=== PATIENT | female | born 1955 | race Caucasian/White ===

== ENCOUNTER 2019-11-04 13:10 | Emergency (ER) | payer MEDICAID, SELFPAY ==
[2019-11-04 14:45] VITALS: BP 198/91; PULSE 77; RESP 18; TEMP 36.6; O2SAT 92; BMI 49.1
--- NOTE | 2019-11-04 14:55 | XR_ITS ---
WS: [id number] XR chest 1V portable [id number] REASON FOR EXAM: cp FINDINGS: Comparisons were made to September 22, 2016. One view of the chest shows cardiomegaly larger than previous exam. Fullness in the right hilum is seen but this is unchanged since 2017. The lung guillen are well aerated. No pneumonia, pleural effusion, pulmonary edema, are pneumothorax. No evidence of rib fractures or osseous abnormalities. The hilum and apices show no gross deformity. XR/XR chest 1V portable [id number] IMPRESSION: Cardiomegaly
--- NOTE | 2019-11-04 14:56 | ECG_ITS ---
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 Measurements Intervals [place] Rate: 75 P: 47 MA: 194 QRS: 15 QRSD: 89 T: 62 QT: 392 QTc: 438 Interpretive Statements SINUS RHYTHM NONSPECIFIC T-WAVE ABNORMALITY Compared to ECG 08/06/2018 09:28:22 T-wave abnormality now present Electronically Signed On 11-05-2019 13:44:04 CDT by Laurel Bunch M.D. [id number]
[2019-11-04 16:24] LABS: Basophils % 0.3 %; Eosinophils # 0.1 10^3/uL (0.0-0.8); Eosinophils % 0.8 %; Hematocrit 37.4 % (37.0-47.0); Hemoglobin 11.3 g/dL (11.5-15.3); Lymphocytes # 2.5 10^3/uL (0.8-4.8); Mean Corpuscular HGB Conc 30.2 g/dL (30.0-36.0); Mean Corpuscular Hemoglobin 26.1 pg (28.0-34.0); Mean Corpuscular Volume 86.4 fL (81-99); Mean Platelet Volume 9.4 fL (7.4-10.4); Monocytes # 0.7 10^3/uL (0.2-0.9); Monocytes % 5.3 %; Neutrophils # 9.2 10^3/uL (1.8-7.7); Neutrophils % 73.4 %; Nucleated Red Blood Cells % 0 %; Platelet Count 358 10^3/cmm (130-400); Red Blood Count 4.33 10^6/uL (4.1-5.3); Red Cell Distribution Width 17.2 % (12.1-15.1); White Blood Count 12.5 10^3/uL (4.0-10.0)
--- NOTE | 2019-11-04 16:24 | CTR_ITS ---
PROCEDURE INFORMATION: Exam: CT Angiography Chest With Contrast Exam date and time: 11/04/2019 4:58 PM Age: 64 years old Clinical indication: Shortness of breath and other: Fluid retention; Patient HX: Scanned twice due to bad iv; Additional info: SOB TECHNIQUE: Imaging protocol: Computed tomographic angiography of the chest with intravenous contrast. 3D rendering: MIP and/or 3D reconstructed images were created by the technologist. Radiation optimization: All CT scans at this facility use at least one of these dose optimization techniques: automated exposure control; mA and/or kV adjustment per patient size (includes targeted exams where dose is matched to clinical indication); or iterative reconstruction. Contrast material: VISI 320; Contrast volume: 95 ml; Contrast route: INTRAVENOUS (IV); COMPARISON: No relevant prior studies available. RADIATION DOSE METRICS: Total DLP (mGy-cm): 1270.77 FINDINGS: Pulmonary arteries: There is no pulmonary embolus. Aorta: Unremarkable. No aortic aneurysm. No aortic dissection. Thyroid: the thyroid gland is enlarged and heterogeneous but no discrete nodule is identified. 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 The enlarged left thyroid lobe is displacing the trachea to the right. Lungs: There are calcified granulomas in the lungs. There is mild ground-glass opacity in the lungs compatible with mild pneumonitis or atelectasis. There is no dense lobar consolidation. Pleural space: Unremarkable. No pneumothorax. No pleural effusion. Heart: The heart is enlarged. Mediastinal space: There is mild narrowing of the lumen of the trachea. Lymph nodes: Unremarkable. No enlarged lymph nodes. Bones/joints: There are moderate degenerative changes in the spine. Soft tissues: Unremarkable. CT/CT angio chest PE protcl [id number] IMPRESSION: 1. Enlarged heterogeneous thyroid gland without a discrete nodule. The thyroid gland is resulting in mass effect on the trachea. 2. There is no pulmonary embolus. 3. There is minimal ground-glass opacity in the lungs compatible with mild pneumonitis or atelectasis. No lobar consolidation. Radiation Dose CTDIVOL = (mGy): DLP = 1270.77 (mGy-cm)
--- NOTE | 2019-11-04 16:31 | W.ED.GENADLT ---
HPI - General Adult General: Chief complaint: General Medical Stated complaint: sent by doctor Time Seen by Provider: 11/04/19 16:19 Source: patient Mode of arrival: EMS Limitations: no limitations History of Present Illness: HPI narrative: 64-year-old female who states she has had increasing exertional dyspnea over the last 1 to 2 weeks. Patient states she also had weight gain as well and feels like she is overloaded with fluid. She has no history of congestive heart failure or COPD. She denies any chest pain or fevers. She has had a very mild cough. Onset (ago): week(s) Associated symptoms: Reports dyspnea; Deny chest pain, headache(s), nausea, rash or vomiting Review of Systems Const: Denies: fever(s), chills, body aches or change in appetite Eyes: Denies: blurry vision or eye discomfort ENMT: Denies: throat pain or dental pain Card: Denies: chest pain Resp: Reports: dyspnea GI: Denies: abdominal pain, nausea, vomiting or diarrhea : Denies: dysuria Musc: Denies: neck pain or back pain Skin/Breast: Denies: rash Neuro: Denies: headache(s) Psych: Denies: depression Matteo/Lymph: Denies: easy bruising All/Imm: Denies: urticaria PFSH ED PFSH: Social History Smoking and tobacco status: current every day smoker Physical Exam Const: COMMON NORMALS: no acute distress, patient oriented x3 and healthy appearing HENMT: COMMON NORMALS: normocephalic and atraumatic HEAD & SCALP: normocephalic and atraumatic Eye: COMMON NORMALS: Equal, round and reactive pupils present and EOMs intact bilaterally PUPIL: Yes Equal, round and reactive pupils present Neck/C-Spine: COMMON NORMALS: full ROM and supple Chest: COMMONS NORMALS: normal inspection of the chest and normal palpation of entire chest wall Resp: COMMON NORMALS: normal respiratory effort, No retractions, No use of accessory muscles and clear to auscultation bilaterally AUSCULTATION: clear to auscultation bilaterally Cardio: COMMON NORMALS: regular rate, regular rhythm and No murmurs present (Cardio) RATE: regular rate RHYTHM: regular rhythm GI: COMMON NORMALS: Normal to inspection, nondistended, normoactive bowel sounds present, Soft to palpation, non-tender and no masses PALPATION: Yes Soft to palpation Extremity: COMMON NORMALS: normal to inspection and full ROM GENERAL: Yes edema Neuro: COMMON NORMALS: patient oriented x3, moves all extremities and no focal motor deficits Psych: COMMON NORMALS: mental status grossly normal, Normal thought process present and cooperative THOUGHT PROCESS: Normal thought process present Skin: COMMON NORMALS: no rashes or lesions noted and no wounds GENERAL SKIN EXAM: no rashes or lesions noted Course Vital Signs: Vital signs: Vital Signs Temperature 97.9 F 11/04/19 14:45 Pulse Rate 80 11/04/19 18:51 Respiratory Rate 14 11/04/19 18:51 Blood Pressure 183/64 11/04/19 18:51 Pulse Oximetry 92 11/04/19 18:51 MDM - General Adult MDM Narrative: Medical decision making narrative: Bridget presents here with shortness of breath that is been going on for weeks. Patient has mild CHF and given IV Lasix here and will start Lasix well. CT did show an enlarged thyroid. She has no signs of tracheal obstruction here and has had no desaturation here or difficulty breathing. I spoke to her PCP Dr. Cantu and will start her on Lasix and she is to follow-up with him in 2 to 4 days and return to ER if worsening. She understands and agrees to this plan. Lab Data: Labs: Lab Results 11/04/19 11/04/19 11/04/19 Range/Units 16:18 16:18 16:18 WBC 12.5 H (4.0-10.0) 10^3/ uL RBC 4.33 (4.1-5.3) 10^6/u L Hgb 11.3 L (11.5-15.3) g/dL Hct 37.4 (37.0-47.0) % MCV 86.4 (81-99) fL MCH 26.1 L (28.0-34.0) pg MCHC 30.2 (30.0-36.0) g/dL RDW 17.2 H (12.1-15.1) % Plt Count 358 (130-400) 10^3/c mm MPV 9.4 (7.4-10.4) fL Neut % (Auto) 73.4 % Lymph % (Auto) 20.0 % [place] % (Auto) 5.3 % Eos % (Auto) 0.8 % Baso % (Auto) 0.3 % Neut # (Auto) 9.2 H (1.8-7.7) 10^3/u L Lymph # (Auto) 2.5 (0.8-4.8) 10^3/u L [place] # (Auto) 0.7 (0.2-0.9) 10^3/u L Eos # (Auto) 0.1 (0.0-0.8) 10^3/u L Baso # (Auto) 0.0 (0.0-0.1) 10^3/u L Nucleated RBC % (a uto) 0 % Nucleated RBCs # 0.0 /100WBC PT 12.40 (10.5-13.3) SECO NDS INR 0.90 (0.8-1.2) Sodium 143 (136-145) mmol/L Potassium 3.4 L (3.5-5.1) mmol/L Chloride 101 (98-107) mmol/L Carbon Dioxide 31 H (22-29) mmol/L Anion Gap 14.4 (5-19) BUN 24 H (8-23) mg/dL Creatinine 1.2 H (0.5-0.9) mg/dL GFR Calculation 45.2 L (90-130) mL/min Glucose 110 (65-115) mg/dL Calculated Osmolal ity 293 (285-295) mOsm/k g Calcium 9.4 (8.5-10.5) mg/dL Total Bilirubin 0.2 (0.15-1.2) mg/dL AST 12 (0-32) U/L ALT 13 (0-33) U/L Alkaline Phosphata se 130 H (35-105) IU/L Troponin T Baselin e (0-10) ng/L Troponin T 120 Min [place] (0-10) ng/L NT-Pro-B Natriuret Pep 338 H (0-125) pg/mL Total Protein 7.3 (6.6-8.7) g/dL Albumin 3.6 (3.5-5.2) g/dL Globulin 3.7 (1.3-4.6) g/dL TSH (0.27-4.20) uIU/ mL 06/16/20 06/16/20 06/16/20 Range/Units 16:18 16:18 18:20 WBC (4.0-10.0) 10^3/ uL RBC (4.1-5.3) 10^6/u L Hgb (11.5-15.3) g/dL Hct (37.0-47.0) % MCV (81-99) fL MCH (28.0-34.0) pg MCHC (30.0-36.0) g/dL RDW (12.1-15.1) % Plt Count (130-400) 10^3/c mm MPV (7.4-10.4) fL Neut % (Auto) % Lymph % (Auto) % [place] % (Auto) % Eos % (Auto) % Baso % (Auto) % Neut # (Auto) (1.8-7.7) 10^3/u L Lymph # (Auto) (0.8-4.8) 10^3/u L [place] # (Auto) (0.2-0.9) 10^3/u L Eos # (Auto) (0.0-0.8) 10^3/u L Baso # (Auto) (0.0-0.1) 10^3/u L Nucleated RBC % (a uto) % Nucleated RBCs # /100WBC PT (10.5-13.3) SECO NDS INR (0.8-1.2) Sodium (136-145) mmol/L Potassium (3.5-5.1) mmol/L Chloride (98-107) mmol/L Carbon Dioxide (22-29) mmol/L Anion Gap (5-19) BUN (8-23) mg/dL Creatinine (0.5-0.9) mg/dL GFR Calculation (90-130) mL/min Glucose (65-115) mg/dL Calculated Osmolal ity (285-295) mOsm/k g Calcium (8.5-10.5) mg/dL Total Bilirubin (0.15-1.2) mg/dL AST (0-32) U/L ALT (0-33) U/L Alkaline Phosphata se (35-105) IU/L Troponin T Baselin e 16 H (0-10) ng/L Troponin T 120 Min [place] 16.56 H (0-10) ng/L NT-Pro-B Natriuret Pep (0-125) pg/mL Total Protein (6.6-8.7) g/dL Albumin (3.5-5.2) g/dL Globulin (1.3-4.6) g/dL TSH 2.27 (0.27-4.20) uIU/ mL Imaging Data^: CXR: Radiologist's impression: [address] [address] XRay Report Signed Patient: Bridget Faye Unit #: [id number] : 1955 Age/Sex: 64 / F ADM Date: 11/04/19 Loc: ER Room/Bed: Attending Dr: Ordering Provider/Ordering MD: Jamey Tony MD Date of Service: 11/04/19 Procedure(s): XR chest 1V portable [id number] Accession Number(s): [id number] Report Number: [id number] WS: [id number] XR chest 1V portable [id number] REASON FOR EXAM: cp FINDINGS: Comparisons were made to September 22, 2016. One view of the chest shows cardiomegaly larger than previous exam. Fullness in the right hilum is seen but this is unchanged since 2017. The lung guillen are well aerated. No pneumonia, pleural effusion, pulmonary edema, are pneumothorax. No evidence of rib fractures or osseous abnormalities. The hilum and apices show no gross deformity. XR/XR chest 1V portable [id number] IMPRESSION: Cardiomegaly EKG Data^: EKG 1: Attestation: I personally reviewed and interpreted this EKG as follows: EKG interpretation date: 11/04/19 EKG interpretation time: 14:53 Interpretation: nsr hr [address] or t wave abnormalities qrs 89 qtc 420 Computer generated interpretation: Chest X-Ray 11/04/19 14:55 IMPRESSION: Cardiomegaly Chest CTA 11/04/19 16:24 IMPRESSION: 1. Enlarged heterogeneous thyroid gland without a discrete nodule. The thyroid gland is resulting in mass effect on the trachea. 2. There is no pulmonary embolus. 3. There is minimal ground-glass opacity in the lungs compatible with mild pneumonitis or atelectasis. No lobar consolidation. Radiation Dose CTDIVOL = (mGy): DLP = 1270.77 (mGy-cm) EKG 2: Attestation: I personally reviewed and interpreted this EKG as follows: EKG interpretation date: 11/04/19 EKG interpretation time: 17:00 Interpretation: This rhythm heart rate [address] or T wave abnormalities QRS 91 QTC 400 Computer generated interpretation: Chest X-Ray 11/04/19 14:55 IMPRESSION: Cardiomegaly Chest CTA 11/04/19 16:24 IMPRESSION: 1. Enlarged heterogeneous thyroid gland without a discrete nodule. The thyroid gland is resulting in mass effect on the trachea. 2. There is no pulmonary embolus. 3. There is minimal ground-glass opacity in the lungs compatible with mild pneumonitis or atelectasis. No lobar consolidation. Radiation Dose CTDIVOL = (mGy): DLP = 1270.77 (mGy-cm) Discharge Plan Discharge Patient Disposition: Home, Self-Care Clinical Impression: Acute dyspnea, Enlarged thyroid Condition: Stable Prescriptions: New Lasix 40 mg tablet 40 mg PO DAILY Qty: 30 RF: 0 No Action losartan 50 mg Tablet 50 mg PO DAILY RF: 0 atorvastatin 40 mg Tablet 40 mg PO DAILY RF: 0 metformin 500 mg Tablet 500 mg PO BID RF: 0 trazodone 50 mg Tablet 50 mg PO BEDTIME RF: 0 aspirin 325 mg Tablet 325 mg PO DAILY RF: 0 sertraline 100 mg Tablet 100 mg PO DAILY RF: 0 hydrochlorothiazide 25 mg Tablet 25 mg PO DAILY RF: 0 Abilify 2 mg Tablet 2 mg PO DAILY RF: 0 Discharge Orders: Discharge Order (Routine); Ordered 11/04/19 Ordered By: Jamey Tony Referrals: Jhony Cantu MD [Primary Care Provider] - 1-3 days Discharge Diet: Advance as tolerated Discharge Activity: Resume usual activity Patient Instructions: Dyspnea (ED) Coding Level of Care Code ED Automated Logistics Specialist for Chg Fwd Exam Comprehensive
[2019-11-04 16:42] LABS: Troponin(5th) Baseline 16 ng/L (0-10)
[2019-11-04 16:49] LABS: Alanine Aminotransferase 13 U/L (0-33); Albumin Level 3.6 g/dL (3.5-5.2); Alkaline Phosphatase 130 IU/L (35-105); Anion Gap 14.4 (5-19); Aspartate Amino Transferase 12 U/L (0-32); Blood Urea Nitrogen 24 mg/dL (8-23); Calcium 9.4 mg/dL (8.5-10.5); Carbon Dioxide 31 mmol/L (22-29); Chloride 101 mmol/L (98-107); Globulin 3.7 g/dL (1.3-4.6); Glomerular Filtration Rate 45.2 mL/min (90-130); Glucose 110 mg/dL (65-115); NT Pro B Type Natriuretic Pept 338 pg/mL (0-125); Osmolality Calculated 293 mOsm/kg (285-295); Potassium 3.4 mmol/L (3.5-5.1); Sodium 143 mmol/L (136-145); Total Bilirubin 0.2 mg/dL (0.15-1.2); Total Protein 7.3 g/dL (6.6-8.7)
--- NOTE | 2019-11-04 16:56 | ECG_ITS ---
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 Measurements Intervals [place] Rate: 75 P: 65 AL: 195 QRS: 25 QRSD: 91 T: 63 QT: 372 QTc: 415 Interpretive Statements SINUS RHYTHM NONSPECIFIC T-WAVE ABNORMALITY Compared to ECG 11/04/2019 14:53:34 No significant changes Electronically Signed On 11-05-2019 14:15:03 CDT by Laurel Bunch M.D. [id number]
[2019-11-04] MEDS: iodixanol 320 mg/mL 100mL Btl IV (17:26)
[2019-11-04] MEDS: hyDRALAzine 20 mg/mL INJ 1 mL 10 MG IVP (17:46)
[2019-11-04] MEDS: FUROsemide 10 mg/mL SDV 10mL 60 MG IVP (17:47)
[2019-11-04 17:58] VITALS: BP 169/65; PULSE 73; RESP 20; O2SAT 92
--- NOTE | 2019-11-04 18:02 | USCV_ITS ---
NOTE: Report was unsigned for reason: Order was edited. Original Signature date and time was: 11/06/19 @ 805 Bridget Faye Age: 64 Gender: F : 1955 Exam Date: 11/04/2019 18:48 Ordering Phys: Jamey Tony MD Technologist: Kvng David Exam Location: [facility] [place] Indication: BILAT EDEMA Aortic Velocity @ SMA (cm/s) FINDINGS Normal 2-D Doppler and augmentation and compressibility throughout the lower extremity venous structures. Additional imaging through the proximal calf veins also reveals no thrombus. Limited evaluation of the greater saphenous vein is patent with no thrombus.. CONCLUSIONS No evidence of DVT in the above-mentioned identifiable veins. Dr Arlene James MD [facility] Edited by: CV Hoop Expander (Electronically Signed) Final Date: 06 November 2019 08:05 Amended: 07 November 2019 07:34 C MTDD
[2019-11-04 18:26] LABS: Thyroid Stimulating Hormone 2.27 uIU/mL (0.27-4.20)
[2019-11-04 18:51] VITALS: BP 183/64; PULSE 80; RESP 14; O2SAT 92
[2019-11-04 18:57] LABS: Troponin 5 2HR 16.56 ng/L (0-10); Troponin 5 2HR Delta 0.56 ABS# (0-10)
== END 2019-11-04 19:08 | disposition home or self-care (01) ==
PROVIDERS: Emergency Provider Emergency Medicine; PCP Family Medicine
DX: R06.00 Dyspnea, unspecified (principal); E04.9 Nontoxic goiter, unspecified; Z79.82 Long term (current) use of aspirin; F17.210 Nicotine dependence, cigarettes, uncomplicated
CPT/HCPCS: 12345; 36415; 71045; 71275; 80053; 83880; 84443; 84484; 85025; 85610; 93005; 93970; 96374; 96375; 99282; 99284; J0360; J1940; Q9967

== ENCOUNTER 2019-11-12 15:29 | Outpatient (CLI) | payer MEDICAID, SELFPAY ==
--- NOTE | 2019-11-12 15:54 | USCV_ITS ---
Bridget Faye Age: 64 Gender: F : 1955 Exam Date: 11/12/2019 16:05 Ordering Phys: Jhony Cantu MD Technologist: Sena Gutiérrez [place] [facility] [place] Indication: AORTIC INSUFFICIENCY BP: / HR: 76 Rhythm: Sinus Technical Quality: mildly TDS due to body habitus MEASUREMENTS (Male / Female) Normal Values 2D ECHO LV Diastolic Diameter PLAX 3.5 cm 4.2 - 5.9 / 3.9 - 5.3 cm LV Systolic Diameter PLAX 1.9 cm IVS Diastolic Thickness 2.0 cm 0.6 - 1.0 / 0.6 - 0.9 cm IVS Systolic Thickness 2.4 cm LVPW Diastolic Thickness 1.3 cm 0.6 - 1.0 / 0.6 - 0.9 cm LVPW Systolic Thickness 1.8 cm LV Ejection Fraction 2D Teich 77.6 % LV Ejection Fraction MOD 2C 81.0 % LV Ejection Fraction 2C AL 83.6 % LA Diameter 4.3 cm LA Width 3.2 cm LA Height 5.1 cm RA Width 2.4 cm RA Height 4.7 cm M-MODE LV Diastolic Diameter MM 4.9 cm 4.2 - 5.9 / 3.9 - 5.3 cm LV Systolic Diameter MM 3.2 cm LV Ejection Fraction MM Teich 64.0 % IVS Diastolic Thickness MM 1.1 cm 0.6 - 1.0 / 0.6 - 0.9 cm IVS Systolic Thickness MM 1.2 cm LVPW Diastolic Thickness MM 1.5 cm 0.6 - 1.0 / 0.6 - 0.9 cm LVPW Systolic Thickness MM 1.9 cm Aortic Annulus Diameter 3.0 cm LA Ao Ratio MM 1.4 MV E Point Septal Separation 0.8 cm DOPPLER AV Peak Velocity 289.0 cm/s LVOT Peak Velocity 151.0 cm/s MV Peak Velocity 154.0 cm/s MV Area PHT 1.9 cm squared Mitral E to A Ratio 0.4 MV E' Velocity 4.0 cm/s Mitral E to MV E' Ratio 16.2 Mitral E to LV E' Lateral Ratio 15.0 Mitral E to LV E' Septal Ratio 17.5 TR Peak Velocity 171.0 cm/s TR Peak Gradient 11.7 mmHg Right Atrial Pressure 3.0 mmHg Pulmonary Artery Systolic Pressu 14.7 mmHg PV Peak Velocity 153.0 cm/s RV Acceleration Time 0.1 s FINDINGS Left Ventricle Normal left ventricular cavity size. Normal left ventricular systolic function. No regional wall motion abnormalities. Left ventricular ejection fraction is estimated at 60 %. Grade I/IV diastolic dysfunction (abnormal relaxation filling pattern), normal to mildly elevated filling pressures. Right Ventricle The right ventricle is normal in size and function. Right Atrium The right atrium is normal in size. Left Atrium Moderately increased left atrial size. Mitral Valve Structurally normal mitral valve without significant stenosis or prolapse. Moderate mitral annular calcification. There is no mitral regurgitation. Aortic Valve Severe aortic valve calcification. Moderate aortic valve stenosis, mean gradient 17.6 mmHg, mild aortic valve regurgitation. . Tricuspid Valve Structurally normal tricuspid valve without significant stenosis or regurgitation. Pulmonary artery systolic pressure is normal. Pulmonic Valve Structurally normal pulmonic valve without significant stenosis. There is no pulmonic regurgitation. Pericardium Normal pericardium without effusion. Aorta Normal ascending aorta dimension. CONCLUSIONS 1-Normal left ventricular cavity size. Normal left ventricular systolic function. No regional wall motion abnormalities. Left ventricular ejection fraction is estimated at 60 %. Grade I/IV diastolic dysfunction (abnormal relaxation filling pattern), normal to mildly elevated filling pressures. 2-Severe aortic valve calcification. Moderate aortic valve stenosis, mean gradient 17.6 mmHg, mild aortic valve regurgitation. . 3-Moderately increased left atrial size. 4-Structurally normal mitral valve without significant stenosis or prolapse. Moderate mitral annular calcification. There is no mitral regurgitation. 5-There is no pericardial effusion. 6-Right atrial pressure is around 5 mm of mercury. 7-When compared to the prior echocardiogram dated 09/24/2015 there appeared to be worsening of aortic stenosis to mild stenosis while there appeared to be mild to moderate aortic valve regurgitation now. Tomer Fagan MD (Electronically Signed) Final Date: 12 November 2019 17:52 S
== END 2019-11-12 15:30 | disposition home or self-care (01) ==
LOC: RAD 15:29
PROVIDERS: PCP Family Medicine; Visit Provider Family Medicine
DX: I35.1 Nonrheumatic aortic (valve) insufficiency (principal)
CPT/HCPCS: 93306

== ENCOUNTER → 2020-01-28 13:54 | Outpatient (BNVA) | payer MEDICAID, SELFPAY | PROVIDERS: Family Provider Family Medicine; PCP Family Medicine; Visit Provider Internal Medicine Cardiovascular Disease | DX: I10 Essential (primary) hypertension (principal); R06.00 Dyspnea, unspecified; I35.0 Nonrheumatic aortic (valve) stenosis | CPT/HCPCS: 80053; 83735; 83880 ==

== ENCOUNTER 2020-03-24 07:25 | Outpatient (CLI) | payer MEDICAID, SELFPAY ==
--- NOTE | 2020-03-24 07:44 | ECG_ITS ---
[facility] Test Date: 2020-03-24 Pat Name: Bridget Faye Department: Room: Gender: Female Intermission Coordinator: Estefani Bustamante : 1955 Requested By: Laurel Bunch Order Number: [id number] Phong MD: Laurel Bunch M.D. Interpretive Statements NAME OF STUDY: LEXISCAN SESTAMIBI STRESS TEST INDICATION: Chest pain, exertional dyspnea PROCEDURE: At the baseline, the blood pressure was 138/79 mmHg with a heart rate of 72 bpm. The electrocardiogram showed normal sinus rhythm, normal axis. Poor anterior R wave progression. Poor baseline artifact. The Lexiscan was infused over a period of 20 seconds. A total of 0.4 milligrams of Lexiscan was infused. The stress phase was continued for a total of 5 minutes. Heart rate at the end of the stress phase was 76 bpm with a blood pressure 147/75 mmHg. The EKG at the peak infusion revealed sinus rhythm with no significant ST-T wave changes. The study was terminated due to protocol completion. Sestamibi was injected 20 seconds after the Lexiscan infusion. Blood pressure at the end of the recovery phase was 153/76 mmHg with a heart rate of 77 beats per minute. CONCLUSION: 1. No significant EKG changes with the LexiScan infusion. 2. No LexiScan induced chest pain or cardiac arrhythmia. 3. Normal blood pressure and heart rate response. 4. Sestamibi/sestamibi perfusion scan pending; see separate report. Electronically Signed On 03-25-2020 13:44:12 TINNER HELPER by Laurel Bunch M.D. [id number]
--- NOTE | 2020-03-24 07:44 | NMCV_ITS ---
NM umesh perf SPECT r/s* [id number] Bridget Faye Age: 64 Gender: F : 1955 Exam Date: 03/24/2020 08:22 Ordering Phys: Laurel Bunch MD ([email or web address]) Technologist: ABDON Temple Exam Location: [facility] Indications: CHEST PAIN, SOB STRESS TEST [facility] IMAGE PROTOCOL Rest/Stress 1 Lexiscan Day Radiopharmaceutical Dose (mCi) Administration Site Administered by Rest: Tc-99m 10.9 IV ABDON Jeronimo Sestamibi Stress:Tc-99m 33.0 IV ABDON Temple Sestamiveronique Rest: 24-Mar-2020 60 Discovery 630 Stress: 24-Mar-2020 30 Discovery 630 0.4mg Lexiscan. Images obtained in supine and prone position. SPECT RESULTS Technical Quality: Good Raw Data Analysis: Breast attenuation Image Corrections: No attenuation or motion correction applied Summed Stress Score: 0 Summed Rest Score: 1 Summed Difference Score: 0 PERFUSION FINDINGS SPECT images demonstrate homogeneous tracer distribution throughout the myocardium. FUNCTIONAL RESULTS (calculated via Gated SPECT) Stress Image LV EF (%): 69 Stress EDV (mL):116 TID: 0.95 Stress ESV (mL):36 FUNCTIONAL FINDINGS: The left ventricle is normal in size. Transient Ischemia Dilatation of 0.95. There is normal left ventricular systolic function. The left ventricular ejection fraction is normal with a value of 69%. There is normal left ventricular wall thickening. Normal end-diastolic and end-systolic volumes. IMPRESSIONS 1. Myocardial perfusion imaging is normal. 2. Overall left ventricular systolic function is normal without regional wall motion abnormalities. 3. The left ventricular ejection fraction is normal with a value of 69%. 4. Scan indicates low risk for cardiac events. Laurel Bunch MD (Electronically Signed) Final Date: 25 March 2020 17:41 S
[2020-03-24 07:45] VITALS: BMI 47.2
[2020-03-24 09:15] VITALS: BP 155/78; PULSE 80
[2020-03-24] MEDS: regadenoson 0.4 Mg/5 ml Syringe IVP (09:15)
== END 2020-03-24 07:26 | disposition home or self-care (01) ==
LOC: CDL 07:27
PROVIDERS: PCP Family Medicine; Visit Provider Internal Medicine Cardiovascular Disease
DX: R07.9 Chest pain, unspecified (principal); R06.00 Dyspnea, unspecified
CPT/HCPCS: 78452; 93017; A9500; J2785

== ENCOUNTER 2020-06-22 14:43 | Inpatient (IN) | payer MEDICAID, SELFPAY ==
[2020-06-22] VITALS (26 sets, daily range): BP systolic 126–204; BP diastolic 73–102; PULSE 74–100; RESP 18–39; TEMP 36.3–37; O2SAT 90–98; BMI 46.8
--- NOTE | 2020-06-22 14:57 | XR_ITS ---
WS: [id number] PORTABLE CHEST HISTORY: dyspnea/cough COMPARISON: 11/04/2019 Slight increase in pulmonary vasculature. Linear area of atelectasis posterior to the LEFT heart. No pleural effusion or pneumothorax. Cardiac size: Moderately enlarged cardiac silhouette. Mediastinum/Aorta: Normal mediastinum. No osseous abnormality seen. XR/XR chest 1V portable [id number] IMPRESSION: Moderate cardiomegaly with mild venous congestion.
--- NOTE | 2020-06-22 14:58 | W.ED.SOB ---
HPI - SOB/Dyspnea General: Chief Complaint: Shortness of Breath/Dyspnea Stated Complaint: RESP DISTRESS Time Seen by Provider: 06/22/20 14:56 History of Present Illness: HPI Narrative: 64-year-old female sent to the emergency room for a primary care doctor doctor's office. She has a known history of aortic stenosis being monitored by Dr. Cantu. 6 months ago she had moderate stenosis. She has a history of severe obesity diabetes mellitus hypertension she presented to the office today with sats room air in the 60s that improved to the 90s with 2 L by nasal cannula. She had increased swelling and increased orthopnea over the last 2 to 3 days.. Some mild chest discomfort she is extremely hypertensive as well. She not having any chest pain at this time. When she arrived here she been given 40 Lasix and was on BiPAP. When we took EMS BiPAP off replace it with our she was able to answer questions and provide a good history. MD elicited complaint: shortness of breath and cough Pertinent past history: congestive heart failure and other (Aortic stenosis) Onset (ago): day(s) Context: other (History of aortic stenosis) Timing: constant Severity: moderate Exacerbating factors: lying flat, exertion and coughing Relieving factors: oxygen, rest, upright position and other (BiPAP) Known history of: congestive heart failure Associated symptoms: Reports cough, nausea and orthopnea; Deny abdominal pain, chest congestion, chest pain, diaphoresis, dizziness, extremity pain, fever(s), hemoptysis, lightheadedness, myalgias, palpitations, paresthesias, polydipsia, polyuria, rash, sense of impending doom, syncope or vomiting Treatment prior to arrival: oxygen, nitroglycerin and other (BiPAP) Review of Systems Const: Denies: fever(s) or diaphoresis Eyes: Denies: change in vision or blurry vision ENMT: Denies: throat pain, oral sores, dental pain, nasal discharge or nasal congestion Card: Reports: orthopnea; Denies: chest pain, palpitations, lightheadedness or syncope Resp: Denies: hemoptysis or chest congestion GI: Reports: nausea; Denies: abdominal pain or vomiting : Denies: flank pain, dysuria, urinary frequency, urinary urgency, urinary incontinence or hematuria Musc: Denies: extremity pain Skin/Breast: Denies: rash, pruritus or erythema Neuro: Denies: dizziness Psych: Denies: anxiety, depression, loss of interest, visual hallucinations, auditory hallucinations, suicidal ideation or homicidal ideation Endo: Denies: polyuria or polydipsia Matteo/Lymph: Denies: easy bruising, easy bleeding, petechiae, enlarged lymph nodes or tender lymph nodes [facility] ED PFSH: Medical History (Updated 06/22/20 @ 18:06 by Duc Jacobs MD) Aortic regurgitation Aortic stenosis Aortic stenosis Chronic kidney disease, stage 3 Diabetes Diabetes mellitus type 2 in obese Hyperlipidemia Hypertension Morbid obesity with BMI of 45.0-49.9, adult Obesity Tobacco abuse Surgical History (Updated 06/22/20 @ 17:44 by Duc Jacobs MD) H/O arthroscopic knee surgery H/O tubal ligation Family History Other Diabetes Hypertension Stroke Social History Smoking and tobacco status: current every day smoker Alcohol intake: current Alcohol intake frequency: other Physical Exam Const: COMMON NORMALS: no acute distress GENERAL APPEARANCE: cooperative and comfortable ORIENTATION/CONSCIOUSNESS: Yes awake, Yes oriented to person, Yes oriented to place and Yes oriented to time HENMT: COMMON NORMALS: normocephalic, atraumatic and hearing grossly normal bilaterally HEAD & SCALP: normocephalic and atraumatic Neck/C-Spine: COMMON NORMALS: no JVD Lymph: LYMPHATIC: no lymphadenopathy noted and no lymphedema noted Resp: EFFORT & INSPECTION: Yes tachypneic AUSCULTATION: crackles and diminished lung sounds Cardio: COMMON NORMALS: no JVD, regular rate and regular rhythm RATE: regular rate RHYTHM: regular rhythm HEART SOUNDS: Murmur heart sound present systolic Location: right sternal border Radiation: to the neck Intensity: II/ GI: COMMON NORMALS: Soft to palpation and No hepatosplenomegaly present AUSCULTATION: Yes normoactive bowel sounds PALPATION: Yes Soft to palpation, No Tenderness to palpation present (GI), No Guarding due to palpation present (GI) and Yes No hepatosplenomegaly present Extremity: GENERAL: Yes edema (Bilateral lower extremities) Neuro: SENSORIUM/ORIENTATION: Yes oriented to person, Yes oriented to place and Yes oriented to time Skin: COMMON NORMALS: no rashes or lesions noted GENERAL SKIN EXAM: no rashes or lesions noted Course Vital Signs: Vital signs: Vital Signs Temperature 98.7 F 06/24/20 04:00 Pulse Rate 75 06/24/20 05:45 Respiratory Rate 22 H 06/24/20 04:00 Blood Pressure 155/71 06/24/20 04:00 Pulse Oximetry 92 06/24/20 04:00 MDM - SOB/Dyspnea MDM Narrative: Medical decision making narrative: Improved with improved blood pressure control and some diuresis. She'll need to be admitted reevaluate her cardiac function and valve. Adjustment for blood pressure medications. Discussed with hospitalist orders written Lab Data: Labs: Lab Results 06/22/20 06/22/20 06/22/20 Range/Units 15:05 15:10 15:10 WBC 12.8 H (4.0-10.0) 10^3/ uL RBC 4.48 (4.1-5.3) 10^6/u L Hgb 10.9 L (11.5-15.3) g/dL Hct 38.5 (37.0-47.0) % MCV 85.9 (81-99) fL MCH 24.3 L (28.0-34.0) pg MCHC 28.3 L (30.0-36.0) g/dL RDW 19.5 H (12.1-15.1) % Plt Count 373 (130-400) 10^3/c mm MPV 9.7 (7.4-10.4) fL Neut % (Auto) 79.2 % Lymph % (Auto) 14.8 % Turner % (Auto) 4.7 % Eos % (Auto) 0.7 % Baso % (Auto) 0.3 % Neut # (Auto) 10.14 H (1.8-7.7) 10^3/u L Lymph # (Auto) 1.9 (0.8-4.8) 10^3/u L Turner # (Auto) 0.6 (0.2-0.9) 10^3/u L Eos # (Auto) 0.1 (0.0-0.8) 10^3/u L Baso # (Auto) 0.0 (0.0-0.1) 10^3/u L Nucleated RBC % (a uto) 0 % Nucleated RBCs # 0.0 /100WBC Specimen Type Arterial Sample Site Radial, left ABG pH 7.33 L (7.35-7.45) ABG pCO2 53.0 H (35-45) mmHg ABG pO2 65.5 L (80.0-100.0) mmH g ABG HCO3 27.6 H (22-26) mmol/L ABG O2 Saturation 93.6 ABG Base Excess 0.9 (-2.0-2.0) mmol/ L Rm Test Pos A-a O2 Gradient 5.5 (5-10) mmHg Hematocrit 34.7 L (37-47) % Hgb O2 Saturation 87.9 L (95-100) % Carboxyhemoglobin 5.2 (0.4-20.1) %THgb Methemoglobin 0.9 (0.4-1.5) % Total Hemoglobin 11.3 L (12-16) g/dL Sodium 142.0 139 (131-143) mmol/L Potassium 4.1 4.4 (3.5-5.0) mmol/L Glucose 181.0 H 165 H (70-115) mg/dL Ionized Calcium 1.2 (1.1-1.4) mmol/L O2 Delivery Device Bipap FiO2 24.0 % Commercial Insurance Underwriter ID Ed Chloride 103 (98-107) mmol/L Carbon Dioxide 28 (22-29) mmol/L Anion Gap 12.4 (5-19) BUN 28 H (8-23) mg/dL Creatinine 1.4 H (0.5-0.9) mg/dL GFR Calculation 37.9 L (90-130) mL/min Calculated Osmolal ity 297 H (285-295) mOsm/k g Calcium 9.1 (8.5-10.5) mg/dL Magnesium 1.9 (1.7-2.3) mg/dL Total Bilirubin 0.2 (0.15-1.2) mg/dL AST 12 (0-32) U/L ALT 16 (0-33) U/L Alkaline Phosphata se 162 H (35-105) IU/L Creatine Kinase 54 (26-192) U/L NT-Pro-B Natriuret Pep 529 H (0-125) pg/mL Total Protein 8.0 (6.6-8.7) g/dL Albumin 3.5 (3.5-5.2) g/dL Globulin 4.5 (1.3-4.6) g/dL Urine Color (Yellow) Urine Appearance (CLEAR) Urine pH (5-7) Ur Specific Gravit y (1.005-1.030) Urine Protein (Negative) Urine Glucose (UA) (Normal) Urine Ketones (Negative) Urine Blood (Negative) Urine Nitrate (Negative) Urine Bilirubin (Negative) Urine Urobilinogen (Negative) mg/dL Ur Leukocyte Princess ase (Negative) 06/22/20 Range/Units 15:10 WBC (4.0-10.0) 10^3/ uL RBC (4.1-5.3) 10^6/u L Hgb (11.5-15.3) g/dL Hct (37.0-47.0) % MCV (81-99) fL MCH (28.0-34.0) pg MCHC (30.0-36.0) g/dL RDW (12.1-15.1) % Plt Count (130-400) 10^3/c mm MPV (7.4-10.4) fL Neut % (Auto) % Lymph % (Auto) % Turner % (Auto) % Eos % (Auto) % Baso % (Auto) % Neut # (Auto) (1.8-7.7) 10^3/u L Lymph # (Auto) (0.8-4.8) 10^3/u L Turner # (Auto) (0.2-0.9) 10^3/u L Eos # (Auto) (0.0-0.8) 10^3/u L Baso # (Auto) (0.0-0.1) 10^3/u L Nucleated RBC % (a uto) % Nucleated RBCs # /100WBC Specimen Type Sample Site ABG pH (7.35-7.45) ABG pCO2 (35-45) mmHg ABG pO2 (80.0-100.0) mmH g ABG HCO3 (22-26) mmol/L ABG O2 Saturation ABG Base Excess (-2.0-2.0) mmol/ L Rm Test A-a O2 Gradient (5-10) mmHg Hematocrit (37-47) % Hgb O2 Saturation (95-100) % Carboxyhemoglobin (0.4-20.1) %THgb Methemoglobin (0.4-1.5) % Total Hemoglobin (12-16) g/dL Sodium (131-143) mmol/L Potassium (3.5-5.0) mmol/L Glucose (70-115) mg/dL Ionized Calcium (1.1-1.4) mmol/L O2 Delivery Device FiO2 % Commercial Insurance Underwriter ID Chloride (98-107) mmol/L Carbon Dioxide (22-29) mmol/L Anion Gap (5-19) BUN (8-23) mg/dL Creatinine (0.5-0.9) mg/dL GFR Calculation (90-130) mL/min Calculated Osmolal ity (285-295) mOsm/k g Calcium (8.5-10.5) mg/dL Magnesium (1.7-2.3) mg/dL Total Bilirubin (0.15-1.2) mg/dL AST (0-32) U/L ALT (0-33) U/L Alkaline Phosphata se (35-105) IU/L Creatine Kinase (26-192) U/L NT-Pro-B Natriuret Pep (0-125) pg/mL Total Protein (6.6-8.7) g/dL Albumin (3.5-5.2) g/dL Globulin (1.3-4.6) g/dL Urine Color Yellow (Yellow) Urine Appearance Clear (CLEAR) Urine pH 5 (5-7) Ur Specific Gravit y 1.010 (1.005-1.030) Urine Protein Neg (Negative) Urine Glucose (UA) Norm (Normal) Urine Ketones Negative (Negative) Urine Blood Neg (Negative) Urine Nitrate Negative (Negative) Urine Bilirubin Neg (Negative) Urine Urobilinogen Norm (Negative) mg/dL Ur Leukocyte Princess ase Negative (Negative) Discharge Plan Discharge Patient Disposition: Admitted As Inpatient Admit Provider: Duc Jacobs Clinical Impression: Congestive heart failure, Aortic stenosis, Diabetes, Obesity Condition: Stable Coding Level of Care Code ED Outcome Analyst for Chg Fwd Exam Comprehensive
[2020-06-22 15:15] LABS: ABG PH Result 7.33 (7.35-7.45); Arterial Blood Gas Hematocrit 34.7 % (37-47); Base Excess ABG 0.9 mmol/L (-2.0-2.0); Blood Gas Allen Test Pos; Blood Gas Sample Type Arterial; Carboxyhemoglobin 5.2 %THgb (0.4-20.1); HCO3 ABG 27.6 mmol/L (22-26); HGB O2 Sat 87.9 % (95-100); Ionized Calcium Level - ABG 1.2 mmol/L (1.1-1.4); Methemoglobin 0.9 % (0.4-1.5); Oxygen Saturation ABG 93.6; PO2 ABG 65.5 mmHg (80.0-100.0); Potassium Level - ABG 4.1 mmol/L (3.5-5.0); Total Hemoglobin 11.3 g/dL (12-16)
[2020-06-22 15:16] LABS: Alveolar-Arterial Oxygen Gradi 5.5 mmHg (5-10); Blood Gas Operator Identificat ED; Blood Gas Sample Site Radial, left; Oxygen Device BIPAP
[2020-06-22 15:31] LABS: Add Urine Microscopic? NO
[2020-06-22 15:33] LABS: Basophils % 0.3 %; Eosinophils # 0.1 10^3/uL (0.0-0.8); Eosinophils % 0.7 %; Hematocrit 38.5 % (37.0-47.0); Hemoglobin 10.9 g/dL (11.5-15.3); Lymphocytes # 1.9 10^3/uL (0.8-4.8); Lymphocytes % 14.8 %; Mean Corpuscular HGB Conc 28.3 g/dL (30.0-36.0); Mean Corpuscular Hemoglobin 24.3 pg (28.0-34.0); Mean Corpuscular Volume 85.9 fL (81-99); Mean Platelet Volume 9.7 fL (7.4-10.4); Monocytes # 0.6 10^3/uL (0.2-0.9); Monocytes % 4.7 %; Neutrophils # 10.14 10^3/uL (1.8-7.7); Neutrophils % 79.2 %; Nucleated Red Blood Cells % 0 %; Platelet Count 373 10^3/cmm (130-400); Red Blood Count 4.48 10^6/uL (4.1-5.3); Red Cell Distribution Width 19.5 % (12.1-15.1); White Blood Count 12.8 10^3/uL (4.0-10.0)
[2020-06-22] MEDS: hyDRALAzine 20 mg/mL INJ 1 mL 10 MG IVP (15:40)
[2020-06-22 15:43] LABS: Bilirubin Urine Neg (Negative); Blood Urine Neg (Negative); Glucose Urine UA Norm (Normal); Ketones Urine Negative (Negative); Leukocyte Esterase Urine Negative (Negative); Nitrate Urine Negative (Negative); Protein Urine Neg (Negative); Urine Appearance Clear (CLEAR); Urine Color Yellow (Yellow); Urobilinogen Urine Norm (Negative); pH Urine 5 (5-7)
[2020-06-22] MEDS: nitroglycerin drip 50 MG/250 ML PREMIX IV (15:44)
--- NOTE | 2020-06-22 15:45 | PC.NURSE ---
NITRO PASTE REMOVED AT THIS TIME
[2020-06-22 16:04] LABS: Alanine Aminotransferase 16 U/L (0-33); Albumin Level 3.5 g/dL (3.5-5.2); Alkaline Phosphatase 162 IU/L (35-105); Anion Gap 12.4 (5-19); Aspartate Amino Transferase 12 U/L (0-32); Blood Urea Nitrogen 28 mg/dL (8-23); Calcium 9.1 mg/dL (8.5-10.5); Carbon Dioxide 28 mmol/L (22-29); Chloride 103 mmol/L (98-107); Creatine Phosphokinase 54 U/L (26-192); Globulin 4.5 g/dL (1.3-4.6); Glomerular Filtration Rate 37.9 mL/min (90-130); Glucose 165 mg/dL (65-115); Magnesium 1.9 mg/dL (1.7-2.3); NT Pro B Type Natriuretic Pept 529 pg/mL (0-125); Osmolality Calculated 297 mOsm/kg (285-295); Potassium 4.4 mmol/L (3.5-5.1); Sodium 139 mmol/L (136-145); Total Bilirubin 0.2 mg/dL (0.15-1.2)
[2020-06-22] MEDS: LORazepam 2 mg/mL INJ 1 mL 1 MG IVP (16:11)
--- NOTE | 2020-06-22 17:27 | P.HP_ITS ---
Providers/Chief Complaint Primary Care Provider: Jhony Cantu MD Chief Complaint: RESP DISTRESS History of Present Illness Bridget Faye is a 64 year old female presents to emerge department with 2 weeks of gradually worsening shortness of breath. Patient reports orthopnea, paroxysmal nocturnal dyspnea and lower extremity swelling. She reports dry cough. She denies chest pain or abdominal pain. Her past medical history significant for aortic valve stenosis, specifics unknown. Patient reports that she had echocardiogram performed by Dr. Bunch and currently being just monitored. She denies any previous history of cardiac intervention. She is diabetic for approximately 10 years, [id number]. She continues to smoke. She was diagnosed with obstructive sleep apnea but cannot tolerate CPAP. In emergency department patient was noted to be in acute CHF and COPD exacerbation. Her blood pressure was significantly elevated and she was started on nitroglycerin drip and given hydralazine with improvement. During my evaluation she is lethargic but able to answer questions and follow commands appropriately. She is morbidly obese on BiPAP. She was hypoxic on presentation. Patient was supposed to take Lasix twice daily but admits at least twice a week skipping it whenever she does not want to urinate often. Patient reports that she lately has been drinking more fluids because of thirst. Reports that her bl ood sugar at home has not been significantly elevated. Review of Systems Const: Denies: fever(s) or chills Eyes: Denies: change in vision ENMT: Denies: throat pain or change in hearing Card: Reports: edema; Denies: chest pain or lightheadedness Resp: Reports: dyspnea; Denies: productive cough GI: Reports: constipation; Denies: abdominal pain, nausea, vomiting, dysphagia, diarrhea, hematochezia or melena : Denies: difficulty voiding Musc: Denies: joint pain or joint swelling Skin/Breast: Denies: rash or erythema Neuro: Denies: headache(s) or weakness in extremities Psych: Denies: depression or suicidal ideation Endo: Denies: excessive sweating Matteo/Lymph: Denies: easy bleeding or tender lymph nodes All/Imm: Denies: throat swelling Medications/Allergies Home Medications Medication Instructions Recorded Confirmed Last Taken Type aripiprazole [Abilify] 2 mg PO DAILY@0900 11/04/19 06/22/20 06/21/20 History aspirin 325 mg PO DAILY@0900 11/04/19 06/22/20 11/03/19 History atorvastatin 40 mg PO DAILY@0900 11/04/19 06/22/20 06/21/20 History losartan 50 mg PO DAILY@0911/04/19 06/22/20 06/21/20 History metformin 500 mg PO BID@0900,2100 11/04/19 06/22/20 06/21/20 History sertraline 100 mg PO DAILY@0911/04/19 06/22/20 06/21/20 History isosorbide mononitrate 30 mg 30 mg PO DAILY@0900 12/24/19 06/22/20 06/21/20 History tablet,extended release 24 hr furosemide [Lasix] 40 mg PO DAILY@89906/22/20 06/22/20 06/21/20 History Allergies Allergy/AdvReac Type Severity Reaction Status Date / Time Penicillins Allergy ALGY-Hives Verified 01/28/20 13:12 PFSH Acute PFSH: Medical History (Updated 06/22/20 @ 18:06 by Duc Jacobs MD) Aortic regurgitation Aortic stenosis Aortic stenosis Chronic kidney disease, stage 3 Diabetes Diabetes mellitus type 2 in obese Hyperlipidemia Hypertension Morbid obesity with BMI of 45.0-49.9, adult Obesity Tobacco abuse Surgical History (Updated 06/22/20 @ 17:44 by Duc Jacobs MD) H/O arthroscopic knee surgery H/O tubal ligation Family History Other Diabetes Hypertension Stroke Social History Smoking and tobacco status: current every day smoker Alcohol intake: current Alcohol intake frequency: other Vitals/I&O/Wt Last Vital Signs Temp 97.4 F L 06/22/20 14:45 Pulse 83 06/22/20 17:08 Resp 34 H 06/22/20 16:25 BP 192/86 06/22/20 16:25 Pulse Ox 96 06/22/20 17:08 06/22/20 06/22/20 06/22/20 06:59 14:59 22:59 Intake Total 2.930 / 2.930 Balance 2.930 / 2.930 Weight last 48 hrs Weight 112.491 kg Physical Exam Const: COMMON NORMALS: patient oriented x3 GENERAL APPEARANCE: cooperative ORIENTATION/CONSCIOUSNESS: Yes lethargic OTHER: Appears in slight distress. She obviously walks barefooted as her feet are soiled HENMT: COMMON NORMALS: normocephalic and atraumatic HEAD & SCALP: normocephalic and atraumatic Eye: COMMON NORMALS: EOMs intact bilaterally, conjunctivae normal and no scleral icterus CONJUNCTIVA: Yes conjunctivae normal Neck/C-Spine: COMMON NORMALS: no lymphadenopathy and no meningeal signs Lymph: LYMPHATIC: no lymphadenopathy noted Chest: COMMONS NORMALS: normal palpation of entire chest wall Resp: OTHER: On BiPAP. Significant decreased air movement with very minimal expiratory wheezing mostly upper guillen. Cardio: COMMON NORMALS: regular rate, regular rhythm and No murmurs present (Cardio) RATE: regular rate RHYTHM: regular rhythm OTHER: 2+ lower extremity edema GI: COMMON NORMALS: Soft to palpation and non-tender PALPATION: Yes Soft to palpation RECTAL EXAM: deferred : COMMON NORMALS: Yes no CVA tenderness BLADDER/KIDNEY EXAM: Yes no CVA tenderness Back/Pelvis: COMMON NORMALS: no CVA tenderness and thoracic and lumbar spine normal to inspection Extremity: COMMON NORMALS: normal to inspection and capillary refill normal Neuro: COMMON NORMALS: patient oriented x3 and no focal motor deficits MENINGEAL SIGNS: Yes no meningeal signs Psych: COMMON NORMALS: mental status grossly normal, Normal thought process present and cooperative THOUGHT PROCESS: Normal thought process present Skin: COMMON NORMALS: no rashes or lesions noted GENERAL SKIN EXAM: no rashes or lesions noted Urinary Catheter Management^: Ramirez: Cath Placed During This Visit: yes Urinary Catheter Date of Insertion: 06/22/20 Urinary Catheter Time of Insertion: 15:23 Data : 06/22/20 15:10 06/22/20 15:10 A&P Assessment and plan (1) Acute diastolic CHF (congestive heart failure): Status: Acute (2) COPD with acute exacerbation: Status: Acute (3) Obstructive sleep apnea: Status: Acute (4) Aortic stenosis: Status: Acute (5) Hypertension: Status: Acute Qualifiers: Hypertension type: essential hypertension Qualified Code(s): I10 - Essential (primary) hypertension (6) Tobacco abuse: Status: Acute (7) Morbid obesity with BMI of 45.0-49.9, adult: Status: Acute (8) Diabetes mellitus type 2 in obese: Status: Acute (9) Hyperlipidemia: Status: Acute Qualifiers: Hyperlipidemia type: mixed hyperlipidemia Qualified Code(s): E78.2 - Mixed hyperlipidemia (10) Chronic kidney disease, stage 3: Status: Acute (11) Acute respiratory failure with hypoxia and hypercapnia: Status: Acute Additional A&P Information PLAN: Admit to CSU and continue BiPAP. Continue with aggressive diuresis, bronchodilators, steroids and ceftriaxone for pneumonia prevention. Discussed regarding importance of fluid restriction and medical compliance. Discussed briefly regarding importance of smoking cessation and will discuss again when patient feels better. Will repeat echocardiogram for evaluation and check troponin. Restart home blood pressure medications and gradually wean off drips. Lovenox for DVT prophylaxis and Protonix for GI protection. Attestations Medical Necessity Statement*: Patient with acute CHF exacerbation and COPD that the patient requires close inpatient monitoring and treatment. I expect patient will require more than 2 midnights. Time Spent in Patient Care: Greater than 35 minutes Coding Level of Care Code Acute Ice Cream Machine Operator for Kristina Fwd Diagnoses Acute diastolic CHF (congestive heart failure) I50.31 COPD with acute exacerbation J44.1 Obstructive sleep apnea G47.33 Aortic stenosis I35.0 Hypertension I10 Hypertension type: essential hypertension Tobacco abuse Z72.0 Morbid obesity with BMI of 45.0-49.9, adult E66.01; Z68.42 Diabetes mellitus type 2 in obese E11.69; E66.9 Hyperlipidemia E78.2 Hyperlipidemia type: mixed hyperlipidemia Chronic kidney disease, stage 3 N18.30 Acute respiratory failure with hypoxia and hypercapnia J96.01; J96.02
--- NOTE | 2020-06-22 21:03 | ECG_ITS ---
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 Measurements Intervals [place] Rate: 85 P: 46 TN: 176 QRS: 18 QRSD: 79 T: 43 QT: 391 QTc: 467 Interpretive Statements SINUS RHYTHM Compared to ECG 11/04/2019 17:00:37 T-wave abnormality no longer present Electronically Signed On 06-23-2020 20:16:10 AMPOULE FILLER by Arlene James M.D. [id number]
[2020-06-22 21:42] LABS: Glucose Point of Care 151 mg/dL (70-110)
[2020-06-22 21:47] LABS: Troponin(5th) Baseline 19 ng/L (0-10)
[2020-06-22] MEDS: potassium chloride ER 20 mEq Tablet PO (21:54)
[2020-06-22] MEDS: FUROsemide 10 mg/mL SDV 4mL 40 MG IVP (21:54)
[2020-06-22] MEDS: enoxaparin 40 mg/0.4 mL Syringe SUBCUT (21:59)
[2020-06-22] MEDS: cefTRIAXone 1,000 MG in sodium chloride 0.9% (plus) 50 ML 100 MG IV (22:01)
[2020-06-22] MEDS: ipratropium-albuterol 3 mL Neb INHALATION (22:29)
[2020-06-22 23:16] LABS: Troponin 5 2HR 15.92 ng/L (0-10)
[2020-06-22 23:32] LABS: Troponin 5 2HR Delta -3.08 ABS# (0-10)
[2020-06-23] VITALS (78 sets, daily range): BP systolic 81–178; BP diastolic 52–90; PULSE 68–88; RESP 16–40; TEMP 36.6–36.9; O2SAT 84–99
--- NOTE | 2020-06-23 00:04 | ECG_ITS ---
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 Measurements Intervals [place] Rate: 72 P: 34 CT: 187 QRS: 9 QRSD: 91 T: 48 QT: 428 QTc: 471 Interpretive Statements SINUS RHYTHM WITH OCCASIONAL VENTRICULAR PREMATURE COMPLEXES WARNING: DATA QUALITY MAY AFFECT INTERPRETATION Compared to ECG 06/22/2020 22:55:36 Ventricular premature complex(es) now present Electronically Signed On 06-23-2020 20:16:45 DIAMOND WHEEL MOLDER by Arlene James M.D. [id number]
[2020-06-23 03:07] LABS: Basophils % 0.2 %; Hematocrit 38.9 % (37.0-47.0); Hemoglobin 11.1 g/dL (11.5-15.3); Lymphocytes # 0.8 10^3/uL (0.8-4.8); Mean Corpuscular HGB Conc 28.5 g/dL (30.0-36.0); Mean Corpuscular Hemoglobin 24.4 pg (28.0-34.0); Mean Corpuscular Volume 85.5 fL (81-99); Mean Platelet Volume 10.3 fL (7.4-10.4); Monocytes # 0.1 10^3/uL (0.2-0.9); Monocytes % 0.7 %; Neutrophils # 15.68 10^3/uL (1.8-7.7); Neutrophils % 93.7 %; Nucleated Red Blood Cells % 0 %; Platelet Count 356 10^3/cmm (130-400); Red Blood Count 4.55 10^6/uL (4.1-5.3); Red Cell Distribution Width 19.8 % (12.1-15.1); White Blood Count 16.7 10^3/uL (4.0-10.0)
[2020-06-23 03:49] LABS: Alanine Aminotransferase 15 U/L (0-33); Albumin Level 3.3 g/dL (3.5-5.2); Alkaline Phosphatase 135 IU/L (35-105); Aspartate Amino Transferase 15 U/L (0-32); Blood Urea Nitrogen 33 mg/dL (8-23); Calcium 9.1 mg/dL (8.5-10.5); Carbon Dioxide 27 mmol/L (22-29); Chloride 101 mmol/L (98-107); Globulin 4.7 g/dL (1.3-4.6); Glomerular Filtration Rate 37.9 mL/min (90-130); Glucose 227 mg/dL (65-115); Osmolality Calculated 300 mOsm/kg (285-295); Sodium 138 mmol/L (136-145); Total Bilirubin 0.2 mg/dL (0.15-1.2)
[2020-06-23 04:35] LABS: ABG PCO2 50.7 mmHg (35-45); ABG PH Result 7.34 (7.35-7.45); Alveolar-Arterial Oxygen Gradi 19.3 mmHg (5-10); Arterial Blood Gas Hematocrit 35.6 % (37-47); Base Excess ABG 0.6 mmol/L (-2.0-2.0); Blood Gas Sample Site Brachial, right; Blood Gas Sample Type Arterial; Carboxyhemoglobin 1.7 %THgb (0.4-20.1); HCO3 ABG 27.1 mmol/L (22-26); HGB O2 Sat 92.7 % (95-100); Ionized Calcium Level - ABG 1.2 mmol/L (1.1-1.4); Oxygen Device BIPAP; Oxygen Saturation ABG 95.3; PO2 ABG 76.4 mmHg (80.0-100.0); Potassium Level - ABG 4.7 mmol/L (3.5-5.0); Total Hemoglobin 11.6 g/dL (12-16)
[2020-06-23 04:39] LABS: Estmated Average Glucose 177; Hemoglobin A1C 7.8 % (4.0-6.0)
[2020-06-23 05:35] LABS: Troponin 5 6HR 17.27 ng/L (0-10)
[2020-06-23 05:53] LABS: Troponin 5 6HR Delta -1.73 ng/L (0-12)
--- NOTE | 2020-06-23 06:00 | USCV_ITS ---
Bridget Faye Age: 64 Gender: F : 1955 Exam Date: 06/23/2020 06:14 Ordering Phys: Duc Jcaobs MD Technologist: Analia Fisher Exam Location: [facility] Indication: HEART FAILURE, AORTIC STENOSIS BP: 132 / 75 HR: 79 Rhythm: Sinus Technical Quality: Adequate MEASUREMENTS (Male / Female) Normal Values 2D ECHO LV Diastolic Diameter PLAX 3.8 cm 4.2 - 5.9 / 3.9 - 5.3 cm LV Systolic Diameter PLAX 2.6 cm IVS Diastolic Thickness 2.2 cm 0.6 - 1.0 / 0.6 - 0.9 cm IVS Systolic Thickness 2.8 cm LVPW Diastolic Thickness 2.0 cm 0.6 - 1.0 / 0.6 - 0.9 cm LVPW Systolic Thickness 2.3 cm LVOT Diameter 2.1 cm LV Ejection Fraction 2D Teich 55.0 % LV Ejection Fraction MOD 2C 52.3 % LV Ejection Fraction 2C AL 51.5 % LA Diameter 3.3 cm LA Width 4.7 cm LA Height 5.4 cm RA Width 3.3 cm RA Height 4.8 cm Aorta at Sinotubular Diameter 2.6 cm M-MODE LV Diastolic Diameter MM 4.9 cm 4.2 - 5.9 / 3.9 - 5.3 cm LV Systolic Diameter MM 2.7 cm LV Ejection Fraction MM Teich 77.2 % IVS Diastolic Thickness MM 1.7 cm 0.6 - 1.0 / 0.6 - 0.9 cm IVS Systolic Thickness MM 1.9 cm LVPW Diastolic Thickness MM 1.9 cm 0.6 - 1.0 / 0.6 - 0.9 cm LVPW Systolic Thickness MM 1.5 cm Aortic Annulus Diameter 2.6 cm LA Ao Ratio MM 1.4 MV E Point Septal Separation 0.3 cm DOPPLER AV Peak Velocity 430.7 cm/s LVOT Peak Velocity 150.0 cm/s AV Area Cont Eq vti 1.4 cm squared AV Area Cont Eq pk 1.2 cm squared MV Area PHT 5.0 cm squared Mitral E to A Ratio 0.4 MV E' Velocity 32.0 cm/s Mitral E to MV E' Ratio 4.3 Mitral E to LV E' Lateral Ratio 4.9 Mitral E to LV E' Septal Ratio 3.9 TR Peak Velocity 332.0 cm/s TR Peak Gradient 44.1 mmHg TV Peak E Velocity 130.0 cm/s Right Atrial Pressure 3.0 mmHg Pulmonary Artery Systolic Pressu 47.1 mmHg PV Peak Velocity 106.0 cm/s RV Acceleration Time 0.1 s RV Ejection Time 0.3 s RV AcT/ET 0.3 FINDINGS Left Ventricle Normal left ventricular cavity size. Increased left ventricular wall thickness. Normal left ventricular systolic function. Left ventricular ejection fraction is estimated at 65 %. Grade I diastolic dysfunction (abnormal relaxation filling pattern), normal to mildly elevated filling pressures. Right Ventricle Normal right ventricular size and systolic function. Right ventricular systolic pressure 47.1 mmHg. Right Atrium Probably normal right atrial size. Left Atrium Moderately increased left atrial size. Mitral Valve Moderate mitral annular calcification. No mitral valve stenosis. Trace mitral valve regurgitation. Aortic Valve Aortic valve not well visualized. Thickened and calcified aortic valve. Possibly moderate aortic valve stenosis, peak velocity 49 mmHg, mean gradient 25 mmHg, DEYANIRA 1.3 cm squared. Mild aortic valve regurgitation. Tricuspid Valve Tricuspid valve not well visualized. Pulmonic Valve Pulmonic valve not well visualized. Pericardium No pericardial effusion. Aorta Normal-sized aortic root. CONCLUSIONS 1. This is a technically very difficult study. 2. Normal left ventricular cavity size. Increased left ventricular wall thickness. Normal left ventricular systolic function. Left ventricular ejection fraction is estimated at 65 %. Grade I diastolic dysfunction (abnormal relaxation filling pattern), normal to mildly elevated filling pressures. 3. Possibly moderate aortic valve stenosis, peak velocity 49 mmHg, mean gradient 25 mmHg, DEYANIRA 1.3 cm squared. Mild aortic valve regurgitation. 4. Pulmonary artery pressure estimated at 47 mmHg. 5. When compared to previous echocardiogram dated 11/12/2019, there may not have been any significant change. Laurel Bunch MD (Electronically Signed) Final Date: 23 June 2020 18:44 S
[2020-06-23] MEDS: ipratropium-albuterol 3 mL Neb INHALATION ×4 (07:37→21:30)
[2020-06-23 07:47] LABS: Glucose Point of Care 268 mg/dL (70-110)
[2020-06-23] MEDS: sertraline 100 mg Tablet PO (08:49)
[2020-06-23] MEDS: atorvastatin 40 mg Tablet PO (08:49)
[2020-06-23] MEDS: aspirin 81 mg EC Tablet PO (08:49)
[2020-06-23] MEDS: pantoprazole DR 40 mg Tablet PO (08:49)
[2020-06-23] MEDS: losartan 50 mg Tablet PO (08:49)
[2020-06-23] MEDS: isosorbide mononitrate ER 30 mg Tablet PO (08:49)
[2020-06-23] MEDS: potassium chloride ER 20 mEq Tablet PO (08:50)
[2020-06-23] MEDS: FUROsemide 10 mg/mL SDV 4mL 40 MG IVP ×2 (08:51→21:01)
--- NOTE | 2020-06-23 09:05 | PC.NURSE ---
spoke with dr vargas with concerns of patient being on bi pap and not eating and needing 10 units instructions to give half dose needed 5 units given
--- NOTE | 2020-06-23 09:10 | PC.CHAP ---
Pastoral Care Encounter/Spiritual Assessment Type of Contact [] Declined beam dyer operator visit [] Patient/Family/Request visit [] Outpatient visit [] Follow-up visit [] Physician referral [] Code/Alert [x] Routine visit [] Staff referral [] Actively dying [] Patient sleeping [] Family support [] [] Out of room [] Palliative care [] [x] Receiving care in room [] Pre-surgical visit [] Trauma [] Long length of stay [] ICU visit [] Other: Relational/Emotional Strength [] Patient feels connected with others/family/visitors/staff [] Distress [] Loneliness/isolation [] Abandonment Spirituality of Patient [] Person of Becki [] Attends Faith of their Becki [] Believes in Prayer [] Reads Bible or Episcopalian materials [] There are Spiritual issues to be addressed Hospice Coordinator Interventions [x] Prayer [] Active listening [] Non-anxious presence [] Spiritual/emotional support [] Crisis/trauma care [] Spiritual counseling [] Bereavement support [] Provided bereavement packet [] Provided Bible/devotional materials [] Provided toy/stuffed animal, coloring book to patient or family member [] Provided Communion [] Anointing/[place] [] Salvation [x] Completed spiritual assessment [] Other: Impact on Illness or Injury [] Angry [] Fearful [] Anxious [] Often cries [] Exhaustion [] Unable to work [] Unable to attend baptist [] Unable to walk/stand [] Unable to read [] Unable to drive [] Unable to eat/drink [] Unable to sleep [] Unable to be with family [] Patient intubated [] Other: Summary Time spent with patient
[2020-06-23] MEDS: ARIPiprazole 2 mg Tablet PO (10:11)
[2020-06-23 11:27] LABS: Glucose Point of Care 391 mg/dL (70-110)
--- NOTE | 2020-06-23 12:59 | P.PN_ITS ---
Subjective Subjective: Interval history: Patient was using BiPAP most of the night. This morning it was switched to nasal cannula and patient was able to eat her breakfast. Patient reports that she is feeling much better and less short of breath although she does appear still somewhat dyspneic. She denies chest pain or abdominal pain. She had good urinary output. Her WBC increased and this appears to be related to steroids. Vitals/I&O/Wt Last Vital Signs Temp 98.3 F 06/23/20 04:00 Pulse 80 06/23/20 12:02 Resp 27 H 06/23/20 12:02 BP 140/67 06/23/20 09:30 Pulse Ox 92 06/23/20 12:02 06/22/20 06/23/20 06/23/20 22:59 06:59 14:59 Intake Total 1093.630 / 1093.630 151.375 / 1245.005 Output Total 1600 / 1600 1300 / 2900 Balance -506.370 / -506.370 -1148.625 / -1654.995 Weight last 48 hrs Weight 112.491 kg Physical Exam Narrative: EXAM NARRATIVE: Exam showed much improved air movement compared to yesterday. She has very minimal bibasilar Rales. Lower extremity swelling improved and she has trace to 1+. Abdomen is soft and nontender. Urinary Catheter Management^: Ramirez: Cath Placed During This Visit: yes Reason for Continuing Indwelling Catheter: Accurate Measurement of Urinary Output in Critically Ill Patients Urinary Catheter Date of Insertion: 06/22/20 Urinary Catheter Time of Insertion: 15:23 Data : 06/23/20 02:45 06/23/20 02:45 A&P Assessment and plan (1) Acute diastolic CHF (congestive heart failure): Status: Acute (2) COPD with acute exacerbation: Status: Acute (3) Obstructive sleep apnea: Status: Acute (4) Aortic stenosis: Status: Acute (5) Hypertension: Status: Acute Qualifiers: Hypertension type: essential hypertension Qualified Code(s): I10 - Essential (primary) hypertension (6) Tobacco abuse: Status: Acute (7) Morbid obesity with BMI of 45.0-49.9, adult: Status: Acute (8) Diabetes mellitus type 2 in obese: Status: Acute (9) Hyperlipidemia: Status: Acute Qualifiers: Hyperlipidemia type: mixed hyperlipidemia Qualified Code(s): E78.2 - Mixed hyperlipidemia (10) Chronic kidney disease, stage 3: Status: Acute (11) Acute respiratory failure with hypoxia and hypercapnia: Status: Acute Additional A&P Information PLAN: Continue BiPAP as needed. Continue with current monitoring and treatment. Decrease potassium to daily and change steroid to prednisone. Continue ceftriax one and monitor. Discussed regarding importance of smoking cessation. Patient voiced understanding and agreed to try nicotine patch Attestations Medical Necessity Statement*: Patient with acute CHF and COPD exacerbation requires close inpatient monitoring and treatment. Time Spent in Patient Care: 16 - 35 minutes Coding Level of Care Code Acute Photography Spotter for [facility] Fwd Diagnoses Acute diastolic CHF (congestive heart failure) I50.31 COPD with acute exacerbation J44.1 Obstructive sleep apnea G47.33 Aortic stenosis I35.0 Hypertension I10 Hypertension type: essential hypertension Tobacco abuse Z72.0 Morbid obesity with BMI of 45.0-49.9, adult E66.01; Z68.42 Diabetes mellitus type 2 in obese E11.69; E66.9 Hyperlipidemia E78.2 Hyperlipidemia type: mixed hyperlipidemia Chronic kidney disease, stage 3 N18.30 Acute respiratory failure with hypoxia and hypercapnia J96.01; J96.02
--- NOTE | 2020-06-23 13:30 | PC.NURSE ---
RN at bedside performing bed bath
--- NOTE | 2020-06-23 16:39 | PC.RESP ---
Smoking Cessation and Pulmonary Rehab information sent to patient.
[2020-06-23 16:48] LABS: Glucose Point of Care 183 mg/dL (70-110)
[2020-06-23 19:55] LABS: Glucose Point of Care 195 mg/dL (70-110)
[2020-06-23] MEDS: enoxaparin 40 mg/0.4 mL Syringe SUBCUT (21:01)
[2020-06-24] VITALS (21 sets, daily range): BP systolic 109–169; BP diastolic 38–81; PULSE 70–88; RESP 18–30; TEMP 36.6–37.1; O2SAT 82–97
[2020-06-24 06:50] LABS: Glucose Point of Care 144 mg/dL (70-110)
[2020-06-24] MEDS: ipratropium-albuterol 3 mL Neb INHALATION ×4 (07:50→20:55)
[2020-06-24 08:37] LABS: Basophils % 0.2 %; Eosinophils % 0.2 %; Hematocrit 36.9 % (37.0-47.0); Hemoglobin 10.4 g/dL (11.5-15.3); Lymphocytes # 1.8 10^3/uL (0.8-4.8); Lymphocytes % 11.2 %; Mean Corpuscular HGB Conc 28.2 g/dL (30.0-36.0); Mean Corpuscular Volume 85.2 fL (81-99); Mean Platelet Volume 9.9 fL (7.4-10.4); Monocytes # 0.9 10^3/uL (0.2-0.9); Monocytes % 5.3 %; Neutrophils # 13.52 10^3/uL (1.8-7.7); Neutrophils % 82.6 %; Nucleated Red Blood Cells % 0 %; Platelet Count 356 10^3/cmm (130-400); Red Blood Count 4.33 10^6/uL (4.1-5.3); Red Cell Distribution Width 19.4 % (12.1-15.1); White Blood Count 16.4 10^3/uL (4.0-10.0)
[2020-06-24 08:57] LABS: Alanine Aminotransferase 12 U/L (0-33); Albumin Level 3.5 g/dL (3.5-5.2); Alkaline Phosphatase 123 IU/L (35-105); Anion Gap 15.2 (5-19); Aspartate Amino Transferase 10 U/L (0-32); Blood Urea Nitrogen 54 mg/dL (8-23); Calcium 8.7 mg/dL (8.5-10.5); Carbon Dioxide 26 mmol/L (22-29); Chloride 98 mmol/L (98-107); Globulin 4.3 g/dL (1.3-4.6); Glomerular Filtration Rate 26.6 mL/min (90-130); Glucose 176 mg/dL (65-115); Osmolality Calculated 299 mOsm/kg (285-295); Potassium 4.2 mmol/L (3.5-5.1); Sodium 135 mmol/L (136-145); Total Bilirubin 0.2 mg/dL (0.15-1.2); Total Protein 7.8 g/dL (6.6-8.7)
[2020-06-24] MEDS: losartan 50 mg Tablet PO (09:46)
[2020-06-24] MEDS: pantoprazole DR 40 mg Tablet PO (09:46)
[2020-06-24] MEDS: predniSONE 20 mg Tablet PO (09:46)
[2020-06-24] MEDS: sertraline 100 mg Tablet PO (09:46)
[2020-06-24] MEDS: isosorbide mononitrate ER 30 mg Tablet PO (09:46)
[2020-06-24] MEDS: atorvastatin 40 mg Tablet PO (09:46)
[2020-06-24] MEDS: aspirin 81 mg EC Tablet PO (09:46)
[2020-06-24] MEDS: potassium chloride ER 20 mEq Tablet PO (09:46)
[2020-06-24] MEDS: FUROsemide 10 mg/mL SDV 4mL 40 MG IVP (09:47)
[2020-06-24] MEDS: ARIPiprazole 2 mg Tablet PO (09:47)
[2020-06-24 11:50] LABS: Glucose Point of Care 176 mg/dL (70-110)
--- NOTE | 2020-06-24 14:48 | PM.PN ---
Subjective Subjective: Interval history: Patient required BiPAP support throughout the night this morning she is doing much better. Reports that her breathing is easier and she is coughing less. She denies chest pain or abdominal pain. She diuresed well and her lungs are clear today with no evidence of lower extremity edema. Her creatinine now increased to 1.9. I just noticed that ceftriaxone for some reason was given as 1 dose and it is now does not appear in her medications. Vitals/I&O/Wt Last Vital Signs Temp 98.7 F 06/24/20 04:00 Pulse 76 06/24/20 12:59 Resp 22 H 06/24/20 12:47 BP 169/75 06/24/20 09:46 Pulse Ox 92 06/24/20 12:59 06/23/20 06/24/20 06/24/20 22:59 06:59 14:59 Intake Total 880 / 1488.467 377 / 1865.467 360 / 360 Output Total 775 / 775 850 / 1625 Balance 105 / 713.467 -473 / 240.467 360 / 360 Physical Exam Narrative: EXAM NARRATIVE: Lungs are clear. Heart is regular. Lower extremities show no edema. Abdomen is soft and nontender. Urinary Catheter Management^: Ramirez: Cath Placed During This Visit: yes Reason for Continuing Indwelling Catheter: Accurate Measurement of Urinary Output in Critically Ill Patients Urinary Catheter Date of Insertion: 06/22/20 Urinary Catheter Time of Insertion: 15:23 Data : 06/24/20 08:08 06/24/20 08:08 A&P Assessment and plan (1) Acute diastolic CHF (congestive heart failure): With possible moderate aortic valve stenosis Status: Acute (2) COPD with acute exacerbation: Status: Acute (3) Obstructive sleep apnea: Status: Acute (4) Aortic stenosis: Status: Acute (5) Hypertension: Status: Acute Qualifiers: Hypertension type: essential hypertension Qualified Code(s): I10 - Essential (primary) hypertension (6) Tobacco abuse: Status: Acute (7) Morbid obesity with BMI of 45.0-49.9, adult: Status: Acute (8) Diabetes mellitus type 2 in obese: Status: Acute (9) Hyperlipidemia: Status: Acute Qualifiers: Hyperlipidemia type: mixed hyperlipidemia Qualified Code(s): E78.2 - Mixed hyperlipidemia (10) Chronic kidney disease, stage 3: Status: Acute (11) Acute respiratory failure with hypoxia and hypercapnia: Status: Acute Additional A&P Information PLAN: Continue BiPAP as needed. Hold Lasix for now. Restart ceftriaxone and continue daily for pneumonia prevention. Continue rest of the medications. Physical therapy. Monitor labs daily Attestations Medical Necessity Statement*: Patient with respiratory failure requires close inpatient monitoring and treatment until deemed safe for discharge Time Spent in Patient Care: 16 - 35 minutes Coding Level of Care Code Acute Under Seal Operator for Kristina Fwalea Diagnoses Acute diastolic CHF (congestive heart failure) I50.31 COPD with acute exacerbation J44.1 Obstructive sleep apnea G47.33 Aortic stenosis I35.0 Hypertension I10 Hypertension type: essential hypertension Tobacco abuse Z72.0 Morbid obesity with BMI of 45.0-49.9, adult E66.01; Z68.42 Diabetes mellitus type 2 in obese E11.69; E66.9 Hyperlipidemia E78.2 Hyperlipidemia type: mixed hyperlipidemia Chronic kidney disease, stage 3 N18.30 Acute respiratory failure with hypoxia and hypercapnia J96.01; J96.02
[2020-06-24] MEDS: cefTRIAXone 1,000 MG in sodium chloride 0.9% (plus) 50 ML 100 MG IV (16:07)
[2020-06-24 17:24] LABS: Glucose Point of Care 204 mg/dL (70-110)
[2020-06-24] MEDS: nystatin powder 15 gm Btl 1 APPLIC TOPICAL (18:28)
[2020-06-24 20:12] LABS: Glucose Point of Care 195 mg/dL (70-110)
[2020-06-24] MEDS: enoxaparin 40 mg/0.4 mL Syringe SUBCUT (20:46)
[2020-06-25] VITALS (18 sets, daily range): BP systolic 106–147; BP diastolic 39–79; PULSE 65–78; RESP 16–28; TEMP 36.3–36.4; O2SAT 92–97
[2020-06-25 04:00] LABS: Basophils % 0.3 %; Eosinophils % 0.1 %; Hematocrit 34.7 % (37.0-47.0); Hemoglobin 9.8 g/dL (11.5-15.3); Lymphocytes # 1.9 10^3/uL (0.8-4.8); Lymphocytes % 12.1 %; Mean Corpuscular HGB Conc 28.2 g/dL (30.0-36.0); Mean Corpuscular Hemoglobin 23.6 pg (28.0-34.0); Mean Corpuscular Volume 83.6 fL (81-99); Mean Platelet Volume 10.5 fL (7.4-10.4); Monocytes # 0.9 10^3/uL (0.2-0.9); Monocytes % 5.6 %; Neutrophils # 12.86 10^3/uL (1.8-7.7); Neutrophils % 81.5 %; Nucleated Red Blood Cells % 0 %; Platelet Count 341 10^3/cmm (130-400); Red Blood Count 4.15 10^6/uL (4.1-5.3); White Blood Count 15.8 10^3/uL (4.0-10.0)
[2020-06-25 04:22] LABS: Alanine Aminotransferase 13 U/L (0-33); Albumin Level 3.1 g/dL (3.5-5.2); Alkaline Phosphatase 106 IU/L (35-105); Anion Gap 14.2 (5-19); Aspartate Amino Transferase 9 U/L (0-32); Blood Urea Nitrogen 61 mg/dL (8-23); Calcium 8.7 mg/dL (8.5-10.5); Carbon Dioxide 27 mmol/L (22-29); Chloride 102 mmol/L (98-107); Glomerular Filtration Rate 30.3 mL/min (90-130); Glucose 127 mg/dL (65-115); Magnesium 2.3 mg/dL (1.7-2.3); Osmolality Calculated 307 mOsm/kg (285-295); Potassium 4.2 mmol/L (3.5-5.1); Sodium 139 mmol/L (136-145); Total Bilirubin 0.2 mg/dL (0.15-1.2); Total Protein 7.1 g/dL (6.6-8.7)
[2020-06-25 07:09] LABS: Glucose Point of Care 233 mg/dL (70-110)
[2020-06-25] MEDS: ipratropium-albuterol 3 mL Neb INHALATION ×3 (07:40→19:47)
[2020-06-25] MEDS: isosorbide mononitrate ER 30 mg Tablet PO (08:00)
[2020-06-25] MEDS: sertraline 100 mg Tablet PO (08:00)
[2020-06-25] MEDS: atorvastatin 40 mg Tablet PO (08:00)
[2020-06-25] MEDS: aspirin 81 mg EC Tablet PO (08:00)
[2020-06-25] MEDS: predniSONE 20 mg Tablet PO (08:01)
[2020-06-25] MEDS: potassium chloride ER 20 mEq Tablet PO (08:01)
[2020-06-25] MEDS: losartan 50 mg Tablet PO (08:01)
[2020-06-25] MEDS: nystatin powder 15 gm Btl 1 APPLIC TOPICAL ×2 (08:05→17:22)
[2020-06-25] MEDS: pantoprazole DR 40 mg Tablet PO (08:05)
[2020-06-25] MEDS: ARIPiprazole 2 mg Tablet PO (08:09)
[2020-06-25 11:05] LABS: Glucose Point of Care 127 mg/dL (70-110)
--- NOTE | 2020-06-25 11:43 | PM.PN ---
Subjective Subjective: Interval history: Patient reports feeling much better this morning. Reports being at baseline and wants to go home. She has her apartment cleaned from bedbugs today. She denies shortness of breath or chest pain while using oxygen. Vitals/I&O/Wt Last Vital Signs Temp 97.6 F 06/25/20 10:46 Pulse 74 06/25/20 10:46 Resp 20 H 06/25/20 10:46 BP 106/66 06/25/20 10:46 Pulse Ox 92 06/25/20 10:46 06/24/20 06/25/20 06/25/20 22:59 06:59 14:59 Intake Total 410 / 1170 120 / 120 Output Total 400 / 2100 550 / 2650 Balance 10 / -930 -550 / -1480 120 / 120 Physical Exam Narrative: EXAM NARRATIVE: Lungs are clear with overall decreased air movement. She appears somewhat dyspneic this morning. Heart is regular. Lower extremities show no edema. Abdomen is soft and nontender. Urinary Catheter Management^: Ramirez: Cath Placed During This Visit: yes Reason for Continuing Indwelling Catheter: Accurate Measurement of Urinary Output in Critically Ill Patients Urinary Catheter Date of Insertion: 06/22/20 Urinary Catheter Time of Insertion: 15:23 Data : 06/25/20 03:09 06/25/20 03:09 A&P Assessment and plan (1) Acute diastolic CHF (congestive heart failure): With possible moderate aortic valve stenosis Status: Acute (2) COPD with acute exacerbation: Status: Acute (3) Obstructive sleep apnea: Status: Acute (4) Aortic stenosis: Status: Acute (5) Hypertension: Status: Acute Qualifiers: Hypertension type: essential hypertension Qualified Code(s): I10 - Essential (primary) hypertension (6) Tobacco abuse: Status: Acute (7) Morbid obesity with BMI of 45.0-49.9, adult: Status: Acute (8) Diabetes mellitus type 2 in obese: Status: Acute (9) Hyperlipidemia: Status: Acute Qualifiers: Hyperlipidemia type: mixed hyperlipidemia Qualified Code(s): E78.2 - Mixed hyperlipidemia (10) Chronic kidney disease, stage 3: Status: Acute (11) Acute respiratory failure with hypoxia and hypercapnia: Status: Acute Additional A&P Information PLAN: Continue current monitoring and treatment and if further improving we will likely be able to dismiss patient home tomorrow. She will require physical therapy. Attestations Medical Necessity Statement*: Patient with respiratory failure requires close inpatient monitoring and treatment until deemed safe for discharge. Coding Level of Care Code Acute Stone Processing Machine Operator for Kristina Blake Diagnoses Acute diastolic CHF (congestive heart failure) I50.31 COPD with acute exacerbation J44.1 Obstructive sleep apnea G47.33 Aortic stenosis I35.0 Hypertension I10 Hypertension type: essential hypertension Tobacco abuse Z72.0 Morbid obesity with BMI of 45.0-49.9, adult E66.01; Z68.42 Diabetes mellitus type 2 in obese E11.69; E66.9 Hyperlipidemia E78.2 Hyperlipidemia type: mixed hyperlipidemia Chronic kidney disease, stage 3 N18.30 Acute respiratory failure with hypoxia and hypercapnia J96.01; J96.02
[2020-06-25] MEDS: cefTRIAXone 1,000 MG in sodium chloride 0.9% (plus) 50 ML 100 MG IV (15:40)
[2020-06-25 16:01] LABS: Glucose Point of Care 225 mg/dL (70-110)
--- NOTE | 2020-06-25 19:26 | PC.NURSE ---
chantel norwood'd at 1300 as ordered.has voided twice since removed...100 cc and 300 cc on bsc
[2020-06-25] MEDS: enoxaparin 40 mg/0.4 mL Syringe SUBCUT (20:09)
--- NOTE | 2020-06-25 20:12 | PC.NURSE ---
PT IS RESTING IN BED. PT DENIES PAIN AT THIS TIME. WILL CONTINUE TO MONITOR.
[2020-06-25 20:23] LABS: Glucose Point of Care 89 mg/dL (70-110)
[2020-06-26] VITALS (10 sets, daily range): BP systolic 127–147; BP diastolic 49–61; PULSE 63–72; RESP 18–24; TEMP 35.8–36.8; O2SAT 86–96
--- NOTE | 2020-06-26 04:44 | PC.NURSE ---
PT IS RESTING IN BED. PT DENIES PAIN. WILL CONTINUE TO MONITOR.
[2020-06-26 04:50] LABS: Basophils % 0.3 %; Eosinophils # 0.1 10^3/uL (0.0-0.8); Eosinophils % 0.6 %; Hematocrit 36.1 % (37.0-47.0); Hemoglobin 10.1 g/dL (11.5-15.3); Lymphocytes # 1.8 10^3/uL (0.8-4.8); Lymphocytes % 13.2 %; Mean Corpuscular Hemoglobin 23.6 pg (28.0-34.0); Mean Corpuscular Volume 84.3 fL (81-99); Mean Platelet Volume 10.6 fL (7.4-10.4); Monocytes # 0.9 10^3/uL (0.2-0.9); Monocytes % 6.7 %; Neutrophils # 10.53 10^3/uL (1.8-7.7); Neutrophils % 78.9 %; Nucleated Red Blood Cells % 0 %; Platelet Count 324 10^3/cmm (130-400); Red Blood Count 4.28 10^6/uL (4.1-5.3); Red Cell Distribution Width 19.2 % (12.1-15.1); White Blood Count 13.3 10^3/uL (4.0-10.0)
[2020-06-26 05:11] LABS: Alanine Aminotransferase 12 U/L (0-33); Albumin Level 3.3 g/dL (3.5-5.2); Alkaline Phosphatase 118 IU/L (35-105); Anion Gap 14.1 (5-19); Aspartate Amino Transferase 11 U/L (0-32); Blood Urea Nitrogen 53 mg/dL (8-23); Calcium 8.6 mg/dL (8.5-10.5); Carbon Dioxide 28 mmol/L (22-29); Chloride 103 mmol/L (98-107); Globulin 4.2 g/dL (1.3-4.6); Glomerular Filtration Rate 41.2 mL/min (90-130); Glucose 116 mg/dL (65-115); Magnesium 2.4 mg/dL (1.7-2.3); Osmolality Calculated 307 mOsm/kg (285-295); Potassium 4.1 mmol/L (3.5-5.1); Sodium 141 mmol/L (136-145); Total Bilirubin 0.2 mg/dL (0.15-1.2); Total Protein 7.5 g/dL (6.6-8.7)
[2020-06-26 06:40] LABS: Glucose Point of Care 124 mg/dL (70-110)
[2020-06-26] MEDS: ipratropium-albuterol 3 mL Neb INHALATION ×2 (07:32→11:47)
[2020-06-26] MEDS: nicotine 21 mg Patch 1 PATCH TRANSDERMA (08:54)
[2020-06-26] MEDS: nystatin powder 15 gm Btl 1 APPLIC TOPICAL (08:54)
[2020-06-26] MEDS: atorvastatin 40 mg Tablet PO (08:55)
[2020-06-26] MEDS: pantoprazole DR 40 mg Tablet PO (08:55)
[2020-06-26] MEDS: predniSONE 20 mg Tablet PO (08:55)
[2020-06-26] MEDS: sertraline 100 mg Tablet PO (08:55)
[2020-06-26] MEDS: ARIPiprazole 2 mg Tablet PO (08:55)
[2020-06-26] MEDS: potassium chloride ER 20 mEq Tablet PO (08:55)
[2020-06-26] MEDS: aspirin 81 mg EC Tablet PO (08:55)
[2020-06-26] MEDS: losartan 50 mg Tablet PO (08:55)
[2020-06-26] MEDS: isosorbide mononitrate ER 30 mg Tablet PO (08:55)
--- NOTE | 2020-06-26 10:02 | PM.DCS ---
Discharge Providers Date of Admission: 06/22/20 16:44 Date of Discharge: June 26, 2020 Attending Provider at Admission: Duc Jacobs MD Attending Provider at Discharge: Duc Jacobs MD Primary Care Provider: Jhony Cantu MD Diagnoses at Discharge Discharge Diagnosis (1) Acute diastolic CHF (congestive heart failure): Status: Acute (2) COPD with acute exacerbation: Status: Acute (3) Obstructive sleep apnea: Status: Acute (4) Aortic stenosis: Status: Acute (5) Hypertension: Status: Acute Qualifiers: Hypertension type: essential hypertension Qualified Code(s): I10 - Essential (primary) hypertension (6) Tobacco abuse: Status: Acute (7) Morbid obesity with BMI of 45.0-49.9, adult: Status: Acute (8) Diabetes mellitus type 2 in obese: Status: Acute (9) Hyperlipidemia: Status: Acute Qualifiers: Hyperlipidemia type: mixed hyperlipidemia Qualified Code(s): E78.2 - Mixed hyperlipidemia (10) Chronic kidney disease, stage 3: Status: Acute (11) Acute respiratory failure with hypoxia and hypercapnia: Status: Acute (12) Candidal intertrigo: Status: Acute Permanent problem details: Present on admission. Reason for Visit Reason for Visit: RESP DISTRESS Hospital Course Hospital Course Patient with multiple comorbidities presented with acute hypoxic and hypercapnic respiratory failure secondary to acute COPD exacerbation and acute CHF exacerbation. Patient was treated accordingly with bronchodilators and diuretics as well as steroids and antibiotics and gradually improved. She required short BiPAP support. Patient unfortunately bears diagnosis of obstructive sleep apnea but cannot tolerate mask at home. She gradually improved and this morning reports feeling much better and wants to go home. She qualified for oxygen which will be prescribed. I will continue antibiotics for 5 more days and will request outpatient follow-up with cardiology and pulmonary service. This morning patient denies shortness of breath or chest pain. Denies any cough. We had extensive discussion regarding importance of smoking cessation. Patient voiced understanding and agreed to try nicotine patch. Patient's kidney function also improved. Physical therapy recommends home health for further therapy and this will be requested. Physical Exam Narrative: EXAM NARRATIVE: Patient's air movement much improved and overall has decreased air movement secondary to body habitus. Lower extremities show no edema and heart is regular. Urinary Catheter Management^: Ramirez: Cath Placed During This Visit: yes Reason for Continuing Indwelling Catheter: Accurate Measurement of Urinary Output in Critically Ill Patients Urinary Catheter Date of Insertion: 06/22/20 Urinary Catheter Time of Insertion: 15:23 Discharge Data Data Completed and Pending: Completed Studies During Hospitalization Category Date Time Status XR chest 1V emmanuel ble [id number] Stat Exams 06/22/20 14:57 Completed CV echo complete* [id number] Routine Ultrasound 06/23/20 06:00 Completed Pending at discharge Category Date Time Status Complete Blood Co unt w/Auto AM LABS Lab 06/27/20 04:00 Ordered Comprehensive Met abolic Panel AM LA BS Lab 06/27/20 04:00 Ordered Magnesium AM LABS Lab 06/27/20 04:00 Ordered Labs from last 24 hours 06/26/20 06/26/20 06/26/20 06:30 03:51 03:51 WBC 13.3 H RBC 4.28 Hgb 10.1 L Hct 36.1 L MCV 84.3 MCH 23.6 L MCHC 28.0 L RDW 19.2 H Plt Count 324 MPV 10.6 H Neut % (Auto) 78.9 Lymph % (Auto) 13.2 Payne % (Auto) 6.7 Eos % (Auto) 0.6 Baso % (Auto) 0.3 Neut # (Auto) 10.53 H Lymph # (Auto) 1.8 Payne # (Auto) 0.9 Eos # (Auto) 0.1 Baso # (Auto) 0.0 Nucleated RBC % (a uto) 0 Nucleated RBCs # 0.0 Sodium 141 Potassium 4.1 Chloride 103 Carbon Dioxide 28 Anion Gap 14.1 BUN 53 H Creatinine 1.3 H GFR Calculation 41.2 L Glucose 116 H POC Glucose 124 H Calculated Osmolal ity 307 H Calcium 8.6 Magnesium 2.4 H Total Bilirubin 0.2 AST 11 ALT 12 Alkaline Phosphata se 118 H Total Protein 7.5 Albumin 3.3 L Globulin 4.2 06/25/20 06/25/20 06/25/20 20:12 15:55 10:48 WBC RBC Hgb Hct MCV MCH MCHC RDW Plt Count MPV Neut % (Auto) Lymph % (Auto) Payne % (Auto) Eos % (Auto) Baso % (Auto) Neut # (Auto) Lymph # (Auto) Payne # (Auto) Eos # (Auto) Baso # (Auto) Nucleated RBC % (a uto) Nucleated RBCs # Sodium Potassium Chloride Carbon Dioxide Anion Gap BUN Creatinine GFR Calculation Glucose POC Glucose 89 225 H 127 H Calculated Osmolal ity Calcium Magnesium Total Bilirubin AST ALT Alkaline Phosphata se Total Protein Albumin Globulin Vitals: Last Vital Signs Temp 96.6 F L 06/26/20 07:26 Pulse 70 06/26/20 07:38 Resp 18 06/26/20 07:32 BP 146/61 06/26/20 08:55 Pulse Ox 90 06/26/20 09:25 Discharge Plan Discharge Patient Disposition: Home Health Service Condition: Stable Prescriptions: New ipratropium-albuterol 0.5 mg-3 mg(2.5 mg base)/3 mL Solution For Nebulization 3 ml inhalation QID.RESPIRATORY Qty: 60 RF: 0 pantoprazole 40 mg Tablet,Delayed Release (Dr/Ec) 40 mg PO DAILY Qty: 30 RF: 0 aspirin 81 mg Tablet,Delayed Release (Dr/Ec) 81 mg PO DAILY Qty: 30 RF: 0 prednisone 20 mg Tablet 20 mg PO DAILY Qty: 2 RF: 0 nystatin [Nystop] 100,000 unit/gram Powder 1 applic topical BID Qty: 1 RF: 0 cefdinir 300 mg capsule 300 mg PO BID 5 Days Qty: 10 RF: 0 nicotine 21 mg/24 hr Patch 24 Hour 1 patch transdermal DAILY Qty: 14 RF: 0 Continued isosorbide mononitrate 30 mg tablet extended release 24 hr 30 mg PO DAILY@0900 RF: 0 Lasix 40 mg tablet 40 mg PO DAILY@0900 RF: 0 losartan 50 mg Tablet 50 mg PO DAILY@0900 RF: 0 atorvastatin 40 mg Tablet 40 mg PO DAILY@0900 RF: 0 metformin 500 mg Tablet 500 mg PO BID@0900,2100 RF: 0 sertraline 100 mg Tablet 100 mg PO DAILY@0900 RF: 0 aripiprazole [Abilify] 2 mg Tablet 2 mg PO DAILY@0900 RF: 0 Discontinued aspirin 325 mg Tablet 325 mg PO DAILY@0900 RF: 0 Discharge Orders: Discharge Order (Routine); Ordered 06/26/20 Ordered By: Duc Jacobs Other Ambulatory Orders: DME: Oxygen (Order) Location: None Selected Ordered By: Duc Jacobs Referrals: Jett Grace MD [Physician] - 1 week ([facility] will contact you to schedule an follow-up appointment with Dr. Grace in 1 week. If you haven't heard from them by Sunday afternoon. Please call ) Jhony Cantu MD [Primary Care Provider] - 4-7 days Laurel Bunch MD [Physician] - 2 weeks ([facility] will contact you to schedule on follow-up appointment with Dr. Bunch in weeks. If you haven't heard from them by Sunday afternoon. Please call ) Discharge Diet: Usual diet Discharge Activity: Increase activity as tolerated Activity Restrictions/Additional Instructions: Please call your doctor or present to emergency department if your condition worsens or you develop diarrhea, lightheadedness, fatigue or see blood in your stool or black stool. Please discuss with your doctor to have refill of nicotine patch if you require more which needs to be done at the lower dose. Please do not smoke while using nicotine patch as we have discussed. Discharge Attestations Time Spent in Discharge Care*: greater than 30 min Time Spent in Smoking Cessation: 3 to 10 minutes Quality Metrics Clinical Quality Measures During this hospital stay, did patient experience: None Coding Level of Care Code Acute Basketball Assembler for Kristina Fwd Diagnoses Acute diastolic CHF (congestive heart failure) I50.31 COPD with acute exacerbation J44.1 Obstructive sleep apnea G47.33 Aortic stenosis I35.0 Hypertension I10 Hypertension type: essential hypertension Tobacco abuse Z72.0 Morbid obesity with BMI of 45.0-49.9, adult E66.01; Z68.42 Diabetes mellitus type 2 in obese E11.69; E66.9 Hyperlipidemia E78.2 Hyperlipidemia type: mixed hyperlipidemia Chronic kidney disease, stage 3 N18.30 Acute respiratory failure with hypoxia and hypercapnia J96.01; J96.02 Candidal intertrigo B37.2
[2020-06-26 11:20] LABS: Glucose Point of Care 160 mg/dL (70-110)
== END 2020-06-26 13:38 | disposition home health service (06) | DRG 291 ==
LOC: ER 17:34 → CSU 20:14
PROVIDERS: Internal Medicine; Admitting Provider Internal Medicine; Emergency Provider Family Medicine; PCP Family Medicine; Visit Provider Internal Medicine
DX: I13.0 Hypertensive heart and chronic kidney disease with heart failure and stage 1 through stage 4 chronic kidney disease, or unspecified chronic kidney disease (principal); J96.22 Acute and chronic respiratory failure with hypercapnia; I50.31 Acute diastolic (congestive) heart failure; J96.21 Acute and chronic respiratory failure with hypoxia; J44.1 Chronic obstructive pulmonary disease with (acute) exacerbation; Z68.42 Body mass index [BMI] 45.0-49.9, adult; G47.33 Obstructive sleep apnea (adult) (pediatric); N18.30 Chronic kidney disease, stage 3 unspecified; E78.2 Mixed hyperlipidemia; I35.0 Nonrheumatic aortic (valve) stenosis; E11.22 Type 2 diabetes mellitus with diabetic chronic kidney disease; E66.01 Morbid (severe) obesity due to excess calories; L30.4 Erythema intertrigo; Z79.84 Long term (current) use of oral hypoglycemic drugs; Z79.82 Long term (current) use of aspirin; F17.210 Nicotine dependence, cigarettes, uncomplicated
CPT/HCPCS: 12345; 36415; 36416; 36600; 51702; 71045; 80051; 80053; 81003; 82330; 82550; 82805; 82962; 83036; 83605; 83735; 83880; 84484; 85025; 93005; 93306; 94640; 94660; 96372; 97110; 97116; 97161; 97530; 99283; J0360; J0696; J1650; J1815; J1940; J2060; J2920; J3490; J7512

== ENCOUNTER → 2020-07-12 15:23 | Outpatient (BNVA) | payer MEDICAID, SELFPAY | PROVIDERS: PCP Family Medicine; Visit Provider Internal Medicine Cardiovascular Disease | DX: R06.00 Dyspnea, unspecified (principal); I10 Essential (primary) hypertension; I50.9 Heart failure, unspecified; I35.0 Nonrheumatic aortic (valve) stenosis; I35.1 Nonrheumatic aortic (valve) insufficiency; E11.9 Type 2 diabetes mellitus without complications; E78.2 Mixed hyperlipidemia | CPT/HCPCS: 80048; 83735; 83880 ==

== ENCOUNTER 2020-07-16 11:22 | Inpatient (IN) | payer MEDICAID, SELFPAY ==
[2020-07-16] VITALS (17 sets, daily range): BP systolic 117–220; BP diastolic 51–107; PULSE 73–90; RESP 17–33; TEMP 36.2–37.2; O2SAT 92–98; BMI 49.9
--- NOTE | 2020-07-16 11:31 | ECG_ITS ---
[facility] Test Date: 2020-07-16 Pat Name: Bridget Faye Department: Room: Gender: Female Abattoir Manager: : 1955 Requested By: Teresa Coats I Order Number: [id number] Phong MD: Laurel Bunch M.D. Measurements Intervals [place] Rate: 87 P: 51 [place]: 180 QRS: 9 QRSD: 90 T: 64 QT: 383 QTc: 462 Interpretive Statements SINUS RHYTHM POSSIBLE LEFT ATRIAL ENLARGEMENT [-0.1mV P WAVE IN V1/V2] Compared to ECG 06/23/2020 01:06:45 Ventricular premature complex(es) no longer present Electronically Signed On 07-17-2020 11:08:15 CLIENT SERVICES ASSOCIATE by Laurel Bunch M.D. [id number]
--- NOTE | 2020-07-16 11:31 | XR_ITS ---
WS: [id number] Exam: XR chest 1V portable [id number] Date/Time of Exam: 07/16/2020 11:31 AM Reason For Exam: SOB Comparison 06/22/2020. The lungs are fully expanded. Mild plaque atelectasis in the lower lung zones. Cardiomediastinal stru ctures are unremarkable for technique. No pleural effusions. Rightward tracheal deviation. This appar ently represents the patient's known goiter. The osseous thorax is intact. XR/XR chest 1V portable [id number] IMPRESSION: 1. Bibasal plaque atelectasis. No acute cardiopulmonary finding. 2. Rightward tracheal deviation apparently secondary to the patient's known goi ter.
--- NOTE | 2020-07-16 11:37 | W.ED.SOB ---
HPI - SOB/Dyspnea General: Chief Complaint: Shortness of Breath/Dyspnea Stated Complaint: edema/sob Time Seen by Provider: 07/16/20 11:22 Source: patient and EMS Mode of arrival: EMS Limitations: no limitations History of Present Illness: HPI Narrative: The patient is a 64-year-old female with a history of diastolic heart failure. She was discharged from this facility about 3 weeks ago for an acute exacerbation of congestive heart failure and was seen by a ocean biologist 4 days ago. The patient states that she has been having increasing leg swelling or shortness of breath for the last week. She admits to orthopnea. Because her symptoms were worsening she called for an ambulance. She wears 2 L of oxygen at home. When the ambulance got there her oxygen saturations were around 90% and she had significant crackles on examination. She was given 80 mg of IV Lasix in the ambulance and was started on a CPAP. MD elicited complaint: shortness of breath and cough Pertinent past history: COPD and congestive heart failure Onset (ago): week(s) (1) Timing: constant and progressively worsening Exacerbating factors: lying flat Relieving factors: nothing Known history of: COPD and congestive heart failure Associated symptoms: Deny abdominal pain, fever(s), nausea, palpitations, polydipsia, polyuria or vomiting Review of Systems General: Reports: 10 or more systems reviewed and unremarkable except in HPI and below Const: Denies: fever(s), chills or body aches Eyes: Denies: change in vision or blurry vision ENMT: Denies: throat pain, enlarged tonsils, odynophagia, hoarseness, mouth pain or swelling of lips/tongue Card: Reports: edema, swelling of feet/ankles and dyspnea on exertion; Denies: palpitations or irregular heart rhythm Resp: Reports: dyspnea; Denies: productive cough or non-productive cough GI: Denies: abdominal pain, nausea or vomiting : Denies: flank pain, difficulty voiding, dysuria, urinary frequency, urinary urgency or urinary hesitancy Musc: Denies: neck pain, back pain or extremity swelling Skin/Breast: Denies: rash, pruritus or erythema Neuro: Denies: headache(s), numbness in extremities or weakness in extremities Endo: Denies: polyuria, polydipsia or tired all the time [facility] ED PFSH: Medical History Aortic regurgitation Aortic stenosis Aortic stenosis Chronic kidney disease, stage 3 Diabetes Diabetes mellitus type 2 in obese Hyperlipidemia Hypertension Morbid obesity with BMI of 45.0-49.9, adult Obesity Tobacco abuse Surgical History H/O arthroscopic knee surgery H/O tubal ligation Family History Other Diabetes Hypertension Stroke Social History Smoking and tobacco status: current every day smoker cigarettes Packs smoked per day: 1 Alcohol intake: never Substance/Drug Use: never Physical Exam Const: COMMON NORMALS: no acute distress, average body habitus, patient oriented x3, no limitations, healthy appearing, alert and well nourished HENMT: COMMON NORMALS: normocephalic, atraumatic and moist oral mucous membranes HEAD & SCALP: normocephalic and atraumatic Neck/C-Spine: COMMON NORMALS: no meningeal signs and no JVD Resp: COMMON NORMALS: normal respiratory effort, No retractions, No use of accessory muscles and percussion normal AUSCULTATION: rales and diminished lung sounds PERCUSSION: percussion normal Cardio: COMMON NORMALS: no JVD, regular rate, regular rhythm, S1 normal heart sound present, S2 normal heart sound present, No gallops present (Cardio), No clicks present (Cardio), No murmurs present (Cardio), No rub (Cardio) and Peripheral pulses 2+ throughout RATE: regular rate RHYTHM: regular rhythm HEART SOUNDS: S1 normal heart sound present and S2 normal heart sound present PERIPHERAL PULSES: Peripheral pulses 2+ throughout GI: COMMON NORMALS: Normal to inspection, nondistended, normoactive bowel sounds present, Soft to palpation, non-tender, No hepatosplenomegaly present, no masses and no bruits PALPATION: Yes Soft to palpation and Yes No hepatosplenomegaly present Extremity: COMMON NORMALS: normal to inspection, full ROM, capillary refill normal and no calf tenderness GENERAL: Yes edema Neuro: COMMON NORMALS: patient oriented x3 SENSORIUM/ORIENTATION: Yes alert MENINGEAL SIGNS: Yes no meningeal signs Course Consultations: Consultation #1: Discussed the patient with Dr. Hicks, hospitalist and she kindly accepted patient to her service. Time: 15:10 Vital Signs: Vital signs: Vital Signs Temperature 98.1 F 07/16/20 19:05 Pulse Rate 81 07/16/20 23:56 Respiratory Rate 19 H 07/16/20 20:13 Blood Pressure 117/57 07/16/20 23:56 Pulse Oximetry 94 07/16/20 23:56 MDM - SOB/Dyspnea MDM Narrative: Medical decision making narrative: 64-year-old female patient who presents to the emergency department with shortness of breath. She was hypoxic and required noninvasive ventilation with using the BiPAP. She has been complaining of increasing leg swelling and orthopnea and shortness of breath and she is being managed as a case of acute exacerbation of diastolic heart failure. She is admitted to the cardiac stepdown unit for further evaluation and management Medical Records: Attestation: I reviewed the patient's medical records. Lab Data: Attestation: I reviewed the patient's lab results. Labs: Lab Results 07/16/20 07/16/20 07/16/20 Range/Units 11:31 11:35 11:35 WBC 11.8 H (4.0-10.0) 10^3/ uL RBC 4.69 (4.1-5.3) 10^6/u L Hgb 11.2 L (11.5-15.3) g/dL Hct 39.3 (37.0-47.0) % MCV 83.8 (81-99) fL MCH 23.9 L (28.0-34.0) pg MCHC 28.5 L (30.0-36.0) g/dL RDW 18.8 H (12.1-15.1) % Plt Count 364 (130-400) 10^3/c mm MPV 10.0 (7.4-10.4) fL Neut % (Auto) 78.9 % Lymph % (Auto) 15.5 % Park % (Auto) 4.3 % Eos % (Auto) 0.6 % Baso % (Auto) 0.4 % Neut # (Auto) 9.31 H (1.8-7.7) 10^3/u L Lymph # (Auto) 1.8 (0.8-4.8) 10^3/u L Park # (Auto) 0.5 (0.2-0.9) 10^3/u L Eos # (Auto) 0.1 (0.0-0.8) 10^3/u L Baso # (Auto) 0.1 (0.0-0.1) 10^3/u L Nucleated RBC % (a uto) 0 % Nucleated RBCs # 0.0 /100WBC PT 13.50 (12.1-14.9) SECO NDS INR 1.00 (0.8-1.2) D-Dimer (0-0.59) ug/mIFE U Specimen Type Arterial Sample Site Radial, right ABG pH 7.38 (7.35-7.45) ABG pCO2 55.0 H (35-45) mmHg ABG pO2 72.2 L (80.0-100.0) mmH g ABG HCO3 32.3 H (22-26) mmol/L ABG Base Excess 5.8 H (-2.0-2.0) mmol/ L Rm Test Pos Hematocrit 35.1 L (37-47) % O2 Delivery Device Nc O2 Liters/Min 6.0 % FiO2 44.0 % Business Analyst Sales Operations ID Ed Sodium (136-145) mmol/L Potassium (3.5-5.1) mmol/L Chloride (98-107) mmol/L Carbon Dioxide (22-29) mmol/L Anion Gap (5-19) BUN (8-23) mg/dL Creatinine (0.5-0.9) mg/dL GFR Calculation (90-130) mL/min Glucose (65-115) mg/dL Calculated Osmolal ity (285-295) mOsm/k g Calcium (8.5-10.5) mg/dL Total Bilirubin (0.15-1.2) mg/dL AST (0-32) U/L ALT (0-33) U/L Alkaline Phosphata se (35-105) IU/L Troponin T Baselin e (0-10) ng/L Troponin T 120 Min [place] (0-10) ng/L Delta Troponin T (0-10) ABS# NT-Pro-B Natriuret Pep (0-125) pg/mL Total Protein (6.6-8.7) g/dL Albumin (3.5-5.2) g/dL Globulin (1.3-4.6) g/dL Urine Color (Yellow) Urine Appearance (CLEAR) Urine pH (5-7) Ur Specific Gravit y (1.005-1.030) Urine Protein (Negative) Urine Glucose (UA) (Normal) Urine Ketones (Negative) Urine Blood (Negative) Urine Nitrate (Negative) Urine Bilirubin (Negative) Urine Urobilinogen (Negative) mg/dL Ur Leukocyte Princess ase (Negative) 07/16/20 07/16/20 07/16/20 Range/Units 11:35 11:35 11:35 WBC (4.0-10.0) 10^3/ uL RBC (4.1-5.3) 10^6/u L Hgb (11.5-15.3) g/dL Hct (37.0-47.0) % MCV (81-99) fL MCH (28.0-34.0) pg MCHC (30.0-36.0) g/dL RDW (12.1-15.1) % Plt Count (130-400) 10^3/c mm MPV (7.4-10.4) fL Neut % (Auto) % Lymph % (Auto) % Park % (Auto) % Eos % (Auto) % Baso % (Auto) % Neut # (Auto) (1.8-7.7) 10^3/u L Lymph # (Auto) (0.8-4.8) 10^3/u L Park # (Auto) (0.2-0.9) 10^3/u L Eos # (Auto) (0.0-0.8) 10^3/u L Baso # (Auto) (0.0-0.1) 10^3/u L Nucleated RBC % (a uto) % Nucleated RBCs # /100WBC PT (12.1-14.9) SECO NDS INR (0.8-1.2) D-Dimer 0.38 (0-0.59) ug/mIFE U Specimen Type Sample Site ABG pH (7.35-7.45) ABG pCO2 (35-45) mmHg ABG pO2 (80.0-100.0) mmH g ABG HCO3 (22-26) mmol/L ABG Base Excess (-2.0-2.0) mmol/ L Rm Test Hematocrit (37-47) % O2 Delivery Device O2 Liters/Min % FiO2 % Business Analyst Sales Operations ID Sodium 139 (136-145) mmol/L Potassium 3.8 (3.5-5.1) mmol/L Chloride 97 L (98-107) mmol/L Carbon Dioxide 33 H (22-29) mmol/L Anion Gap 12.8 (5-19) BUN 27 H (8-23) mg/dL Creatinine 1.6 H (0.5-0.9) mg/dL GFR Calculation 32.5 L (90-130) mL/min Glucose 197 H (65-115) mg/dL Calculated Osmolal ity 299 H (285-295) mOsm/k g Calcium 8.8 (8.5-10.5) mg/dL Total Bilirubin 0.2 (0.15-1.2) mg/dL AST 10 (0-32) U/L ALT 11 (0-33) U/L Alkaline Phosphata se 133 H (35-105) IU/L Troponin T Baselin e 21 H (0-10) ng/L Troponin T 120 Min [place] (0-10) ng/L Delta Troponin T (0-10) ABS# NT-Pro-B Natriuret Pep 275 H (0-125) pg/mL Total Protein 7.1 (6.6-8.7) g/dL Albumin 3.5 (3.5-5.2) g/dL Globulin 3.6 (1.3-4.6) g/dL Urine Color (Yellow) Urine Appearance (CLEAR) Urine pH (5-7) Ur Specific Gravit y (1.005-1.030) Urine Protein (Negative) Urine Glucose (UA) (Normal) Urine Ketones (Negative) Urine Blood (Negative) Urine Nitrate (Negative) Urine Bilirubin (Negative) Urine Urobilinogen (Negative) mg/dL Ur Leukocyte Princess ase (Negative) 07/16/20 07/16/20 Range/Units 11:45 14:21 WBC (4.0-10.0) 10^3/ uL RBC (4.1-5.3) 10^6/u L Hgb (11.5-15.3) g/dL Hct (37.0-47.0) % MCV (81-99) fL MCH (28.0-34.0) pg MCHC (30.0-36.0) g/dL RDW (12.1-15.1) % Plt Count (130-400) 10^3/c mm MPV (7.4-10.4) fL Neut % (Auto) % Lymph % (Auto) % Park % (Auto) % Eos % (Auto) % Baso % (Auto) % Neut # (Auto) (1.8-7.7) 10^3/u L Lymph # (Auto) (0.8-4.8) 10^3/u L Park # (Auto) (0.2-0.9) 10^3/u L Eos # (Auto) (0.0-0.8) 10^3/u L Baso # (Auto) (0.0-0.1) 10^3/u L Nucleated RBC % (a uto) % Nucleated RBCs # /100WBC PT (12.1-14.9) SECO NDS INR (0.8-1.2) D-Dimer (0-0.59) ug/mIFE U Specimen Type Sample Site ABG pH (7.35-7.45) ABG pCO2 (35-45) mmHg ABG pO2 (80.0-100.0) mmH g ABG HCO3 (22-26) mmol/L ABG Base Excess (-2.0-2.0) mmol/ L Rm Test Hematocrit (37-47) % O2 Delivery Device O2 Liters/Min % FiO2 % Business Analyst Sales Operations ID Sodium (136-145) mmol/L Potassium (3.5-5.1) mmol/L Chloride (98-107) mmol/L Carbon Dioxide (22-29) mmol/L Anion Gap (5-19) BUN (8-23) mg/dL Creatinine (0.5-0.9) mg/dL GFR Calculation (90-130) mL/min Glucose (65-115) mg/dL Calculated Osmolal ity (285-295) mOsm/k g Calcium (8.5-10.5) mg/dL Total Bilirubin (0.15-1.2) mg/dL AST (0-32) U/L ALT (0-33) U/L Alkaline Phosphata se (35-105) IU/L Troponin T Baselin e (0-10) ng/L Troponin T 120 Min [place] 19.09 H (0-10) ng/L Delta Troponin T -1.91 L (0-10) ABS# NT-Pro-B Natriuret Pep (0-125) pg/mL Total Protein (6.6-8.7) g/dL Albumin (3.5-5.2) g/dL Globulin (1.3-4.6) g/dL Urine Color Straw (Yellow) Urine Appearance Clear (CLEAR) Urine pH 5 (5-7) Ur Specific Gravit y 1.010 (1.005-1.030) Urine Protein Neg (Negative) Urine Glucose (UA) Norm (Normal) Urine Ketones Negative (Negative) Urine Blood Neg (Negative) Urine Nitrate Negative (Negative) Urine Bilirubin Neg (Negative) Urine Urobilinogen Norm (Negative) mg/dL Ur Leukocyte Princess ase Negative (Negative) Imaging Data^: CXR: Attestation: I personally reviewed and interpreted this imaging study as follows: Radiologist's impression: [address] [address] XRay Report Signed Patient: Bridget Faye #: [id number] : 6Acct#:[id number] Age/Sex: 64 / FADM Date: 07/16/20 Loc: [facility]/Bed: Attending Dr: Ordering Provider/Ordering MD: Teresa Coats MD, [facility] [place] Date of Service: 07/16/20 Procedure(s): XR chest 1V portable [id number] Accession Number(s): [id number] Report Number: [id number] WS: [id number] Exam: XR chest 1V portable [id number] Date/Time of Exam: 07/16/2020 11:31 AM Reason For Exam: SOB Comparison 06/22/2020. The lungs are fully expanded. Mild plaque atelectasis in the lower lung zones. Cardiomediastinal structures are unremarkable for technique. No pleural effusions. Rightward tracheal deviation. This apparently represents the patient's known goiter. The osseous thorax is intact. XR/XR chest 1V portable [id number] IMPRESSION: 1. Bibasal plaque atelectasis. No acute cardiopulmonary finding. 2. Rightward tracheal deviation apparently secondary to the patient's known goiter. Dictated By:Jacob Hollins DO Signed By:Felipe House Date/Time:07/16/20 1209 DD/ 1206 EKG Data^: EKG 1: Attestation: I personally reviewed and interpreted this EKG as follows: EKG Interpretation Date: 07/16/20 EKG interpretation time: 11:30 Prior EKG tracings: available for review Interpretation: Sinus rhythm. Heart rate [address] changes. No significant change EKG 2: Attestation: I personally reviewed and interpreted this EKG as follows: EKG Interpretation Date: 07/16/20 EKG interpretation time: 14:01 Prior EKG tracings: available for review Interpretation: Sinus rhythm HR 73 BPM Normal axis No ST changes Critical Care Time Critical Care Time: Critical Care Time: Yes Total Critical Care Time: 60 Attestation: This case had a high probability of a clinically significant, sudden, or life threatening deterioration of this patient's condition which required my full and direct attention, intervention and personal management. Discharge Plan Discharge Patient Disposition: Admitted As Inpatient Admit Provider: Shalonda Hicks Clinical Impression: Morbid obesity with BMI of 45.0-49.9, adult Acute and chronic respiratory failure Qualifiers: Respiratory failure complication: hypercapnia Qualified Code(s): J96.22 - Acute and chronic respiratory failure with hypercapnia Congestive heart failure Qualifiers: Heart failure type: unspecified Heart failure chronicity: unspecified Qualified Code(s): I50.9 - Heart failure, unspecified COPD (chronic obstructive pulmonary disease) Qualifiers: COPD type: unspecified COPD Qualified Code(s): J44.9 - Chronic obstructive pulmonary disease, unspecified Condition: Stable Discharge Diet: Diabetic and Low Salt Coding Level of Care Code ED Risk Lead for Chg Fwd Exam Detailed
[2020-07-16 11:41] LABS: ABG PH Result 7.38 (7.35-7.45); Arterial Blood Gas Hematocrit 35.1 % (37-47); Base Excess ABG 5.8 mmol/L (-2.0-2.0); Blood Gas Allen Test Pos; Blood Gas Sample Type Arterial; HCO3 ABG 32.3 mmol/L (22-26); PO2 ABG 72.2 mmHg (80.0-100.0)
[2020-07-16 11:42] LABS: Blood Gas Operator Identificat ED; Blood Gas Sample Site Radial, right; Oxygen Device NC
[2020-07-16 11:47] LABS: Basophils # 0.1 10^3/uL (0.0-0.1); Basophils % 0.4 %; Eosinophils # 0.1 10^3/uL (0.0-0.8); Eosinophils % 0.6 %; Hematocrit 39.3 % (37.0-47.0); Hemoglobin 11.2 g/dL (11.5-15.3); Lymphocytes # 1.8 10^3/uL (0.8-4.8); Lymphocytes % 15.5 %; Mean Corpuscular HGB Conc 28.5 g/dL (30.0-36.0); Mean Corpuscular Hemoglobin 23.9 pg (28.0-34.0); Mean Corpuscular Volume 83.8 fL (81-99); Monocytes # 0.5 10^3/uL (0.2-0.9); Monocytes % 4.3 %; Neutrophils # 9.31 10^3/uL (1.8-7.7); Neutrophils % 78.9 %; Nucleated Red Blood Cells % 0 %; Platelet Count 364 10^3/cmm (130-400); Red Blood Count 4.69 10^6/uL (4.1-5.3); Red Cell Distribution Width 18.8 % (12.1-15.1); White Blood Count 11.8 10^3/uL (4.0-10.0)
[2020-07-16 12:05] LABS: Troponin(5th) Baseline 21 ng/L (0-10)
[2020-07-16 12:20] LABS: Alanine Aminotransferase 11 U/L (0-33); Albumin Level 3.5 g/dL (3.5-5.2); Alkaline Phosphatase 133 IU/L (35-105); Anion Gap 12.8 (5-19); Aspartate Amino Transferase 10 U/L (0-32); Blood Urea Nitrogen 27 mg/dL (8-23); Calcium 8.8 mg/dL (8.5-10.5); Carbon Dioxide 33 mmol/L (22-29); Chloride 97 mmol/L (98-107); Globulin 3.6 g/dL (1.3-4.6); Glomerular Filtration Rate 32.5 mL/min (90-130); Glucose 197 mg/dL (65-115); NT Pro B Type Natriuretic Pept 275 pg/mL (0-125); Osmolality Calculated 299 mOsm/kg (285-295); Potassium 3.8 mmol/L (3.5-5.1); Sodium 139 mmol/L (136-145); Total Bilirubin 0.2 mg/dL (0.15-1.2); Total Protein 7.1 g/dL (6.6-8.7)
[2020-07-16] MEDS: labetalol 5 mg/mL SDV 20mL 10 MG IVP (12:26)
--- NOTE | 2020-07-16 12:33 | PC.NURSE ---
bp before ivp labetelol manual 130/70, reported to provider ordered to hold medication. medication held.
--- NOTE | 2020-07-16 12:51 | PC.PHAR ---
PT STATES SHE TAKES CARE OF HER OWN MEDICATIONS-PT STATES SHE IS STILL TAKING ABILIFY [facility] STATES THEY HAVENT FILLED SINCE 03/27/2020 30D/S-PT STATES SHE IS STILL TAKING LIPITOR [facility] LAST FILLED 05/24/20 30D/S-PT STATES SHE ONLY USES HER IPRATROPIUM-ALBUTEROL BID IT WAS WRITTEN QID-PT STATES SHE TAKES [place] BID [facility] LAST FILLED ON 05/18/2020 30D/S-PT STATES SHE IS STILL TAKING SERTRALINE 100MG SUNDRA LAST FILLED ON 03/27/2020 30D/S
--- NOTE | 2020-07-16 13:24 | PC.NURSE ---
spoke to family member arias, daughter, gave update on patient.
--- NOTE | 2020-07-16 13:31 | ECG_ITS ---
[facility] Test Date: 2020-07-16 Pat Name: Bridget Faye Department: Room: Gender: Female Agronomy Instructor: : 1955 Requested By: Teresa Coats I Order Number: [id number] Phong MD: Laurel Bunch M.D. Measurements Intervals [place] Rate: 73 P: 4 OR: 198 QRS: 16 QRSD: 85 T: 70 QT: 411 QTc: 454 Interpretive Statements SINUS RHYTHM Compared to ECG 06/23/2020 01:06:45 Ventricular premature complex(es) no longer present Electronically Signed On 07-17-2020 11:30:27 PROFESSOR OF COUNSELING by Laurel Bunch M.D. [email or web address]
[2020-07-16 14:51] LABS: Troponin 5 2HR 19.09 ng/L (0-10)
[2020-07-16 14:55] LABS: Troponin 5 2HR Delta -1.91 ABS# (0-10)
[2020-07-16 15:25] LABS: Add Urine Microscopic? NO
[2020-07-16 15:35] LABS: Bilirubin Urine Neg (Negative); Blood Urine Neg (Negative); Glucose Urine UA Norm (Normal); Ketones Urine Negative (Negative); Leukocyte Esterase Urine Negative (Negative); Nitrate Urine Negative (Negative); Protein Urine Neg (Negative); Urine Appearance Clear (CLEAR); Urine Color Straw (Yellow); Urobilinogen Urine Norm (Negative); pH Urine 5 (5-7)
[2020-07-16 15:36] LABS: D Dimer 0.38 ug/mIFEU (0-0.59)
[2020-07-16 15:53] LABS: SARS Covid-2 Antigen Negative (Negative)
--- NOTE | 2020-07-16 17:31 | ECG_ITS ---
[facility] Test Date: 2020-07-16 Pat Name: Bridget Faye Department: Room: 103 Gender: Female Outcome Analyst: : 1955 Requested By: Teresa Coats I Order Number: [id number] Phong MD: Laurel Bunch M.D. Measurements Intervals [place] Rate: 78 P: 64 RI: 164 QRS: 6 QRSD: 99 T: 41 QT: 405 QTc: 462 Interpretive Statements SINUS RHYTHM WITH OCCASIONAL VENTRICULAR PREMATURE COMPLEXES Compared to ECG 07/16/2020 14:01:32 Ventricular premature complex(es) now present Electronically Signed On 07-17-2020 11:24:30 SLUDGE FILTRATION OPERATOR by Laurel Bunch M.D. [id number]
--- NOTE | 2020-07-16 17:34 | P.HP_ITS ---
Providers/Chief Complaint Admitting Physician: Shalonda Hicks MD Primary Care Provider: Jhony Cantu MD Chief Complaint: PULMONARY EDEMA/ SOB History of Present Illness Bridget Faye is a 64 year old female past medical history significant for aortic valve stenosis, presented with acute hypoxic and hypercapnic respiratory failure on a recent admission 06/22-06/26 atient was treated accordingly with bronchodilators and diuretics as well as steroids and antibiotics and gradually improved. She required short BiPAP support. Patient unfortunately bears diagnosis of obstructive sleep apnea but cannot tolerate mask at home. She qualified for 2lpm oxygen. Discharged with lasix 40mg po qd, increased to 40 BID on 07/12, returned with worsening shortnes of breath today. When the ambul ance got there her oxygen saturations were around 90% and she had significant crackles on examination. She was given 80 mg of IV Lasix in the ambulance and was started on a Bipap which she is currently tolerating well. Outpatient was scheduled for stress test but has not had one yet. Review of Systems General: Reports: 10 or more systems reviewed and unremarkable except in HPI and below Const: Denies: fever(s), chills or body aches Eyes: Denies: change in vision, blurry vision or photophobia ENMT: Reports: hoarseness; Denies: throat pain, enlarged tonsils, odynophagia or nasal congestion Card: Denies: chest pain, palpitations, irregular heart rhythm, edema, swelling of feet/ankles, lightheadedness, pre-syncope, dyspnea on exertion or orthopnea Resp: Denies: dyspnea, productive cough, non-productive cough, wheezing, stridor, pain on inspiration, change in phlegm color, hemoptysis or chest congestion GI: Denies: abdominal pain, nausea, vomiting, hematemesis, coffee ground emesis, dysphagia, heartburn, diarrhea, constipation, GI cramping, change in stool character, hematochezia or melena : Denies: flank pain, difficulty voiding, dysuria, urinary frequency, urinary urgency, urinary hesitancy or hematuria Musc: Denies: neck pain, back pain, extremity pain, joint swelling, joint warmth or deformity Neuro: Denies: headache(s), numbness in extremities, weakness in extremities, sensory changes, difficulty walking, frequent falls, dizziness, vertigo, behavioral changes, Slurred speech present or seizure-like activity Psych: Denies: anxiety, depression, suicidal ideation or homicidal ideation Endo: Denies: polyuria, polydipsia, tired all the time, cold intolerance or hot flashes Matteo/Lymph: Denies: easy bruising or easy bleeding Medications/Allergies Home Medications Medication Instructions Recorded Confirmed Last Taken Type aripiprazole [Abilify] 2 mg PO DAILY@11/04/19 07/16/20 06/21/20 History atorvastatin 40 mg PO BEDTIME 11/04/19 07/16/20 06/21/20 History losartan 50 mg PO BID 11/04/19 07/16/20 06/21/20 History metformin 500 mg PO BID 11/04/19 07/16/20 06/21/20 History sertraline 100 mg PO DAILY@11/04/19 07/16/20 06/21/20 History isosorbide mononitrate 30 mg 30 mg PO DAILY@12/24/19 07/16/20 06/21/20 History tablet,extended release 24 hr nicotine 1 patch TRANSDERMAL DAILY #14 ea 06/26/20 07/16/20 Unknown Rx nystatin [Nystop] 1 applic TOPICAL BID #1 pkg 06/26/20 07/16/20 Unknown Rx aspirin 81 mg PO DAILY@07/16/20 07/16/20 Unknown History furosemide [Lasix] 40 mg PO BID@,07/16/20 07/16/20 Unknown History ipratropium-albuterol 3 ml INHALATION QID 07/16/20 07/16/20 Unknown History pantoprazole 40 mg PO DAILY@07/16/20 07/16/20 Unknown History potassium chloride 20 meq PO DAILY@07/16/20 07/16/20 Unknown History spironolactone 25 mg PO BID 07/16/20 07/16/20 Unknown History tiotropium-olodaterol [Stiolto 2 puff INHALATION DAILY 07/16/20 07/16/20 Unknown History Respimat] trazodone 50 mg PO BEDTIME 07/16/20 07/16/20 Unknown History umeclidinium-vilanterol [Anoro 1 inh INHALATION DAILY 07/16/20 07/16/20 Unknown History Ellipta] Allergies Allergy/AdvReac Type Severity Reaction Status Date / Time Penicillins Allergy CHRIS-Messi Verified 07/16/20 12:51 PFSH Acute PFSH: Medical History Aortic regurgitation Aortic stenosis Aortic stenosis Chronic kidney disease, stage 3 Diabetes Diabetes mellitus type 2 in obese Hyperlipidemia Hypertension Morbid obesity with BMI of 45.0-49.9, adult Obesity Tobacco abuse Surgical History H/O arthroscopic knee surgery H/O tubal ligation Family History Other Diabetes Hypertension Stroke Social History Smoking and tobacco status: current every day smoker cigarettes Packs smoked per day: 1 Alcohol intake: never Substance/Drug Use: never Vitals/I&O/Wt Last Vital Signs Temp 97.8 F 07/16/20 17:02 Pulse 75 07/16/20 17:02 Resp 25 H 07/16/20 17:02 BP 132/68 07/16/20 17:02 Pulse Ox 94 07/16/20 17:02 07/16/20 07/16/20 07/16/20 06:59 14:59 22:59 Output Total 1600 / 1600 Balance -1600 / -1600 Weight last 48 hrs Weight 123.831 kg Physical Exam Narrative: EXAM NARRATIVE: General: No acute distress, AO x3 HEENT: PERRLA, pupils bilaterally equal and reactive, pallors not present Chest: Normal vesicular breath sounds, crackles+ , equal good air entry bilaterally CVS: S1-S2 regular, no murmurs, no tachycardia, no gallops, no rubs Abdomen: Soft, nontender, no organomegaly, bowel sounds present Neuro: No focal deficits, no facial deformity, AO x3, power 5/5 in all limbs Extremities: 2+ pitting edema Urinary Catheter Management^: Ramirez: Cath Placed During This Visit: yes Urinary Catheter Date of Insertion: 07/16/20 Urinary Catheter Time of Insertion: 15:21 Data : 07/16/20 11:35 07/16/20 11:35 Attestation for Other Data: I personally reviewed and interpreted the following: Other data: TTE (11/12/2019) Normal LV size and function. LVEF=60%. Moderate (MG-18 mm Hg) and mild AI. 06/23/20 ECHO CONCLUSIONS 1. This is a technically very difficult study. 2. Normal left ventricular cavity size. Increased left ventricular wall thickness. Normal left ventricular systolic function. Left ventricular ejection fraction is estimated at 65 %. Grade I diastolic dysfunction (abnormal relaxation filling pattern), normal to mildly elevated filling pressures. 3. Possibly moderate aortic valve stenosis, peak velocity 49 mmHg, mean gradient 25 mmHg, DEYANIRA 1.3 cm squared. Mild aortic valve regurgitation. 4. Pulmonary artery pressure estimated at 47 mmHg. 5. When compared to previous echocardiogram dated 11/12/2019, there may not have been any significant change. 03/24/20 LEXISCAN IMPRESSIONS 1. Myocardial perfusion imaging is normal. 2. Overall left ventricular systolic function is normal without regional wall motion abnormalities. 3. The left ventricular ejection fraction is normal with a value of 69%. 4. Scan indicates low risk for cardiac events. CONCLUSION: 1. No significant EKG changes with the LexiScan infusion. 2. No LexiScan induced chest pain or cardiac arrhythmia. 3. Normal blood pressure and heart rate response. 4. Sestamibi/sestamibi perfusion scan pending; see separate report. 07/16/20 11:31 ABG pH 7.38 ABG pCO2 55.0 H ABG pO2 72.2 L ABG HCO3 32.3 H ABG Base Excess 5.8 H A&P Assessment and plan (1) COPD (chronic obstructive pulmonary disease): Status: Acute Qualifiers: COPD type: unspecified COPD Qualified Code(s): J44.9 - Chronic obstructive pulmonary disease, unspecified (2) Chronic kidney disease, stage 3: Status: Acute Qualifiers: Chronic kidney disease stage 3 subtype: unspecified whether 3a or 3b Qualified Code(s): N18.30 - Chronic kidney disease, stage 3 unspecified (3) Obstructive sleep apnea: Status: Acute (4) Congestive heart failure: Status: Acute Qualifiers: Heart failure type: unspecified Heart failure chronicity: chronic Qualified Code(s): I50.9 - Heart failure, unspecified Additional A&P Information Admit to CSU and continue BiPAP. Continue with aggressive diuresis, bronchodilators, steroids Restart home blood pressure medications Lovenox for DVT prophylaxis and Protonix for GI protection. D dimer negative, Rapid covid negative Attestations Medical Necessity Statement*: Patient with acute CHF exacerbation and COPD that the patient requires close inpatient monitoring and treatment. I expect patient will require more than 2 midnights. Coding Level of Care Code Acute Bmet for [facility] Fwd Diagnoses COPD (chronic obstructive pulmonary disease) J44.9 COPD type: unspecified COPD Chronic kidney disease, stage 3 N18.30 Chronic kidney disease stage 3 subtype: unspecified whether 3a or 3b Obstructive sleep apnea G47.33 Congestive heart failure I50.9 Heart failure type: unspecified Heart failure chronicity: chronic
[2020-07-16 18:05] LABS: Troponin 5 6HR 21.98 ng/L (0-10); Troponin 5 6HR Delta 0.98 ng/L (0-12)
[2020-07-16 18:09] LABS: Glucose Point of Care 127 mg/dL (70-110)
[2020-07-16] MEDS: spironolactone 25 mg Tablet PO (18:25)
[2020-07-16] MEDS: enoxaparin 40 mg/0.4 mL Syringe SUBCUT (18:25)
--- NOTE | 2020-07-16 19:15 | PC.NURSE ---
received into room 103 from er at 1700.report received.sr on monitor.on bipap 30% fio2.tolerating well.denies pain at present.oriented to room environment.instructed to notify staff for any sob,cp,or for any concerns at all.pt verb understanding of instructions
--- NOTE | 2020-07-16 19:29 | PC.NURSE ---
Patient has no complaints at this time. She states that she does not have any shortness of breath or pain. Patient lifted up in bed with 2 assist. VSS. Will monitor. Patient has been educated senior online marketing manager light use and not to get up without assistance and verbalized understanding. Call light is within reach
[2020-07-16] MEDS: ipratropium-albuterol 3 mL Neb INHALATION (20:03)
[2020-07-16] MEDS: budesonide 0.5 mg/2 mL Neb INHALATION (20:04)
[2020-07-16 20:36] LABS: Glucose Point of Care 200 mg/dL (70-110)
[2020-07-16] MEDS: trazodone 50 mg Tablet PO (20:43)
[2020-07-16] MEDS: atorvastatin 40 mg Tablet PO (20:43)
--- NOTE | 2020-07-16 21:52 | PC.NURSE ---
Patient states that she would like a bed bath, but not right now. She states she would like one in the morning. Dr. Russell notified of patient asking for something for anxiety. Melissa ordered.
[2020-07-17] VITALS (17 sets, daily range): BP systolic 94–138; BP diastolic 54–76; PULSE 70–89; RESP 16–24; TEMP 36.7–36.8; O2SAT 91–97
--- NOTE | 2020-07-17 02:38 | PC.NURSE ---
Patient's oxygen saturation drops intermittently while sleeping into 60s and 70s. Patient quickly comes back up to 90s when awoken. Patient was repositioned in bed and Bipap is on. RT notified.
[2020-07-17] MEDS: ipratropium-albuterol 3 mL Neb INHALATION ×4 (03:19→20:15)
[2020-07-17] MEDS: FUROsemide 10 mg/mL SDV 10mL 60 MG IVP ×2 (04:52→17:20)
[2020-07-17 06:39] LABS: Glucose Point of Care 184 mg/dL (70-110)
[2020-07-17 07:17] LABS: Alanine Aminotransferase 10 U/L (0-33); Alkaline Phosphatase 143 IU/L (35-105); Anion Gap 14.5 (5-19); Aspartate Amino Transferase 9 U/L (0-32); Blood Urea Nitrogen 29 mg/dL (8-23); Calcium 8.9 mg/dL (8.5-10.5); Carbon Dioxide 33 mmol/L (22-29); Chloride 98 mmol/L (98-107); Globulin 4.2 g/dL (1.3-4.6); Glomerular Filtration Rate 30.3 mL/min (90-130); Glucose 154 mg/dL (65-115); Magnesium 1.8 mg/dL (1.7-2.3); Osmolality Calculated 303 mOsm/kg (285-295); Potassium 3.5 mmol/L (3.5-5.1); Sodium 142 mmol/L (136-145); Total Bilirubin 0.3 mg/dL (0.15-1.2); Total Protein 7.2 g/dL (6.6-8.7)
[2020-07-17 07:40] LABS: Basophils % 0.3 %; Eosinophils # 0.1 10^3/uL (0.0-0.8); Eosinophils % 0.7 %; Hematocrit 35.5 % (37.0-47.0); Hemoglobin 10.1 g/dL (11.5-15.3); Lymphocytes # 1.7 10^3/uL (0.8-4.8); Lymphocytes % 16.5 %; Mean Corpuscular HGB Conc 28.5 g/dL (30.0-36.0); Mean Corpuscular Hemoglobin 23.8 pg (28.0-34.0); Mean Corpuscular Volume 83.7 fL (81-99); Mean Platelet Volume 10.7 fL (7.4-10.4); Monocytes # 0.5 10^3/uL (0.2-0.9); Neutrophils # 7.91 10^3/uL (1.8-7.7); Neutrophils % 77.2 %; Nucleated Red Blood Cells % 0 %; Platelet Count 338 10^3/cmm (130-400); Red Blood Count 4.24 10^6/uL (4.1-5.3); White Blood Count 10.2 10^3/uL (4.0-10.0)
[2020-07-17] MEDS: spironolactone 25 mg Tablet PO ×2 (09:07→17:22)
[2020-07-17] MEDS: nicotine 21 mg Patch 1 PATCH TRANSDERMA (09:08)
[2020-07-17] MEDS: isosorbide mononitrate ER 30 mg Tablet PO (09:08)
[2020-07-17] MEDS: aspirin 81 mg EC Tablet PO (09:08)
[2020-07-17] MEDS: sertraline 100 mg Tablet PO (09:08)
[2020-07-17] MEDS: ARIPiprazole 2 mg Tablet PO (09:08)
[2020-07-17] MEDS: pantoprazole DR 40 mg Tablet PO (09:08)
[2020-07-17] MEDS: budesonide 0.5 mg/2 mL Neb INHALATION ×2 (09:14→20:15)
[2020-07-17 11:02] LABS: Glucose Point of Care 210 mg/dL (70-110)
[2020-07-17 16:48] LABS: Glucose Point of Care 168 mg/dL (70-110)
--- NOTE | 2020-07-17 17:00 | PM.PN ---
Subjective Subjective: Interval history: Afebrile, hemodynamically stable, currently on nasal cannula at 5 L/min, saturation 92%. Creatinine stable at 1.7. Urine output 2.3 L. Medications: Reviewed: Yes Vitals/I&O/Wt Last Vital Signs Temp 98.0 F 07/17/20 15:08 Pulse 79 07/17/20 15:08 Resp 23 H 07/17/20 15:08 BP 133/55 07/17/20 15:08 Pulse Ox 92 07/17/20 15:08 07/17/20 07/17/20 07/17/20 06:59 14:59 22:59 Intake Total 300 / 660 240 / 240 Output Total 550 / 2550 1400 / 1400 Balance -250 / -1890 -1160 / -1160 Weight last 48 hrs Weight 123.649 kg Weight 123.831 kg Physical Exam Narrative: EXAM NARRATIVE: General: No acute distress, AO x3 HEENT: PERRLA, pupils bilaterally equal and reactive, pallors not present Chest: Normal vesicular breath sounds, crackles+ , equal good air entry bilaterally CVS: S1-S2 regular, no murmurs, no tachycardia, no gallops, no rubs Abdomen: Soft, nontender, no organomegaly, bowel sounds present Neuro: No focal deficits, no facial deformity, AO x3, power 5/5 in all limbs Extremities: 2+ pitting edema Urinary Catheter Management^: Ramirez: Cath Placed During This Visit: yes Reason for Continuing Indwelling Catheter: Accurate Measurement of Urinary Output in Critically Ill Patients Urinary Catheter Date of Insertion: 07/16/20 Urinary Catheter Time of Insertion: 15:21 Data : 07/17/20 04:19 07/17/20 04:19 A&P Assessment and plan (1) COPD (chronic obstructive pulmonary disease): Status: Acute Qualifiers: COPD type: unspecified COPD Qualified Code(s): J44.9 - Chronic obstructive pulmonary disease, unspecified (2) Chronic kidney disease, stage 3: Status: Acute Qualifiers: Chronic kidney disease stage 3 subtype: unspecified whether 3a or 3b Qualified Code(s): N18.30 - Chronic kidney disease, stage 3 unspecified (3) Obstructive sleep apnea: Status: Acute (4) Congestive heart failure: Status: Acute Qualifiers: Heart failure chronicity: unspecified Heart failure type: unspecified Qualified Code(s): I50.9 - Heart failure, unspecified Additional A&P Information Currently appears to be improving, changed over to nasal cannula at 5 L/min. Off BiPAP Continue with aggressive diuresis, bronchodilators Restart home blood pressure medications except losartan, blood pressure is currently controlled Lovenox for DVT prophylaxis and Protonix for GI protection. D dimer negative, Rapid covid negative Net -2.3 L since yesterday, still with significant edema, will need further IV diuresis Attestations Medical Necessity Statement*: Ongoing need for IV diuresis at this present time. 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
[2020-07-17] MEDS: enoxaparin 40 mg/0.4 mL Syringe SUBCUT (17:22)
--- NOTE | 2020-07-17 19:16 | PC.NURSE ---
This nurse agrees with Lavon Mcleod charting and medication administration
[2020-07-17] MEDS: trazodone 50 mg Tablet PO (20:10)
[2020-07-17] MEDS: atorvastatin 40 mg Tablet PO (20:10)
[2020-07-17 20:38] LABS: Glucose Point of Care 213 mg/dL (70-110)
[2020-07-18] VITALS (17 sets, daily range): BP systolic 119–143; BP diastolic 46–74; PULSE 71–81; RESP 14–24; TEMP 36.7–36.8; O2SAT 90–97
[2020-07-18] MEDS: ipratropium-albuterol 3 mL Neb INHALATION ×4 (03:02→20:19)
[2020-07-18 04:57] LABS: Basophils % 0.3 %; Eosinophils # 0.1 10^3/uL (0.0-0.8); Eosinophils % 0.8 %; Hematocrit 34.7 % (37.0-47.0); Hemoglobin 9.7 g/dL (11.5-15.3); Lymphocytes # 1.5 10^3/uL (0.8-4.8); Lymphocytes % 15.1 %; Mean Corpuscular Volume 82.4 fL (81-99); Mean Platelet Volume 10.3 fL (7.4-10.4); Monocytes # 0.6 10^3/uL (0.2-0.9); Monocytes % 5.8 %; Neutrophils # 7.82 10^3/uL (1.8-7.7); Neutrophils % 77.7 %; Nucleated Red Blood Cells % 0 %; Platelet Count 345 10^3/cmm (130-400); Red Blood Count 4.21 10^6/uL (4.1-5.3); Red Cell Distribution Width 18.5 % (12.1-15.1); White Blood Count 10.1 10^3/uL (4.0-10.0)
[2020-07-18 05:27] LABS: Alanine Aminotransferase 9 U/L (0-33); Albumin Level 2.9 g/dL (3.5-5.2); Alkaline Phosphatase 129 IU/L (35-105); Anion Gap 14.3 (5-19); Aspartate Amino Transferase 8 U/L (0-32); Blood Urea Nitrogen 28 mg/dL (8-23); Calcium 8.4 mg/dL (8.5-10.5); Carbon Dioxide 35 mmol/L (22-29); Chloride 92 mmol/L (98-107); Glucose 146 mg/dL (65-115); Magnesium 1.8 mg/dL (1.7-2.3); Osmolality Calculated 294 mOsm/kg (285-295); Potassium 3.3 mmol/L (3.5-5.1); Sodium 138 mmol/L (136-145); Total Bilirubin 0.2 mg/dL (0.15-1.2); Total Protein 6.9 g/dL (6.6-8.7)
[2020-07-18] MEDS: FUROsemide 10 mg/mL SDV 10mL 60 MG IVP (06:09)
[2020-07-18 06:41] LABS: Glucose Point of Care 165 mg/dL (70-110)
[2020-07-18] MEDS: spironolactone 25 mg Tablet PO ×2 (08:10→17:27)
[2020-07-18] MEDS: isosorbide mononitrate ER 30 mg Tablet PO (08:10)
[2020-07-18] MEDS: aspirin 81 mg EC Tablet PO (08:10)
[2020-07-18] MEDS: pantoprazole DR 40 mg Tablet PO (08:10)
[2020-07-18] MEDS: sertraline 100 mg Tablet PO (08:10)
[2020-07-18] MEDS: nicotine 21 mg Patch 1 PATCH TRANSDERMA (08:11)
[2020-07-18] MEDS: budesonide 0.5 mg/2 mL Neb INHALATION ×2 (08:53→20:19)
[2020-07-18] MEDS: ARIPiprazole 2 mg Tablet PO (09:24)
[2020-07-18 11:27] LABS: Glucose Point of Care 215 mg/dL (70-110)
--- NOTE | 2020-07-18 14:41 | PC.NURSE ---
Pt has been resting in bed for most of the day, except for meals. Pt has no complaints at this time. Will continue to monitor.
[2020-07-18 16:41] LABS: Glucose Point of Care 164 mg/dL (70-110)
--- NOTE | 2020-07-18 16:50 | P.PN_ITS ---
Subjective Subjective: Interval history: No new complaints today, urine output 1.9 L, has not needed BiPAP in over 24 hours, lower extremity edema significantly improving, creatinine is stable at 1.5. Hypokalemia mild 3.3, repleted with p.o. potassium. Patient currently not motivated to attempt to stand, maximum activity she has displayed he is sitting at side of the bed. Medications: Reviewed: Yes Vitals/I&O/Wt Last Vital Signs Temp 98.1 F 07/18/20 14:54 Pulse 80 07/18/20 14:54 Resp 14 07/18/20 14:54 BP 119/46 07/18/20 14:54 Pulse Ox 96 07/18/20 14:54 07/18/20 07/18/20 07/18/20 06:59 14:59 22:59 Intake Total 240 / 1040 580 / 580 Output Total 900 / 3850 1000 / 1000 Balance -660 / -2810 -420 / -420 Weight last 48 hrs Weight 111.3 kg Weight 123.649 kg Physical Exam Narrative: EXAM NARRATIVE: General: No acute distress, AO x3 HEENT: PERRLA, pupils bilaterally equal and reactive, pallors not present Chest: Normal vesicular breath sounds, crackles+ , equal good air entry bilaterally CVS: S1-S2 regular, no murmurs, no tachycardia, no gallops, no rubs Abdomen: Soft, nontender, no organomegaly, bowel sounds present Neuro: No focal deficits, no facial deformity, AO x3, power 5/5 in all limbs, however refuses to get out of bed to walk. Extremities: 2+ pitting edema Urinary Catheter Management^: Ramirez: Cath Placed During This Visit: yes Reason for Continuing Indwelling Catheter: Accurate Measurement of Urinary Output in Critically Ill Patients Urinary Catheter Date of Insertion: 07/16/20 Urinary Catheter Time of Insertion: 15:21 Data : 07/18/20 03:37 07/18/20 03:37 A&P Assessment and plan (1) COPD (chronic obstructive pulmonary disease): Not currently exacerbated,, continue DuoNeb inhalation Oxygen requirement stable at 5 L/min. Status: Acute Qualifiers: COPD type: unspecified COPD Qualified Code(s): J44.9 - Chronic obstructive pulmonary disease, unspecified (2) Chronic kidney disease, stage 3: Creatinine currently stable at 1.5 Status: Acute Qualifiers: Chronic kidney disease stage 3 subtype: unspecified whether 3a or 3b Qualified Code(s): N18.30 - Chronic kidney disease, stage 3 unspecified (3) Obstructive sleep apnea: Encourage compliance with CPAP at home Status: Acute (4) Congestive heart failure: Currently on 60 mg IV every 12 of Lasix, transition to p.o. Lasix 100 mg p.o. twice daily and monitor for response. If continues to diurese well with oral regimen, may be able to return home in the next 24 to 48 hours. Status: Acute Qualifiers: Heart failure chronicity: acute on chronic Heart failure type: diastolic Qualified Code(s): I50.33 - Acute on chronic diastolic (congestive) heart failure Additional A&P Information Continue with aggressive diuresis, bronchodilators Lovenox for DVT prophylaxis and Protonix for GI protection. D dimer negative, Rapid covid negative Attestations Medical Necessity Statement*: Patient has improving lower extremity edema, improving CHF and respiratory status overall, transition to oral Lasix and monitor for response, likely discharge in the upcoming 24 to 48 hours if continues to diurese well. Coding Level of Care Code Acute Central Office Mechanic for [facility] Diagnoses COPD (chronic obstructive pulmonary disease) J44.9 COPD type: unspecified COPD Chronic kidney disease, stage 3 N18.30 Chronic kidney disease stage 3 subtype: unspecified whether 3a or 3b Obstructive sleep apnea G47.33 Congestive heart failure I50.33 Heart failure chronicity: acute on chronic Heart failure type: diastolic
[2020-07-18] MEDS: potassium chloride ER 20 mEq Tablet 40 MEQ PO (17:27)
[2020-07-18] MEDS: enoxaparin 40 mg/0.4 mL Syringe SUBCUT (17:27)
[2020-07-18] MEDS: nystatin powder 15 gm Btl 1 APPLIC TOPICAL (18:04)
--- NOTE | 2020-07-18 18:10 | PC.NURSE ---
Cleaned and applied nystatin under pts breasts. Pt is resting in bed with no complaints. Will continue to monitor.
--- NOTE | 2020-07-18 18:59 | PC.NURSE ---
This RN agrees with all documentation and medication administration performed by Lavon ARGUETA
[2020-07-18 20:49] LABS: Glucose Point of Care 216 mg/dL (70-110)
[2020-07-18] MEDS: atorvastatin 40 mg Tablet PO (21:44)
[2020-07-18] MEDS: trazodone 50 mg Tablet PO (21:44)
[2020-07-19] VITALS (187 sets, daily range): BP systolic 119–222; BP diastolic 40–107; PULSE 0–95; RESP 14–36; TEMP 36.8–36.9; O2SAT 64–99
[2020-07-19] MEDS: ipratropium-albuterol 3 mL Neb INHALATION ×4 (03:45→20:21)
[2020-07-19 05:39] LABS: Basophils % 0.3 %; Eosinophils # 0.1 10^3/uL (0.0-0.8); Eosinophils % 1.1 %; Hematocrit 35.4 % (37.0-47.0); Hemoglobin 10.1 g/dL (11.5-15.3); Lymphocytes # 1.8 10^3/uL (0.8-4.8); Mean Corpuscular HGB Conc 28.5 g/dL (30.0-36.0); Mean Corpuscular Hemoglobin 23.3 pg (28.0-34.0); Mean Corpuscular Volume 81.6 fL (81-99); Mean Platelet Volume 10.3 fL (7.4-10.4); Monocytes # 0.6 10^3/uL (0.2-0.9); Monocytes % 6.2 %; Neutrophils # 7.26 10^3/uL (1.8-7.7); Neutrophils % 74.1 %; Nucleated Red Blood Cells % 0 %; Platelet Count 362 10^3/cmm (130-400); Red Blood Count 4.34 10^6/uL (4.1-5.3); Red Cell Distribution Width 18.5 % (12.1-15.1); White Blood Count 9.8 10^3/uL (4.0-10.0)
[2020-07-19 06:01] LABS: Alanine Aminotransferase 9 U/L (0-33); Albumin Level 3.1 g/dL (3.5-5.2); Alkaline Phosphatase 118 IU/L (35-105); Anion Gap 13.8 (5-19); Aspartate Amino Transferase 9 U/L (0-32); Blood Urea Nitrogen 34 mg/dL (8-23); Calcium 8.8 mg/dL (8.5-10.5); Carbon Dioxide 35 mmol/L (22-29); Chloride 94 mmol/L (98-107); Globulin 4.2 g/dL (1.3-4.6); Glomerular Filtration Rate 32.5 mL/min (90-130); Glucose 133 mg/dL (65-115); Magnesium 2.1 mg/dL (1.7-2.3); Osmolality Calculated 298 mOsm/kg (285-295); Potassium 3.8 mmol/L (3.5-5.1); Sodium 139 mmol/L (136-145); Total Bilirubin 0.2 mg/dL (0.15-1.2); Total Protein 7.3 g/dL (6.6-8.7)
[2020-07-19] MEDS: FUROsemide 40 mg Tablet 100 MG PO ×2 (07:54→16:22)
[2020-07-19 08:00] LABS: Glucose Point of Care 183 mg/dL (70-110)
[2020-07-19] MEDS: sertraline 100 mg Tablet PO (08:02)
[2020-07-19] MEDS: pantoprazole DR 40 mg Tablet PO (08:02)
[2020-07-19] MEDS: ARIPiprazole 2 mg Tablet PO (08:02)
[2020-07-19] MEDS: spironolactone 25 mg Tablet PO ×2 (08:02→17:41)
[2020-07-19] MEDS: isosorbide mononitrate ER 30 mg Tablet PO (08:02)
[2020-07-19] MEDS: nicotine 21 mg Patch 1 PATCH TRANSDERMA (08:02)
[2020-07-19] MEDS: aspirin 81 mg EC Tablet PO (08:03)
[2020-07-19] MEDS: budesonide 0.5 mg/2 mL Neb INHALATION ×2 (08:15→20:21)
[2020-07-19 10:58] LABS: Glucose Point of Care 348 mg/dL (70-110)
--- NOTE | 2020-07-19 13:02 | P.PN_ITS ---
Subjective Subjective: Interval history: Patient was seen and examined this morning. She tells that her shortness of breath has improved, she is denying any PND, orthopnea, chest pain. She was on 5 Ls oxygen through nasal cannula this morning, and at home she uses 2Ls oxygen. We have brought down the oxygen to 2 Ls. The plan is to continue to monitor oxygen sats. Her blood pressure was also uncontrolled this morning. Medications: Reviewed: Yes Vitals/I&O/Wt Last Vital Signs Temp 98.5 F 07/19/20 11:38 Pulse 73 07/19/20 11:35 Resp 22 H 07/19/20 11:35 BP 154/75 07/19/20 11:35 Pulse Ox 64 L 07/19/20 11:25 07/18/20 07/19/20 07/19/20 22:59 06:59 14:59 Intake Total 550 / 1130 480 / 1610 614 / 614 Output Total 1000 / 2000 2550 / 4550 825 / 825 Balance -450 / -870 -2070 / -2940 -211 / -211 Weight last 48 hrs Weight 111.3 kg Physical Exam Urinary Catheter Management^: Ramirez: Cath Placed During This Visit: yes Reason for Continuing Indwelling Catheter: Accurate Measurement of Urinary Output in Critically Ill Patients Urinary Catheter Date of Insertion: 07/16/20 Urinary Catheter Time of Insertion: 15:21 Data : 07/19/20 03:58 07/19/20 03:58 A&P Assessment and plan (1) Uncontrolled hypertension: We will give her hydralazine 50 p.o. x1 dose We will restart her home losartan 100 mg p.o. daily. Status: Acute (2) Congestive heart failure: Was on 60 mg IV every 12 of Lasix, transition to p.o. Lasix 100 mg p.o. twice daily. Status: Acute Qualifiers: Heart failure chronicity: acute on chronic Heart failure type: diastolic Qualified Code(s): I50.33 - Acute on chronic diastolic (congestive) heart failure (3) COPD (chronic obstructive pulmonary disease): Not currently exacerbated,, continue DuoNeb inhalation Oxygen requirement stable at 2 L/min. Status: Acute Qualifiers: COPD type: unspecified COPD Qualified Code(s): J44.9 - Chronic obstructive pulmonary disease, unspecified (4) Chronic kidney disease, stage 3: Creatinine currently stable at 1.5 Status: Acute Qualifiers: Chronic kidney disease stage 3 subtype: unspecified whether 3a or 3b Qualified Code(s): N18.30 - Chronic kidney disease, stage 3 unspecified (5) Obstructive sleep apnea: Encourage compliance with CPAP at home Status: Acute (6) Diabetes: Low-dose sliding scale insulin Monitor fingerstick glucose. Status: Acute (7) Aortic stenosis: Status: Acute Qualifiers: Cardiac valve disease etiology: nonrheumatic Qualified Code(s): I35.0 - Nonrheumatic aortic (valve) stenosis (8) Tobacco abuse: Status: Acute Additional A&P Information CODE STATUS: Full code Lovenox for DVT prophylaxis GI protection.Protonix D dimer negative Rapid covid negative Disposition: Home in a.m. Attestations Medical Necessity Statement*: Patient needs to be in hospital for management of decompensated heart failure, uncontrolled hypertension. And further medical optimization. 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
[2020-07-19] MEDS: hyDRALAzine 50 mg Tablet PO (16:22)
[2020-07-19] MEDS: nystatin powder 15 gm Btl 1 APPLIC TOPICAL ×2 (16:23→17:45)
[2020-07-19 16:40] LABS: Glucose Point of Care 154 mg/dL (70-110)
[2020-07-19] MEDS: enoxaparin 40 mg/0.4 mL Syringe SUBCUT (17:42)
--- NOTE | 2020-07-19 20:20 | PC.NURSE ---
IV started on right hand Pt iv came out. Started #22. attempted x2. tolerated well. aseptic technique.
[2020-07-19 20:50] LABS: Glucose Point of Care 200 mg/dL (70-110)
[2020-07-19] MEDS: atorvastatin 40 mg Tablet PO (20:58)
[2020-07-19] MEDS: trazodone 50 mg Tablet PO (20:58)
[2020-07-20] VITALS (8 sets, daily range): BP systolic 119–158; BP diastolic 48–88; PULSE 62–85; RESP 12–20; TEMP 36.6–36.9; O2SAT 90–94; BMI 44.9
[2020-07-20] MEDS: ipratropium-albuterol 3 mL Neb INHALATION (03:18)
[2020-07-20 07:21] LABS: Glucose Point of Care 198 mg/dL (70-110)
[2020-07-20] MEDS: budesonide 0.5 mg/2 mL Neb INHALATION (07:32)
[2020-07-20] MEDS: sertraline 100 mg Tablet PO (08:46)
[2020-07-20] MEDS: isosorbide mononitrate ER 30 mg Tablet PO (08:47)
[2020-07-20] MEDS: aspirin 81 mg EC Tablet PO (08:47)
[2020-07-20] MEDS: pantoprazole DR 40 mg Tablet PO (08:47)
[2020-07-20] MEDS: nystatin powder 15 gm Btl 1 APPLIC TOPICAL (08:51)
[2020-07-20] MEDS: FUROsemide 40 mg Tablet 100 MG PO (08:51)
[2020-07-20] MEDS: nicotine 21 mg Patch 1 PATCH TRANSDERMA (08:51)
[2020-07-20] MEDS: spironolactone 25 mg Tablet PO (08:52)
[2020-07-20] MEDS: ARIPiprazole 2 mg Tablet PO (09:11)
[2020-07-20 09:13] LABS: Basophils % 0.3 %; Eosinophils # 0.1 10^3/uL (0.0-0.8); Eosinophils % 0.7 %; Hematocrit 39.3 % (37.0-47.0); Hemoglobin 11.5 g/dL (11.5-15.3); Lymphocytes # 1.6 10^3/uL (0.8-4.8); Lymphocytes % 14.4 %; Mean Corpuscular HGB Conc 29.3 g/dL (30.0-36.0); Mean Corpuscular Hemoglobin 23.8 pg (28.0-34.0); Mean Corpuscular Volume 81.4 fL (81-99); Mean Platelet Volume 9.7 fL (7.4-10.4); Monocytes # 0.4 10^3/uL (0.2-0.9); Neutrophils # 8.71 10^3/uL (1.8-7.7); Neutrophils % 80.2 %; Nucleated Red Blood Cells % 0 %; Platelet Count 399 10^3/cmm (130-400); Red Blood Count 4.83 10^6/uL (4.1-5.3); Red Cell Distribution Width 18.6 % (12.1-15.1); White Blood Count 10.9 10^3/uL (4.0-10.0)
[2020-07-20 09:33] LABS: Alanine Aminotransferase 11 U/L (0-33); Albumin Level 3.6 g/dL (3.5-5.2); Alkaline Phosphatase 131 IU/L (35-105); Anion Gap 18.3 (5-19); Aspartate Amino Transferase 13 U/L (0-32); Blood Urea Nitrogen 34 mg/dL (8-23); Calcium 9.4 mg/dL (8.5-10.5); Carbon Dioxide 33 mmol/L (22-29); Chloride 87 mmol/L (98-107); Globulin 4.7 g/dL (1.3-4.6); Glomerular Filtration Rate 30.3 mL/min (90-130); Glucose 318 mg/dL (65-115); Osmolality Calculated 298 mOsm/kg (285-295); Potassium 4.3 mmol/L (3.5-5.1); Sodium 134 mmol/L (136-145); Total Bilirubin 0.3 mg/dL (0.15-1.2); Total Protein 8.3 g/dL (6.6-8.7)
--- NOTE | 2020-07-20 09:39 | P.DS_ITS ---
Discharge Providers Date of Admission: 07/16/20 15:18 Date of Discharge: July 20, 2020 Attending Provider at Admission: Shalonda Hicks MD Attending Provider at Discharge: Yousif Maguire MD Primary Care Provider: Jhony Cantu MD Diagnoses at Discharge Discharge Diagnosis (1) Congestive heart failure: Status: Resolved Qualifiers: Heart failure chronicity: acute on chronic Heart failure type: diastolic Qualified Code(s): I50.33 - Acute on chronic diastolic (congestive) heart failure (2) COPD (chronic obstructive pulmonary disease): Status: Chronic Qualifiers: COPD type: unspecified COPD Qualified Code(s): J44.9 - Chronic obstructive pulmonary disease, unspecified (3) Chronic kidney disease, stage 3: Status: Chronic Qualifiers: Chronic kidney disease stage 3 subtype: unspecified whether 3a or 3b Qualified Code(s): N18.30 - Chronic kidney disease, stage 3 unspecified (4) Obstructive sleep apnea: Status: Chronic (5) Diabetes: Status: Chronic (6) Aortic stenosis: Status: Chronic Qualifiers: Cardiac valve disease etiology: nonrheumatic Qualified Code(s): I35.0 - Nonrheumatic aortic (valve) stenosis (7) Tobacco abuse: Status: Chronic Reason for Visit Reason for Visit: PULMONARY EDEMA/ SOB Hospital Course Hospital Course 64 year old female past medical history significant for aortic valve stenosis, COPD on 2 ls home oxygen, HFpEF,CRISTOBAL, was admitted with c/o worsening shortnes of breath today. When the ambulance got there her oxygen saturations were around 90% and she had significant crackles on examination.She was given 80 mg of IV Lasix in the ambulance and was started on a Bipap.She was admitted for the management of acute hypoxic and hypercapnic respiratory failure 2/2 HFpEF exacerbation as well as COPD.During the hospital stay, she was continued on aggressive IV diuresis, she was kept on IV Lasix 100 MG every 12 hours with good urine output, and was later switched to Lasix 100 mg oral twice daily, on discharge started on 40 mg po q12 h lasix.Her Shortness of breath had resolved at the time of discharge as well as her B/L L/E swelling had significantly improved, she had trace bilateral lower extremity edema on discharge. For her COPD she was continued on dual NEBS.At the time of discharge she was at her baseline home oxygen requirement (2ls ). For her h/o CRISTOBAL she will continue to use CPAP at home. She responded well to the above medical management and was discharged in stable condition.She will continue to follow her warranty manager as outpatient. Physical Exam Narrative: EXAM NARRATIVE: General: No acute distress, AO x3 HEENT: PERRLA, pupils bilaterally equal and reactive, pallors not present Chest: Normal vesicular breath sounds, equal good air entry bilaterally CVS: S1-S2 regular, no murmurs, no tachycardia, no gallops, no rubs Abdomen: Soft, nontender, no organomegaly, bowel sounds present Neuro: No focal deficits, no facial deformity, AO x3, power 5/5 in all limbs, however refuses to get out of bed to walk. Extremities:Trace B/L L/E PITTING edema Urinary Catheter Management^: Ramirez: Cath Placed During This Visit: yes Reason for Continuing Indwelling Catheter: Other Urinary Catheter Date of Insertion: 07/16/20 Urinary Catheter Time of Insertion: 15:21 Discharge Data Data Completed and Pending: Completed Studies During Hospitalization Category Date Time Status XR chest 1V emmanuel ble [id number] Stat Exams 07/16/20 11:31 Completed Labs from last 24 hours 07/20/20 07/20/20 07/20/20 09:00 09:00 07:15 WBC 10.9 H RBC 4.83 Hgb 11.5 Hct 39.3 MCV 81.4 MCH 23.8 L MCHC 29.3 L RDW 18.6 H Plt Count 399 MPV 9.7 Neut % (Auto) 80.2 Lymph % (Auto) 14.4 [place] % (Auto) 4.0 Eos % (Auto) 0.7 Baso % (Auto) 0.3 Neut # (Auto) 8.71 H Lymph # (Auto) 1.6 [place] # (Auto) 0.4 Eos # (Auto) 0.1 Baso # (Auto) 0.0 Nucleated RBC % (a uto) 0 Nucleated RBCs # 0.0 Sodium 134 L Potassium 4.3 Chloride 87 L Carbon Dioxide 33 H Anion Gap 18.3 BUN 34 H Creatinine 1.7 H GFR Calculation 30.3 L Glucose 318 H POC Glucose 198 H Calculated Osmolal ity 298 H Calcium 9.4 Total Bilirubin 0.3 AST 13 ALT 11 Alkaline Phosphata se 131 H Total Protein 8.3 Albumin 3.6 Globulin 4.7 H 07/19/20 07/19/20 07/19/20 20:47 16:34 10:31 WBC RBC Hgb Hct MCV MCH MCHC RDW Plt Count MPV Neut % (Auto) Lymph % (Auto) [place] % (Auto) Eos % (Auto) Baso % (Auto) Neut # (Auto) Lymph # (Auto) [place] # (Auto) Eos # (Auto) Baso # (Auto) Nucleated RBC % (a uto) Nucleated RBCs # Sodium Potassium Chloride Carbon Dioxide Anion Gap BUN Creatinine GFR Calculation Glucose POC Glucose 200 H 154 H 348 H Calculated Osmolal ity Calcium Total Bilirubin AST ALT Alkaline Phosphata se Total Protein Albumin Globulin Vitals: Last Vital Signs Temp 97.9 F 07/20/20 07:07 Pulse 70 07/20/20 07:41 Resp 20 H 07/20/20 07:41 BP 158/88 07/20/20 07:07 Pulse Ox 90 07/20/20 07:41 Discharge Plan Discharge Patient Disposition: Home Condition: Stable Prescriptions: Continued isosorbide mononitrate 30 mg tablet extended release 24 hr 30 mg PO DAILY@ RF: 0 nicotine 21 mg/24 hr Patch 24 Hour 1 patch transdermal DAILY Qty: 14 RF: 0 nystatin [Nystop] 100,000 unit/gram Powder 1 applic topical BID Qty: 1 RF: 0 atorvastatin 40 mg Tablet 40 mg PO BEDTIME RF: 0 metformin 500 mg Tablet 500 mg PO BID RF: 0 sertraline 100 mg Tablet 100 mg PO DAILY@ RF: 0 aripiprazole [Abilify] 2 mg Tablet 2 mg PO DAILY@ RF: 0 trazodone 50 mg Tablet 50 mg PO BEDTIME RF: 0 spironolactone 25 mg Tablet 25 mg PO BID RF: 0 Anoro Ellipta 62.5-25 mcg/actuation Blister With Device 1 inh INHALATION DAILY RF: 0 Stiolto Respimat 2.5-2.5 mcg/actuation Mist 2 puff INHALATION DAILY RF: 0 Lasix 40 mg tablet 40 mg PO BID@,13 RF: 0 ipratropium-albuterol 0.5 mg-3 mg(2.5 mg base)/3 mL solution for nebulization 3 ml inhalation QID RF: 0 aspirin 81 mg tablet,delayed release (DR/EC) 81 mg PO DAILY@09 RF: 0 pantoprazole 40 mg tablet,delayed release (DR/EC) 40 mg PO DAILY@09 RF: 0 potassium chloride 20 mEq tablet extended release 20 meq PO DAILY@09 RF: 0 Held losartan 50 mg Tablet 50 mg PO BID RF: 0 Hold Instructions: Resume on 07/27/20. Discharge Orders: Discharge Order (Routine); Ordered 07/20/20 Ordered By: Yousif Maguire Referrals: State in-home services set-up [Other] (Pt informed to call number given to have Medicaid In-home services set up after discharge.) Laurel Bunch MD [Physician] - 1 week (Please keep your appointment with Dr. Bunch on July 26 at 3:00P.M. If you have any questions or need to reschedule. Please call ) Discharge Diet: Diabetic and Low Salt Patient Instructions: Hypertension (DC), COPD Stoplight Discharge Attestations Time Spent in Discharge Care*: less than 30 min Specific Discharge Activities: educating patient, educating and/or supporting family/caregiver, discussing with case monitor/social workers/dc planners, documenting/other paperwork and evaluating patient/reviewing data Status at Discharge: Cognitive status at discharge: cognitively intact , Behavioral status at discharge: cooperative , Functional status at discharge: independent ambulation Overall status at discharge: patient is back to baseline Quality Metrics Clinical Quality Measures During this hospital stay, did patient experience: None Coding Level of Care Code Acute Real Estate Services Coordinator for Kristina Fwd Diagnoses Congestive heart failure I50.33 Heart failure chronicity: acute on chronic Heart failure type: diastolic COPD (chronic obstructive pulmonary disease) J44.9 COPD type: unspecified COPD Chronic kidney disease, stage 3 N18.30 Chronic kidney disease stage 3 subtype: unspecified whether 3a or 3b Obstructive sleep apnea G47.33 Diabetes E11.9 Aortic stenosis I35.0 Cardiac valve disease etiology: nonrheumatic Tobacco abuse Z72.0
[2020-07-20 11:59] LABS: Glucose Point of Care 184 mg/dL (70-110)
--- NOTE | 2020-07-20 13:21 | PC.NURSE ---
patient discharged home self care patient provided with discharge instructions and follow up appointments patient verbalized understanding of all instructions patient assisted to wheel chair with all belongings in hand patient accompanied by staff to private vehicle by staff patient alert oriented and in stable condition upon departure Home o2 in place
== END 2020-07-20 12:20 | disposition home or self-care (01) | DRG 291 ==
LOC: ER 11:43 → CSU 15:44
PROVIDERS: Admitting Provider Student in an Organized Health Care Education/Training Program; Emergency Provider Family Medicine; PCP Family Medicine; Visit Provider Internal Medicine
DX: I13.0 Hypertensive heart and chronic kidney disease with heart failure and stage 1 through stage 4 chronic kidney disease, or unspecified chronic kidney disease (principal); I50.33 Acute on chronic diastolic (congestive) heart failure; J96.02 Acute respiratory failure with hypercapnia; J96.01 Acute respiratory failure with hypoxia; Z68.41 Body mass index [BMI] 40.0-44.9, adult; N18.30 Chronic kidney disease, stage 3 unspecified; E11.22 Type 2 diabetes mellitus with diabetic chronic kidney disease; I35.0 Nonrheumatic aortic (valve) stenosis; G47.33 Obstructive sleep apnea (adult) (pediatric); Z99.81 Dependence on supplemental oxygen; E66.01 Morbid (severe) obesity due to excess calories; F17.210 Nicotine dependence, cigarettes, uncomplicated; J44.9 Chronic obstructive pulmonary disease, unspecified; E87.6 Hypokalemia; Z79.84 Long term (current) use of oral hypoglycemic drugs; Z79.82 Long term (current) use of aspirin
CPT/HCPCS: 36415; 36416; 36600; 51702; 71045; 80053; 81003; 82803; 82962; 83735; 83880; 84484; 85025; 85378; 85610; 87426; 93005; 94640; 94660; 94664; 96372; 99291; J1650; J1815; J1940; J3490; J7626

== ENCOUNTER → 2020-07-26 15:50 | Outpatient (BNVA) | payer MEDICAID, SELFPAY | PROVIDERS: PCP Family Medicine; Visit Provider Internal Medicine Cardiovascular Disease | DX: R06.00 Dyspnea, unspecified (principal); I50.9 Heart failure, unspecified; I50.33 Acute on chronic diastolic (congestive) heart failure; I35.0 Nonrheumatic aortic (valve) stenosis; I10 Essential (primary) hypertension; E11.9 Type 2 diabetes mellitus without complications; E78.2 Mixed hyperlipidemia; F17.200 Nicotine dependence, unspecified, uncomplicated | CPT/HCPCS: 80048; 83735; 83880 ==

== ENCOUNTER → 2020-09-09 15:30 | Outpatient (BNVA) | payer MEDICAID, SELFPAY | PROVIDERS: PCP Family Medicine; Visit Provider Internal Medicine Cardiovascular Disease | DX: R06.00 Dyspnea, unspecified (principal); I50.9 Heart failure, unspecified | CPT/HCPCS: 80048; 83735; 83880 ==

== ENCOUNTER 2020-10-20 11:05 | Outpatient (CLI) | payer MEDICARE, MEDICAID, SELFPAY ==
--- NOTE | 2020-10-20 11:25 | PFTS_ITS ---
Date of Study:10/20/20 Date of Dictation: MECHANICS: Forced vital capacity (FVC) is reduced. Forced expiratory volume in one second (FEV1) is reduced. FEV1/FVC is normal. FLOW VOLUME LOOP: Narrow. LUNG VOLUMES: Total lung capacity (TLC) is increased. Residual volume (RV) is increased. DIFFUSING CAPACITY FOR CARBON MONOXIDE: Normal. INTERPRETATION: The pulmonary function test is consistent with nonspecific ventilatory limitations. The postbronchodilator spirometry is consistent with moderately severe restriction. Lung volumes however are not consistent with restrictive lung disease. This is likely secondary to both obstructive and restrictive ventilatory defects. There is a significant postbronchodilator response. Lung volumes are consistent with hyperinflation and air trapping. Gas exchange (DLCO) is normal. MTDD
--- NOTE | 2020-10-20 11:25 | CT_ITS ---
WS: [id number] LDCT LUNG CANCER SCREENING TECHNIQUE: Noncontrast CT of the chest with coronal and sagittal reformatted images. CLINICAL INFORMATION: NICOTINE DEPENDENCE,CIGARETTES COMPARISON: None. DLP: 50.23 mGy.cm DIvol: 1.[address] scans at [facility] use at least one of these dose optimization techniques: automat ed exposure control; mA and/or kV adjustment per patient size (includes targeted exams where dose is matched to clinical indication); or iterative reconstruction. FINDINGS: Mild chronic emphysematous changes. No acute pulmonary infiltrates. No focal pneumonia or pleural flu id. A few calcified granulomas. Subsegmental atelectasis in the lingula and both lung bases. Noncalci fied 3.6 mm nodule in the right lower lobe medially. Stable left thyroid nodule measuring 3.4 x 3.2 C M. This appears unchanged since November 04, [address]/CT lung screening [id number] IMPRESSION: LUNG-RADS: 2-Benign Appearance or Behavior FOLLOW UP: 12 Month: Continue annual screening with LDCT
--- NOTE | 2020-10-20 13:10 | PFTS_ITS ---
Date of Study:10/20/20 Date of Dictation: MECHANICS: Forced vital capacity (FVC) is . Forced expiratory volume in one second (FEV1) is . FEV1/FVC is . FLOW VOLUME LOOP: . LUNG VOLUMES: Total lung capacity (TLC) is . Residual volume (RV) is . DIFFUSING CAPACITY FOR CARBON MONOXIDE: . INTERPRETATION: The pulmonary function tests are . mechanics and lung volumes. Gas exchange (DLCO) is . MTDD
== END 2020-10-20 11:06 | disposition home or self-care (01) ==
LOC: RT 11:07
PROVIDERS: PCP Family Medicine; Visit Provider Internal Medicine Pulmonary Disease
DX: R06.02 Shortness of breath (principal); F17.210 Nicotine dependence, cigarettes, uncomplicated; Z12.2 Encounter for screening for malignant neoplasm of respiratory organs
CPT/HCPCS: 71271; 94060; 94618; 94726; 94729; J7611

== ENCOUNTER 2021-03-25 14:49 | Outpatient (CLI) | payer MEDICARE, MEDICAID, SELFPAY ==
--- NOTE | 2021-03-25 14:54 | US_ITS ---
WS: [id number] RENAL ULTRASOUND HISTORY: STAGE 3B CHRONIC KIDNEY DZ COMPARISON: 11/20/2011 TECHNIQUE: 2-D and color Doppler imaging of the kidney submitted. Suboptimal examination due to body habitus. Right kidney: 9.2 cm x 5.7 cm x 6.0 cm. Kidney is low normal size. Low-attenuation mass in mid kidney measures 1.9 x 2.0 x 1.7 cm. This is pr obably a cyst. Left kidney: 10.2 cm x 4.9 cm x 5.8 cm. Normal echogenicity with no hydronephrosis or mass. Aorta: Normal. Urinary Bladder: Normal distention. US/US renal BI* [id number] IMPRESSION: 1. Technically very difficult evaluation of the kidneys due to body habitus. N o hydronephrosis. 2. RIGHT renal cyst suspected.
== END 2021-03-25 14:50 | disposition home or self-care (01) ==
LOC: RAD 14:51
PROVIDERS: PCP Family Medicine; Visit Provider Internal Medicine Nephrology
DX: N18.32 Chronic kidney disease, stage 3b (principal)
CPT/HCPCS: 76770

== ENCOUNTER → 2021-08-22 09:09 | Day surgery (SDC) | payer MEDICARE, MEDICAID, SELFPAY ==
[2021-08-22] MEDS: ferric carboxy (IVPB) 750 MG in sodium chloride 0.9% (100 ml) 100 ML 345 MG IV (09:31)
[2021-08-22 09:35] VITALS: BP 130/62; PULSE 83; RESP 18; TEMP 36.1; O2SAT 92
== END ==
PROVIDERS: PCP Family Medicine; Visit Provider Physician Assistant
DX: D50.9 Iron deficiency anemia, unspecified (principal)
CPT/HCPCS: 96365; J1439

== ENCOUNTER → 2021-08-29 09:08 | Day surgery (SDC) | payer MEDICARE, MEDICAID, SELFPAY ==
[2021-08-29 09:24] VITALS: BP 119/74; PULSE 82; RESP 18; TEMP 36; O2SAT 92
[2021-08-29] MEDS: ferric carboxy (IVPB) 750 MG in sodium chloride 0.9% (100 ml) 100 ML 345 MG IV (09:26)
== END ==
PROVIDERS: PCP Family Medicine; Visit Provider Physician Assistant
DX: D50.9 Iron deficiency anemia, unspecified (principal)
CPT/HCPCS: 96365; J1439

== ENCOUNTER → 2022-03-08 12:21 | Day surgery (SDC) | payer MEDICARE, MEDICAID, SELFPAY ==
[2022-03-08 12:49] VITALS: BP 141/55; PULSE 77; RESP 18; TEMP 36.6; O2SAT 92
[2022-03-08] MEDS: ferric carboxy (IVPB) 750 MG in sodium chloride 0.9% (100 ml) 100 ML 345 MG IV (13:02)
== END ==
PROVIDERS: PCP Family Medicine; Visit Provider Family Medicine
DX: D50.9 Iron deficiency anemia, unspecified (principal)
CPT/HCPCS: 96365; J1439

== ENCOUNTER → 2022-03-15 12:11 | Day surgery (SDC) | payer MEDICARE, MEDICAID, SELFPAY ==
[2022-03-15] MEDS: ferric carboxy (IVPB) 750 MG in sodium chloride 0.9% (100 ml) 100 ML 345 MG IV (12:26)
[2022-03-15 12:31] VITALS: BP 140/60; PULSE 85; RESP 18; TEMP 36.3; O2SAT 92
== END ==
PROVIDERS: PCP Family Medicine; Visit Provider Family Medicine
DX: D50.9 Iron deficiency anemia, unspecified (principal)
CPT/HCPCS: 96365; J1439

== ENCOUNTER 2022-12-10 03:41 | Emergency (ER) | payer MEDICARE, MEDICAID, SELFPAY ==
[2022-12-10] VITALS (7 sets, daily range): BP systolic 135–175; BP diastolic 52–118; PULSE 73–85; RESP 16–30; TEMP 36.4; O2SAT 88–92; BMI 51.2
--- NOTE | 2022-12-10 03:45 | XRR_ITS ---
PROCEDURE INFORMATION: Exam: XR Chest Exam date and time: 12/10/2022 4:00 AM Age: 67 years old Clinical indication: Shortness of breath; Patient HX: C/O SOB. History of copd and chf. TECHNIQUE: Imaging protocol: Radiologic exam of the chest. Views: 1 view. COMPARISON: CT lung screening [id number] 10/20/2020 11:45 AM FINDINGS: Lungs: Lungs are clear. Pleural spaces: Unremarkable. No pleural effusion. No pneumothorax. Heart/Mediastinum: Dilated central pulmonary arteries. Cardiomegaly. Bones/joints: Unremarkable. XR/XR chest 1V portable [id number] IMPRESSION: Negative for focal acute pulmonary disease.
--- NOTE | 2022-12-10 03:48 | W.ED.SOB ---
HPI - SOB/Dyspnea General: Chief Complaint: Shortness of Breath/Dyspnea Stated Complaint: SOB Time Seen by Provider: 12/10/22 03:43 Source: patient Mode of arrival: ambulatory Limitations: no limitations History of Present Illness: HPI Narrative: 67-year-old female history of CHF along with COPD states that tonight she been having shortness of breath. She is on 2 L of oxygen at baseline she is 93% here on her 2 L she did receive albuterol and dexamethasone in route states she is feeling improved. She denies any chest pain denies any fever states she has had some increase swelling. Associated symptoms: Deny abdominal pain, chest pain, fever(s), nausea or vomiting Review of Systems Const: Denies: fever(s), chills, body aches or change in appetite ENMT: Denies: throat pain or dental pain Card: Denies: chest pain Resp: Reports: dyspnea and wheezing GI: Denies: abdominal pain, nausea, vomiting or diarrhea Musc: Denies: neck pain or back pain Skin/Breast: Denies: rash Neuro: Denies: headache(s) PFSH ED PFSH: Medical History Acute and chronic respiratory failure Aortic regurgitation Aortic stenosis Aortic stenosis CHF (congestive heart failure), NYHA class III Chronic kidney disease, stage 3 Congestive heart failure COPD (chronic obstructive pulmonary disease) Diabetes Diabetes mellitus type 2 in obese Hyperlipidemia Hypertension Morbid obesity with BMI of 45.0-49.9, adult Obesity Obstructive sleep apnea Tobacco abuse Uncontrolled hypertension Surgical History H/O arthroscopic knee surgery H/O tubal ligation Family History Other Diabetes Hypertension Stroke Social History Smoking and tobacco status: current every day smoker cigarettes Packs smoked per day: 0.5 Years cigarettes smoked: 47 [ Other cigarette details: occasionally 1 ppd ] Quit status (tobacco): considering quitting Second hand smoke exposure: No Smoking risk assessment/counseling performed?: Yes Alcohol intake: never Substance/Drug Use: never Lives independently: Yes Household members: none Housing: Apartment Marital status: service: No Current occupational status: disabled Pets and animals: No Do you think of yourself as: Straight/Heterosexual Current gender identity: Female Physical Exam Const: COMMON NORMALS: no acute distress, patient oriented x3 and healthy appearing HENMT: COMMON NORMALS: normocephalic and atraumatic HEAD & SCALP: normocephalic and atraumatic Neck/C-Spine: COMMON NORMALS: full ROM and supple Chest: COMMONS NORMALS: normal inspection of the chest and normal palpation of entire chest wall Resp: COMMON NORMALS: normal respiratory effort, No retractions and No use of accessory muscles AUSCULTATION: wheezes Cardio: COMMON NORMALS: regular rate, regular rhythm and No murmurs present (Cardio) RATE: regular rate RHYTHM: regular rhythm GI: COMMON NORMALS: Normal to inspection, nondistended, normoactive bowel sounds present, Soft to palpation, non-tender and no masses PALPATION: Yes Soft to palpation Extremity: COMMON NORMALS: normal to inspection and full ROM Neuro: COMMON NORMALS: patient oriented x3, moves all extremities and no focal motor deficits Psych: COMMON NORMALS: mental status grossly normal, Normal thought process present and cooperative THOUGHT PROCESS: Normal thought process present Skin: COMMON NORMALS: no rashes or lesions noted and no wounds GENERAL SKIN EXAM: no rashes or lesions noted Course Vital Signs: Vital signs: Vital Signs Temperature 97.5 F L 12/10/22 03:42 Pulse Rate 73 12/10/22 05:45 Respiratory Rate 20 H 12/10/22 09:20 Blood Pressure 157/81 12/10/22 04:47 Pulse Oximetry 92 12/10/22 09:20 Oxygen Delivery Me thod Nasal Cannula 12/10/22 04:20 Oxygen Flow Rate 4 12/10/22 04:20 MDM - SOB/Dyspnea Medical Decision Making Patient presents with dyspnea likely COPD CHF exacerbation she been doing well here she has been in no distress x-ray blood works normal mild elevated proBNP did give her IV Lasix here patient was given steroids she is stable for discharge she did receive Decadron by EMS she is to follow-up with her PCP and return if worsening she understands agrees to plan. Medical Records I reviewed the patient's medical records. Lab Data I reviewed the patient's lab results. 12/10/22 04:00 12/10/22 04:00 Labs/Radiology: Radiology Impressions Chest X-Ray 12/10/22 03:45 IMPRESSION: Negative for focal acute pulmonary disease. Laboratory Results WBC 11.4 10^3/uL (4.0-10.0) H 12/10/22 04:00 RBC 4.62 10^6/uL (4.1-5.3) 12/10/22 04:00 Hgb 12.7 g/dL (11.5-15.3) 12/10/22 04:00 Hct 44.0 % (37.0-47.0) 12/10/22 04:00 MCV 95.2 fl (81-99) 12/10/22 04:00 MCH 27.5 pg (28.0-34.0) L 12/10/22 04:00 MCHC 28.9 g/dL (30.0-36.0) L 12/10/22 04:00 RDW 18.8 % (12.1-15.1) H 12/10/22 04:00 Plt Count 278 10^3/cmm (130-400) 12/10/22 04:00 MPV 11.4 fL (7.4-10.4) H 12/10/22 04:00 Neut % (Auto) 77.9 % 12/10/22 04:00 Lymph % (Auto) 16.5 % 12/10/22 04:00 [place] % (Auto) 4.3 % 12/10/22 04:00 Eos % (Auto) 0.7 % 12/10/22 04:00 Baso % (Auto) 0.2 % 12/10/22 04:00 Neut # (Auto) 8.88 10^3/uL (1.8-7.7) H 12/10/22 04:00 Lymph # (Auto) 1.9 10^3/uL (0.8-4.8) 12/10/22 04:00 [place] # (Auto) 0.5 10^3/uL (0.2-0.9) 12/10/22 04:00 Eos # (Auto) 0.1 10^3/uL (0.0-0.8) 12/10/22 04:00 Baso # (Auto) 0.0 10^3/uL (0.0-0.1) 12/10/22 04:00 Nucleated RBC % (auto) 0 % 07/23/23 04:00 Nucleated RBCs # 0.0 /100WBC 12/10/22 04:00 PT 13.40 SECONDS (12.1-14.9) 12/10/22 04:00 INR 0.99 (0.8-1.2) 12/10/22 04:00 Sodium 135 mmol/L (136-145) L 12/10/22 04:00 Potassium 4.4 mmol/L (3.5-5.1) 12/10/22 04:00 Chloride 98 mmol/L (98-107) 12/10/22 04:00 Carbon Dioxide 26 mmol/L (22-29) 12/10/22 04:00 Anion Gap 15.4 (5-19) 12/10/22 04:00 BUN 27 mg/dL (8-23) H 12/10/22 04:00 Creatinine 1.3 mg/dL (0.5-0.9) H 12/10/22 04:00 GFR Calculation 40.9 mL/min (90-130) L 12/10/22 04:00 Glucose 447 mg/dL (65-115) H 12/10/22 04:00 Calculated Osmolality 304 mOsm/kg (285-295) H 12/10/22 04:00 Calcium 8.5 mg/dL (8.5-10.5) 12/10/22 04:00 Total Bilirubin 0.2 mg/dL (0.15-1.2) 12/10/22 04:00 AST 21 U/L (0-32) 12/10/22 04:00 ALT 21 U/L (0-33) 12/10/22 04:00 Alkaline Phosphatase 165 U/L (35-105) H 12/10/22 04:00 NT-Pro-B Natriuret Pep 1683 pg/mL (0-125) H 12/10/22 04:00 Total Protein 7.3 g/dL (6.6-8.7) 12/10/22 04:00 Albumin 3.3 g/dL (3.5-5.2) L 12/10/22 04:00 Globulin 4.0 g/dL (1.3-4.6) 12/10/22 04:00 Discharge Plan Discharge Patient Disposition: Home Clinical Impression: CHF (congestive heart failure), NYHA class III, Acute exacerbation of chronic obstructive airways disease Condition: Stable Prescriptions: No Action isosorbide mononitrate 30 mg tablet extended release 24 hr 30 mg PO DAILY@09 nystatin [Nystop] 100,000 unit/gram Powder 1 applic topical BID Qty: 1 0RF atorvastatin 40 mg Tablet 40 mg PO BEDTIME sertraline 100 mg Tablet 100 mg PO DAILY@09 aripiprazole [Abilify] 2 mg Tablet 2 mg PO DAILY@09 Rx Instructions: SEE PHARMACY COMMENTS Stiolto Respimat 2.5-2.5 mcg/actuation Mist 2 puff INHALATION DAILY furosemide [Lasix] 40 mg tablet 80 mg PO BID@, Rx Instructions: Take at 8 am and 2 pm ipratropium-albuterol 0.5 mg-3 mg(2.5 mg base)/3 mL solution for nebulization 3 ml inhalation QID Rx Instructions: SEE PHARMACY COMMENTS allopurinol 300 mg tablet 300 mg PO DAILY insulin lispro [Humalog KwikPen Insulin] 100 unit/mL insulin pen 1 unit SUBCUT TID Rx Instructions: 100 unit/mL aggressive sliding scale Levemir FlexTouch U-100 Insuln 100 unit/mL (3 mL) insulin pen 25 unit SUBCUT .QHS Farxiga 10 mg tablet 10 mg PO DAILY Ozempic 0.25 mg or 0.5 mg(2 mg/1.5 mL) pen injector 1 mg SUBCUT .WEEKLY loperamide [Imodium A-D] 2 mg Capsule 2 mg PO PRN PRN (Reason: Diarrhea) aspirin 81 mg Capsule 81 mg PO DAILY losartan 50 mg tablet 50 mg PO BID pantoprazole 40 mg tablet,delayed release (DR/EC) 40 mg PO DAILY Discharge Orders: Discharge ED (Routine); Ordered 12/10/22 Ordered By: Jamey Tony Referrals: Jhony Cantu MD [Primary Care Provider] - 1-3 days Discharge Diet: Advance as tolerated Discharge Activity: Resume usual activity Patient Instructions: Heart Failure (ED), COPD (Chronic Obstructive Pulmonary Disease) (ED) Coding Level of Care Code ED Accounting Bookkeeper for Kristina Blake
[2022-12-10] MEDS: FUROsemide 10 mg/mL SDV 10mL 60 MG IVP (03:52)
--- NOTE | 2022-12-10 03:59 | ECG_ITS ---
[facility] Test Date: 2022-12-10 Pat Name: Bridget Faye Department: Room: Gender: Female Heat Reader: : 1955 Requested By: Jamey Tony Order Number: [id number] Reading MD: Laurel Bunch M.D. Measurements Intervals [place] Rate: 78 P: 55 RI: 202 QRS: 42 QRSD: 89 T: 46 QT: 397 QTc: 453 Interpretive Statements SINUS RHYTHM WITH OCCASIONAL VENTRICULAR PREMATURE COMPLEXES Compared to ECG 07/16/2020 18:13:14 No significant changes Electronically Signed On 12-10-2022 11:22:37 CDT by Laurel Bunch M.D. [id number]
[2022-12-10 04:13] LABS: Basophils % 0.2 %; Eosinophils # 0.1 10^3/uL (0.0-0.8); Eosinophils % 0.7 %; Hemoglobin 12.7 g/dL (11.5-15.3); Lymphocytes # 1.9 10^3/uL (0.8-4.8); Lymphocytes % 16.5 %; Mean Corpuscular HGB Conc 28.9 g/dL (30.0-36.0); Mean Corpuscular Hemoglobin 27.5 pg (28.0-34.0); Mean Corpuscular Volume 95.2 fl (81-99); Mean Platelet Volume 11.4 fL (7.4-10.4); Monocytes # 0.5 10^3/uL (0.2-0.9); Monocytes % 4.3 %; Neutrophils # 8.88 10^3/uL (1.8-7.7); Neutrophils % 77.9 %; Nucleated Red Blood Cells % 0 %; Platelet Count 278 10^3/cmm (130-400); Red Blood Count 4.62 10^6/uL (4.1-5.3); Red Cell Distribution Width 18.8 % (12.1-15.1); White Blood Count 11.4 10^3/uL (4.0-10.0)
[2022-12-10] MEDS: albuterol 2.5 mg/3 mL Neb INHALATION (04:19)
[2022-12-10 04:21] LABS: INR 0.99 (0.8-1.2)
[2022-12-10 04:37] LABS: Alanine Aminotransferase 21 U/L (0-33); Albumin Level 3.3 g/dL (3.5-5.2); Alkaline Phosphatase 165 U/L (35-105); Anion Gap 15.4 (5-19); Aspartate Amino Transferase 21 U/L (0-32); Blood Urea Nitrogen 27 mg/dL (8-23); Calcium 8.5 mg/dL (8.5-10.5); Carbon Dioxide 26 mmol/L (22-29); Chloride 98 mmol/L (98-107); Glomerular Filtration Rate 40.9 mL/min (90-130); Glucose 447 mg/dL (65-115); NT Pro B Type Natriuretic Pept 1683 pg/mL (0-125); Osmolality Calculated 304 mOsm/kg (285-295); Potassium 4.4 mmol/L (3.5-5.1); Sodium 135 mmol/L (136-145); Total Bilirubin 0.2 mg/dL (0.15-1.2); Total Protein 7.3 g/dL (6.6-8.7)
[2022-12-10 04:38] LABS: Creatinine Clr Calc Pharmacy 53.6059
== END 2022-12-10 09:21 | disposition home or self-care (01) ==
PROVIDERS: Emergency Provider Emergency Medicine; PCP Family Medicine
DX: I13.0 Hypertensive heart and chronic kidney disease with heart failure and stage 1 through stage 4 chronic kidney disease, or unspecified chronic kidney disease (principal); N18.9 Chronic kidney disease, unspecified; E11.22 Type 2 diabetes mellitus with diabetic chronic kidney disease; I50.9 Heart failure, unspecified; J44.1 Chronic obstructive pulmonary disease with (acute) exacerbation; E66.01 Morbid (severe) obesity due to excess calories; Z68.43 Body mass index [BMI] 50.0-59.9, adult; F17.210 Nicotine dependence, cigarettes, uncomplicated; Z79.4 Long term (current) use of insulin; Z79.85 Long-term (current) use of injectable non-insulin antidiabetic drugs; Z79.82 Long term (current) use of aspirin; Z79.899 Other long term (current) drug therapy; Z99.81 Dependence on supplemental oxygen
CPT/HCPCS: 71045; 80053; 83880; 85025; 85610; 93005; 94640; 96374; 99284; J1940; J7613

== ENCOUNTER 2023-04-07 08:45 | Emergency (ER) | payer MEDICARE, BC, MEDICAID, SELFPAY ==
[2023-04-07 08:46] VITALS: BMI 36.6
[2023-04-07 08:49] VITALS: BP 202/73; PULSE 77; RESP 17; TEMP 37.1; O2SAT 91
--- NOTE | 2023-04-07 09:22 | PC.PHAR ---
pt states she takes care of her own medications-pt states she no longer uses any kinds of insulins pt states she doesnt give herself any kind of injectable medications-pt states she was in a care home and got a build up on her medications ext med history shows meds last filled 12/12/22 90d/s-pt states she doesnt take farxiga 10mg medication was on previously entered med list-pt states she only has an albuterol inhaler a previously entered med list had stiolto respimat pt states she doesnt have stiolto-ext shows ozempic filled 12/12/22 28d/s pt states not using-
--- NOTE | 2023-04-07 11:35 | W.ED.FEMALGU ---
HPI - Female Genitourinary General: Chief complaint: Urogenital-Female Stated complaint: YEAST INFECTION Time Seen by Provider: 04/07/23 08:55 Source: patient Mode of arrival: ambulatory History of Present Illness: 67-year-old female comes in complaining of vaginal itching and rectal discomfort. She has had this for last couple weeks she is tried [id number] medications for yeast infection she was concerned she had a yeast infection she has not seen anyone or had any testing done. She denies dysuria urgency or frequency. MD elicited complaint: genital itching Onset (ago): week(s) (3) Location of symptoms: external genitalia and other (Rectum) Vaginal discharge: none Vaginal bleeding: none Exacerbating factors: none Relieving factors: none Associated symptoms: Deny abdominal pain, short of breath, fevers/chills, headache(s), rash, seizures, vaginal bleeding, vaginal discharge or weakness Review of Systems Const: Denies: fever(s), chills, fatigue or malaise Card: Denies: chest pain Resp: Denies: dyspnea GI: Denies: abdominal pain : Reports: genital pruritis; Denies: vaginal discharge Musc: Denies: neck pain or back pain Skin/Breast: Denies: rash Neuro: Denies: headache(s) PFSH ED PFSH: Medical History Acute and chronic respiratory failure Aortic regurgitation Aortic stenosis Aortic stenosis CHF (congestive heart failure), NYHA class III Chronic kidney disease, stage 3 Congestive heart failure COPD (chronic obstructive pulmonary disease) Diabetes Diabetes mellitus type 2 in obese Hyperlipidemia Hypertension Morbid obesity with BMI of 45.0-49.9, adult Obesity Obstructive sleep apnea Tobacco abuse Uncontrolled hypertension Surgical History H/O arthroscopic knee surgery H/O tubal ligation Family History Other Diabetes Hypertension Stroke Social History Smoking and tobacco/nicotine status: current every day tobacco/nicotine user cigarettes Packs smoked per day: 0.5 Years cigarettes smoked: 47 [ Other cigarette details: occasionally 1 ppd ] Quit status (tobacco/nicotine): considering quitting Second hand smoke exposure: No Alcohol intake: never Substance/Drug Use: never Lives independently: Yes Household members: none Housing: Apartment Marital status: service: No Current occupational status: disabled Pets and animals: No Do you think of yourself as: Straight/Heterosexual Current gender identity: Female Physical Exam Narrative: EXAM NARRATIVE: Genital and rectal exam done with female air technician present Const: GENERAL APPEARANCE: cooperative and comfortable ORIENTATION/CONSCIOUSNESS: Yes awake, Yes oriented to person, Yes oriented to place and Yes oriented to time HENMT: COMMON NORMALS: normocephalic, atraumatic and hearing grossly normal bilaterally HEAD & SCALP: normocephalic and atraumatic Resp: COMMON NORMALS: normal respiratory effort, No retractions, No use of accessory muscles and clear to auscultation bilaterally AUSCULTATION: clear to auscultation bilaterally Cardio: COMMON NORMALS: regular rate, regular rhythm and No murmurs present (Cardio) RATE: regular rate RHYTHM: regular rhythm GI: COMMON NORMALS: Soft to palpation and No hepatosplenomegaly present AUSCULTATION: Yes normoactive bowel sounds PALPATION: Yes Soft to palpation, No Tenderness to palpation present (GI), No Guarding due to palpation present (GI) and Yes No hepatosplenomegaly present OTHER: Examination of her perineal area there is mild inflammation from excoriation no sign of any vaginal discharge or bleeding. Mildly inflamed rectal hemorrhoids no active bleeding. : SPECULUM EXAM - VAGINA: No vaginal bleeding OB/EXTERNAL & SPECULUM: No vaginal bleeding Extremity: COMMON NORMALS: normal to inspection, capillary refill normal, no clubbing, cyanosis or edema, no calf tenderness and no pedal edema Neuro: SENSORIUM/ORIENTATION: Yes oriented to person, Yes oriented to place and Yes oriented to time Skin: COMMON NORMALS: no rashes or lesions noted GENERAL SKIN EXAM: no rashes or lesions noted Course Vital Signs: Vital signs: Vital Signs Temperature 98.7 F 04/07/23 12:25 Pulse Rate 77 04/07/23 12:25 Respiratory Rate 17 04/07/23 12:25 Blood Pressure 202/73 04/07/23 12:25 Pulse Oximetry 91 04/07/23 12:25 Oxygen Delivery Me thod Room Air, Nasal C annula 04/07/23 08:49 Oxygen Flow Rate 2 04/07/23 08:49 MDM - Female Medical Decision Making Wet prep negative for clue cells. She did have some mildly inflamed hemorrhoids on exam of the perineum. No active bleeding no thrombosis use Anusol HC cream follow-up with primary care Medical Records I reviewed the patient's medical records. Lab Data I reviewed the patient's lab results. All radiology interpretation(s) finalized by discharge Discharge Plan Discharge Patient Disposition: Home Clinical Impression: Hemorrhoids Condition: Stable Prescriptions: New Proctosol HC 2.5 % cream with perineal applicator 1 applic FL QID 21 Days Qty: 30 0RF No Action isosorbide mononitrate 30 mg tablet extended release 24 hr 30 mg PO QAM atorvastatin 40 mg Tablet 40 mg PO QAM sertraline 100 mg Tablet 100 mg PO QAM aripiprazole [Abilify] 2 mg Tablet 2 mg PO QAM ipratropium-albuterol 0.5 mg-3 mg(2.5 mg base)/3 mL solution for nebulization 3 ml inhalation QID PRN (Reason: Shortness Of Breath Or Wheezing) allopurinol 300 mg tablet 300 mg PO QAM losartan 50 mg tablet 50 mg PO QAM pantoprazole 40 mg tablet,delayed release (DR/EC) 40 mg PO QAM Aspir-81 81 mg Tablet,Delayed Release (Dr/Ec) 81 mg PO QAM albuterol sulfate 90 mcg/actuation HFA aerosol inhaler 2 puff INHALATION Q4H PRN (Reason: Shortness Of Breath) potassium chloride 20 mEq tablet extended release 20 meq PO QAM furosemide 80 mg tablet 80 mg PO BID Discharge Orders: Discharge ED (Routine); Ordered 04/07/23 Ordered By: Bharat Franklin Referrals: Jhony Cantu MD [Primary Care Provider] - Patient Instructions: Hemorrhoids (ED), Opioid Safety, Pain Management Activity Restrictions/Additional Instructions: Thank you for choosing [facility] for your healthcare needs today. Please realize this is an emergency room and that we are providing you with a medical screening exam and this may not be complete and all inclusive of all the testing and or work up that you may need to determine your ailment or severity of your illness. It is very important that you follow up as instructed or that you return to the Emergency Department should you have concerns or if your condition changes or worsens in any way. You are seen today for complaints of vaginal itching and perineal inflammation. On exam no significant finding other than mildly inflamed hemorrhoids. The test for yeast and bacterial vaginosis was negative. Use Anusol HC prescription on the hemorrhoids if symptoms not improve follow-up with primary care doctor Coding Level of Care Code ED African History Professor for Kristina Blake
[2023-04-07 12:25] VITALS: BP 202/73; PULSE 77; RESP 17; TEMP 37.1; O2SAT 91
== END 2023-04-07 12:27 | disposition home or self-care (01) ==
PROVIDERS: Emergency Provider Family Medicine; PCP Family Medicine
DX: K64.9 Unspecified hemorrhoids (principal); Z79.82 Long term (current) use of aspirin; E11.22 Type 2 diabetes mellitus with diabetic chronic kidney disease; I13.0 Hypertensive heart and chronic kidney disease with heart failure and stage 1 through stage 4 chronic kidney disease, or unspecified chronic kidney disease; N18.30 Chronic kidney disease, stage 3 unspecified; I50.9 Heart failure, unspecified; J44.9 Chronic obstructive pulmonary disease, unspecified; E78.5 Hyperlipidemia, unspecified; F17.210 Nicotine dependence, cigarettes, uncomplicated
CPT/HCPCS: 87210; 99283

== ENCOUNTER 2023-10-12 03:03 | Observation (INO) | payer MEDICARE, MEDICAID, SELFPAY ==
[2023-10-12] VITALS (40 sets, daily range): BP systolic 119–187; BP diastolic 55–83; PULSE 72–91; RESP 16–44; TEMP 36.6–36.8; O2SAT 78–94; BMI 37.8; BMI 47.0
--- NOTE | 2023-10-12 03:11 | ECG_ITS ---
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 Measurements Intervals [place] Rate: 80 P: 47 RI: 217 QRS: 8 QRSD: 114 T: 36 QT: 411 QTc: 477 Interpretive Statements SINUS RHYTHM WITH FIRST DEGREE AV BLOCK POSSIBLE LEFT ATRIAL ENLARGEMENT [-0.1mV P-WAVE IN V1/V2] MODERATE INTRAVENTRICULAR CONDUCTION DELAY [110+ ms QRS DURATION] Compared to ECG 12/10/2022 03:59:10 First degree AV block now present Intraventricular conduction delay now present Ventricular premature complex(es) no longer present Electronically Signed On 10-12-2023 13:08:00 CDT by Warner Eugene M.D. [email or web address] [facility].[employer]/store/Ov/[id number]
--- NOTE | 2023-10-12 03:11 | XRR_ITS ---
PROCEDURE INFORMATION: Exam: XR Chest Exam date and time: 10/12/2023 3:17 AM Age: 68 years old Clinical indication: Dyspnea TECHNIQUE: Imaging protocol: Radiologic exam of the chest. Views: 1 view. COMPARISON: CR XR chest 1V portable [id number] 12/10/2022 4:00 AM FINDINGS: Lungs: Minimal linear atelectasis at the left lung base. Pleural spaces: Unremarkable. No pleural effusion. No pneumothorax. Heart/Mediastinum: See Vasculature finding. Vasculature: Mild cardiomegaly and uncoiling of the thoracic aorta. Bones/joints: Unremarkable. XR/XR chest 1V portable [id number] IMPRESSION: No acute cardiopulmonary disease.
--- NOTE | 2023-10-12 03:14 | ED_ITS ---
HPI - SOB/Dyspnea 2 General: Chief Complaint: Shortness of Breath/Dyspnea Stated Complaint: SOB Time Seen by Provider: 10/12/23 03:05 History of Present Illness: HPI Narrative: Patient presents to the ER with complaints of shortness of breath over the last 2 weeks. She says just been getting worse. Does have a history of COPD and CHF, denies any fevers chills nausea vomiting. Patient is on diuretic and claims to be taking it. Upon arrival patient's O2 sat was about 80% patient was placed on 4 L of oxygen per nasal cannula and her O2 sat went up to about 88% rather quickly. Patient says she does not have oxygen at home however she has had oxygen at home at 1 time and she decided to give it back to them and not use it. Per chart review patient has seen pulmonology but has not seen him since 2020. Review of Systems 2 General: Reports: 10 or more systems reviewed and unremarkable except in HPI and below PFSH ED 2 PFSH: Medical History CHF (congestive heart failure), NYHA class III Uncontrolled hypertension Acute and chronic respiratory failure COPD (chronic obstructive pulmonary disease) Chronic kidney disease, stage 3 Tobacco abuse Diabetes mellitus type 2 in obese Morbid obesity with BMI of 45.0-49.9, adult Obstructive sleep apnea Congestive heart failure Aortic stenosis Aortic stenosis Obesity Aortic regurgitation Hypertension Diabetes Hyperlipidemia Surgical History H/O tubal ligation H/O arthroscopic knee surgery Family History Other Diabetes Hypertension Stroke Social History Smoking and tobacco/nicotine status: current every day tobacco/nicotine user cigarettes Packs smoked per day: 0.5 Years cigarettes smoked: 47 [ Other cigarette details: occasionally 1 ppd ] Quit status (tobacco/nicotine): considering quitting Second hand smoke exposure: No Alcohol intake: never Substance/Drug Use: never Lives independently: Yes Household members: none Housing: Apartment Marital status: service: No Current occupational status: disabled Pets and animals: No Do you think of yourself as: Straight/Heterosexual Current gender identity: Female Physical Exam 2 Const: COMMON NORMALS: no acute distress, average body habitus, patient oriented x3, no limitations, healthy appearing, alert and well nourished HENMT: COMMON NORMALS: normocephalic, atraumatic, hearing grossly normal bilaterally, external ears normal, Normal external nose present, moist oral mucous membranes and oropharynx normal HEAD & SCALP: normocephalic and atraumatic NOSE: Normal external nose present EXTERNAL EAR: Yes external ears normal Neck/C-Spine: COMMON NORMALS: full ROM, no lymphadenopathy, supple, no meningeal signs, no JVD and Thyroid normal THYROID: Thyroid normal Chest: COMMONS NORMALS: normal inspection of the chest and normal palpation of entire chest wall Resp: COMMON NORMALS: normal respiratory effort, No retractions and No use of accessory muscles; negative for clear to auscultation bilaterally (Decreased breath sounds bilaterally) AUSCULTATION: not clear to auscultation bilaterally (Decreased breath sounds bilaterally) Cardio: COMMON NORMALS: no JVD, regular rate, regular rhythm, S1 normal heart sound present, S2 normal heart sound present, No gallops present (Cardio), No clicks present (Cardio) and No rub (Cardio); negative for No murmurs present (Cardio) (2/6 systolic ejection murmur) RATE: regular rate RHYTHM: regular rhythm HEART SOUNDS: S1 normal heart sound present and S2 normal heart sound present GI: COMMON NORMALS: Normal to inspection, nondistended, normoactive bowel sounds present, Soft to palpation, non-tender, No hepatosplenomegaly present and no masses PALPATION: Yes Soft to palpation and Yes No hepatosplenomegaly present Extremity: NARRATIVE EXTREMITY EXAM: 1+ pitting edema bilateral lower extremi ties Neuro: COMMON NORMALS: patient oriented x3 SENSORIUM/ORIENTATION: Yes alert MENINGEAL SIGNS: Yes no meningeal signs Course 2 Vital Signs: Vital signs: Vital Signs Temperature 98.2 F 10/12/23 03:04 Pulse Rate 81 10/12/23 04:05 Respiratory Rate 27 H 10/12/23 04:05 Blood Pressure 185/78 10/12/23 03:04 Pulse Oximetry 85 L 10/12/23 04:05 Oxygen Delivery Me thod Nasal Cannula 10/12/23 03:26 Oxygen Flow Rate 4 10/12/23 03:26 MDM - SOB/Dyspnea Medical Decision Making ABG obtained shows patient's pCO2 was elevated to 63 pO2 of 51 with an O2 sat of 88.5% on 4 L. Lab work was obtained which revealed a white count of 11.9 elevated BUN and creatinine of 18 and 1.4, troponin baseline of 25, BNP of 3300, chest x-ray preliminary review did not show any significant amount of pulmonary edema or infiltrate. Patient was given 1 DuoNeb treatment 125 mg of Solu-Medrol and 40 mg Lasix. Patient does appear to be resting better. Dr. Snow was consulted who agreed to place patient inpatient for further evaluation and treatment. Differential Diagnosis Likely acute exacerbation of chronic obstructive airways disease and congestive heart failure; Unlikely community acquired pneumonia, asthma with exacerbation or pulmonary embolism Medical Records I reviewed the patient's medical records. Lab Data I reviewed the patient's lab results. 10/12/23 03:16 10/12/23 03:16 Labs/Radiology: Laboratory Results WBC 11.95 10^3/uL (3.29-11.43) H 10/12/23 03:16 RBC 5.22 10^6/uL (3.85-5.65) 10/12/23 03:16 Hgb 14.40 g/dL (11.27-16.99) 10/12/23 03:16 Hct 49.0 % (36-47) H 10/12/23 03:16 MCV 93.9 fl (85-98) 10/12/23 03:16 MCH 27.6 pg (27-33) 10/12/23 03:16 MCHC 29.4 g/dL (30-55) L 10/12/23 03:16 RDW 16.2 % (12.1-15.1) H 10/12/23 03:16 Plt Count 312 10^3/cmm (157-399) 10/12/23 03:16 MPV 10.9 fL (7.4-10.4) H 10/12/23 03:16 Neut % (Auto) 74.2 % 10/12/23 03:16 Lymph % (Auto) 20.8 % 10/12/23 03:16 [place] % (Auto) 3.8 % 10/12/23 03:16 Eos % (Auto) 0.6 % 10/12/23 03:16 Baso % (Auto) 0.3 % 10/12/23 03:16 Neut # (Auto) 8.88 10^3/uL (1.8-7.7) H 10/12/23 03:16 Lymph # (Auto) 2.5 10^3/uL (0.8-4.8) 10/12/23 03:16 [place] # (Auto) 0.5 10^3/uL (0.2-0.9) 10/12/23 03:16 Eos # (Auto) 0.1 10^3/uL (0.0-0.8) 10/12/23 03:16 Baso # (Auto) 0.0 10^3/uL (0.0-0.1) 10/12/23 03:16 Nucleated RBC % (auto) 0 % 10/12/23 03:16 Nucleated RBCs # 0.0 /100WBC 10/12/23 03:16 Specimen Type Arterial 10/12/23 03:25 Sample Site Brachial, right 10/12/23 03:25 ABG pH 7.37 (7.35-7.45) 10/12/23 03:25 ABG pCO2 63.6 mmHg (35-45) H* 10/12/23 03:25 ABG pO2 51.9 mmHg (80.0-100.0) L 10/12/23 03:25 ABG HCO3 36.9 mmol/L (22-26) H 10/12/23 03:25 ABG O2 Saturation 88.5 10/12/23 03:25 ABG Base Excess 9.0 mmol/L (-2.0-2.0) H 10/12/23 03:25 Rm Test Pos 10/12/23 03:25 A-a O2 Gradient 2.6 mmHg (5-10) L 10/12/23 03:25 Hematocrit 43.4 % (37-47) 10/12/23 03:25 Hgb O2 Saturation 78.8 % (95-100) L 10/12/23 03:25 Carboxyhemoglobin 10.6 %THgb (0.4-20.1) 10/12/23 03:25 Methemoglobin 0.3 % (0.4-1.5) L 10/12/23 03:25 Total Hemoglobin 14.2 g/dL (12-16) 10/12/23 03:25 Sodium 138.0 mmol/L (131-143) 10/12/23 03:25 Potassium 3.0 mmol/L (3.5-5.0) L 10/12/23 03:25 Glucose 285.0 mg/dL (70-115) H 10/12/23 03:25 Ionized Calcium 1.2 mmol/L (1.1-1.4) 10/12/23 03:25 O2 Delivery Device Nc 10/12/23 03:25 O2 Liters/Min 4.0 % 10/12/23 03:25 Photographic Process Attendant ID [email or web address] 10/12/23 03:25 Sodium 135 mmol/L (136-145) L 10/12/23 03:16 Potassium 3.8 mmol/L (3.5-5.1) 10/12/23 03:16 Chloride 94 mmol/L (98-107) L 10/12/23 03:16 Carbon Dioxide 32 mmol/L (22-29) H 10/12/23 03:16 Anion Gap 12.8 (5-19) 10/12/23 03:16 BUN 18 mg/dL (8-23) 10/12/23 03:16 Creatinine 1.4 mg/dL (0.5-0.9) H 10/12/23 03:16 GFR Calculation 37.4 mL/min (90-130) L 10/12/23 03:16 Glucose 286 mg/dL (65-115) H 10/12/23 03:16 Calculated Osmolality 292 mOsm/kg (285-295) 10/12/23 03:16 Calcium 8.5 mg/dL (8.5-10.5) 10/12/23 03:16 Magnesium 2.0 mg/dL (1.7-2.3) 10/12/23 03:16 Total Bilirubin 0.3 mg/dL (0.15-1.2) 10/12/23 03:16 AST 15 U/L (0-32) 10/12/23 03:16 ALT 14 U/L (0-33) 10/12/23 03:16 Alkaline Phosphatase 164 U/L (35-105) H 10/12/23 03:16 Troponin T Baseline 25 ng/L (0-10) H 10/12/23 03:16 NT-Pro-B Natriuret Pep 3365 pg/mL (0-125) H 10/12/23 03:16 Total Protein 6.8 g/dL (6.6-8.7) 10/12/23 03:16 Albumin 3.0 g/dL (3.5-5.2) L 10/12/23 03:16 Globulin 3.8 g/dL (1.3-4.6) 10/12/23 03:16 Influenza Type A Ag negative (Negative) 10/12/23 03:20 Influenza Type B Ag negative (Negative) 10/12/23 03:20 SARS-CoV-2 Ag (Rapid) negative (Negative) 10/12/23 03:20 All radiology interpretation(s) finalized by discharge Discharge Plan Discharge Patient Disposition: Admitted As Inpatient Admit Provider: Angle Snow Clinical Impression: Acute exacerbation of chronic obstructive airways disease, Congestive heart failure Condition: Stable Coding Level of Care Code ED Commercial Intelligence Manager for Kristina Blake
[2023-10-12] MEDS: ipratropium-albuterol 3 mL Neb INHALATION ×4 (03:18→15:23)
[2023-10-12 03:22] LABS: Basophils % 0.3 %; Eosinophils # 0.1 10^3/uL (0.0-0.8); Eosinophils % 0.6 %; Lymphocytes # 2.5 10^3/uL (0.8-4.8); Lymphocytes % 20.8 %; Mean Corpuscular HGB Conc 29.4 g/dL (30-55); Mean Corpuscular Hemoglobin 27.6 pg (27-33); Mean Corpuscular Volume 93.9 fl (85-98); Mean Platelet Volume 10.9 fL (7.4-10.4); Monocytes # 0.5 10^3/uL (0.2-0.9); Monocytes % 3.8 %; Neutrophils # 8.88 10^3/uL (1.8-7.7); Neutrophils % 74.2 %; Nucleated Red Blood Cells % 0 %; Platelet Count 312 10^3/cmm (157-399); Red Blood Count 5.22 10^6/uL (3.85-5.65); Red Cell Distribution Width 16.2 % (12.1-15.1); White Blood Count 11.95 10^3/uL (3.29-11.43)
[2023-10-12 03:32] LABS: ABG PH Result 7.37 (7.35-7.45); Alveolar-Arterial Oxygen Gradi 2.6 mmHg (5-10); Arterial Blood Gas Hematocrit 43.4 % (37-47); Blood Gas Allen Test Pos; Blood Gas Sample Site Brachial, right; Blood Gas Sample Type Arterial; Carboxyhemoglobin 10.6 %THgb (0.4-20.1); HCO3 ABG 36.9 mmol/L (22-26); HGB O2 Sat 78.8 % (95-100); Ionized Calcium Level - ABG 1.2 mmol/L (1.1-1.4); Methemoglobin 0.3 % (0.4-1.5); Oxygen Device NC; Oxygen Saturation ABG 88.5; PO2 ABG 51.9 mmHg (80.0-100.0); Total Hemoglobin 14.2 g/dL (12-16)
[2023-10-12 03:33] LABS: ABG PCO2 63.6 mmHg (35-45)
[2023-10-12 03:43] LABS: Troponin(5th) Baseline 25 ng/L (0-10)
[2023-10-12 03:50] LABS: Influenza A by IFA negative (Negative); Influenza B by IFA negative (Negative); SARS Covid-2 Antigen negative (Negative)
[2023-10-12 03:53] LABS: Alanine Aminotransferase 14 U/L (0-33); Alkaline Phosphatase 164 U/L (35-105); Aspartate Amino Transferase 15 U/L (0-32); Blood Urea Nitrogen 18 mg/dL (8-23); Calcium 8.5 mg/dL (8.5-10.5); Carbon Dioxide 32 mmol/L (22-29); Chloride 94 mmol/L (98-107); Globulin 3.8 g/dL (1.3-4.6); Glomerular Filtration Rate 37.4 mL/min (90-130); Glucose 286 mg/dL (65-115); NT Pro B Type Natriuretic Pept 3365 pg/mL (0-125); Osmolality Calculated 292 mOsm/kg (285-295); Sodium 135 mmol/L (136-145); Total Bilirubin 0.3 mg/dL (0.15-1.2); Total Protein 6.8 g/dL (6.6-8.7)
[2023-10-12 03:54] LABS: Anion Gap 12.8 (5-19); Creatinine Clr Calc Pharmacy 39.4444; Potassium 3.8 mmol/L (3.5-5.1)
[2023-10-12] MEDS: methylPREDNISolone sod succ 125 mg/2 mL INJ IVP (03:56)
--- NOTE | 2023-10-12 05:08 | ECG_ITS ---
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 Measurements Intervals [place] Rate: 86 P: 48 ME: 216 QRS: 33 QRSD: 100 T: 38 QT: 414 QTc: 495 Interpretive Statements SINUS RHYTHM WITH FIRST DEGREE AV BLOCK POSSIBLE LEFT ATRIAL ENLARGEMENT [-0.1mV P-WAVE IN V1/V2] INDETERMINATE AXIS Compared to ECG 12/10/2022 03:59:10 First degree AV block now present Indeterminate axis now present Ventricular premature complex(es) no longer present Electronically Signed On 10-12-2023 13:10:51 CDT by Warner Eugene M.D. [email or web address] Networkgeorgetown behavioral hospital.[employer]/store/OM/[id number]
[2023-10-12 05:36] LABS: Troponin 5 2HR 23.13 ng/L (0-10)
[2023-10-12 05:40] LABS: Troponin 5 2HR Delta -1.87 ABS# (0-10)
[2023-10-12] MEDS: FUROsemide 10 mg/mL SDV 4mL 40 MG IVP (05:58)
[2023-10-12 06:29] LABS: Glucose Point of Care 373 mg/dL (70-110)
--- NOTE | 2023-10-12 06:37 | USCV_ITS ---
Bridget Faye Age: 68 Gender: F : 1955 Exam Date: 10/12/2023 09:58 Ordering Phys: Angle Snow MD Technologist: Tc Mcfarlane Exam Location: [facility] [place] Indication: chf BP: 157 / 73 HR: 72 Rhythm: Sinus Technical Quality: Adequate MEASUREMENTS (Male / Female) Normal Values 2D ECHO LV Diastolic Diameter PLAX 4.4 cm 4.2 - 5.9 / 3.9 - 5.3 cm IVS Diastolic Thickness 1.1 cm 0.6 - 1.0 / 0.6 - 0.9 cm IVS Systolic Thickness 1.7 cm LVPW Diastolic Thickness 1.8 cm 0.6 - 1.0 / 0.6 - 0.9 cm LVPW Systolic Thickness 2.3 cm LVOT Diameter 2.0 cm LV Ejection Fraction 2D Teich 71.3 % LV Ejection Fraction MOD 2C 64.9 % LV Ejection Fraction 2C AL 66.5 % LA Diameter 4.5 cm RA Systolic Volume 4C AL 59.3 ml RA Systolic Volume 4C MOD 58.9 ml LA Sys Volume AL 79.3 cm cubed LA Sys Volume Index AL 34.9 cm cubed/m squared Aorta at Sinotubular Diameter 1.9 cm IVC Diameter 2.2 cm M-MODE LA Ao Ratio MM 1.9 AV Cusp Separation MM 1.3 cm DOPPLER AV Peak Velocity 158.0 cm/s MV Peak Velocity 131.0 cm/s MV Area PHT 3.7 cm squared Mitral E to A Ratio 0.7 TR Peak Velocity 247.0 cm/s TR Peak Gradient 24.4 mmHg TR Mean Velocity 226.0 cm/s TR Mean Gradient 20.5 mmHg TR Velocity Time Integral 59.2 cm PV Peak Velocity 146.0 cm/s RV Ejection Time 0.3 s FINDINGS Left Ventricle Normal left ventricular size and systolic function, EF 66%.mild left ventricular hypertrophy. No regional wall motion abnormalities. Grade I/IV diastolic dysfunction (abnormal relaxation filling pattern), normal to mildly elevated filling pressures. Right Ventricle Normal right ventricular size and systolic function. Right Atrium The right atrium is normal in size. Left Atrium The left atrium is normal in size. Mitral Valve Thickened mitral valve. Moderate mitral annular calcification. Aortic Valve Thickened aortic valve. Tricuspid Valve Mild tricuspid valve regurgitation. Pulmonic Valve Pulmonic valve not well visualized. Pericardium Normal pericardium without effusion. Aorta Normal ascending aorta dimension. IVC Dilated IVC with decreased respiratory variation. CONCLUSIONS Normal left ventricular size and systolic function, EF 66%.mild left ventricular hypertrophy. No regional wall motion abnormalities. Grade I/IV diastolic dysfunction (abnormal relaxation filling pattern), normal to mildly elevated filling pressures. Thickened mitral valve. Moderate mitral annular calcification. Thickened aortic valve. Mild tricuspid valve regurgitation. There is no pericardial effusion. There are no intracardiac masses. Compared to the study from 06/23/2020, the aortic valve velocity has significantly decreased? Bioprosthetic valve Dr Arlene James MD FAC (Electronically Signed) Final Date: 12 Oct 2023 20:34 S
[2023-10-12] MEDS: azithromycin 500 MG in sodium chloride 0.9% 250 ML 250 MG IV (06:46)
[2023-10-12] MEDS: isosorbide mononitrate ER 30 mg Tablet PO (06:47)
[2023-10-12] MEDS: losartan 50 mg Tablet PO (06:47)
[2023-10-12] MEDS: heparin 5,000 unit/mL INJ 1 mL 5000 UNIT SUBCUT (06:47)
[2023-10-12 06:55] LABS: Procalcitonin 0.12 ng/mL (0-0.5)
--- NOTE | 2023-10-12 07:10 | P.HP_ITS ---
Providers/Chief Complaint 2 Admitting Physician: Angle Snow MD Primary Care Provider: Jhony Cantu MD Chief Complaint: SOB History of Present Illness Bridget Faye is a 68 year old female who presented to hospital with shortness of breath. Patient is stating that she has not noticed any fever but her shortness of breath has been getting worse for last 2 weeks, she has not noticed any fever, chest pain, nausea, vomiting or diarrhea. She is stating that she is still smoking, she is not endorsing use of oxygen at home. In the ER she was requiring oxygen up to 2 to 3 L, ABG showed persistent hypercapnia with compensated pH patient was anxious appearing, she does have chronic kidney disease, hemoglobin A1c is around 12, she is hyperglycemic and gap is normal, troponin trending down, BNP is 3000, chest x-ray unremarkable She is endorsing a dry hacking cough for last 2 weeks which gets worse mostly in the evening. Review of Systems 2 Const: Reports: chills; Denies: fever(s) Eyes: Denies: change in vision ENMT: Denies: throat pain Card: Denies: palpitations Resp: Reports: dyspnea GI: Denies: abdominal pain : Denies: flank pain Medications/Allergies Home Medications Medication Instructions Recorded Confirmed Last Taken Type aripiprazole 2 mg tablet (Abilify) 2 mg PO QAM 11/04/19 04/07/23 04/07/23 History atorvastatin 40 mg tablet 40 mg PO QAM 11/04/19 04/07/23 04/07/23 History sertraline 100 mg tablet 100 mg PO QAM 11/04/19 04/07/23 04/07/23 History isosorbide mononitrate 30 mg 30 mg PO QAM 12/24/19 04/07/23 04/07/23 History tablet,extended release 24 hr ipratropium 0.5 mg-albuterol 3 mg 3 ml inhalation QID PRN Shortness 07/16/20 04/07/23 08/28/21 History (2.5 mg base)/3 mL nebulization Of Breath Or Wheezing soln allopurinol 300 mg tablet 300 mg PO QAM 08/22/21 04/07/23 04/07/23 History losartan 50 mg tablet 50 mg PO QAM 08/22/21 04/07/23 04/07/23 History pantoprazole 40 mg tablet,delayed 40 mg PO QAM 08/22/21 04/07/23 04/07/23 History release albuterol sulfate 90 mcg/actuation 2 puff inhalation Q4H PRN 04/07/23 04/07/23 Unknown History aerosol inhaler Shortness Of Breath aspirin 81 mg tablet,delayed 81 mg PO QAM 04/07/23 04/07/23 04/07/23 History release furosemide 80 mg tablet 80 mg PO BID 04/07/23 04/07/23 04/07/23 History potassium chloride 20 mEq 20 meq PO QAM 04/07/23 04/07/23 04/07/23 History tablet,extended release Allergies Allergy/AdvReac Type Severity Reaction Status Date / Time lisinopril Allergy ALGY-Rash Verified 10/12/23 03:14 Penicillins Allergy ALGY-Hives Verified 10/12/23 03:14 PFSH Acute 2 PFSH: Medical History CHF (congestive heart failure), NYHA class III Uncontrolled hypertension Acute and chronic respiratory failure COPD (chronic obstructive pulmonary disease) Chronic kidney disease, stage 3 Tobacco abuse Diabetes mellitus type 2 in obese Morbid obesity with BMI of 45.0-49.9, adult Obstructive sleep apnea Congestive heart failure Aortic stenosis Aortic stenosis Obesity Aortic regurgitation Hypertension Diabetes Hyperlipidemia Surgical History H/O tubal ligation H/O arthroscopic knee surgery Family History Other Diabetes Hypertension Stroke Social History Smoking and tobacco/nicotine status: current every day tobacco/nicotine user cigarettes Packs smoked per day: 0.5 Years cigarettes smoked: 47 [ Other cigarette details: occasionally 1 ppd ] Quit status (tobacco/nicotine): considering quitting Second hand smoke exposure: No Alcohol intake: never Substance/Drug Use: never Lives independently: Yes Household members: none Housing: Apartment Marital status: service: No Current occupational status: disabled Pets and animals: No Do you think of yourself as: Straight/Heterosexual Current gender identity: Female Vitals/I&O/Wt Last Vital Signs Temp 98.2 F 10/12/23 03:04 Pulse 91 10/12/23 06:22 Resp 39 H 10/12/23 05:10 BP 171/71 10/12/23 06:47 Pulse Ox 87 L 10/12/23 05:15 O2 Del Method Oxymask 10/12/23 05:54 O2 Flow Rate 4 10/12/23 03:26 Weight last 48 hrs Weight 112.548 kg Weight 112.808 kg Weight 112.548 kg Weight 90.718 kg Physical Exam 2 Narrative: Pleasant cooperative No active wheezing Currently on 2 L Awake Anxious Euvolemic Abdomen distended nontender Pleasant cooperative Getting breathing treatment Nonfocal neuroexam Data 10/12/23 03:16 10/12/23 03:16 A&P Assessment and plan (1) Hypertension: Qualifiers: Hypertension type: essential hypertension Qualified Code(s): I10 - Essential (primary) hypertension (2) CHF (congestive heart failure), NYHA class III: (3) Aortic regurgitation: Qualifiers: Cardiac valve disease etiology: etiology unspecified Qualified Code(s): I35.1 - Nonrheumatic aortic (valve) insufficiency (4) Aortic stenosis: Qualifiers: Cardiac valve disease etiology: nonrheumatic Qualified Code(s): I35.0 - Nonrheumatic aortic (valve) stenosis (5) Diabetes mellitus type 2 in obese: (6) Acute exacerbation of chronic obstructive airways disease: (7) Smoker: (8) Acute respiratory failure with hypoxia: Plan Acute hypoxia related to COPD exacerbation Likely cause as active smoking Patient counseled on smoking cessation Will add p.o. azithromycin Continue steroids and DuoNeb treatment Patient is not endorsing use of oxygen at home will request home oxygen evaluation before discharge by tomorrow No need of BiPAP today pH is compensated Diastolic CHF: BNP 3000, patient clinically does not look hypervolemic, skin wrinkling is evident I will start p.o. Lasix from tomorrow she has received IV Lasix 40 mg today Poorly controlled diabetes hemoglobin A1c above 10 Patient may need insulin with sliding scale at time of discharge Continue sliding scale and add Lantus 20 units at nighttime Disposition: Likely home by tomorrow Full code Cardiac diet Consistent carb diet Attestations 2 Medical Necessity Statement*: Likely discharge within 48 hours Diagnoses Essential hypertension I10 Hypertension type: essential hypertension CHF (congestive heart failure), NYHA class III I50.9 Aortic valve insufficiency, etiology of cardiac valve disease unspecified I35.1 Cardiac valve disease etiology: etiology unspecified Nonrheumatic aortic valve stenosis I35.0 Cardiac valve disease etiology: nonrheumatic Diabetes mellitus type 2 in obese E11.69; E66.9 Acute exacerbation of chronic obstructive airways disease J44.1 Smoker F17.200 Acute respiratory failure with hypoxia J96.01
[2023-10-12 07:33] LABS: Thyroid Stimulating Hormone 2.56 uIU/mL (0.27-4.20)
[2023-10-12 07:42] LABS: Estmated Average Glucose 303; Hemoglobin A1C 12.2 % (4.0-6.0)
[2023-10-12] MEDS: pantoprazole DR 40 mg Tablet PO (08:30)
[2023-10-12] MEDS: insulin lispro 100 unit/1 mL SUBCUT ×2 (08:30→12:51)
[2023-10-12 09:11] LABS: D Dimer 0.53 ug/mLFEU (0-0.59)
[2023-10-12 09:12] LABS: Troponin 5 6HR 21.18 ng/L (0-10)
[2023-10-12 09:13] LABS: Lactic Sepsis W/Reflex 1.3 mmol/L (0.5-2.2)
[2023-10-12 09:15] LABS: Troponin 5 6HR Delta -3.82 ng/L (0-12)
--- NOTE | 2023-10-12 10:47 | ECG_ITS ---
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 Measurements Intervals Bennett Rate: 69 P: 75 SD: 205 QRS: 107 QRSD: 101 T: 66 QT: 451 QTc: 484 Interpretive Statements SINUS RHYTHM POSSIBLE LEFT ATRIAL ENLARGEMENT [-0.1mV P-WAVE IN V1/V2] PATTERN CONSISTENT WITH PULMONARY DISEASE POSSIBLE RIGHT VENTRICULAR HYPERTROPHY [SOME/ALL OF: PROMINENT R IN V1, LATE TRANSITION, RAD, SANDRA, SSS] Compared to ECG 10/12/2023 05:08:39 First degree AV block no longer present Indeterminate axis no longer present Electronically Signed On 10-12-2023 13:10:30 CDT by Warner Eugene M.D. [id number]
[2023-10-12] MEDS: methylPREDNISolone sod succ 40 mg/mL INJ IVP (16:32)
--- NOTE | 2023-10-12 16:56 | PM.DCS ---
Discharge Providers Date of Admission: 10/12/23 04:11 Date of Discharge: October 12, 2023 Attending Provider at Admission: Angle Snow MD Attending Provider at Discharge: Tomer Russell MD Primary Care Provider: Jhony Cantu MD Diagnoses at Discharge Discharge Diagnosis (1) Hypertension: Status: Acute Qualifiers: Hypertension type: essential hypertension Qualified Code(s): I10 - Essential (primary) hypertension (2) CHF (congestive heart failure), NYHA class III: Status: Acute (3) Aortic regurgitation: Status: Acute Qualifiers: Cardiac valve disease etiology: etiology unspecified Qualified Code(s): I35.1 - Nonrheumatic aortic (valve) insufficiency (4) Aortic stenosis: Status: Acute Qualifiers: Cardiac valve disease etiology: nonrheumatic Qualified Code(s): I35.0 - Nonrheumatic aortic (valve) stenosis (5) Diabetes mellitus type 2 in obese: Status: Acute (6) Acute exacerbation of chronic obstructive airways disease: Status: Acute (7) Smoker: Status: Acute (8) Acute respiratory failure with hypoxia: Status: Acute Reason for Visit Reason for Visit: SOB Hospital Course Hospital Course 68 female present to the hospital with chief complaint of shortnessWith history of COPD, does not use oxygen on daily basis, active smoker, breath, pH was compensated, patient did not require BiPAP, will give her steroids however there was no significant wheezing she was put on DuoNeb treatment, she was requiring 3 to 4 L of oxygen at rest, patient was struggling to leave AMA it was at best interest of the patient to get home oxygen evaluation so I could give her appropriate inhalers and arrange oxygen for her. I will also give her azithromycin for anti-inflammatory effect. Her hemoglobin A1c is also above 10 she will need insulin Physical Exam Narrative: Awake and alert GCS 15 Currently no active wheezing Hemodynamically stable Nonfocal neuroexam S1, S2 Discharge Data Studies Completed and Pending Completed Studies During Hospitalization Category Date Time Status XR chest 1V portable [id number] Stat Exams 10/12/23 03:11 Completed Pending at discharge Category Date Time Status Basic Metabolic Panel AM LABS Lab 10/13/23 04:00 Ordered Complete Blood Count w/Auto AM LABS Lab 10/13/23 04:00 Ordered Comprehensive Metabolic Panel AM LABS Lab 10/13/23 04:00 Ordered Magnesium AM LABS Lab 10/13/23 04:00 Ordered Sputum Culture and Gram Stain Stat Lab 10/12/23 06:23 Uncollected CV. echo complete* [id number] Routine Ultrasound 10/12/23 06:37 Taken Radiology Impressions Chest X-Ray 10/12/23 03:11 IMPRESSION: No acute cardiopulmonary disease. Laboratory Results WBC 11.95 10^3/uL (3.29-11.43) H 10/12/23 03:16 RBC 5.22 10^6/uL (3.85-5.65) 10/12/23 03:16 Hgb 14.40 g/dL (11.27-16.99) 10/12/23 03:16 Hct 49.0 % (36-47) H 10/12/23 03:16 MCV 93.9 fl (85-98) 10/12/23 03:16 MCH 27.6 pg (27-33) 10/12/23 03:16 MCHC 29.4 g/dL (30-55) L 10/12/23 03:16 RDW 16.2 % (12.1-15.1) H 10/12/23 03:16 Plt Count 312 10^3/cmm (157-399) 10/12/23 03:16 MPV 10.9 fL (7.4-10.4) H 10/12/23 03:16 Neut % (Auto) 74.2 % 10/12/23 03:16 Lymph % (Auto) 20.8 % 10/12/23 03:16 [place] % (Auto) 3.8 % 10/12/23 03:16 Eos % (Auto) 0.6 % 10/12/23 03:16 Baso % (Auto) 0.3 % 10/12/23 03:16 Neut # (Auto) 8.88 10^3/uL (1.8-7.7) H 10/12/23 03:16 Lymph # (Auto) 2.5 10^3/uL (0.8-4.8) 10/12/23 03:16 [place] # (Auto) 0.5 10^3/uL (0.2-0.9) 10/12/23 03:16 Eos # (Auto) 0.1 10^3/uL (0.0-0.8) 10/12/23 03:16 Baso # (Auto) 0.0 10^3/uL (0.0-0.1) 10/12/23 03:16 Nucleated RBC % (auto) 0 % 10/12/23 03:16 Nucleated RBCs # 0.0 /100WBC 10/12/23 03:16 D-Dimer 0.53 ug/mLFEU (0-0.59) 10/12/23 08:18 Specimen Type Arterial 10/12/23 03:25 Sample Site Brachial, right 10/12/23 03:25 ABG pH 7.37 (7.35-7.45) 10/12/23 03:25 ABG pCO2 63.6 mmHg (35-45) H* 10/12/23 03:25 ABG pO2 51.9 mmHg (80.0-100.0) L 10/12/23 03:25 ABG HCO3 36.9 mmol/L (22-26) H 10/12/23 03:25 ABG O2 Saturation 88.5 10/12/23 03:25 ABG Base Excess 9.0 mmol/L (-2.0-2.0) H 10/12/23 03:25 Rm Test Pos 10/12/23 03:25 A-a O2 Gradient 2.6 mmHg (5-10) L 10/12/23 03:25 Hematocrit 43.4 % (37-47) 10/12/23 03:25 Hgb O2 Saturation 78.8 % (95-100) L 10/12/23 03:25 Carboxyhemoglobin 10.6 %THgb (0.4-20.1) 10/12/23 03:25 Methemoglobin 0.3 % (0.4-1.5) L 10/12/23 03:25 Total Hemoglobin 14.2 g/dL (12-16) 10/12/23 03:25 Sodium 138.0 mmol/L (131-143) 10/12/23 03:25 Potassium 3.0 mmol/L (3.5-5.0) L 10/12/23 03:25 Glucose 285.0 mg/dL (70-115) H 10/12/23 03:25 Ionized Calcium 1.2 mmol/L (1.1-1.4) 10/12/23 03:25 O2 Delivery Device Nc 10/12/23 03:25 O2 Liters/Min 4.0 % 05/24/24 03:25 Display Carver ID [email or web address] 10/12/23 03:25 Sodium 135 mmol/L (136-145) L 10/12/23 03:16 Potassium 3.8 mmol/L (3.5-5.1) 10/12/23 03:16 Chloride 94 mmol/L (98-107) L 10/12/23 03:16 Carbon Dioxide 32 mmol/L (22-29) H 10/12/23 03:16 Anion Gap 12.8 (5-19) 10/12/23 03:16 BUN 18 mg/dL (8-23) 10/12/23 03:16 Creatinine 1.4 mg/dL (0.5-0.9) H 10/12/23 03:16 GFR Calculation 37.4 mL/min (90-130) L 10/12/23 03:16 Glucose 286 mg/dL (65-115) H 10/12/23 03:16 POC Glucose 373 mg/dL (70-110) H 10/12/23 06:26 Estimat Average Glucose 303 10/12/23 03:16 Hemoglobin A1c 12.2 % (4.0-6.0) H 10/12/23 03:16 Calculated Osmolality 292 mOsm/kg (285-295) 10/12/23 03:16 Lactic Acid 1.3 mmol/L (0.5-2.2) 10/12/23 08:18 Calcium 8.5 mg/dL (8.5-10.5) 10/12/23 03:16 Magnesium 2.0 mg/dL (1.7-2.3) 10/12/23 03:16 Total Bilirubin 0.3 mg/dL (0.15-1.2) 10/12/23 03:16 AST 15 U/L (0-32) 10/12/23 03:16 ALT 14 U/L (0-33) 10/12/23 03:16 Alkaline Phosphatase 164 U/L (35-105) H 10/12/23 03:16 Troponin T Baseline 25 ng/L (0-10) H 10/12/23 03:16 Troponin T 120 Minute 23.13 ng/L (0-10) H 10/12/23 05:15 Delta Troponin T -1.87 ABS# (0-10) L 10/12/23 05:15 Troponin T Hi Sens 6Hr 21.18 ng/L (0-10) H 10/12/23 08:32 Troponin T Hi Sens 6Hr Delta -3.82 ng/L (0-12) L 10/12/23 08:32 NT-Pro-B Natriuret Pep 3365 pg/mL (0-125) H 10/12/23 03:16 Total Protein 6.8 g/dL (6.6-8.7) 10/12/23 03:16 Albumin 3.0 g/dL (3.5-5.2) L 10/12/23 03:16 Globulin 3.8 g/dL (1.3-4.6) 10/12/23 03:16 Procalcitonin 0.12 ng/mL (0-0.5) 10/12/23 03:16 TSH 2.56 uIU/mL (0.27-4.20) 10/12/23 03:16 Influenza Type A Ag negative (Negative) 10/12/23 03:20 Influenza Type B Ag negative (Negative) 10/12/23 03:20 SARS-CoV-2 Ag (Rapid) negative (Negative) 10/12/23 03:20 Vitals Last Vital Signs Temp 98.0 F 10/12/23 15:34 Pulse 72 10/12/23 15:34 Resp 18 10/12/23 15:34 BP 119/55 10/12/23 15:34 Pulse Ox 78 L 10/12/23 16:51 O2 Del Method Nasal Cannula 10/12/23 15:34 O2 Flow Rate 5 10/12/23 16:51 FiO2 40 10/12/23 08:58 Discharge Plan Discharge Patient Disposition: Home Condition: Stable Prescriptions: New (DME) blood-glucose meter [Accu-Chek Guide Glucose Meter] Misc See Rx Instructions .Route Qty: 1 0RF Rx Instructions: As directed (DME) lancets [Accu-Chek Fastclix Lancet Drum] Misc See Rx Instructions .Route Qty: 200 2RF Rx Instructions: As directed (DME) Accu-Chek Quita Plus test strp Strip See Rx Instructions .Route Qty: 100 2RF Rx Instructions: As directed azithromycin 500 mg tablet 500 mg PO DAILY 3 Days Qty: 3 0RF Januvia 25 mg tablet 25 mg PO DAILY Qty: 30 4RF fluticasone propion-salmeterol [Advair HFA] 45-21 mcg/actuation HFA aerosol inhaler 2 inh inhalation BID Qty: 12 3RF insulin glargine [Lantus Solostar U-100 Insulin] 100 unit/mL (3 mL) insulin pen 15 unit SUBCUT QPM Qty: 15 4RF tiotropium bromide [Spiriva with HandiHaler] 18 mcg capsule, w/inhalation device 1 cap inhalation DAILY Qty: 90 4RF Rx Instructions: puncture 1 cap using device; one dose = 2 inhalations Continued isosorbide mononitrate 30 mg tablet extended release 24 hr 30 mg PO QAM atorvastatin 40 mg Tablet 40 mg PO QAM sertraline 100 mg Tablet 100 mg PO QAM aripiprazole [Abilify] 2 mg Tablet 2 mg PO QAM allopurinol 300 mg tablet 300 mg PO QAM losartan 50 mg tablet 50 mg PO QAM pantoprazole 40 mg tablet,delayed release (DR/EC) 40 mg PO QAM Aspir-81 81 mg Tablet,Delayed Release (Dr/Ec) 81 mg PO QAM albuterol sulfate 90 mcg/actuation HFA aerosol inhaler 2 puff INHALATION Q4H PRN (Reason: Shortness Of Breath) potassium chloride 20 mEq tablet extended release 20 meq PO QAM ipratropium-albuterol 0.5 mg-3 mg(2.5 mg base)/3 mL solution for nebulization 3 ml inhalation QID PRN (Reason: Shortness Of Breath Or Wheezing) Qty: 180 6RF Changed furosemide 80 mg tablet 80 mg PO DAILY Qty: 30 0RF Discharge Orders: Discharge Order (Routine); Ordered 10/12/23 Ordered By: Tomer Russell Other Ambulatory Orders: DME: Oxygen (Order) Location: None Selected Ordered By: Tomer Russell Referrals: Jhony Cantu MD [Primary Care Provider] - Patient Instructions: Opioid Safety Discharge Attestations Time Spent in Discharge Care*: greater than 30 min Status at Discharge: Cognitive status at discharge: cognitively intact, Behavioral status at discharge: cooperative, Quality Metrics Clinical Quality Measures [ No reported AMI, CVA or VTE this stay] Coding Level of Care Code Acute Code for Chg Fwd Diagnoses Essential hypertension I10 Hypertension type: essential hypertension CHF (congestive heart failure), NYHA class III I50.9 Aortic valve insufficiency, etiology of cardiac valve disease unspecified I35.1 Cardiac valve disease etiology: etiology unspecified Nonrheumatic aortic valve stenosis I35.0 Cardiac valve disease etiology: nonrheumatic Diabetes mellitus type 2 in obese E11.69; E66.9 Acute exacerbation of chronic obstructive airways disease J44.1 Smoker F17.200 Acute respiratory failure with hypoxia J96.01
== END 2023-10-12 18:30 | disposition home or self-care (01) ==
LOC: ER 04:11 → MEDSURG 05:15
PROVIDERS: Admitting Provider Internal Medicine; Emergency Provider Emergency Medicine; PCP Family Medicine; Visit Provider Internal Medicine
DX: J44.1 Chronic obstructive pulmonary disease with (acute) exacerbation (principal); E11.22 Type 2 diabetes mellitus with diabetic chronic kidney disease; I13.0 Hypertensive heart and chronic kidney disease with heart failure and stage 1 through stage 4 chronic kidney disease, or unspecified chronic kidney disease; I50.30 Unspecified diastolic (congestive) heart failure; N18.30 Chronic kidney disease, stage 3 unspecified; I35.1 Nonrheumatic aortic (valve) insufficiency; I35.0 Nonrheumatic aortic (valve) stenosis; E11.69 Type 2 diabetes mellitus with other specified complication; E66.9 Obesity, unspecified; F17.210 Nicotine dependence, cigarettes, uncomplicated; J96.01 Acute respiratory failure with hypoxia; Z79.82 Long term (current) use of aspirin; E66.01 Morbid (severe) obesity due to excess calories; Z68.42 Body mass index [BMI] 45.0-49.9, adult; G47.33 Obstructive sleep apnea (adult) (pediatric); E78.5 Hyperlipidemia, unspecified
CPT/HCPCS: 36415; 36416; 36600; 71045; 80051; 80053; 82330; 82805; 82962; 83036; 83605; 83735; 83880; 84145; 84443; 84484; 85025; 85378; 87426; 87804; 93005; 93306; 94640; 94660; 94760; 96365; 96372; 96375; 96376; 99285; G0378; J0456; J1644; J1815; J1940; J2919; J7050

== ENCOUNTER 2023-10-20 03:40 | Inpatient (IN) | payer MEDICARE, MEDICAID, SELFPAY ==
[2023-10-20] VITALS (36 sets, daily range): BP systolic 122–178; BP diastolic 50–103; PULSE 33–84; RESP 12–42; TEMP 36.8; O2SAT 83–100; BMI 48.7; BMI 69.2
--- NOTE | 2023-10-20 03:52 | XRR_ITS ---
PROCEDURE INFORMATION: Exam: XR Chest Exam date and time: 10/20/2023 3:54 AM Age: 68 years old Clinical indication: Shortness of breath; Patient HX: C/O SOB. History of chf and copd. TECHNIQUE: Imaging protocol: Radiologic exam of the chest. Views: 1 view. COMPARISON: CR (CHEST, ) 10/12/2023 3:17 AM FINDINGS: Lungs: Suggestion of left retrocardiac and right middle lobe linear/granular infiltrates. Diffuse coarsening of the visualized lung space. Mild increase in central lung markings. Pleural spaces: Unremarkable. No pleural effusion. No pneumothorax. Heart/Mediastinum: Stable cardiomegaly. Bones/joints: Degenerative change. XR/XR chest 1V portable [id number] IMPRESSION: Cardiomegaly with findings that can be seen in pulmonary edema. Superimposed infection cannot be ruled out.
--- NOTE | 2023-10-20 03:53 | ED_ITS ---
HPI - SOB/Dyspnea 2 General: Chief Complaint: Shortness of Breath/Dyspnea Stated Complaint: SOB Time Seen by Provider: 10/20/23 03:49 History of Present Illness: HPI Narrative: 68-year-old female presents with shortne ss of breath. Patient reports that this has been going on for couple weeks. That she came in tonight because she just cannot take it anymore patient has a history of COPD. She received DuoNeb, albuterol and a dexamethasone and route by EMS. She is normally on 2 L nasal cannula oxygen. Associated symptoms: Deny chest pain, fever(s) or palpitations Review of Systems 2 Const: Denies: fever(s) or chills Card: Denies: chest pain or palpitations Resp: Reports: dyspnea PFSH ED 2 PFSH: Medical History CHF (congestive heart failure), NYHA class III Uncontrolled hypertension Acute and chronic respiratory failure COPD (chronic obstructive pulmonary disease) Chronic kidney disease, stage 3 Tobacco abuse Diabetes mellitus type 2 in obese Morbid obesity with BMI of 45.0-49.9, adult Obstructive sleep apnea Congestive heart failure Aortic stenosis Aortic stenosis Obesity Aortic regurgitation Hypertension Diabetes Hyperlipidemia Surgical History H/O tubal ligation H/O arthroscopic knee surgery Family History Other Diabetes Hypertension Stroke Social History Smoking and tobacco/nicotine status: current every day tobacco/nicotine user cigarettes Packs smoked per day: 0.5 Years cigarettes smoked: 47 [ Other cigarette details: occasionally 1 ppd ] Quit status (tobacco/nicotine): considering quitting Second hand smoke exposure: No Alcohol intake: never Substance/Drug Use: never Lives independently: Yes Household members: none Housing: Apartment Marital status: service: No Current occupational status: disabled Pets and animals: No Do you think of yourself as: Straight/Heterosexual Current gender identity: Female Physical Exam 2 Const: COMMON NORMALS: patient oriented x3 NUTRITIONAL APPEARANCE: obese Resp: EFFORT & INSPECTION: No able to speak in complete sentences and Yes labored AUSCULTATION: diminished lung sounds Cardio: COMMON NORMALS: regular rate and regular rhythm RATE: regular rate RHYTHM: regular rhythm GI: COMMON NORMALS: Soft to palpation PALPATION: Yes Soft to palpation and No Tenderness to palpation present (GI) Neuro: COMMON NORMALS: patient oriented x3 and no focal motor deficits Psych: COMMON NORMALS: mental status grossly normal and cooperative Course 2 Vital Signs: Vital signs: Vital Signs Temperature 98.2 F 10/20/23 03:41 Pulse Rate 69 10/20/23 04:40 Respiratory Rate 24 H 10/20/23 04:40 Blood Pressure 131/51 10/20/23 04:40 Pulse Oximetry 91 10/20/23 04:40 Oxygen Delivery Me thod Nasal Cannula 10/20/23 03:41 Oxygen Flow Rate 2 10/20/23 03:41 Fraction of Inspir ed Oxygen 45 10/20/23 04:10 MDM - SOB/Dyspnea Medical Decision Making Patient diagnoses were reviewed and interpreted by me. She does have a significant increase in her proBNP. Patient was initially placed on 6 L but continues to struggle. Patient ABG was obtained that showed that she was hypercapnic and hypoxic. We did then place her on BiPAP in which she had significant improvement. Patient oxygenation improved and she started resting comfortably. Patient's checks x-ray was ordered reviewed and shows some increased perihilar fullness. Patient was transferred to the floor and admitted prior to official read. Discussed with Dr. Alaniz who accepted patient for admission. Lab Data 10/20/23 03:50 10/20/23 04:15 Labs/Radiology: Laboratory Results WBC 11.03 10^3/uL (3.29-11.43) 10/20/23 03:50 RBC 5.06 10^6/uL (3.85-5.65) 10/20/23 03:50 Hgb 13.90 g/dL (11.27-16.99) 10/20/23 03:50 Hct 48.7 % (36-47) H 10/20/23 03:50 MCV 96.2 fl (85-98) 10/20/23 03:50 MCH 27.5 pg (27-33) 10/20/23 03:50 MCHC 28.5 g/dL (30-55) L 10/20/23 03:50 RDW 16.4 % (12.1-15.1) H 10/20/23 03:50 Plt Count 240 10^3/cmm (157-399) 10/20/23 03:50 MPV 10.3 fL (7.4-10.4) 10/20/23 03:50 Neut % (Auto) 78.5 % 10/20/23 03:50 Lymph % (Auto) 15.5 % 10/20/23 03:50 [place] % (Auto) 4.6 % 10/20/23 03:50 Eos % (Auto) 0.6 % 10/20/23 03:50 Baso % (Auto) 0.4 % 10/20/23 03:50 Neut # (Auto) 8.66 10^3/uL (1.8-7.7) H 10/20/23 03:50 Lymph # (Auto) 1.7 10^3/uL (0.8-4.8) 10/20/23 03:50 [place] # (Auto) 0.5 10^3/uL (0.2-0.9) 10/20/23 03:50 Eos # (Auto) 0.1 10^3/uL (0.0-0.8) 10/20/23 03:50 Baso # (Auto) 0.0 10^3/uL (0.0-0.1) 10/20/23 03:50 Nucleated RBC % (auto) 0 % 10/20/23 03:50 Nucleated RBCs # 0.0 /100WBC 10/20/23 03:50 Specimen Type Arterial 10/20/23 03:59 Sample Site Radial, right 10/20/23 03:59 ABG pH 7.31 (7.35-7.45) L 10/20/23 03:59 ABG pCO2 66.4 mmHg (35-45) H* 10/20/23 03:59 ABG pO2 46.0 mmHg (80.0-100.0) L 10/20/23 03:59 ABG HCO3 33.7 mmol/L (22-26) H 10/20/23 03:59 ABG Base Excess 5.3 mmol/L (-2.0-2.0) H 10/20/23 03:59 Rm Test Pos 10/20/23 03:59 Hematocrit 41.8 % (37-47) 10/20/23 03:59 O2 Delivery Device Nc 10/20/23 03:59 O2 Liters/Min 6.0 % 10/20/23 03:59 Cashier Office ID [email or web address] 10/20/23 03:59 Sodium 141 mmol/L (136-145) 10/20/23 04:15 Potassium 4.0 mmol/L (3.5-5.1) 10/20/23 04:15 Chloride 103 mmol/L (98-107) 10/20/23 04:15 Carbon Dioxide 32 mmol/L (22-29) H 10/20/23 04:15 Anion Gap 10.0 (5-19) 10/20/23 04:15 BUN 24 mg/dL (8-23) H 10/20/23 04:15 Creatinine 1.2 mg/dL (0.5-0.9) H 10/20/23 04:15 GFR Calculation 44.7 mL/min (90-130) L 10/20/23 04:15 Glucose 274 mg/dL (65-115) H 10/20/23 04:15 Calculated Osmolality 306 mOsm/kg (285-295) H 10/20/23 04:15 Calcium 8.4 mg/dL (8.5-10.5) L 10/20/23 04:15 NT-Pro-B Natriuret Pep 5052 pg/mL (0-125) H 10/20/23 04:15 XR interpretation done by ED provider, pending radiology final review EKG Data EKG 1: I personally reviewed and interpreted this EKG as follows: EKG Interpretation Date: 10/20/23 EKG interpretation time: 03:58 Interpretation: Sinus rhythm, ventricular rate 82, MS 201, no acute ST changes or elevation noted. Discharge Plan Discharge Patient Disposition: Admitted As Inpatient Clinical Impression: Acute exacerbation of chronic obstructive airways disease, Acute on chronic respiratory failure with hypoxia and hypercapnia Condition: Stable Coding Level of Care Code ED Sales Promotion Coordinator for Kristina Blake
[2023-10-20 03:56] LABS: Basophils % 0.4 %; Eosinophils # 0.1 10^3/uL (0.0-0.8); Eosinophils % 0.6 %; Hematocrit 48.7 % (36-47); Lymphocytes # 1.7 10^3/uL (0.8-4.8); Lymphocytes % 15.5 %; Mean Corpuscular HGB Conc 28.5 g/dL (30-55); Mean Corpuscular Hemoglobin 27.5 pg (27-33); Mean Corpuscular Volume 96.2 fl (85-98); Mean Platelet Volume 10.3 fL (7.4-10.4); Monocytes # 0.5 10^3/uL (0.2-0.9); Monocytes % 4.6 %; Neutrophils # 8.66 10^3/uL (1.8-7.7); Neutrophils % 78.5 %; Nucleated Red Blood Cells % 0 %; Platelet Count 240 10^3/cmm (157-399); Red Blood Count 5.06 10^6/uL (3.85-5.65); Red Cell Distribution Width 16.4 % (12.1-15.1); White Blood Count 11.03 10^3/uL (3.29-11.43)
[2023-10-20 04:09] LABS: ABG PCO2 66.4 mmHg (35-45); ABG PH Result 7.31 (7.35-7.45); Arterial Blood Gas Hematocrit 41.8 % (37-47); Base Excess ABG 5.3 mmol/L (-2.0-2.0); Blood Gas Allen Test Pos; Blood Gas Sample Site Radial, right; Blood Gas Sample Type Arterial; HCO3 ABG 33.7 mmol/L (22-26); Oxygen Device NC
[2023-10-20 04:43] LABS: Blood Urea Nitrogen 24 mg/dL (8-23); Calcium 8.4 mg/dL (8.5-10.5); Carbon Dioxide 32 mmol/L (22-29); Chloride 103 mmol/L (98-107); Creatinine Clr Calc Pharmacy 53.4727; Glomerular Filtration Rate 44.7 mL/min (90-130); Glucose 274 mg/dL (65-115); Osmolality Calculated 306 mOsm/kg (285-295); Sodium 141 mmol/L (136-145)
[2023-10-20 04:52] LABS: NT Pro B Type Natriuretic Pept 5052 pg/mL (0-125)
[2023-10-20] MEDS: FUROsemide 10 mg/mL SDV 10mL 60 MG IVP (05:29)
[2023-10-20 05:54] LABS: ABG PCO2 72.6 mmHg (35-45); ABG PH Result 7.27 (7.35-7.45); Alveolar-Arterial Oxygen Gradi 20.2 mmHg (5-10); Arterial Blood Gas Hematocrit 41.2 % (37-47); Base Excess ABG 4.2 mmol/L (-2.0-2.0); Blood Gas Allen Test Pos; Blood Gas Sample Site Radial, right; Blood Gas Sample Type Arterial; Carboxyhemoglobin 6.6 %THgb (0.4-20.1); HCO3 ABG 33.4 mmol/L (22-26); HGB O2 Sat 88.5 % (95-100); Ionized Calcium Level - ABG 1.2 mmol/L (1.1-1.4); Methemoglobin 0.3 % (0.4-1.5); Oxygen Device BIPAP; Oxygen Saturation ABG 95.1; PO2 ABG 78.1 mmHg (80.0-100.0); PO2 FiO2 Ratio Arterial Blood 0; Potassium Level - ABG 3.8 mmol/L (3.5-5.0); Total Hemoglobin 13.4 g/dL (12-16)
--- NOTE | 2023-10-20 06:22 | P.HP_ITS ---
Providers/Chief Complaint 2 Primary Care Provider: Jhony Cantu MD Chief Complaint: SOB History of Present Illness 68-year-old lady with history of COPD, CHF, DM 2, HTN, obesity, other medical problems presented with progressive shortness of breath, normally on 2 L nasal cannula, was found to be saturating 83%. Oxygen flow was increased/after 6 L, and then was started on BiPAP, found to be in respiratory acidosis. Lethargic on presentation, had woken up somewhat tomorrow, currently is lethargic again, ABG with some worsening pH down to 7.27, CO2 up to 72.6. ED physician considering intubation. She had received Solu-Medrol, Lasix. Review of Systems 2 General: Reports: ROS unobtainable due to mental status Medications/Allergies Home Medications Medication Instructions Recorded Confirmed Last Taken Type aripiprazole 2 mg tablet (Abilify) 2 mg PO QAM 11/04/19 04/07/23 04/07/23 History atorvastatin 40 mg tablet 40 mg PO QAM 11/04/19 04/07/23 04/07/23 History sertraline 100 mg tablet 100 mg PO QAM 11/04/19 04/07/23 04/07/23 History isosorbide mononitrate 30 mg 30 mg PO QAM 12/24/19 04/07/23 04/07/23 History tablet,extended release 24 hr allopurinol 300 mg tablet 300 mg PO QAM 08/22/21 04/07/23 04/07/23 History losartan 50 mg tablet 50 mg PO QAM 08/22/21 04/07/23 04/07/23 History pantoprazole 40 mg tablet,delayed 40 mg PO QAM 08/22/21 04/07/23 04/07/23 History release albuterol sulfate 90 mcg/actuation 2 puff inhalation Q4H PRN 04/07/23 04/07/23 Unknown History aerosol inhaler Shortness Of Breath aspirin 81 mg tablet,delayed 81 mg PO QAM 04/07/23 04/07/23 04/07/23 History release potassium chloride 20 mEq 20 meq PO QAM 04/07/23 04/07/23 04/07/23 History tablet,extended release blood sugar diagnostic (Accu-Chek #100 ea 10/12/23 Unknown Rx Quita Plus test strips) blood-glucose meter (Accu-Chek #1 ea 10/12/23 Unknown Rx Guide Glucose Meter) fluticasone propionate 45 2 inh inhalation BID #12 grams 10/12/23 Unknown Rx mcg-salmeterol 21 mcg/actuation HFA inhaler (Advair HFA) furosemide 80 mg tablet 80 mg PO DAILY #30 tabs 10/12/23 04/07/23 04/07/23 Rx insulin glargine 100 unit/mL (3 15 unit (0.15 mL) SUBCUT QPM #15 mL 10/12/23 Unknown Rx mL) subcutaneous pen (Lantus Solostar U-100 Insulin) ipratropium 0.5 mg-albuterol 3 mg 3 ml inhalation QID PRN Shortness 10/12/23 04/07/23 08/28/21 Rx (2.5 mg base)/3 mL nebulization Of Breath Or Wheezing #180 mL soln lancets (Accu-Chek Fastclix Lancet #200 ea 10/12/23 Unknown Rx Drum) sitagliptin phosphate 25 mg tablet 25 mg PO DAILY #30 tabs 10/12/23 Unknown Rx (Januvia) tiotropium bromide 18 mcg capsule 1 cap inhalation DAILY #90 10/12/23 Unknown Rx with inhalation device (Spiriva inhalations with HandiHaler) Allergies Allergy/AdvReac Type Severity Reaction Status Date / Time lisinopril Allergy ALGY-Rash Verified 10/12/23 03:14 Penicillins Allergy ALGY-Hives Verified 10/12/23 03:14 PFSH Acute 2 PFSH: Medical History Acute respiratory failure with hypoxia Congestive heart failure Acute exacerbation of chronic obstructive airways disease Smoker CHF (congestive heart failure), NYHA class III Uncontrolled hypertension Acute and chronic respiratory failure COPD (chronic obstructive pulmonary disease) Chronic kidney disease, stage 3 Tobacco abuse Diabetes mellitus type 2 in obese Morbid obesity with BMI of 45.0-49.9, adult Obstructive sleep apnea Congestive heart failure Aortic stenosis Aortic stenosis Obesity Aortic regurgitation Hypertension Diabetes Hyperlipidemia Surgical History H/O tubal ligation H/O arthroscopic knee surgery Family History Other Diabetes Hypertension Stroke Social History Smoking and tobacco/nicotine status: current every day tobacco/nicotine user cigarettes Packs smoked per day: 0.5 Years cigarettes smoked: 47 [ Other cigarette details: occasionally 1 ppd ] Quit status (tobacco/nicotine): considering quitting Second hand smoke exposure: No Alcohol intake: never Substance/Drug Use: never Lives independently: Yes Household members: none Housing: Apartment Marital status: service: No Current occupational status: disabled Pets and animals: No Do you think of yourself as: Straight/Heterosexual Current gender identity: Female Vitals/I&O/Wt Last Vital Signs Temp 98.2 F 10/20/23 03:41 Pulse 33 L 10/20/23 06:04 Resp 20 H 10/20/23 06:04 BP 122/55 10/20/23 06:04 Pulse Ox 97 10/20/23 06:04 O2 Del Method Nasal Cannula 10/20/23 03:41 O2 Flow Rate 2 10/20/23 03:41 FiO2 45 10/20/23 05:35 Weight last 48 hrs Weight 117.027 kg Physical Exam 2 Narrative: On BiPAP Const: COMMON NORMALS: negative for alert ORIENTATION/CONSCIOUSNESS: not awake Resp: AUSCULTATION: diminished lung sounds Cardio: COMMON NORMALS: no JVD, regular rhythm, S1 normal heart sound present, S2 normal heart sound present and No murmurs present (Cardio) RHYTHM: regular rhythm HEART SOUNDS: S1 normal heart sound present and S2 normal heart sound present GI: COMMON NORMALS: Normal to inspection, nondistended, normoactive bowel sounds present, Soft to palpation and non-tender PALPATION: Yes Soft to palpation Extremity: COMMON NORMALS: no joint enlargement Neuro: COMMON NORMALS: patient oriented x3 and moves all extremities S ENSORIUM/ORIENTATION: Yes alert Data 10/20/23 03:50 10/20/23 04:15 A&P Assessment and plan (1) Acute on chronic respiratory failure with hypoxia and hypercapnia: Hypoxic on presentation, with respiratory stenosis, hypercapnia, hypercapnic acute encephalopathy, currently placed on BiPAP. Reviewed vitals, CBC, ABG, BMP, NT proBNP, chest x-ray, recent echocardiogram, reviewed ER note, discussed with ER provider, ABG with worsening, on repeat with slight improvement, pH 7.29, pCO2 down to 70.2, however, as she has still been lethargic, slow response, as per discussion with incoming ER physician decision to intubate, however, with preparation for intubation she then declines the intubation. Admission has been changed to ICU, continue BiPAP support on AVAPS currently. Target O2 saturation 88-92%. Continue IV steroid, had Levaquin for severe exacerbation of COPD, breathing treatments, continue IV Lasix for CHF, monitor for electrolyte deficiency with IV diuretics, renal dysfunction, reassess intake and output. N.p.o. for now. Attempted to also reach out to her daughter Joanne, but could not get in touch with her on the phone number listed. Seems to be inactive at the moment. (2) Acute exacerbation of chronic obstructive airways disease: As above. Currently will not be able to provide sputum sample, consider once she is able to cooperate. On my review of chest x-ray no obvious pneumonia compared to prior study, noted some congestive changes, cardiomegaly, however, cannot fully rule out pneumonia. Pending official read. (3) Acute encephalopathy: Acute metabolic encephalopathy with hypercapnic respiratory acidosis. Continue AVAPS. Check UDS Plan DM 2, Accu-Cheks, SSI insulin. She is n.p.o. for now. Hold Lantus for now. HTN, monitor blood pressures, requesting to confirm her home medications Obesity, Other medical problems Requesting to confirm home medications. Attestations 2 Medical Necessity Statement*: Admission of over 2 midnights anticipated for assessment management of respiratory failure. Coding Level of Care Code Critical Care >/= 30 minutes Critical care time (in minutes): 45 Diagnoses Acute on chronic respiratory failure with hypoxia and hypercapnia J96.21; J96.22 Acute exacerbation of chronic obstructive airways disease J44.1 Acute encephalopathy G93.40
[2023-10-20 06:31] LABS: ABG PH Result 7.29 (7.35-7.45); Alveolar-Arterial Oxygen Gradi 20.7 mmHg (5-10); Arterial Blood Gas Hematocrit 41.8 % (37-47); Base Excess ABG 4.5 mmol/L (-2.0-2.0); Blood Gas Sample Site Brachial, right; Blood Gas Sample Type Arterial; Blood Gas Tidal Volume 0.45; Carboxyhemoglobin 6.3 %THgb (0.4-20.1); HCO3 ABG 33.4 mmol/L (22-26); HGB O2 Sat 88.7 % (95-100); Ionized Calcium Level - ABG 1.2 mmol/L (1.1-1.4); Methemoglobin 0.4 % (0.4-1.5); Oxygen Device BIPAP; Oxygen Saturation ABG 95.1; PO2 ABG 76.7 mmHg (80.0-100.0); PO2 FiO2 Ratio Arterial Blood 0; Potassium Level - ABG 3.9 mmol/L (3.5-5.0); Total Hemoglobin 13.6 g/dL (12-16)
[2023-10-20 06:32] LABS: ABG PCO2 70.2 mmHg (35-45)
[2023-10-20] MEDS: methylPREDNISolone sod succ 125 mg/2 mL INJ 60 MG IVP ×3 (07:16→17:11)
--- NOTE | 2023-10-20 07:20 | PC.NURSE ---
Medication Delay: Levaquin 750mg @0630 delayed d/t needing to order and draw blood cultures prior to administration per Dr. Franklin.
--- NOTE | 2023-10-20 07:59 | PC.NURSE ---
Patient arrived to ICU 4, AOX4, via ER bed, bipap 40%, golden catheter in place, ER did not indicate explanation for late antibiotic or incomplete urine sample, patient denies pain, Lab at bedside for blood cultures, RT at bedside. Home clothing removed and placed patient in gown. All clothing, purse and shoes at bedside. Vitals : 95%, HR 68, BP 155/66.
[2023-10-20] MEDS: ipratropium-albuterol 3 mL Neb INHALATION ×3 (08:02→19:39)
[2023-10-20] MEDS: levofloxacin-dextrose 5 % 750 MG/150 ML PREMIX 100 MG IV (08:15)
--- NOTE | 2023-10-20 08:28 | PC.NURSE ---
Patient states her left eye has been itching for about a week. Redness and yellow discharge seen on assessment.
[2023-10-20 08:51] LABS: Amphetamines Screen Urine Negative (Negative); Barbiturates Screen Urine Negative (Negative); Benzodiazepines Screen Urine Negative (Negative); Cocaine Screen Urine Negative (Negative); Opiate Screen Urine Negative (Negative); PCP Screen Urine Negative (Negative); THC Screen Urine Negative (Negative)
[2023-10-20 09:01] LABS: Glucose Point of Care 289 mg/dL (70-110)
[2023-10-20] MEDS: insulin lispro 100 unit/1 mL SUBCUT ×4 (09:04→20:44)
[2023-10-20 10:25] LABS: Alveolar-Arterial Oxygen Gradi 13.2 mmHg (5-10); Arterial Blood Gas Hematocrit 42.6 % (37-47); Blood Gas Allen Test Pos; Blood Gas Operator Identificat CAK; Blood Gas Sample Site Radial, left; Blood Gas Sample Type Arterial; Carboxyhemoglobin 5.3 %THgb (0.4-20.1); HCO3 ABG 35.1 mmol/L (22-26); HGB O2 Sat 87.3 % (95-100); Ionized Calcium Level - ABG 1.2 mmol/L (1.1-1.4); Methemoglobin 0.4 % (0.4-1.5); Oxygen Device BIPAP; Oxygen Saturation ABG 92.6; PO2 ABG 62.1 mmHg (80.0-100.0); PO2 FiO2 Ratio Arterial Blood 0; Potassium Level - ABG 4.3 mmol/L (3.5-5.0); Total Hemoglobin 13.9 g/dL (12-16)
[2023-10-20 10:26] LABS: ABG PCO2 71.6 mmHg (35-45)
[2023-10-20 12:10] LABS: Glucose Point of Care 266 mg/dL (70-110)
--- NOTE | 2023-10-20 12:47 | PM.MISC ---
Miscellaneous Note Note: Patient able to follow commands Repeat ABG has not shown significant improvement I will keep her on BiPAP all day Currently she is on AVAPS Goals of care still undefined however patient is stating that she does not want intubation, Would like to discuss when she is more awake and alert for now I spoke with her daughter who is the next of kin, she is asking to keep her full code for now She is planned to be here around 1400, I will get another ABG around 1500, I will keep her on BiPAP all day As patient is following commands she is arousable will be redirectable able to protect her airway there is no acute indication to consider intubation Daughter stating that she is very noncompliant as soon as she gets better she will try to leave AMA and start smoking again Previous back she was at a [facility] and now currently living with her uncle, family struggling to take care of her
[2023-10-20] MEDS: ciprofloxacin 0.3% Op Soln 2.5 mL Btl 1 DROP EYE-LEFT ×3 (14:47→20:45)
[2023-10-20 15:27] LABS: ABG PCO2 66.1 mmHg (35-45); ABG PH Result 7.34 (7.35-7.45); Arterial Blood Gas Hematocrit 42.7 % (37-47); Base Excess ABG 6.9 mmol/L (-2.0-2.0); Blood Gas Allen Test Pos; Blood Gas Operator Identificat CAL; Blood Gas Sample Site Radial, left; Blood Gas Sample Type Arterial; HCO3 ABG 35.2 mmol/L (22-26); Oxygen Device BIPAP; PO2 ABG 87.4 mmHg (80.0-100.0); PO2 FiO2 Ratio Arterial Blood 0
[2023-10-20] MEDS: nystatin powder 15 gm Btl 1 APPLIC TOPICAL (17:12)
[2023-10-20 17:26] LABS: Glucose Point of Care 275 mg/dL (70-110)
[2023-10-20 20:39] LABS: Glucose Point of Care 292 mg/dL (70-110)
[2023-10-21] VITALS (87 sets, daily range): BP systolic 113–193; BP diastolic 60–124; PULSE 49–80; RESP 7–47; TEMP 36.4–36.9; O2SAT 84–97; BMI 48.7
[2023-10-21] MEDS: methylPREDNISolone sod succ 125 mg/2 mL INJ 60 MG IVP ×2 (00:45→05:36)
[2023-10-21] MEDS: hyDRALAzine 20 mg/mL INJ 1 mL 10 MG IVP (01:35)
[2023-10-21] MEDS: ipratropium-albuterol 3 mL Neb INHALATION ×4 (02:56→20:12)
[2023-10-21 04:25] LABS: ABG PCO2 51.9 mmHg (35-45); ABG PH Result 7.42 (7.35-7.45); Arterial Blood Gas Hematocrit 42.7 % (37-47); Base Excess ABG 7.2 mmol/L (-2.0-2.0); Blood Gas Operator Identificat JB; Blood Gas Sample Site Brachial, right; Blood Gas Sample Type Arterial; HCO3 ABG 33.3 mmol/L (22-26); Oxygen Device NC; PO2 ABG 51.5 mmHg (80.0-100.0)
[2023-10-21 05:09] LABS: Basophils % 0.1 %; Hematocrit 47.3 % (36-47); Lymphocytes # 0.6 10^3/uL (0.8-4.8); Lymphocytes % 6.3 %; Mean Corpuscular HGB Conc 28.1 g/dL (30-55); Mean Corpuscular Hemoglobin 27.3 pg (27-33); Mean Corpuscular Volume 96.9 fl (85-98); Mean Platelet Volume 11.2 fL (7.4-10.4); Monocytes # 0.2 10^3/uL (0.2-0.9); Monocytes % 1.8 %; Neutrophils # 8.45 10^3/uL (1.8-7.7); Neutrophils % 91.4 %; Nucleated Red Blood Cells % 0 %; Platelet Count 221 10^3/cmm (157-399); Red Blood Count 4.88 10^6/uL (3.85-5.65); Red Cell Distribution Width 16.5 % (12.1-15.1); White Blood Count 9.25 10^3/uL (3.29-11.43)
[2023-10-21 05:29] LABS: Blood Urea Nitrogen 33 mg/dL (8-23); Calcium 8.7 mg/dL (8.5-10.5); Carbon Dioxide 28 mmol/L (22-29); Chloride 99 mmol/L (98-107); Creatinine Clr Calc Pharmacy 53.9013; Glomerular Filtration Rate 34.5 mL/min (90-130); Glucose 438 mg/dL (65-115); Osmolality Calculated 310 mOsm/kg (285-295); Sodium 137 mmol/L (136-145)
[2023-10-21 05:30] LABS: Anion Gap 14.5 (5-19); Potassium 4.5 mmol/L (3.5-5.1)
[2023-10-21] MEDS: levofloxacin-dextrose 5 % 750 MG/150 ML PREMIX 100 MG IV (05:36)
[2023-10-21 06:59] LABS: Glucose Point of Care 410 mg/dL (70-110)
[2023-10-21] MEDS: ciprofloxacin 0.3% Op Soln 2.5 mL Btl 1 DROP EYE-LEFT ×4 (07:54→20:22)
[2023-10-21] MEDS: nystatin powder 15 gm Btl 1 APPLIC TOPICAL ×2 (07:54→17:30)
[2023-10-21] MEDS: losartan 50 mg Tablet PO (07:54)
[2023-10-21] MEDS: allopurinol 300 mg Tablet PO (07:55)
[2023-10-21] MEDS: insulin lispro 100 unit/1 mL SUBCUT ×4 (07:55→20:21)
[2023-10-21 11:26] LABS: Glucose Point of Care 356 mg/dL (70-110)
--- NOTE | 2023-10-21 11:43 | P.PN_ITS ---
Subjective 2 Subjective: Patient has significant hypoxia overnight, has significant hypercapnia she will need BiPAP at home It is of utmost importance to arrange BiPAP to prevent readmissions, respiratory distress and cardiac arrhythmias, will touch this with case monitor to arrange BiPAP before she is discharged from the hospital Patient was asking if she could be discharged home today but willing to stay 1 more day I will transfer her out of ICU to [facility] This morning patient is more awake alert pH compensated hypercarbia has improved Patient is very about her diet but stating that her daughter is taking care of her dog at this point, she lives in [facility] she does not want custodial placement. Vitals/I&O/Wt Last Vital Signs Temp 97.6 F 10/21/23 08:30 Pulse 73 10/21/23 10:00 Resp 31 H 10/21/23 10:00 BP 149/65 10/21/23 10:00 Pulse Ox 93 10/21/23 10:00 O2 Del Method Nasal Cannula 10/21/23 10:00 O2 Flow Rate 4 10/21/23 06:00 FiO2 35 10/21/23 07:58 10/20/23 10/21/23 10/21/23 22:59 06:59 14:59 Intake Total 734 / 984 966 / 1950 350 / 350 Output Total 300 / 1800 525 / 2325 Balance 434 / -816 441 / -375 350 / 350 Weight last 48 hrs Weight 117 kg Weight 166.1 kg Weight 117.027 kg Physical Exam 2 Narrative: Awake and alert GCS 15 Able to follow commands Currently on 2 L nasal cannula No active wheezing crackles or rhonchi Abdomen distended nontender Lower extremity no swelling S1, S2 Left eye crusting has improved Urinary Catheter Management: Ramirez: Cath Placed During This Visit: yes Reason for Continuing Indwelling Catheter: Accurate Measurement of Urinary Output in Critically Ill Patients Urinary Catheter Date of Insertion: 10/20/23 Urinary Catheter Time of Insertion: 07:19 Data 10/21/23 04:39 10/21/23 04:39 Micro: Microbiology 10/20/23 08:04 Blood Culture - Preliminary Blood NEGATIVE TO DATE 10/20/23 08:00 Blood Culture - Preliminary Blood NEGATIVE TO DATE A&P Assessment and plan (1) Dyspnea on exertion: (2) Obesity: Qualifiers: Body mass index: BMI 45.0-49.9 Obesity classification: adult class 3 (BMI >= 40) Obesity type: unspecified obesity type Serious obesity comorbidity presence: unspecified whether serious comorbidity present Qualified Code(s): E 66.01 - Morbid (severe) obesity due to excess calories; Z68.42 - Body mass index [BMI] 45.0-49.9, adult (3) Acute encephalopathy: (4) Acute exacerbation of chronic obstructive airways disease: (5) Acute on chronic respiratory failure with hypoxia and hypercapnia: (6) Candidal intertrigo: (7) Non-compliant behavior: (8) Sleep apnea: Plan Acute COPD exacerbation Hypoxic hypercarbic respite failure Overnight pulse ox study showed hypoxia and sleep apnea Patient will need BiPAP at the time of discharge to prevent readmissions, cardiac arrhythmia Rester distress and respiratory failure Continue antibiotics as inflammatory effect Transfer patient out of ICU to [facility] Chronic kidney disease without significant exacerbation Nicotine addiction: Patient seems anxious, not asking for nicotine patch at this point Willing to wait 1 more day She was asking to be discharged from the hospital however willing to stay 1 more day to get her BiPAP Acute on chronic hypoxia at home she was requiring 2 L Currently doing well between 3 to 4 L Transfer out of ICU Discharge tomorrow Hypercarbia improved Metabolic encephalopathy related to hypercarbia has resolved Attestations 2 Medical Necessity Statement*: Discharge likely by tomorrow Diagnoses Dyspnea on exertion R06.00 Class 3 severe obesity with body mass index (BMI) of 45.0 to 49.9 in adult, unspecified obesity type, unspecified whether serious comorbidity present E66.01; Z68.42 Body mass index: BMI 45.0-49.9 Obesity classification: adult class 3 (BMI >= 40) Obesity type: unspecified obesity type Serious obesity comorbidity presence: unspecified whether serious comorbidity present Acute encephalopathy G93.40 Acute exacerbation of chronic obstructive airways disease J44.1 Acute on chronic respiratory failure with hypoxia and hypercapnia J96.21; J96.22 Candidal intertrigo B37.2 Non-compliant behavior R46.89 Sleep apnea G47.30
--- NOTE | 2023-10-21 14:51 | PC.NURSE ---
Patient refuses to wear bipap thus far during shift.
--- NOTE | 2023-10-21 15:10 | PC.NURSE ---
Patient indicating discomfort at site of golden catheter, sindy care performed and catheter inspected, no abnormalities found. Upon further inspection, betadine swab stick, such as those used at golden catheter insertion, found protruding from opening of urethra. Patient reports discomfort resolved after removal of swab.
[2023-10-21] MEDS: FUROsemide 10 mg/mL SDV 4mL 40 MG IVP (15:59)
[2023-10-21 20:12] LABS: Glucose Point of Care 326 mg/dL (70-110)
[2023-10-21] MEDS: insulin glargine 100 units/1 mL 15 UNIT SUBCUT (20:21)
[2023-10-21 21:15] LABS: Glucose Point of Care 378 mg/dL (70-110)
[2023-10-22] VITALS (9 sets, daily range): BP systolic 112–155; BP diastolic 62–72; PULSE 64–80; RESP 16–24; TEMP 36.4–37; O2SAT 91–93
--- NOTE | 2023-10-22 00:22 | PC.NURSE ---
Refusing BiPAP: BiPAP removed at 2200 for a break, after about an hour and a half break this RN attempted to put the BiPAP mask back on, pt refused stating that she cant sleep with it on. The importance of the BiPAP was explained to the pt- pt continues to refuse. Darlyn, RT aware.
[2023-10-22] MEDS: ipratropium-albuterol 3 mL Neb INHALATION ×2 (02:27→08:33)
[2023-10-22] MEDS: FUROsemide 10 mg/mL SDV 4mL 40 MG IVP (03:44)
--- NOTE | 2023-10-22 06:19 | P.DS_ITS ---
Discharge Providers Date of Admission: 10/20/23 06:19 Date of Discharge: October 22, 2023 Attending Provider at Admission: Johnny Cain Attending Provider at Discharge: Tomer Russell MD Primary Care Provider: Jhony Cantu MD Diagnoses at Discharge Discharge Diagnosis (1) Dyspnea on exertion: Status: Acute (2) Obesity: Status: Acute Qualifiers: Body mass index: BMI 45.0-49.9 Obesity classification: adult class 3 (BMI >= 40) Obesity type: unspecified obesity type Serious obesity comorbidity presence: unspecified whether serious comorbidity present Qualified Code(s): E66.01 - Morbid (severe) obesity due to excess calories; Z68.42 - Body mass index [BMI] 45.0-49.9, adult (3) Acute encephalopathy: Status: Acute (4) Acute exacerbation of chronic obstructive airways disease: Status: Acute (5) Acute on chronic respiratory failure with hypoxia and hypercapnia: Status: Acute (6) Candidal intertrigo: Status: Acute Permanent problem details: Present on admission. (7) Non-compliant behavior: Status: Acute (8) Sleep apnea: Status: Acute Reason for Visit Reason for Visit: SOB Hospital Course Hospital Course 68-year female who is an active smoker, noncompliant, lives in a trailer, presented to the hospital with COPD exacerbation, she was recently discharged from the hospital when she was trying to leave AMA, at the time of discharge she was given insulin for uncontrolled diabetes along inhalers and 2 L of oxygen was prescribed, patient has Smoking, she is smoking half pack a day, on admission patient was not acute exacerbation of COPD, she was very close to intubation however her mentation and hypercarbia improved with use of BiPAP, she was kept in ICU for 2 days, she does have significant hypoxia and qualifies for BiPAP at home, she does not want to go to group home, daughter was concerned about her living conditions but patient is refusing going to rehab for a while, echo showed preserved ejection fraction, she was diagnosed with CHF exacerbation as well. At the time of discharge we are trying to arrange BiPAP for her along oxygen, she will use her insulin along sliding scale, diuresis and inhalers for COPD. She has chronic kidney disease, creatinine around baseline (1.3-1.5) Physical Exam Narrative: Sign of fluid load improving Awake and alert Crusting of the left eye has improved Afebrile Hemodynamically stable On room air Urinary Catheter Management: Ramirez: Cath Placed During This Visit: yes Reason for Continuing Indwelling Catheter: Accurate Measurement of Urinary Output in Critically Ill Patients Urinary Catheter Date of Insertion: 10/20/23 Urinary Catheter Time of Insertion: 07:19 Discharge Data Studies Completed and Pending Completed Studies During Hospitalization Category Date Time Status XR chest 1V portable [id number] Stat Exams 10/20/23 03:52 Completed Pending at discharge Category Date Time Status Basic Metabolic Panel AM LABS Lab 10/22/23 04:00 Ordered Blood Culture Stat Lab 10/20/23 08:04 Results Complete Blood Count w/Auto AM LABS Lab 10/22/23 04:00 Ordered Drug Screen, Urine Routine Lab 10/20/23 09:42 Uncollected Radiology Impressions Chest X-Ray 10/20/23 03:52 IMPRESSION: Cardiomegaly with findings that can be seen in pulmonary edema. Superimposed infection cannot be ruled out. Laboratory Results WBC 9.25 10^3/uL (3.29-11.43) 10/21/23 04:39 RBC 4.88 10^6/uL (3.85-5.65) 10/21/23 04:39 Hgb 13.30 g/dL (11.27-16.99) 10/21/23 04:39 Hct 47.3 % (36-47) H 10/21/23 04:39 MCV 96.9 fl (85-98) 10/21/23 04:39 MCH 27.3 pg (27-33) 10/21/23 04:39 MCHC 28.1 g/dL (30-55) L 10/21/23 04:39 RDW 16.5 % (12.1-15.1) H 10/21/23 04:39 Plt Count 221 10^3/cmm (157-399) 10/21/23 04:39 MPV 11.2 fL (7.4-10.4) H 10/21/23 04:39 Neut % (Auto) 91.4 % 10/21/23 04:39 Lymph % (Auto) 6.3 % 10/21/23 04:39 Jewell % (Auto) 1.8 % 10/21/23 04:39 Eos % (Auto) 0.0 % 10/21/23 04:39 Baso % (Auto) 0.1 % 10/21/23 04:39 Neut # (Auto) 8.45 10^3/uL (1.8-7.7) H 10/21/23 04:39 Lymph # (Auto) 0.6 10^3/uL (0.8-4.8) L 10/21/23 04:39 Jewell # (Auto) 0.2 10^3/uL (0.2-0.9) 10/21/23 04:39 Eos # (Auto) 0.0 10^3/uL (0.0-0.8) 10/21/23 04:39 Baso # (Auto) 0.0 10^3/uL (0.0-0.1) 10/21/23 04:39 Nucleated RBC % (auto) 0 % 10/21/23 04:39 Nucleated RBCs # 0.0 /100WBC 10/21/23 04:39 Specimen Type Arterial 10/21/23 04:23 Sample Site Brachial, right 10/21/23 04:23 ABG pH 7.42 (7.35-7.45) 10/21/23 04:23 ABG pCO2 51.9 mmHg (35-45) H 10/21/23 04:23 ABG pO2 51.5 mmHg (80.0-100.0) L 10/21/23 04:23 ABG PO2/FiO2 Ratio 0 10/20/23 15:15 ABG HCO3 33.3 mmol/L (22-26) H 10/21/23 04:23 ABG O2 Saturation 92.6 10/20/23 10:14 ABG Base Excess 7.2 mmol/L (-2.0-2.0) H 10/21/23 04:23 Rm Test N/a 10/21/23 04:23 A-a O2 Gradient 13.2 mmHg (5-10) H 10/20/23 10:14 Hematocrit 42.7 % (37-47) 10/21/23 04:23 Hgb O2 Saturation 87.3 % (95-100) L 10/20/23 10:14 Carboxyhemoglobin 5.3 %THgb (0.4-20.1) 10/20/23 10:14 Methemoglobin 0.4 % (0.4-1.5) 10/20/23 10:14 Total Hemoglobin 13.9 g/dL (12-16) 10/20/23 10:14 Sodium 140.0 mmol/L (131-143) 10/20/23 10:14 Potassium 4.3 mmol/L (3.5-5.0) 10/20/23 10:14 Glucose 293.0 mg/dL (70-115) H 10/20/23 10:14 Ionized Calcium 1.2 mmol/L (1.1-1.4) 10/20/23 10:14 O2 Delivery Device Nc 10/21/23 04:23 O2 Liters/Min 4.0 % 10/21/23 04:23 FiO2 35.0 % 10/20/23 15:15 Tidal Volume 0.45 10/20/23 06:20 PEEP 8.0 cmH20 10/20/23 06:20 Loss Control Manager ID Matt 10/21/23 04:23 Sodium 137 mmol/L (136-145) 10/21/23 04:39 Potassium 4.5 mmol/L (3.5-5.1) 10/21/23 04:39 Chloride 99 mmol/L (98-107) 10/21/23 04:39 Carbon Dioxide 28 mmol/L (22-29) 10/21/23 04:39 Anion Gap 14.5 (5-19) 10/21/23 04:39 BUN 33 mg/dL (8-23) H 10/21/23 04:39 Creatinine 1.5 mg/dL (0.5-0.9) H 10/21/23 04:39 GFR Calculation 34.5 mL/min (90-130) L 10/21/23 04:39 Glucose 438 mg/dL (65-115) H 10/21/23 04:39 POC Glucose 326 mg/dL (70-110) H 10/21/23 20:08 Calculated Osmolality 310 mOsm/kg (285-295) H 10/21/23 04:39 Calcium 8.7 mg/dL (8.5-10.5) 10/21/23 04:39 NT-Pro-B Natriuret Pep 5052 pg/mL (0-125) H 10/20/23 04:15 Urine Opiates Screen Negative ng/mL (Negative) 10/20/23 Unknown Ur Barbiturates Screen Negative ng/mL (Negative) 10/20/23 Unknown Ur Phencyclidine Scrn Negative ng/mL (Negative) 10/20/23 Unknown Ur Amphetamines Screen Negative ng/mL (Negative) 10/20/23 Unknown U Benzodiazepines Scrn Negative ng/mL (Negative) 10/20/23 Unknown Urine Cocaine Screen Negative ng/mL (Negative) 10/20/23 Unknown U Marijuana (THC) Screen Negative ng/mL (Negative) 10/20/23 Unknown Vitals Last Vital Signs Temp 98.6 F 10/22/23 04:57 Pulse 76 10/22/23 04:57 Resp 16 10/22/23 04:57 BP 112/62 10/22/23 04:57 Pulse Ox 93 10/22/23 04:57 O2 Del Method Room Air 10/22/23 04:57 O2 Flow Rate 2.5 10/22/23 03:41 FiO2 35 10/21/23 20:18 Discharge Plan Discharge Patient Disposition: Home Condition: Stable Prescriptions: New ciprofloxacin HCl 0.3 % Drops 1 drp eye-left BID 3 Days Qty: 5 0RF levofloxacin 750 mg tablet 750 mg PO DAILY 4 Days Qty: 4 0RF Continued sertraline 100 mg Tablet 100 mg PO QAM aripiprazole [Abilify] 2 mg Tablet 2 mg PO QAM allopurinol 300 mg tablet 300 mg PO QAM losartan 50 mg tablet 50 mg PO QAM pantoprazole 40 mg tablet,delayed release (DR/EC) 40 mg PO QAM aspirin 81 mg Tablet,Delayed Release (Dr/Ec) 81 mg PO QAM albuterol sulfate 90 mcg/actuation HFA aerosol inhaler 2 puff INHALATION Q4H PRN (Reason: Shortness Of Breath) potassium chloride 20 mEq tablet extended release 20 meq PO QAM (DME) blood-glucose meter [Accu-Chek Guide Glucose Meter] Misc See Rx Instructions .Route Qty: 1 0RF Rx Instructions: As directed (DME) lancets [Accu-Chek Fastclix Lancet Drum] Misc See Rx Instructions .Route Qty: 200 2RF Rx Instructions: As directed (DME) Accu-Chek Quita Plus test strp Strip See Rx Instructions .Route Qty: 100 2RF Rx Instructions: As directed Januvia 25 mg tablet 25 mg PO DAILY Qty: 30 4RF tiotropium bromide [Spiriva with HandiHaler] 18 mcg capsule, w/inhalation device 1 cap inhalation DAILY Qty: 90 4RF Rx Instructions: puncture 1 cap using device; one dose = 2 inhalations fluticasone propion-salmeterol [Advair HFA] 45-21 mcg/actuation HFA aerosol inhaler 2 inh inhalation BID Qty: 12 3RF ipratropium-albuterol 0.5 mg-3 mg(2.5 mg base)/3 mL solution for nebulization 3 ml inhalation QID PRN (Reason: Shortness Of Breath Or Wheezing) Qty: 180 6RF fluticasone propion-salmeterol 45-21 mcg/actuation HFA aerosol inhaler 2 puff INHALATION BID Changed furosemide 80 mg tablet 40 mg PO DAILY Qty: 30 2RF insulin glargine [Lantus Solostar U-100 Insulin] 100 unit/mL (3 mL) insulin pen 20 unit SUBCUT QPM Qty: 15 4RF Other Ambulatory Orders: DME: BIPAP (Order) Location: None Selected Ordered By: Tomer Russell Referrals: Jhony Cantu MD [Primary Care Provider] - 10/29/23 10:15 am Discharge Diet: Diabetic Discharge Activity: Increase activity as tolerated Patient Instructions: Opioid Safety Discharge Attestations Time Spent in Discharge Care*: greater than 30 min Status at Discharge: Cognitive status at discharge: cognitively intact , Behavioral status at discharge: cooperative , Quality Metrics Clinical Quality Measures [ No reported AMI, CVA or VTE this stay] Coding Level of Care Code Acute Code for Chg Fwd Diagnoses Dyspnea on exertion R06.00 Class 3 severe obesity with body mass index (BMI) of 45.0 to 49.9 in adult, unspecified obesity type, unspecified whether serious comorbidity present E66.01; Z68.42 Body mass index: BMI 45.0-49.9 Obesity classification: adult class 3 (BMI >= 40) Obesity type: unspecified obesity type Serious obesity comorbidity presence: unspecified whether serious comorbidity present Acute encephalopathy G93.40 Acute exacerbation of chronic obstructive airways disease J44.1 Acute on chronic respiratory failure with hypoxia and hypercapnia J96.21; J96.22 Candidal intertrigo B37.2 Non-compliant behavior R46.89 Sleep apnea G47.30
[2023-10-22 06:32] LABS: Glucose Point of Care 188 mg/dL (70-110)
[2023-10-22 06:43] LABS: Basophils % 0.2 %; Eosinophils % 0.2 %; Hematocrit 47.8 % (36-47); Lymphocytes # 2.2 10^3/uL (0.8-4.8); Lymphocytes % 18.1 %; Mean Corpuscular HGB Conc 28.5 g/dL (30-55); Mean Platelet Volume 10.7 fL (7.4-10.4); Monocytes # 0.8 10^3/uL (0.2-0.9); Monocytes % 6.2 %; Neutrophils # 9.06 10^3/uL (1.8-7.7); Neutrophils % 74.9 %; Nucleated Red Blood Cells % 0 %; Platelet Count 248 10^3/cmm (157-399); Red Blood Count 5.03 10^6/uL (3.85-5.65); Red Cell Distribution Width 16.7 % (12.1-15.1); White Blood Count 12.09 10^3/uL (3.29-11.43)
[2023-10-22 07:36] LABS: Blood Urea Nitrogen 42 mg/dL (8-23); Calcium 8.8 mg/dL (8.5-10.5); Carbon Dioxide 33 mmol/L (22-29); Chloride 99 mmol/L (98-107); Creatinine Clr Calc Pharmacy 43.2022; Glomerular Filtration Rate 34.5 mL/min (90-130); Glucose 200 mg/dL (65-115); Osmolality Calculated 304 mOsm/kg (285-295); Sodium 139 mmol/L (136-145)
[2023-10-22] MEDS: ciprofloxacin 0.3% Op Soln 2.5 mL Btl 1 DROP EYE-LEFT (08:42)
[2023-10-22] MEDS: nystatin powder 15 gm Btl 1 APPLIC TOPICAL (08:42)
[2023-10-22] MEDS: losartan 50 mg Tablet PO (08:42)
[2023-10-22] MEDS: allopurinol 300 mg Tablet PO (08:42)
[2023-10-22] MEDS: insulin lispro 100 unit/1 mL SUBCUT (08:43)
--- NOTE | 2023-10-22 09:21 | PC.CHAP ---
Pastoral Care Encounter/Spiritual Assessment Type of Contact [] Declined impregnator electrolytic capacitors visit [] Patient/Family/Request visit [] Outpatient visit [] Follow-up visit [] Physician referral [] Code/Alert [x] Routine visit [] Staff referral [] Actively dying [] Patient sleeping [] Family support [] [] Out of room [] Palliative care [] [] Receiving care in room [] Pre-surgical visit [] Trauma [] Long length of stay [] ICU visit [] Other: Relational/Emotional Strength [] Patient feels connected with others/family/visitors/staff [] Distress [] Loneliness/isolation [] Abandonment Spirituality of Patient [x] Person of Becki [] Attends Congregational of their Becki [x] Believes in Prayer [] Reads Bible or Restorationist materials [] There are Spiritual issues to be addressed 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 Of 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 Interventions [x] Prayer [x] Active listening [] Non-anxious presence [] Spiritual/emotional support [] Crisis/trauma care [] Spiritual counseling [] Bereavement support [] Provided bereavement packet [x] Provided Bible/devotional materials [] Provided toy/stuffed animal, coloring book to patient or family member [] Provided Communion [] Anointing/[place] [] Salvation [x] Completed spiritual assessment [] Other: Impact on Illness or Injury [] Angry [] Fearful [] Anxious [] Often cries [] Exhaustion [] Unable to work [] Unable to attend restoration [] Unable to walk/stand [] Unable to read [] Unable to drive [] Unable to eat/drink [] Unable to sleep [] Unable to be with family [] Patient intubated [] Other: Summary Time spent with patient 5 min
[2023-10-22 12:01] LABS: Glucose Point of Care 201 mg/dL (70-110)
--- NOTE | 2023-10-22 13:09 | PC.SOCIAL ---
IMM Update pg 2 of IMM updated and reviewed w/ patient. Copy provided and Copy dated, initialed and placed in chart.
== END 2023-10-22 13:37 | disposition home or self-care (01) | DRG 190 ==
LOC: ER 06:36 → ICU 06:38 → MEDSURG 10-21 19:20
PROVIDERS: Student in an Organized Health Care Education/Training Program; Admitting Provider Internal Medicine; Emergency Provider Family Medicine; PCP Family Medicine; Visit Provider Internal Medicine
DX: J44.1 Chronic obstructive pulmonary disease with (acute) exacerbation (principal); G93.41 Metabolic encephalopathy; J96.21 Acute and chronic respiratory failure with hypoxia; J96.22 Acute and chronic respiratory failure with hypercapnia; I13.0 Hypertensive heart and chronic kidney disease with heart failure and stage 1 through stage 4 chronic kidney disease, or unspecified chronic kidney disease; Z68.42 Body mass index [BMI] 45.0-49.9, adult; F17.210 Nicotine dependence, cigarettes, uncomplicated; E11.22 Type 2 diabetes mellitus with diabetic chronic kidney disease; N18.30 Chronic kidney disease, stage 3 unspecified; I50.9 Heart failure, unspecified; E78.5 Hyperlipidemia, unspecified; Z99.81 Dependence on supplemental oxygen; Z79.82 Long term (current) use of aspirin; E66.01 Morbid (severe) obesity due to excess calories; Z91.199 Patient's noncompliance with other medical treatment and regimen due to unspecified reason; Z79.4 Long term (current) use of insulin; B37.2 Candidiasis of skin and nail
CPT/HCPCS: 36415; 36416; 36600; 51702; 71045; 80048; 80051; 80306; 82330; 82803; 82805; 82962; 83880; 85025; 87040; 94640; 94660; 96365; 96372; 96374; 96375; 96376; 99291; J0360; J1815; J1940; J1956; J2919

== ENCOUNTER 2024-02-20 11:06 | Outpatient (CLI) | payer OTHER, MEDICAID, SELFPAY ==
--- NOTE | 2024-02-20 11:12 | MM_ITS ---
WS: [id number] BILATERAL SCREENING DIGITAL TOMOSYNTHESIS MAMMOGRAM WITH CAD HISTORY: SCREENING COMPARISON: 05/17/2016, 05/07/2015 Bilateral CC and MLO views with tomosynthesis and synthetic mammography submitted. Computer aided det ection analyzed. Breast composition: The breasts are almost entirely fatty. No suspicious masses, microcalcifications or architectural distortion. Difficult examination due to patient's limited physical ability. Pectora lis muscle is not included on either lateral view. There are no suspicious masses or calcifications. MM/MM scr tomosynthesis [id number] IMPRESSION: BI-RADS: 2 - Benign. FOLLOW UP: 1 Year Follow-up
== END 2024-02-20 11:07 | disposition home or self-care (01) ==
LOC: RAD 11:07
PROVIDERS: PCP Family Medicine; Visit Provider Family Medicine
DX: Z12.31 Encounter for screening mammogram for malignant neoplasm of breast (principal); R92.313 Mammographic fatty tissue density, bilateral breasts
CPT/HCPCS: 77063; 77067

== ENCOUNTER 2024-03-17 09:42 | Outpatient (CLI) | payer OTHER, MEDICAID, SELFPAY ==
--- NOTE | 2024-03-17 09:45 | CT_ITS ---
WS: [id number] LDCT LUNG CANCER SCREENING HISTORY: HISTORY OF TOBACCO USE TECHNIQUE: Axial imaging performed from the apices to 1 cm below the costophrenic angles. Coronal and sagittal reformats are submitted with axial MIP series. All CT scans at [facility] use at least one of these dose optimization techniques: automated exposure control; mA and/or kV adjustment per patient size (includes targeted exams where dose is matched to clinical indication); or iterativ e reconstruction. DLP: 141.42 mGy.cm DIvol: Mean CTDIvol: 4.00 (mGy) COMPARISON: 10/20/2020 Diagnostic quality: Quality is compromised by patient's body habitus. Lungs: 3 mm micronodule in the azygos esophageal recess. There is significant motion artifact due to breathing at the lung bases. There are a few scattered granulomata. No new mass or pulmonary nodule. Heart: Markedly enlarged heart similar to the prior examination. No pericardial effusion.. Other findings: Enlarged pulmonary artery. Mild atherosclerosis aorta. Small mediastinal and hilar ly mph nodes are present. CT/CT lung screening [id number] IMPRESSION: LUNG-RADS: 2-Benign Appearance or Behavior FOLLOW UP: 12 Month: Continue annual screening with LDCT OTHER FINDINGS (S MODIFIER): None.
== END 2024-03-17 09:43 | disposition home or self-care (01) ==
PROVIDERS: PCP Family Medicine; Visit Provider Family Medicine
DX: Z12.2 Encounter for screening for malignant neoplasm of respiratory organs (principal); Z87.891 Personal history of nicotine dependence; R91.1 Solitary pulmonary nodule; J84.10 Pulmonary fibrosis, unspecified; I51.7 Cardiomegaly; I28.8 Other diseases of pulmonary vessels
CPT/HCPCS: 71271

== ENCOUNTER 2024-04-19 01:08 | Emergency (ER) | payer MEDICARE, MEDICAID, SELFPAY ==
[2024-04-19 01:13] VITALS: BP 178/67; PULSE 79; RESP 28; TEMP 36.6; O2SAT 88; BMI 37.8
[2024-04-19 01:55] LABS: Basophils % 0.3 %; Eosinophils # 0.2 10^3/uL (0.0-0.8); Hematocrit 46.1 % (36-47); Lymphocytes # 2.5 10^3/uL (0.8-4.8); Lymphocytes % 16.3 %; Mean Corpuscular HGB Conc 29.9 g/dL (30-55); Mean Corpuscular Hemoglobin 27.4 pg (27-33); Mean Corpuscular Volume 91.7 fl (85-98); Mean Platelet Volume 11.4 fL (7.4-10.4); Monocytes # 0.6 10^3/uL (0.2-0.9); Monocytes % 4.2 %; Neutrophils # 11.75 10^3/uL (1.8-7.7); Neutrophils % 77.8 %; Nucleated Red Blood Cells % 0 %; Platelet Count 320 10^3/cmm (157-399); Red Blood Count 5.03 10^6/uL (3.85-5.65); Red Cell Distribution Width 15.8 % (12.1-15.1); White Blood Count 15.09 10^3/uL (3.29-11.43)
[2024-04-19 02:00] LABS: Bilirubin Urine Negative (Negative); Blood Urine Trace (Negative); Glucose Urine UA 3+ (Normal); Ketones Urine Negative (Negative); Leukocyte Esterase Urine Negative (Negative); Nitrate Urine Negative (Negative); Protein Urine 3+ (Negative); Specific Gravity, Urine 1.017 (1.005-1.030); Urine Appearance Clear (CLEAR); Urine Color Yellow (Yellow); Urobilinogen Urine 0.2 mg/dL (Negative); pH Urine 5.5 (5-7)
--- NOTE | 2024-04-19 02:01 | CTR_ITS ---
PROCEDURE INFORMATION: Exam: CT Chest Without Contrast; Diagnostic Exam date and time: 04/19/2024 2:16 AM Age: 68 years old Clinical indication: Injury or trauma; Shortness of breath; Blunt trauma (contusions or hematomas); Patient HX: C/O worsening left rib pain and SOB after a fall three days ago. History of chf and copd. ; Additional info: Fall left rib pain SOB TECHNIQUE: Imaging protocol: Diagnostic computed tomography of the chest without contrast. Radiation optimization: All CT scans at this facility use at least one of these dose optimization techniques: automated exposure control; mA and/or kV adjustment per patient size (includes targeted exams where dose is matched to clinical indication); or iterative reconstruction. COMPARISON: CT lung screening [id number] 03/17/2024 10:04 AM RADIATION DOSE METRICS: Total DLP (mGy-cm): 656.5 FINDINGS: Thyroid: Ill-defined left thyroid lobe nodules again noted similar to the prior exam. Lungs: Atelectasis left lung base. Pleural spaces: No pneumothorax. Heart: There is moderate cardiomegaly. Calcification of the mitral valve annulus noted. Aortic valve calcifications noted. Lymph nodes: Unremarkable. No enlarged lymph nodes. Vasculature: Unremarkable. No aortic aneurysm. Bones/joints: Fracture anterior left 6th and 7th ribs. Soft tissues: Unremarkable. CT/CT chest wo con [id number] IMPRESSION: 1. No pneumothorax. 2. Fracture anterior left 6th and 7th ribs.
[2024-04-19 02:04] LABS: Add Urine Microscopic? YES; Bacteria Urine 2+ /hpf; Hyaline Casts Urine 6.17 /lpf; RBC Urine 0-2 /hpf (0-2)
[2024-04-19] MEDS: morphine 4 mg/mL SDV 1 mL IVP (02:09)
[2024-04-19] MEDS: ondansetron 2 mg/ML SDV 2 mL 4 MG IVP (02:09)
[2024-04-19 02:19] LABS: Alanine Aminotransferase 13 U/L (0-33); Albumin Level 3.4 g/dL (3.5-5.2); Alkaline Phosphatase 234 U/L (35-105); Aspartate Amino Transferase 13 U/L (0-32); Blood Urea Nitrogen 40 mg/dL (8-23); Calcium 8.9 mg/dL (8.5-10.5); Carbon Dioxide 30 mmol/L (22-29); Chloride 94 mmol/L (98-107); Creatinine Clr Calc Pharmacy 32.4836; Globulin 4.3 g/dL (1.3-4.6); Glomerular Filtration Rate 29.9 mL/min (90-130); Glucose 364 mg/dL (65-115); Osmolality Calculated 303 mOsm/kg (285-295); Sodium 134 mmol/L (136-145); Total Bilirubin 0.2 mg/dL (0.15-1.2); Total Protein 7.7 g/dL (6.6-8.7)
--- NOTE | 2024-04-19 03:30 | ED_ITS ---
HPI - SOB/Dyspnea 2 General: Chief Complaint: Shortness of Breath/Dyspnea Stated Complaint: Rib pain/ SOB Time Seen by Provider: 04/19/24 01:42 History of Present Illness: HPI Narrative: 68-year-old female with shortness of vikas ath and left-sided chest pain, worse with breathing after a fall 2 days ago. She states that she fell in a parking lot on pavement. She is experienced left-sided pain since that time. Pain is worse with breathing. Worse with cough. She has not had any increased cough or fever. Related Data Home Medications Medication Instructions Recorded Confirmed aripiprazole 2 mg tablet (Abilify) 2 mg PO QAM 11/04/19 10/20/23 sertraline 100 mg tablet 100 mg PO QAM 11/04/19 10/22/23 allopurinol 300 mg tablet 300 mg PO QAM 08/22/21 10/22/23 losartan 50 mg tablet 50 mg PO QAM 08/22/21 10/22/23 pantoprazole 40 mg tablet,delayed 40 mg PO QAM 08/22/21 10/22/23 release albuterol sulfate 90 mcg/actuation 2 puff inhalation Q4H PRN 04/07/23 10/22/23 aerosol inhaler Shortness Of Breath aspirin 81 mg tablet,delayed 81 mg PO QAM 04/07/23 10/22/23 release potassium chloride 20 mEq 20 meq PO QAM 04/07/23 10/22/23 tablet,extended release fluticasone propionate 45 2 puff inhalation BID 10/20/23 10/22/23 mcg-salmeterol 21 mcg/actuation HFA inhaler Previous Rx's Medication Instructions Recorded blood sugar diagnostic (Accu-Chek #100 ea 10/12/23 Quita Plus test strips) blood-glucose meter (Accu-Chek #1 ea 10/12/23 Guide Glucose Meter) fluticasone propionate 45 2 inh inhalation BID #12 grams 10/12/23 mcg-salmeterol 21 mcg/actuation HFA inhaler (Advair HFA) ipratropium 0.5 mg-albuterol 3 mg 3 ml inhalation QID PRN Shortness 10/12/23 (2.5 mg base)/3 mL nebulization Of Breath Or Wheezing #180 mL soln lancets (Accu-Chek Fastclix Lancet #200 ea 10/12/23 Drum) sitagliptin phosphate 25 mg tablet 25 mg PO DAILY #30 tabs 10/12/23 (Januvia) tiotropium bromide 18 mcg capsule 1 cap inhalation DAILY #90 10/12/23 with inhalation device (Spiriva inhalations with HandiHaler) furosemide 80 mg tablet 40 mg (1/2 x 80 mg) PO DAILY #30 10/22/23 tabs insulin glargine 100 unit/mL (3 20 unit (0.2 mL) SUBCUT QPM #15 mL 10/22/23 mL) subcutaneous pen (Lantus Solostar U-100 Insulin) nicotine 14 mg/24 hr daily 1 patch transdermal DAILY #14 ea 10/22/23 transdermal patch nicotine 7 mg/24 hr daily 1 patch transdermal DAILY #7 ea 10/22/23 transdermal patch hydrocodone 5 mg-acetaminophen 325 1 tab PO Q8H PRN pain #7 tabs 04/19/24 mg tablet Allergies Allergy/AdvReac Type Severity Reaction Status Date / Time lisinopril Allergy ALGY-Rash Verified 10/12/23 03:14 Penicillins Allergy ALGY-Hives Verified 10/12/23 03:14 PFSH ED 2 PFSH: Medical History Acute respiratory failure with hypoxia Congestive heart failure Acute exacerbation of chronic obstructive airways disease Smoker CHF (congestive heart failure), NYHA class III Uncontrolled hypertension Acute and chronic respiratory failure COPD (chronic obstructive pulmonary disease) Chronic kidney disease, stage 3 Tobacco abuse Diabetes mellitus type 2 in obese Morbid obesity with BMI of 45.0-49.9, adult Obstructive sleep apnea Congestive heart failure Aortic stenosis Aortic stenosis Obesity Aortic regurgitation Hypertension Diabetes Hyperlipidemia Surgical History H/O tubal ligation H/O arthroscopic knee surgery Family History Other Diabetes Hypertension Stroke Social History Smoking and tobacco/nicotine status: current every day tobacco/nicotine user cigarettes Packs smoked per day: 0.5 Years cigarettes smoked: 47 [ Other cigarette details: occasionally 1 ppd ] Quit status (tobacco/nicotine): considering quitting Second hand smoke exposure: No Alcohol intake: never Substance/Drug Use: never Lives independently: Yes Household members: none Housing: Apartment Marital status: service: No Current occupational status: disabled Pets and animals: No Do you think of yourself as: Straight/Heterosexual Current gender identity: Female Physical Exam 2 Const: COMMON NORMALS: alert GENERAL APPEARANCE: cooperative, anxious (in pain) and frail appearing (mildly); not ill appearing HENMT: COMMON NORMALS: normocephalic, atraumatic and Normal external nose present HEAD & SCALP: normocephalic and atraumatic FACE & SINUS: normal facial exam and face symmetric NOSE: Normal external nose present Eye: COMMON NORMALS: Equal, round and reactive pupils present and EOMs intact bilaterally PUPIL: Yes Equal, round and reactive pupils present Neck/C-Spine: GENERAL: Yes trachea midline Chest: CHEST: Yes Symmetrical chest wall rise and Yes tenderness (left anterior and lateral. no deformity. no ecchymosis ) Resp: COMMON NORMALS: normal respiratory effort, No retractions, No use of accessory muscles and clear to auscultation bilaterally AUSCULTATION: clear to auscultation bilaterally Cardio: COMMON NORMALS: regular rate and regular rhythm RATE: regular rate RHYTHM: regular rhythm GI: COMMON NORMALS: Normal to inspection, nondistended, normoactive bowel sounds present Extremity: COMMON NORMALS: no pedal edema Neuro: RAMYA COMA SCALE: document GCS findings Ramya coma scale eye opening: Spontaneous Ramya coma scale verbal response: Orientated Tropic coma scale motor response: Obey commands Ramya coma scale total score: 15 S ENSORIUM/ORIENTATION: Yes alert SENSORY EXAM: Yes extremities (intact) Psych: COMMON NORMALS: speech normal SPEECH: Yes normal speech Skin: COMMON NORMALS: no rashes or lesions noted GENERAL SKIN EXAM: no rashes or lesions noted Course 2 Vital Signs: Vital signs: Vital Signs Temperature 98 F 04/19/24 01:13 Pulse Rate 78 04/19/24 05:27 Respiratory Rate 20 H 04/19/24 03:31 Blood Pressure 128/78 04/19/24 05:27 Pulse Oximetry 94 04/19/24 05:27 Oxygen Delivery Me thod Nasal Cannula 04/19/24 03:31 Oxygen Flow Rate 4 04/19/24 03:31 MDM - SOB/Dyspnea Medical Decision Making Chest CT reveals no infiltrate. No pneumothorax. There are fractures of the left sixth and seventh ribs anteriorly. Urinalysis is contaminated. White blood cell count is 15. No significant left shift. Other laboratory is not remarkable. Creatinine is stable at 1.7. Pain is improved after morphine. She has been maintaining saturations on O2 here. She may require up to 4L at home instead of her normal 2L. She was encouraged to breathe deeply despite the pain. She will be given a short course of hydrocodone for pain relief. To return for any worsening symptoms. Lab Data 04/19/24 01:21 04/19/24 01:21 Labs/Radiology: Radiology Impressions Chest CT 04/19/24 02:01 IMPRESSION: 1. No pneumothorax. 2. Fracture anterior left 6th and 7th ribs. Laboratory Results WBC 15.09 10^3/uL (3.29-11.43) H 04/19/24 01:21 RBC 5.03 10^6/uL (3.85-5.65) 04/19/24 01:21 Hgb 13.80 g/dL (11.27-16.99) 04/19/24 01:21 Hct 46.1 % (36-47) 04/19/24 01:21 MCV 91.7 fl (85-98) 04/19/24 01:21 MCH 27.4 pg (27-33) 04/19/24 01:21 MCHC 29.9 g/dL (30-55) L 04/19/24 01:21 RDW 15.8 % (12.1-15.1) H 04/19/24 01:21 Plt Count 320 10^3/cmm (157-399) 04/19/24 01:21 MPV 11.4 fL (7.4-10.4) H 04/19/24 01:21 Neut % (Auto) 77.8 % 04/19/24 01:21 Lymph % (Auto) 16.3 % 04/19/24 01:21 [place] % (Auto) 4.2 % 04/19/24 01:21 Eos % (Auto) 1.0 % 04/19/24 01:21 Baso % (Auto) 0.3 % 04/19/24 01:21 Neut # (Auto) 11.75 10^3/uL (1.8-7.7) H 04/19/24 01:21 Lymph # (Auto) 2.5 10^3/uL (0.8-4.8) 04/19/24 01:21 [place] # (Auto) 0.6 10^3/uL (0.2-0.9) 04/19/24 01:21 Eos # (Auto) 0.2 10^3/uL (0.0-0.8) 04/19/24 01:21 Baso # (Auto) 0.0 10^3/uL (0.0-0.1) 04/19/24 01:21 Nucleated RBC % (auto) 0 % 04/19/24 01:21 Nucleated RBCs # 0.0 /100WBC 04/19/24 01:21 Sodium 134 mmol/L (136-145) L 04/19/24 01:21 Potassium 4.0 mmol/L (3.5-5.1) 04/19/24 01:21 Chloride 94 mmol/L (98-107) L 04/19/24 01:21 Carbon Dioxide 30 mmol/L (22-29) H 04/19/24 01:21 Anion Gap 14.0 (5-19) 04/19/24 01:21 BUN 40 mg/dL (8-23) H 04/19/24 01:21 Creatinine 1.7 mg/dL (0.5-0.9) H 04/19/24 01:21 GFR Calculation 29.9 mL/min (90-130) L 04/19/24 01:21 Glucose 364 mg/dL (65-115) H 04/19/24 01:21 Calculated Osmolality 303 mOsm/kg (285-295) H 04/19/24 01:21 Calcium 8.9 mg/dL (8.5-10.5) 04/19/24 01:21 Total Bilirubin 0.2 mg/dL (0.15-1.2) 04/19/24 01:21 AST 13 U/L (0-32) 04/19/24 01:21 ALT 13 U/L (0-33) 04/19/24 01:21 Alkaline Phosphatase 234 U/L (35-105) H 04/19/24 01:21 Total Protein 7.7 g/dL (6.6-8.7) 04/19/24 01:21 Albumin 3.4 g/dL (3.5-5.2) L 04/19/24 01:21 Globulin 4.3 g/dL (1.3-4.6) 04/19/24 01:21 Urine Color Yellow (Yellow) 04/19/24 01:50 Urine Appearance Clear (CLEAR) 04/19/24 01:50 Urine pH 5.5 (5-7) 04/19/24 01:50 Ur Specific [place] 1.017 (1.005-1.030) 04/19/24 01:50 Urine Protein 3+ (Negative) A 04/19/24 01:50 Urine Glucose (UA) 3+ (Normal) H 04/19/24 01:50 Urine Ketones Negative (Negative) 04/19/24 01:50 Urine Blood Trace (Negative) A 04/19/24 01:50 Urine Nitrate Negative (Negative) 04/19/24 01:50 Urine Bilirubin Negative (Negative) 04/19/24 01:50 Urine Urobilinogen 0.2 mg/dL (Negative) 04/19/24 01:50 Ur Leukocyte Esterase Negative (Negative) 04/19/24 01:50 Urine RBC 0-2 /hpf (0-2) 04/19/24 01:50 Urine WBC 6-10 /hpf (0-5) 04/19/24 01:50 Ur Squamous Epith Cells 11-20 /hpf (0-5) 04/19/24 01:50 Amorphous Sediment Not Reportable 04/19/24 01:50 Urine Bacteria 2+ /hpf (NONE) H 04/19/24 01:50 Hyaline Casts 6.17 /lpf 04/19/24 01:50 All radiology interpretation(s) finalized by discharge Discharge Plan Discharge Patient Disposition: Home Clinical Impression: Multiple rib fractures Condition: Stable Prescriptions: New hydrocodone-acetaminophen 5-325 mg tablet 1 tab PO Q8H PRN (Reason: pain) Qty: 7 0RF No Action sertraline 100 mg Tablet 100 mg PO QAM aripiprazole [Abilify] 2 mg Tablet 2 mg PO QAM allopurinol 300 mg tablet 300 mg PO QAM losartan 50 mg tablet 50 mg PO QAM pantoprazole 40 mg tablet,delayed release (DR/EC) 40 mg PO QAM aspirin 81 mg Tablet,Delayed Release (Dr/Ec) 81 mg PO QAM albuterol sulfate 90 mcg/actuation HFA aerosol inhaler 2 puff INHALATION Q4H PRN (Reason: Shortness Of Breath) potassium chloride 20 mEq tablet extended release 20 meq PO QAM (DME) blood-glucose meter [Accu-Chek Guide Glucose Meter] Misc See Rx Instructions .Route Qty: 1 0RF Rx Instructions: As directed (DME) lancets [Accu-Chek Fastclix Lancet Drum] Misc See Rx Instructions .Route Qty: 200 2RF Rx Instructions: As directed (DME) Accu-Chek Quita Plus test strp Strip See Rx Instructions .Route Qty: 100 2RF Rx Instructions: As directed Januvia 25 mg tablet 25 mg PO DAILY Qty: 30 4RF tiotropium bromide [Spiriva with HandiHaler] 18 mcg capsule, w/inhalation device 1 cap inhalation DAILY Qty: 90 4RF Rx Instructions: puncture 1 cap using device; one dose = 2 inhalations fluticasone propion-salmeterol [Advair HFA] 45-21 mcg/actuation HFA aerosol inhaler 2 inh inhalation BID Qty: 12 3RF ipratropium-albuterol 0.5 mg-3 mg(2.5 mg base)/3 mL solution for nebulization 3 ml inhalation QID PRN (Reason: Shortness Of Breath Or Wheezing) Qty: 180 6RF fluticasone propion-salmeterol 45-21 mcg/actuation HFA aerosol inhaler 2 puff INHALATION BID furosemide 80 mg tablet 40 mg PO DAILY Qty: 30 2RF Lantus Solostar U-100 Insulin 100 unit/mL (3 mL) insulin pen 20 unit SUBCUT QPM Qty: 15 4RF nicotine 14 mg/24 hr patch 24 hour 1 patch transdermal DAILY Qty: 14 0RF Rx Instructions: Use 40 mg for 2 week and then 70 mg for 2 week nicotine 7 mg/24 hr patch 24 hour 1 patch transdermal DAILY Qty: 7 0RF Rx Instructions: After finish 14 mg nicotine patch please use 7 mg for 2 week Discharge Orders: Discharge ED (Routine); Ordered 04/19/24 Ordered By: Hans Erwin Referrals: Jhony Cantu MD [Primary Care Provider] - Patient Instructions: Rib Fracture (ED), Opioid Safety, Pain Management Activity Restrictions/Additional Instructions: Return for problems. Coding Level of Care Code ED Derrick Helper for Kristina Blake
[2024-04-19 03:31] VITALS: BP 102/59; PULSE 89; RESP 20; O2SAT 91
[2024-04-19 05:27] VITALS: BP 128/78; PULSE 78; O2SAT 94
== END 2024-04-19 05:28 | disposition home or self-care (01) ==
PROVIDERS: Emergency Provider Emergency Medicine; PCP Family Medicine
DX: S22.42XA Multiple fractures of ribs, left side, initial encounter for closed fracture (principal); W19.XXXA Unspecified fall, initial encounter; E11.22 Type 2 diabetes mellitus with diabetic chronic kidney disease; I13.0 Hypertensive heart and chronic kidney disease with heart failure and stage 1 through stage 4 chronic kidney disease, or unspecified chronic kidney disease; N18.30 Chronic kidney disease, stage 3 unspecified; I50.9 Heart failure, unspecified; J44.9 Chronic obstructive pulmonary disease, unspecified; E78.5 Hyperlipidemia, unspecified
CPT/HCPCS: 71250; 80053; 81001; 85025; 96374; 96375; 99285; J2270; J2405

== ENCOUNTER 2024-06-11 11:43 | Outpatient (CLI) | payer MEDICARE, MEDICAID, SELFPAY ==
--- NOTE | 2024-06-11 11:52 | USCV_ITS ---
Bridget Faye Age: 68 Gender: F : 1955 Exam Date: 06/11/2024 12:16 Ordering Phys: Jhony Cantu MD Technologist: [place] [facility] [place]: BP: 160 / 80 HR: 72 Rhythm: Sinus Technical Quality: MEASUREMENTS (Male / Female) Normal Values 2D ECHO LVOT Diameter 2.2 cm LV Ejection Fraction MOD 4C 49.8 % LV Ejection Fraction MOD 2C 78.8 % LV Ejection Fraction 2C AL 78.2 % LA Diameter 3.8 cm RA Systolic Volume 4C AL 51.8 ml RA Systolic Volume 4C MOD 51.0 ml LA Sys Volume AL 62.3 cm cubed LA Sys Volume Index AL 26.1 cm cubed/m squared Aorta at Sinotubular Diameter 2.3 cm IVC Diameter 2.3 cm M-MODE LA Ao Ratio MM 1.8 AV Cusp Separation MM 1.1 cm DOPPLER AV Peak Velocity 395.8 cm/s LVOT Peak Velocity 99.0 cm/s AV Area Cont Eq vti 1.0 cm squared AV Area Cont Eq pk 0.9 cm squared MV Peak Velocity 158.0 cm/s MV Area PHT 2.3 cm squared Mitral E to A Ratio 0.6 TR Peak Velocity 260.0 cm/s TR Peak Gradient 27.0 mmHg TV Peak E Velocity 72.0 cm/s PV Peak Velocity 143.0 cm/s FINDINGS Left Ventricle Normal left ventricular size, systolic function and wall thickness, with no regional wall motion abnormalities. Left ventricular ejection fraction is estimated at 55 Grade I/IV diastolic dysfunction (abnormal relaxation filling pattern), normal to mildly elevated filling pressures. Right Ventricle Normal right ventricular size. Right Atrium The right atrium is normal in size. Left Atrium The left atrium is normal in size. Mitral Valve Moderately thickened mitral valve. Mild mitral annular calcification. No mitral valve stenosis. Trace mitral valve regurgitation. Aortic Valve Moderate aortic valve calcification. Moderate to severe aortic valve stenosis, mean gradient 33.1 mmHg, DEYANIRA 0.99 cm squared. Mild aortic valve regurgitation. Tricuspid Valve Structurally normal tricuspid valve without significant stenosis or regurgitation. Pulmonary artery systolic pressure is normal. Pulmonic Valve Structurally normal pulmonic valve without significant stenosis. There is no pulmonic regurgitation. Pericardium Normal pericardium without effusion. Aorta Normal ascending aorta dimension. IVC The inferior vena cava appears normal. CONCLUSIONS Normal left ventricular size, systolic function and wall thickness, with no regional wall motion abnormalities. Left ventricular ejection fraction is estimated at 55 Grade I/IV diastolic dysfunction (abnormal relaxation filling pattern), normal to mildly elevated filling pressures. Moderate aortic valve calcification. Moderate to severe aortic valve stenosis, mean gradient 33.1 mmHg, DEYANIRA 0.99 cm squared. Mild aortic valve regurgitation. Moderately thickened mitral valve. Mild mitral annular calcification. No mitral valve stenosis. Trace mitral valve regurgitation. There is no pericardial effusion. Right atrial pressure is around 5 mm of mercury. Tomer Fagan MD (Electronically Signed) Final Date: 12 June 2024 10:03 S
== END 2024-06-11 11:44 | disposition home or self-care (01) ==
LOC: RAD 11:44
PROVIDERS: PCP Family Medicine; Visit Provider Family Medicine
DX: I35.0 Nonrheumatic aortic (valve) stenosis (principal); R93.1 Abnormal findings on diagnostic imaging of heart and coronary circulation; I34.81 Nonrheumatic mitral (valve) annulus calcification; I70.0 Atherosclerosis of aorta; I35.1 Nonrheumatic aortic (valve) insufficiency
CPT/HCPCS: 93306

== ENCOUNTER 2024-11-17 08:39 | Outpatient (CLI) | payer MEDICARE, MEDICAID, SELFPAY ==
--- NOTE | 2024-11-17 08:48 | USCV_ITS ---
Bridget Faye Age: 69 Gender: F : 1955 Exam Date: 11/17/2024 10:16 Ordering Phys: Jhony Cantu MD Technologist: [place] [facility] [place]: as BP: 140 / 80 HR: 89 Rhythm: Sinus Technical Quality: Adequate MEASUREMENTS (Male / Female) Normal Values 2D ECHO LV Diastolic Diameter PLAX 4.9 cm 4.2 - 5.9 / 3.9 - 5.3 cm IVS Diastolic Thickness 1.4 cm 0.6 - 1.0 / 0.6 - 0.9 cm IVS Systolic Thickness 2.3 cm LVPW Diastolic Thickness 1.4 cm 0.6 - 1.0 / 0.6 - 0.9 cm LVPW Systolic Thickness 1.8 cm LVOT Diameter 2.0 cm LV Ejection Fraction 2D Teich 68.6 % LV Ejection Fraction MOD 4C 61.0 % LV Ejection Fraction MOD 2C 60.2 % LV Ejection Fraction 2C AL 63.0 % LA Diameter 4.4 cm RA Systolic Volume 4C AL 62.5 ml RA Systolic Volume 4C MOD 60.5 ml Aorta at Sinotubular Diameter 3.0 cm IVC Diameter 1.7 cm M-MODE LA Ao Ratio MM 1.4 AV Cusp Separation MM 1.3 cm DOPPLER AV Peak Velocity 359.5 cm/s LVOT Peak Velocity 119.0 cm/s AV Area Cont Eq vti 1.5 cm squared AV Area Cont Eq pk 1.1 cm squared MV Peak Velocity 206.0 cm/s MV Area PHT 4.2 cm squared Mitral E to A Ratio 0.5 TV Peak Velocity 246.0 cm/s TR Peak Velocity 362.0 cm/s TR Peak Gradient 52.4 mmHg TV Peak E Velocity 111.0 cm/s PV Peak Velocity 146.0 cm/s FINDINGS Left Ventricle Left ventricle is normal in size. LV systolic function is normal with EF of 60 to 65%. No regional wall motion abnormalities are seen. Grade 1 diastolic dysfunction Right Ventricle Normal in size and function Right Atrium Normal in size Left Atrium Dilated Mitral Valve Mitral valve is thickened. Mild to moderate mitral stenosis with mean gradient across mitral valve 6 mmHg. Mild mitral regurgitation Aortic Valve Aortic valve is thickened and calcified. Moderate aortic stenosis with aortic valve area of 1.45 cm2 and mean gradient of 21 mmHg. Tricuspid Valve Mild tricuspid regurgitation. RVSP is 50 to 55 mmHg. This is consistent with moderate pulmonary hypertension Pulmonic Valve Not well-visualized Pericardium Normal Aorta Normal in size IVC Appears to be normal CONCLUSIONS LV systolic function is normal with EF of 60-65%. Grade 1 diastolic dysfunction. Left atrial dilation. Mild to moderate mitral stenosis. Mild mitral regurgitation. Moderate aortic stenosis. Mild tricuspid regurgitation. Moderate pulmonary hypertension. Compared to prior echocardiogram from 05/2024, patient has elevated gradients across mitral valve now. Aortic stenosis is stable and is moderate Warner Eugene MD (Electronically Signed) Final Date: 29 November 2024 20:19 S
== END 2024-11-17 08:40 | disposition home or self-care (01) ==
LOC: RAD 08:41
PROVIDERS: PCP Family Medicine; Visit Provider Family Medicine
DX: I35.0 Nonrheumatic aortic (valve) stenosis (principal); R93.1 Abnormal findings on diagnostic imaging of heart and coronary circulation; I05.0 Rheumatic mitral stenosis; I35.8 Other nonrheumatic aortic valve disorders; I07.1 Rheumatic tricuspid insufficiency
CPT/HCPCS: 93306

== ENCOUNTER → 2024-11-24 12:40 | Outpatient (BNVA) | payer MEDICARE, MEDICAID, SELFPAY | PROVIDERS: PCP Family Medicine; Visit Provider Internal Medicine Cardiovascular Disease | DX: R07.9 Chest pain, unspecified (principal) | CPT/HCPCS: 93005 ==

== ENCOUNTER → 2024-12-08 14:37 | Outpatient (BNVA) | payer MEDICARE, MEDICAID, SELFPAY | PROVIDERS: PCP Family Medicine; Visit Provider Internal Medicine Cardiovascular Disease | DX: I13.0 Hypertensive heart and chronic kidney disease with heart failure and stage 1 through stage 4 chronic kidney disease, or unspecified chronic kidney disease (principal); I50.9 Heart failure, unspecified; N18.30 Chronic kidney disease, stage 3 unspecified; J44.9 Chronic obstructive pulmonary disease, unspecified; I35.0 Nonrheumatic aortic (valve) stenosis; F17.210 Nicotine dependence, cigarettes, uncomplicated; E11.22 Type 2 diabetes mellitus with diabetic chronic kidney disease; Z79.85 Long-term (current) use of injectable non-insulin antidiabetic drugs | CPT/HCPCS: 99204 ==

== ENCOUNTER 2025-01-26 08:10 | Outpatient (CLI) | payer OTHER, MEDICAID, SELFPAY ==
--- NOTE | 2025-01-26 08:17 | USCV_ITS ---
Bridget Faye Age: 69 Gender: F : 1955 Exam Date: 01/26/2025 08:32 Ordering Phys: Jhony Cantu MD Technologist: LUCAS Exam Location: [facility] – [place] Indication: Moderate BP: 160 / 70 HR: 72 Rhythm: Sinus Technical Quality: Adequate MEASUREMENTS (Male / Female) Normal Values 2D ECHO LV Diastolic Diameter PLAX 5.5 cm 4.2 - 5.9 / 3.9 - 5.3 cm IVS Diastolic Thickness 1.3 cm 0.6 - 1.0 / 0.6 - 0.9 cm IVS Systolic Thickness 2.4 cm LVPW Diastolic Thickness 1.8 cm 0.6 - 1.0 / 0.6 - 0.9 cm LVPW Systolic Thickness 2.3 cm LVOT Diameter 2.0 cm LV Ejection Fraction 2D Teich 64.7 % LV Ejection Fraction MOD 4C 58.4 % LV Ejection Fraction MOD 2C 59.3 % LV Ejection Fraction 2C AL 59.8 % LA Diameter 4.4 cm RA Systolic Volume 4C AL 40.2 ml RA Systolic Volume 4C MOD 38.0 ml LA Sys Volume AL 79.0 cm cubed LA Sys Volume Index AL 36.2 cm cubed/m squared Aorta at Sinotubular Diameter 2.5 cm IVC Diameter 2.3 cm M-MODE LA Ao Ratio MM 1.6 AV Cusp Separation MM 1.1 cm DOPPLER AV Peak Velocity 332.8 cm/s LVOT Peak Velocity 83.0 cm/s AV Area Cont Eq vti 0.8 cm squared AV Area Cont Eq pk 0.8 cm squared MV Peak Velocity 132.0 cm/s MV Area PHT 4.1 cm squared Mitral E to A Ratio 0.5 TV Peak Velocity 177.5 cm/s TR Peak Velocity 260.0 cm/s TR Peak Gradient 27.0 mmHg TV Peak E Velocity 75.0 cm/s PV Peak Velocity 143.0 cm/s FINDINGS Left Ventricle Normal left ventricular size, systolic function and wall thickness, with no regional wall motion abnormalities. Left ventricular ejection fraction is estimated at 60 %. Grade I/IV diastolic dysfunction (abnormal relaxation filling pattern), normal to mildly elevated filling pressures. Right Ventricle The right ventricle is normal in size and function. Right Atrium The right atrium is normal in size. Left Atrium Moderately increased left atrial size. Mitral Valve Moderately thickened mitral valve. Moderate mitral annular calcification. Mild mitral valve regurgitation. Mitral annular calcification. Aortic Valve Mild aortic valve calcification. No aortic valve stenosis. Trace aortic valve regurgitation. Tricuspid Valve Structurally normal tricuspid valve without significant stenosis or regurgitation. Pulmonary artery systolic pressure is normal. Pulmonic Valve Structurally normal pulmonic valve without significant stenosis. There is no pulmonic regurgitation. Pericardium Normal pericardium without effusion. Aorta Normal ascending aorta dimension. IVC The inferior vena cava appears normal. CONCLUSIONS Normal left ventricular size, systolic function and wall thickness, with no regional wall motion abnormalities. Left ventricular ejection fraction is estimated at 60 %. Grade I/IV diastolic dysfunction (abnormal relaxation filling pattern), normal to mildly elevated filling pressures. Moderately increased left atrial size. Moderately thickened mitral valve. Moderate mitral annular calcification. Mild mitral valve regurgitation. Mitral annular calcification. Mild aortic valve calcification. No aortic valve stenosis. Trace aortic valve regurgitation. There is no pericardial effusion. Right atrial pressure is around 5 mm of mercury. Tomer Fagan MD (Electronically Signed) Final Date: 26 January 2025 10:14 S
== END 2025-01-26 08:11 | disposition home or self-care (01) ==
LOC: RAD 08:11
PROVIDERS: PCP Family Medicine; Visit Provider Family Medicine
DX: I08.0 Rheumatic disorders of both mitral and aortic valves (principal)
CPT/HCPCS: 93306

== ENCOUNTER 2025-02-02 12:43 | Outpatient (CLI) | payer OTHER, MEDICAID, SELFPAY ==
--- NOTE | 2025-02-02 12:46 | XR_ITS ---
WS: [id number] DEXA (DUAL ENERGY X-RAY ABSORPTIOMETRY) Bone mineral density was performed using a [employer] machine. HISTORY: ASYMPTOMATIC MENOPAUSAL STATE COMPARISON: None available. Lumbar spine BMD (L1-L4): 0.882 g/cm2 T score: -2.5 Z score: -2.0 Total hip BMD: Left: 0.685 g/cm2. T score: -2.6 Z score: -2.0 Right: 0.691 g/cm2. T score: -2.5 Z score: -1.9 10 year probability of a major osteoporotic fracture is 17.9%. XR/XR DEXA axial skeleton* [id number] IMPRESSION: OSTEOPOROSIS based upon the WHO classification for females.
== END 2025-02-02 12:44 | disposition home or self-care (01) ==
LOC: RAD 12:44
PROVIDERS: PCP Family Medicine; Visit Provider Family Medicine
DX: Z13.820 Encounter for screening for osteoporosis (principal); Z78.0 Asymptomatic menopausal state
CPT/HCPCS: 77080

== ENCOUNTER 2025-02-17 11:29 | Emergency (ER) | payer OTHER, MEDICAID, SELFPAY ==
[2025-02-17 11:30] VITALS: BP 132/78; PULSE 82; RESP 16; TEMP 36.8; O2SAT 93; BMI 36.6
--- OUTSIDE RECORDS SUMMARY | 2025-02-17 11:35 | XMS_ITS | Data Portability ---
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 she is aware it is potentially life saving that she has it and failure to have the valve evaluated may result in hospitalization or . she will call to reschedule. [email or web address] Not available 10/16/2024 08:59:58 10/28/2024 10/28/2024 she admits she h as not been truthful about large aspects of her medical care compliance. 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 she understands that i cannot help her as well if she is not truthful with me and i cannot trust what she tells me, but i think no less of her. it is really her decision i will try to continue rebuilding her medical care as best as i can given the above constraints. I have done my best to identify barriers to care and help Bridget work through them. I will ask her to please keep her cardiology apt so that they can advance her cardiovascular care and i will focus on her greatly uncontrolled sugars at this time. [email or web address] Not available 10/28/2024 10:05:14 11/25/2024 11/25/2024 she had to reschedule cardiology as she was asked to wait an hour due to an emergency. so, she was rescheduled until the . i asked her to bring her sugar logs so i can adjust her sugar. i have written her a note. we discussed her needing to call to schedule her echo cardiogram as it may be life saving to have that done. she remembers but did not. i have written her a note. we will try to call her daughter to ask for assistance in getting sugar logs and her echo set up. [email or web address] Not available 11/25/2024 10:58:05 02/03/2025 02/03/2025 overall complian ce remains poor she has not been checking her sugars. she has the log, her daughter just ordered her a new testing device. she will call with sugars when she has 5 days or so. she walks a lot all over the house which i encouraged her to continue. she says about a mile per day. [email or web address] Not available 02/03/2025 11:19:42 Plan of Treatment Reminders Order Date Submit Date Provider Last Modified By Organization Details Last Modified Time Details Appointments OFFICE VISIT CRISTINO 2024 09:30A M Reina Cantu MD Not available Not available Not available Lab urinalysi s, dipstick 2024 025 [email or web address] [facility] ([facility]), [address] [place] [address], [address], 01/14/2025 15:56:33 culture, urine 2024 025 [employer] [facility], [address] [place] [address], [facility] [address] [place], [address], 01/15/2025 22:07:02 Referral pulmonolo gist referral [address] Pul[facility] - [facility], [address] [place] [address], [address], 02/12/2025 14:16:48 Procedures None recorded. Surgeries None recorded. Imaging LDCT, chest, for lung cancer screening - due 2024 025 [email or web address] [facility], [address], [place], [address], 02/16/2025 16:37:10 US, echocardi ogram 2024 025 [email or web address] [facility], [address], [place], [address], 12/10/2024 07:59:55 Medication Orders Prolia 60 mg/mL subcutane ous syringe 2024 025 [facility] #[id number], [address], [address], [place], [address], 02/11/2025 05:01:51 cefdinir 300 mg capsule 2024 025 [id number], [address], [address], [place], [address], 01/28/2025 05:01:22 Diflucan 150 mg tablet 2024 025 [facility] #[id number], [address], [address], [place], [address], 01/22/2025 05:01:28 fluoxetin e 20 mg capsule 2024 025 [facility] #[id number], [address], [address], [place], [address], 11/25/2024 10:45:10 Tresiba FlexTouch U-200 insulin 200 unit/mL (3 mL) subcutane ous pen 2024 025 [id number], [address], [address], [place], [address], 10/28/2024 10:05:14 Ozempic 2 mg/dose (8 mg/3 mL) subcutane ous pen injector 2024 025 [facility][id number], [address], [address], [place], [address], 10/16/2024 08:57:27 Patient TargetsNo targets recorded. Patient Instructions Encounter Date Encounter Id Patient Instructions Last Modified By Organization Details Last Modified Time 11/25/2024 [id number] diabetic eye exam* LILIAN Not available 12/01/2024 09:27:54 02/03/2025 [id number] smoking cessatio n counseling, greater than 3 minutes up to 10 minutes* Not available 02/10/2025 08:46:10 Reason for Referral Mesh Man Referral for P ulmonary hypertension Referring Physician: Reina Cantu, Family Medicine, Encounter Date: 02/03/2025 Results Created Date Observation Date Name Description Value Unit Range Abnormal Flag Note LastModifiedBy Organization Detail LastModifiedTime 10/17/1910/16/2024 CBC WBC 14.5 x10 4.0-10 .5 high Not Available [facility] [address], [place], [address], 10/16/2024 08:39:57 10/17/1910/16/2024 CBC RBC 5.06 x10 3.50-5 .50 Not Available [facility] [address], [place], [address], 10/16/2024 08:39:57 10/17/1910/16/2024 CBC HGB 14.0 g/dL 12.0-1 6.0 Not Available [facility] [address], [place], [address], 10/16/2024 08:39:57 10/17/1910/16/2024 CBC HCT 45.3 % 37.0-4 7.0 Not Available [facility] [address], [place], [address], 10/16/2024 08:39:57 10/17/19 25 10/16/2024 CBC MCV 89.5 fL 80.0-9 9.9 Not Available [facility] [address], [place], [address], 10/16/2024 08:39:57 10/17/19 25 10/16/2024 CBC MCH 27.7 pg 27.0-3 2.0 Not Available [facility] [address], [place], [address], 10/16/2024 08:39:57 10/17/1910/16/2024 CBC MCHC 30.9 g/dL 32.0-3 6.0 low Not Available [facility] [address] [facility] [address] [address], [place], [address], 10/16/2024 08:39:57 10/17/1910/16/2024 CBC RDW 16.1 % 11.5-1 4.5 high Not Available [facility] [address] [facility] [address] [address], [place], [address], 10/16/2024 08:39:57 10/17/1910/16/2024 CBC plt 330.0 x10 140.0- 451.0 Not Available [facility] [address] [facility], [place], [address], 10/16/2024 08:39:57 10/17/1910/16/2024 CBC lymphocytes % 13.2 % 20.0-5 0.0 low Not Available [facility] [address] [facility] Sanna [facility], [place], [address], 10/16/2024 08:39:57 10/17/19 25 10/16/2024 CBC granulcytes % 83.3 % 30.0-7 0.0 high Not Available [facility] [address] [place], [address], 10/16/2024 08:39:57 10/17/1910/16/2024 CBC monocytes % 2.6 % 2.0-16 .0 Not Available [facility] [address] [facility], [place], [address], 10/16/2024 08:39:57 10/17/1910/16/2024 CBC granulcytes# 12.1 x10 Not Esther ilable [facility] [address] [address], [place], [address], 10/16/2024 08:39:57 10/17/1910/16/2024 CBC lymphocytes # 1.9 x10 Not Available [facility] [address] [facility] [address] [address], [place], [address], 10/16/2024 08:39:57 10/17/1910/16/2024 CBC monocytes # 0.4 x10 Not Avai lable [facility] [address] [address], [place], [address], 10/16/2024 08:39:57 10/17/1910/16/2024 HBA1C hemaglobin A1C 11.5 4.2-6. 5 high Not Available [facility] [address] [facility] [address] [address], [place], [address], 10/16/2024 08:48:46 10/17/1910/16/2024 CMP (FEMA LE) glucose 418.0 mg/dL 60.0-9 9.0 high Not Available [facility] [address] [facility] [address] [address], [place], [address], 10/16/2024 09:33:00 10/17/1910/16/2024 CMP (FEMA LE) BUN (blood urea nitrogen) 49.0 mg/dL 10.0-2 6.0 high Not Available [facility] [address] [facility], [place], [address], 10/16/2024 09:33:00 10/17/1910/16/2024 CMP (FEMA LE) creatinine (serum) 2.0 mg/dL 0.4-1. 5 high Not Available [facility] [address] [facility], [place], [address], 10/16/2024 09:33:00 10/17/1910/16/2024 CMP (FEMA LE) BUN/creatini ne ratio 24.50 ratio Not Available [facility] [address] [facility], [place], [address], 10/16/2024 09:33:00 10/17/1910/16/2024 CMP (FEMA LE) eGFR calculated 26.3 Not Available [facility] [address] [facility], [place], [address], 10/16/2024 09:33:00 10/17/1910/16/2024 CMP (FEMA LE) total protein 7.7 g/dL 6.0-8. 5 Not Available [facility] [address] [facility] [address], [place], [address], 10/16/2024 09:33:00 10/17/1910/16/2024 CMP (FEMA LE) total bilirubin 0.4 mg/dL 0.2-1. 3 Not Available [facility] [address] [facility] [address], [place], [address], 10/16/2024 09:33:00 10/17/1910/16/2024 CMP (FEMA LE) albumin 3.7 g/dL 3.5-5. 5 Not Available [facility] [address] [facility], [place], [address], 10/16/2024 09:33:00 10/17/1910/16/2024 CMP (FEMA LE) globulin 4.0 calc Not Available [facility] [address], [place], [address], 10/16/2024 09:33:00 10/17/1910/16/2024 CMP (FEMA LE) AST (SGOT) 16.0 U/L 0.0-46 .0 Not Available [facility] [address] [facility], [place], [address], 10/16/2024 09:33:00 10/17/1910/16/2024 CMP (FEMA LE) altv (SGPT) 17.0 U/L 13.0-6 9.0 normal Not Available [facility] [address] [facility], [place], [address], 10/16/2024 09:33:00 10/17/1910/16/2024 CMP (FEMA LE) A/G ratio 0.9 ratio Not Available [facility] [address] [facility], [place], [address], 10/16/2024 09:33:00 10/17/1910/16/2024 CMP (FEMA LE) ALP phos 176.0 U/L 30.0-1 40.0 abnormal Not Available [facility] [address] [facility], [place], [address], 10/16/2024 09:33:00 10/17/1910/16/2024 CMP (FEMA LE) calcium 9.2 mg/dL 8.4-10 .5 Not Available [facility] [address] [facility], [place], [address], 10/16/2024 09:33:00 10/17/1910/16/2024 CMP (FEMA LE) sodium 134.0 mmol/ L 136.0- 145.0 low Not Available [facility] [address] [facility] 1, [place], [address], 10/16/2024 09:33:00 10/17/1910/16/2024 CMP (FEMA LE) potassium 3.2 mmol/ L 3.5-5. 1 low Not Available [facility] [address] [facility] 1, [place], [address], 10/16/2024 09:33:00 10/17/1910/16/2024 CMP (FEMA LE) chloride 97.0 mmol/ L 98.0-1 10.0 abnormal Not Available [facility] [address] [facility] 1, [place], [address], 10/16/2024 09:33:00 10/17/1910/16/2024 CMP (FEMA LE) C02 29.0 mmol/ L 22.0-3 1.0 Not Available [facility] [address] [facility] 1, [place], [address], 10/16/2024 09:33:00 10/17/1910/16/2024 CMP (FEMA LE) anion gap 8.0 calc Not Available [facility] [address] [facility] 1, [place], [address], 10/16/2024 09:33:00 10/17/1910/16/2024 CMP (FEMA LE) osmolality 305.2 calc Not Available [facility] [address] [facility] 1, [place], [address], 10/16/2024 09:33:00 10/17/1910/17/2024 URIC ACID uric acid 6.1 mg/dL 2.5-7. 0 normal Thera pekimi c targe t for gout patie nts: <6.0 mg/dL Not Available [address] [address] [place], [address], 10/17/2024 21:57:25 10/17/19 25 10/17/2024 ALBUM IN, RANDO M URINE W/CRE ATINI NE creatinine, random urine 85 mg/dL 20-275 normal Not Available [address] [address] [place], [address], 10/17/2024 21:57:26 10/17/1910/17/2024 ALBUM IN, RANDO M URINE W/CRE ATINI NE albumin, urine 222.4 mg/dL see note: normal Refer ence Range : Refer ence Range Not estab lishe d Verif ied by repea t loraine sis. Not Available [address] [address] [place], [address], 10/17/2024 21:57:26 10/17/19 25 10/17/2024 ALBUM IN, RANDO M URINE W/CRE ATINI NE albumin/crea tinine ratio, random urine 2616 mg/g_ creat <30 high The ADA defin es abnor malit ies in album in excre tion as follo ws: Album inuri a Categ ory Resul t (mg/g creat inine ) Caryl l to Mildl y incre ased <30 Moder ately incre ased 30-29 9 Sever shirin incre ased > OR = 300 The ADA recom mends that at least two of three speci mens colle cted withi n a 3-6 month perio d be abnor mal befor e consi selwyn g a patie nt to be withi n a diagn ostic categ ory. Not Available [address] [address] [place], [address], 10/17/2024 21:57:26 10/17/1910/17/2024 PTH, INTAC T WITHO UT CALCI UM parathyroid hormone, intact 121 pg/mL 16-77 high Inter preti ve Guide Intac t PTH Calci um ----- ----- ----- --- ----- ----- ----- -- Caryl l Parat hyroi d Caryl l Caryl l Hypop roberta yroid ism Low or Low Caryl l Low Hyper parat hyroi dism Prima ry Caryl l or High High Secon dimas High Caryl l or Low Terti josef High High Non-P roberta yroid Hyper calce fabienne Low or Low Caryl l High Not Available [employer] [place] [address] [address] [place], [address], 10/17/2024 21:57:27 10/17/1910/17/2024 VITAM IN D,25- OH,TO JL,I A vitamin D,25-oh,tota l,ia 25 NG/mL 30-100 low Vitam in D Statu s 25-OH Vitam in D: Defic iency : <20 ng/mL Insuf ficie ncy: 20 - 29 ng/mL Optim al: > or = 30 ng/mL For 25-OH Vitam in D testi ng on patie nts on D2-craig pplem entat ion and patie nts for whom quant itati on of D2 and D3 fract ions is requi red, the [employer] Assur eD(TM ) 25-OH VIT D, (D2,D 3), LC/MS /MS is recom finn d: order code 51768 (martha ents >2yrs ). See Note 1 Note 1 For addit ional infor juany stephens refer to http: //bairon Coyne stDia gnost ics.c om/fa q/FAQ 199 (This link is being provi ded for infor viola coffman/ samson gaston purpo ses only. ) Not Available [employer] [facility] [address] [place], [address], 10/17/2024 21:57:28 01/15/20 25 01/15/2025 CULTU RE, URINE , ROUTI NE culture, urine, routine SEE NOTE CULTU RE, URINE , ROUTI NE Micro Numbe r: [id number] Test Statu s: Final Speci men Sourc e: Urine , clean catch Speci men Quali ty: Adequ ate Resul t: Mixed genit al jossy isola laura. These super ficia l bacte j[place] are not indic ative of a urina ry tract infec tion. No furth er organ ism ident ifica tion is warra nted on this speci men. If clini tushar indic ated, recol lect clean -catc h, mid-s tream urine and trans sheryl immed iatel y to Urine Cultu re Trans port Tube. Not Available [facility] [address] [place], [address], 01/15/2025 22:07:02 01/15/20 25 01/14/2025 urina lysis , dipst ick Leukocytes Trace Not Available [facility] [address] [place] [address], [address], 01/14/2025 14:29:19 01/15/20 25 01/14/2025 urina lysis , dipst ick Nitrite negati ve Not Available [facility] ([facility]) [address] [place], [address], 01/14/2025 14:29:19 01/15/20 25 01/14/2025 urina lysis , dipst ick Urobilinogen .2 Not Available [facility] ([facility]) [address] [place], [address], 01/14/2025 14:29:19 01/15/20 25 01/14/2025 urina lysis , dipst ick Protein 300 Not Available [facility] ([facility]) [address] [place] [address], [address], 01/14/2025 14:29:19 01/15/20 25 01/14/2025 urina lysis , dipst ick pH 5.5 Not Available [facility] ([facility]) [address] [place], [address], 01/14/2025 14:29:19 01/15/20 25 01/14/2025 urina lysis , dipst ick Blood Small Not Available [facility] ([facility]) [address] [place], [address], 01/14/2025 14:29:19 01/15/20 25 01/14/2025 urina lysis , dipst ick Specific English 1.015 Not Available [facility] ( [facility]) [address] [place], [address], 01/14/2025 14:29:19 01/15/20 25 01/14/2025 urina lysis , dipst ick Ketone Negati ve Not Available [facility] ([facility]) [address] [place], [address], 01/14/2025 14:29:19 01/15/20 25 01/14/2025 urina lysis , dipst ick Bilirubin Negati ve Not Available [facility] ([facility]) [address] [place], [address], 01/14/2025 14:29:19 01/15/20 25 01/14/2025 urina lysis , dipst ick Glucose Negati ve Not Available [facility] ([facility]) [address] [place], [address], 01/14/2025 14:29:19 01/15/20 25 01/14/2025 urina lysis , dipst ick Appearance Clear Not Available [facility] ([facility]) [address] [place], [address], 01/14/2025 14:29:19 01/15/20 25 01/14/2025 urina lysis , dipst ick Color Yellow Not Available [facility] ([facility]) [address] [place], [address], 01/14/2025 14:29:19 11/30/19 25 11/17/2024 US, [facility] ardio gram No observ ation record ed. [email or web address] [facility] [address] [place], [address], 12/01/2024 10:32:48 01/27/20 25 01/26/2025 US, [facility] ardio gram No observ ation record ed. [address] Imaging Orders [address] [place], [address], 02/03/2025 11:12:32 02/03/20 25 02/02/2025 DEXA No observ ation record ed. [address] [place], [address], 02/03/2025 11:12:24 Result Notes None recorded. Problems Name Problem SNOMED Code Status Onset Date Resolution Date Notes Provider Name and Address Organization Details Recorded Time Type 2 diabetes mellitus without complica tion 009566895 Completed 202111/03/2021 DIABETES MELLITUS , TYPE II - Status is Inactive ; Recorded 11/04/19 22 11:14AM by Betzy Perry LPN, Annotati on/Adden dum; Promoted ; acuity set as *; Not Available [facility] 3 03:07:34 Restrict cabrera lung disease 21095878 Active 2021 Restrict cabrera lung disease; 05/04/20 22 9:09AM by Betzy Perry LPN, Office Visit; Promoted ; acuity set as *; Jyotsna hadley [facility] 5 11:20:19 Chronic kidney disease stage 3B 824732967 Active 2021 Jyotsna hadley [facility] 5 11:20:19 Pulmonar y hyperten altaf 05044204 Active 2021 PULMONAR Y HYPERTEN ALTAF; Recorded 05/04/20 7:34AM by Betzy Perry LPN, Office Visit; Promoted ; acuity set as *; Jyotsna Britoobloch leonie, [facility] 5 11:20:19 Hyperten sive disorder 93972790 Active 2021 HYPERTEN ALTAF; Recorded 05/04/20 7:36AM by Betzy Perry LPN, Office Visit; Promoted ; acuity set as *; Jyotsna Shabana leonie, [facility] 5 11:20:19 Aortic stenosis , non-rheu matic 441797561 Active 2021 MODERATE AORTIC STENOSIS ; Recorded 05/04/20 7:34AM by Betzy Perry LPN, Office Visit; Promoted ; acuity set as *; Jyotsna Shabana hadley, [facility] 5 11:20:19 Type 2 diabetes mellitus 32623806 Active 2022 BETZY hadley, [facility] 3 10:36:22 Chronic obstruct cabrera pulmonar y disease 00479764 Active 2022 BETZY hadley, [facility] 3 10:36:29 Chronic diastoli c heart failure 162064564 Active 2022 BETZY hadley, [facility] 3 10:36:44 Obstruct cabrera sleep apnea syndrome 85292536 Active 2022 BETZY hadley, [facility] 3 10:36:57 Major depressi ve disorder 329061823 Active 2022 BETZY hadley, [facility] 3 10:37:20 Hyperpar athyroid ism due to renal insuffic iency 35975506 Active 2023 Jyotsna Castrooch null, [facility] 5 11:20:19 Moderate aortic valve stenosis 174812741 Active 2023 Jyotsna Castrooch null, [facility] 5 11:20:19 Chronic kidney disease due to type 2 diabetes mellitus 35192423930 8 Active 2023 Jyotsna Shabana null, [facility] 5 11:20:19 Nicotine dependen ce 99891940 Active 2023 Jyotsna Castrooch null, [facility] 5 11:20:19 Gout 38277449 Active 2023 Jyotsna Castrooch null, [facility] 5 11:20:19 Screenin g mammogra phy Completed 202309/19/2024 Jyotsna Donald null, [facility] 5 11:20:24 Patient noncompl iance - general 135053133 Active 2023 Reina Cantu MD [address] [place] [address], [address] , [facility] 5 10:01:47 Thyroid nodule 327932544 Active 2023 Jyotsna Donald null, [facility] 5 11:20:19 Dependen t personal ity disorder 86207845 Active 2023 Reina Cantu MD [address] [place] [address], [address] , [facility] 5 09:41:30 Severe obesity 76998489950 104 Active 2023 Jyotsna Shabana [facility] 5 11:20:19 Essentia l hyperten altaf 56840475 Active 2024 Jyotsna Shabana [facility] 5 11:20:19 Enmeshed attachme nt 114786597 Active 2024 Jyotsna Shabana [facility] 5 11:20:19 Senile osteopor osis 23406742 Active 2024 Reina Cantu MD [address] [place] [address], [address] [facility] 11:17:47 Problem Notes None recorded. Procedures Surgical History Date Name Laterality Status Provider Name and Address Organization Details Recorded Time 06/12/19 25 echocardiography completed [facility] 06/13/2024 14:13:16 03/02/20 22 Colonoscopy completed [facility] 02/04/2024 11:38:33 Tubal Ligation completed [facility] 02/04/2024 11:37:27 arthroscopy of knee completed Agnes Zamorano [facility] 11/25/2024 10:34:22 Imaging Results None recorded. Procedure Notes None recorded. Medical Equipment None Reported. Allergies Allergen ID Allergen Name Allergen Category Reaction Reaction Severity Criticality Documentation Date Start Date Code Code System Note Provider Name and Address Organization Details Recorded Time 157 lisinopri l medicatio n Not available Not available Not available 08/08/2022 [address] [facility] 3 10:35:58 158 Product containin g penicilli n (product) medicatio n Not available Not available Not available 08/08/2022 38191 8001 SNOMED BETZY hadley, [facility] 3 10:36:06 42259 penicilli n V potassium medicatio n Not available Not available Not available 12/16/2022 5 RxNorm Comme nt: Recor ded 05/04 7:34A M by Cornelia marcelo, TAILINGS WORKER, Offic e Visit ; Promo laura; Fiorella hinojosa ce: *; Reaso n: Drug aller gy; ; BETZY PERRY null, [facility] 4 11:35:46 Medications Name Sig Start Date Stop Date Status Note LastModified by Organization Details LastModified Time losartan 50 mg tablet TAKE 1 TABLET BY MOUTH EVERY DAY active Not Available Not Available No t Available atorvasta tin 40 mg tablet Take 1 tablet every day by oral route. 2022 active Not Available Not Available Not Avai lable ipratropi um 0.5 mg-albute rol 3 mg (2.5 mg base)/3 mL nebulizat ion soln USE 1 VIAL VIA NEBULIZE R 4 TIMES A DAY NEEDED FOR SHORTNES S OF BREATH OR WHEEZING 05/06 completed Not Available Not Available Not Available OneTouch Ultra Control solution 05/06 completed Not Available Not Available Not Available azithromy clary 250 mg tablet 10/17 completed Not Available Not Available Not Available hydrocodo ne 5 mg-acetam inophen 325 mg tablet TAKE 1 TABLET BY MOUTH EVERY 8 HOURS NEEDED FOR PAIN 05/06 completed Not Available Not Available Not Available isosorbid e mononitra te ER 30 mg tablet,ex tended release 24 hr Take 1 tablet every day by oral route. 10/28 completed Not Available Not Available Not Available sertralin e 100 mg tablet TAKE 1 TABLET BY MOUTH EVERY DAY 01/05 completed Not Available Not Available Not Available Milk of Magnesia 400 mg/5 mL oral suspensio n daily as needed 02/03 completed 0; Recorded 05/04/20 22 7:34AM by Betzy Perry LPN, Office Visit; Not Available Not Available Not Available clindamyc in HCl 150 mg capsule 10/17 completed Not Available Not Available Not Available Diflucan 150 mg tablet Take 1 tablet every day by oral route for 1 day. 01/22 completed Not Available Not Available Not Available amlodipin e 5 mg tablet TAKE 1 TABLET BY MOUTH EVERY DAY active Not Available Not Available No t Available potassium chloride ER 20 mEq tablet,ex tended release(p art/cryst ) 1 twice daily 02/05 completed Not Available Not Available Not Available lorazepam 0.5 mg tablet 10/17 completed Not Available Not Available Not Available furosemid e 80 mg tablet TAKE 1 TABLET BY MOUTH TWICE A DAY active Not Available Not Available No t Available ciproflox acin 0.3 % eye drops 02/03 completed Not Available Not Available Not Available bisacodyl 10 mg rectal supposito ry as needed 02/03 completed 0; Recorded 05/04/20 22 7:34AM by Betzy Perry LPN, Office Visit; Not Available Not Available Not Available pantopraz ole 40 mg tablet,de layed release TAKE 1 TABLET BY MOUTH EVERY DAY active Not Available Not Available No t Available nystatin 100,000 unit/gram topical cream APPLY TO AFFECTED AREA TWICE A DAY active Not Available Not Available No t Available promethaz ine 25 mg tablet 10/17 completed Not Available Not Available Not Available sertralin e 25 mg tablet TAKE 2 TABLETS BY MOUTH DAILY FOR 1 WEEK THEN 1 TABLET BY MOUTH DAILY FOR 1 WEEK THEN DISCONTI NUE active Not Available Not Available No t Available Tylenol 325 mg tablet every 6 hours as needed 11/25 completed 0; Recorded 05/04/20 22 7:34AM by Betzy Perry LPN, Office Visit; Not Available Not Available Not Available allopurin ol 300 mg tablet TAKE 1 TABLET BY MOUTH EVERY DAY active Not Available Not Available No t Available levofloxa clary 750 mg tablet 02/03 completed Not Available Not Available Not Available albuterol sulfate HFA 90 mcg/actua tion aerosol inhaler TAKE 2 PUFFS BY MOUTH EVERY 4 HOURS NEEDED active Not Available Not Available No t Available cefdinir 300 mg capsule Take 1 capsule every 12 hours by oral route for 7 days. 01/28 completed Not Available Not Available Not Available fluoxetin e 20 mg capsule TAKE 1 CAPSULE BY MOUTH EVERY DAY FOR 90 DAYS active Not Available Not Available No t Available spironola ctone 50 mg tablet two times daily 02/03 completed Recorded 02/03/20 22 9:21AM by Betzy Perry LPN, Office Visit; Refill Quantity : 60; Tablet; Not Available Not Available Not Available azithromy clary 500 mg tablet TAKE 1 TABLET BY MOUTH EVERY DAY FOR 3 DAYS 02/03 completed Not Available Not Available Not Available OneTouch UltraSoft Lancets 05/06 completed Not Available Not Available Not Available Golytely uad 02/05 completed vo JR/tn; Recorded 02/03/20 22 9:21AM by Betzy Perry LPN, Office Visit; Refill Quantity : 0; Not Available Not Available Not Available Imodium A-D 02/03 completed 2 capsules after the first loose stool; 1 capsule after each loose stool thereaft er, no more than 4 in 24 hours.; 0; Recorded 05/04/20 22 7:34AM by Betzy Perry LPN, Office Visit; Not Available Not Available Not Available Aspirin EC daily 02/05 completed Recorded 02/23/20 22 10:47AM by Jyotsna Steward RN, Office Visit; Refill Quantity : 30; Tablet DR; Not Available Not Available Not Available lorazepam every 6 hrs prn anxiety 02/03 completed Recorded 02/21/20 22 12:35PM by Reina Cantu MD, Refill Request; Refill Quantity : 0; Not Available Not Available Not Available furosemid e two times daily 02/05 completed Recorded 02/03/20 22 9:21AM by Betzy Perry LPN, Office Visit; Refill Quantity : 60; Tablet; Not Available Not Available Not Available ipratropi um-albute rol every four hours 02/03 completed 0; Recorded 05/04/20 22 7:34AM by Betzy Perry LPN, Office Visit; Not Available Not Available Not Available promethaz ine 1 30 min prior to prep may repeat in 6 hours 02/05 completed vo JR/tn; Recorded 02/03/20 9:21AM by Betzy Perry LPN, Office Visit; Refill Quantity : 0; Not Available Not Available Not Available Nystop two times daily 02/03 completed 0; Recorded 05/04/20 22 7:34AM by Betzy Perry LPN, Office Visit; Not Available Not Available Not Available Fleet Enema as needed 02/03 completed 0; Recorded 05/04/20 22 7:34AM by Betzy Perry LPN, Office Visit; Not Available Not Available Not Available Levemir FlexPen 100 unit/mL (3 mL) solution subcutane ous insulin pen 02/03 completed Not Available Not Available Not Available fluticaso ne propionat e 45 mcg-salme terol 21 mcg/actua tion HFA inhaler INHALE 2 PUFFS TWICE A DAY 11/25 completed Not Available Not Available Not Available aripipraz ole 2 mg tablet TAKE 1 TABLET BY MOUTH EVERY DAY 2023 active Not Available Not Available Not Avai lable Levemir U-100 Insulin daily 02/03 completed 436; Recorded 08/18/19 5:06PM by Vika Gonzalez LPN (Authori zed through Reina Cantu MD), Office Visit; Refill Quantity : 0; Not Available Not Available Not Available Januvia 25 mg tablet TAKE 1 TABLET BY MOUTH EVERY DAY 09/15 completed Not Available Not Available Not Available peg 3350-elec trolytes 236 gram-22.7 4 gram-6.74 gram-5.86 gram solution 12/12 completed Not Available Not Available Not Available Humalog KwikPen (U-100) Insulin 100 unit/mL subcutane ous 02/03 completed Not Available Not Available Not Available Prolia 60 mg/mL subcutane ous syringe Inject 1 mL by subcutan eous route for 1 day. 02/11 completed Not Available Not Available Not Available OneTouch Verio test strips Take 1 strip 4 times a day by miscell. route. 05/06 completed Not Available Not Available Not Available Injectafe r 02/05 completed x2; 0; Recorded 05/04/20 22 7:34AM by Betzy Perry LPN, Office Visit; Not Available Not Available Not Available Farxiga 10 mg tablet Take 1 tablet every day by oral route. 05/06 completed Not Available Not Available Not Available potassium chloride ER 20 mEq tablet,ex tended release Take 1 tablet twice a day by oral route. active Not Available Not Available No t Available Stiolto Respimat 2.5 mcg-2.5 mcg/actua tion solution for inhalatio n 12/12 completed Not Available Not Available Not Available Tresiba FlexTouch U-200 insulin 200 unit/mL (3 mL) subcutane ous pen INJECT 20 UNITS SUBCUTAN EOUSLY DAILY FOR 90 DAYS. active Not Available Not Available No t Available Ozempic 1 mg/dose (2 mg/1.5 mL) subcutane ous pen injector Inject 1 mg every week by subcutan eous route. 02/03 completed Not Available Not Available Not Available Ozempic 0.25 mg or 0.5 mg (2 mg/1.5 mL) subcutane ous pen injector Inject 0.25 mg every week by subcutan eous route. 10/28 completed Not Available Not Available Not Available Ozempic weekly 02/05 completed 436; Recorded 08/18/19 22 5:06PM by Vika Gonzalez LPN (Authori zed through Reina Cantu MD), Office Visit; Refill Quantity : 0; Not Available Not Available Not Available BD Jessica 2nd Gen Pen Needle 32 gauge x USE DIRECTED . active Not Available Not Available No t Available OneTouch Delica Plus Lancing Device kit 05/06 completed Not Available Not Available Not Available Breztri Aerospher e 160 mcg-9mcg- 4.8mcg/ac tuation HFA aerosol inhaler Inhale 2 puffs twice a day by inhalati on route. 02/03 completed Not Available Not Available Not Available Trelegy Ellipta 200 mcg-62.5 mcg-25 mcg powder for inhalatio n TAKE 1 PUFF BY MOUTH EVERY DAY active Not Available Not Available No t Available Ozempic 1 mg/dose (4 mg/3 mL) subcutane ous pen injector INJECT 1 MG SUBCUTAN EOUSLY EVERY WEEK 02/03 completed Not Available Not Available Not Available aspirin 81 mg capsule Take 1 capsule every day by oral route. active Not Available Not Available No t Available Ozempic 2 mg/dose (8 mg/3 mL) subcutane ous pen injector INJECT 2 MG SUBCUTAN EOUSLY WEEKLY active Not Available Not Available No t Available Ozempic 0.25 mg or 0.5 mg (2 mg/3 mL) subcutane ous pen injector INJECT 0.25MG UNDER THE SKIN ONCE A WEEK STOP JANUVIA 10/28 completed Not Available Not Available Not Available Vitals Date Recorded Body height Body mass index (BMI) Body weight Body temperature Heart rate Oxygen saturation Oxygen saturation in Arterial blood by Pulse oximetry Systolic And Diastolic Provider Name and Address Organization Details Last Updated DateTime 5 152.4 cm 45.5 kg/m2 159093. 02 g 97.4 [degF] 82 /min 92 % 92 % 134/70 mm[Hg] Jyotsna Donald [facility] 5 08:42:05 Date Recorded Body height Body mass index (BMI) Body weight Body temperature Heart rate Oxygen saturation Oxygen saturation in Arterial blood by Pulse oximetry Systolic And Diastolic Provider Name and Address Organization Details Last Updated DateTime 5 152.4 cm 45.7 kg/m2 812534. 61 g 97.3 [degF] 81 /min 95 % 95 % 140/82 mm[Hg] BETZY PERRY [facility] 5 09:09:18 Date Recorded Body height Body mass index (BMI) Body weight Oxygen saturation Oxygen saturation in Arterial blood by Pulse oximetry Heart rate Respiratory rate Body temperature Systolic And Diastolic Provider Name and Address Organization Details Last Updated DateTime 5 152.4 cm 45.1 kg/m2 080249. 84 g 88 % 88 % 81 /min 24 /min 97.1 [degF] 160/96 mm[Hg] Agnes Jaun [facility] 5 10:31:04 Date Recorded Body height Body mass index (BMI) Body weight Respiratory rate Oxygen saturation Oxygen saturation in Arterial blood by Pulse oximetry Heart rate Body temperature Systolic And Diastolic Provider Name and Address Organization Details Last Updated DateTime 5 152.4 cm 43.4 kg/m2 942843. 91 g 20 /min 90 % 90 % 80 /min 98.1 [degF] 150/90 mm[Hg] ROSS COLEY [facility] 5 14:34:37 Date Recorded Body height Body mass index (BMI) Body weight Body temperature Heart rate Oxygen saturation Oxygen saturation in Arterial blood by Pulse oximetry Oxygen saturation Oxygen saturation in Arterial blood by Pulse oximetry Inhaled oxygen flow rate Oxygen saturation Oxygen saturation in Arterial blood by Pulse oximetry Provider Name and Address Organization Details Last Updated DateTime 5 152.4 cm 43.6 kg/m2 954444. 1 g 97.7 [degF] 83 /min 83 % 83 % 86 % 86 % 2 L/min 89 % 89 % BETZY PERRY [facility] 5 11:07:10 Date Recorded Inhaled oxygen flow rate Oxygen saturation Oxygen saturation in Arterial blood by Pulse oximetry Inhaled oxygen flow rate Systolic And Diastolic Provider Name and Address Organization Details Last Updated DateTime 5 3 L/min 90 % 90 % 4 L/min 123/80 mm[Hg] BETZY PERRY [facility] 5 11:04:08 Social History Question Answer Notes LastModified by Organizat ion Details LastModified Time Tobacco Smoking Status Current Every Day Smoker BETZY PERRY [facility] 08/08/2022 10:41:53 What Was The Date Of Your Most Recent Tobacco Screening? 10/28/2024 cam Information not available 10/28/2024 What Is Your Current Pack Years? 30ormorepack years [email or web address] Information not available 12/12/2022 How Much Tobacco Do You Smoke? 0.5 PPD [email or web address] Information not available 02/03/2025 Has Tobacco Cessation Counseling Been Provided? Yes [email or web address] Information not available 08/08/2022 How Many Years Have You Smoked Tobacco? 50 [email or web address] Information not available 12/12/2022 Sex: Unknown Functional Status Question Answer Note LastModified by Organizat ion Details LastModified Time Do you use any illicit or recreational drugs? No Information not available 09/15/2024 Do you or have you ever used any other forms of tobacco or nicotine? No [email or web address] Information not available 01/14/2025 What is your level of alcohol consumption? None Information not available 09/15/2024 Do you or have you ever used any nicotine-free cigarettes, vape, or chewing tobacco? No [email or web address] Information not available 01/14/2025 Mental Status None recorded. Family History Relationship Description Onset Age of this Age Resolved Age Notes LastModified by Organization Details LastModified Time Mother Type 2 diabetes mellitus [email or web address] Not available 08/08 10:39:20 Brother Type 1 diabetes mellitus [email or web address] Not available 08/08 10:39:30 Brother Coronary atherosclero sis Not available 08/08 10:40:16 Medical History No medical history recorded. Gynecological HistoryNo gynecological history recorded. Obstetrics History GPAL:G 0 P 0 0 0 0 Immunizations Vaccine Type Date Status Note Provider Nam e and Address Organization Details Recorded Time Influenza, split virus, trivalent, preservative 2 completed Not Available [facility] 12/16/2022 02:45:55 pneumococcal polysaccharide PPV23 5 completed Not Available [facility] 12/16/2022 02:45:56 Influenza, split virus, trivalent, preservative 1 completed Not Available [facility] 12/16/2022 02:45:57 Influenza, split virus, trivalent, preservative 4 completed Not Available [facility] 12/16/2022 02:45:57 Influenza, split virus, trivalent, preservative 2 completed Not Available [facility] 12/16/2022 02:45:57 pneumococcal polysaccharide PPV23 0 completed Not Available [facility] 12/16/2022 02:45:57 Influenza, split virus, trivalent, preservative 1 completed Not Available [facility] 12/16/2022 02:45:57 Influenza, adjuvanted, trivalent, PF 5 completed BETZY PERRY null, [facility] 02/03/2025 11:57:54 Tdap 5 completed BETZY PERRY null, [facility] 02/03/2025 11:58:07 COVID-19, mRNA, LNP-S, PF, 100 mcg/0.5mL dose or 50 mcg/0.25mL dose 1 completed BETZY PERRY null, [facility] 10/17/2022 10:36:10 COVID-19, mRNA, LNP-S, PF, 100 mcg/0.5mL dose or 50 mcg/0.25mL dose 1 completed BETZY PERRY null, [facility] 10/17/2022 10:36:10 COVID-19, mRNA, LNP-S, PF, 100 mcg/0.5mL dose or 50 mcg/0.25mL dose 2 completed BETZY PERRY null, [facility] 10/17/2022 10:36:10 COVID-19, mRNA, LNP-S, PF, 100 mcg/0.5mL dose or 50 mcg/0.25mL dose 1 completed BETZY PERRY null, [facility] 10/17/2022 10:36:10 COVID-19, mRNA, LNP-S, bivalent, PF, 50 mcg/0.5 mL or 25mcg/0.25 mL dose 2 completed BETZY PERRY null, [facility] 10/17/2022 10:36:10 pneumococcal polysaccharide PPV23 7 completed BETZY hadley, [facility] 10/17/2022 10:36:10 pneumococcal polysaccharide PPV23 4 completed BETZY hadley, [facility] 10/17/2022 10:36:10 Tdap 9 completed BETZY PERRY null, [facility] 10/17/2022 10:36:10 Influenza, split virus, trivalent, preservative 4 completed BETZY hadley, [facility] 10/17/2022 10:36:10 Influenza, split virus, trivalent, PF 6 completed BETZY hadley, [facility] 10/17/2022 10:36:10 Influenza, split virus, trivalent, PF 5 completed BETZY hadley, [facility] 10/17/2022 10:36:10 Influenza, split virus, quadrivalent, PF 7 completed BETZY hadley, [facility] 10/17/2022 10:36:10 Pneumococcal conjugate PCV20, polysaccharide RDD938 conjugate, adjuvant, PF 5 completed BETZY hadley, [facility] 06/17/2024 11:50:33 Influenza, adjuvanted, trivalent, PF 5 completed BETZY hadley, [facility] 06/17/2024 13:05:10 Past Encounters Encounter ID Performer Location Encounter Start Date Encounter Closed Date Diagnosis/Indication Diagnosis SNOMED-CT Code Diagnosis ICD10 Code Diagnosis IMO Codes Diagnosis Note [id number] Reina Cantu MD [facility] ([facility]) [address] [place] [address] 08/08/2022 09:07:19 08/10/2022 11:43:35 Chronic diastolic heart failure 602070242 I50.32 Chronic ki dney disease stage 3A 712323982 N18.31 Chronic ob structive pulmonary disease 37724096 J44.9 Diabetes mellitus 560784 09 E11.22 [id number] Reina Cantu MD [facility] ([facility]) [address] [place] [id number] 10/17/2022 10:23:35 10/17/2022 19:24:21 Type 2 diabetes mellitus 71987972 E11.65 d/c home Depressive disorder 3548 9007 F33.9 Congestive heart failure 68011809 I50.32 Chronic ob structive pulmonary disease 49134492 J44.9 Essential hypertension 90075224 I10 Nicotine dependence 5629 4008 F17.200 [facility] [id number] 0443002 Z74.1 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 3613211597 08 E11.22 Long-term oxygen therapy 456127898 Z99.81 Does mobil ize using walker 760055941 Z99.89 [id number] Reina Cantu MD [facility] ([facility]) [address] [place] [phone] 12/12/2022 12:03:38 12/12/2022 14:15:29 Chronic obstructive pulmonary disease 66994675 J44.9 Chronic di astolic heart failure 783304083 I50.32 Chronic ki dney disease stage 3A 521878833 N18.31 Obstructiv e sleep apnea syndrome 63368249 G47.33 Type 2 mahsa betes mellitus 38291821 E11.65 d/c home Acute on c hronic combined systolic and diastolic heart failure 1193038274 66655 I50.43 Acute exac erbation of chronic obstructive pulmonary disease 276619785 J44.1 [id number] Reina Cantu MD [facility] ([facility]) [address] [place] [id number] 5 02/04/2024 11:29:07 02/04/2024 12:53:42 Chronic diastolic heart failure 053357710 I50.32 Chronic ob structive pulmonary disease 98947517 J44.9 Major depr essive disorder 776066585 F32.9 Hyperparat hyroidism due to renal insufficiency 14576822 N25.81 Moderate a ortic valve stenosis 718878694 I35.0 Chronic ki dney disease stage 3A 422041851 N18.31 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 3932187000 08 E11.22 Nicotine dependence 5629 4008 F17.200 Screening mammography 24 927957 Z12.31 Gout 90896457 M10.9 Screening for malignant neoplasm of colon 891843024 Z12.11 Thyroid nodule 632184037 E04.1 Patient no ncompliance - general 301618432 Z91.199 Body mass index 40+ - severely obese 962426389 Z68.43 Dependent personality disorder 42274196 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 Severe obesity 693144921 1 9104 E66.01 [id number] Reina Cantu MD [facility] ([facility]) [address] [place] [id number] 5 02/13/2024 12:02:45 02/14/2024 11:55:32 [id number] Reina Cantu MD [facility] ([facility]) [address] [place] [id number] 05/06/2024 10:50:01 05/06/2024 15:35:28 Dependent personality disorder 12362750 F60.7 Chronic di astolic heart failure 384844228 I50.32 Chronic ob structive pulmonary disease 13383687 J44.9 Major depr essive disorder 604079331 F32.9 Hyperparat hyroidism due to renal insufficiency 17429442 N25.81 Moderate a ortic valve stenosis 020861406 I35.0 Chronic ki dney disease stage 3A 031611941 N18.31 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 6229500309 08 E11.22 Nicotine dependence 5629 4008 F17.200 Screening mammography 24 740618 Z12.31 Gout 75913482 M10.9 Screening for malignant neoplasm of colon 172188126 Z12.11 Thyroid nodule 075034192 E04.1 Patient no ncompliance - general 309524732 Z91.199 Severe obesity 172561464 1 9104 E66.01 Body mass index 40+ - severely obese 760251661 Z68.43 Excessive daytime sleepiness - normal night sleep 127360509 G47.19 [id number] Reina Cantu MD [facility] ([facility]) [address] [place] [id number] 5 06/10/2024 10:53:50 06/11/2024 11:54:10 Pulmonary hypertension 11283388 I27.20 [id number] Reina Cantu MD [facility] ([facility]) [address] [place] [phone] 5 06/17/2024 10:57:55 06/18/2024 14:28:16 Chronic diastolic heart failure 786407100 I50.32 Chronic ob structive pulmonary disease 49459973 J44.9 Major depr essive disorder 973255747 F32.9 Type 2 mahsa betes mellitus 78634943 E11.65 Dependent personality disorder 28599823 F60.7 Nicotine dependence 5629 4008 F17.200 Body mass index 40+ - severely obese 557298881 Z68.42 Essential hypertension 10816631 I10 Need for [facility] care assistance [id number] 1880157 Z74.1 Dependence on supplemental oxygen 5285325621 07 Z99.81 Dependence on enabling machine or device 187228678 Z99.89 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.89 Screening mammography 24 286830 Z12.31 Administra tion of influenza vaccine 99855238 Z23 Administra tion of pneumococcal vaccine 66117016 Z23 [id number] Reina Cantu MD [facility] ([facility]) [address] [place] [id number] 5 09/15/2024 13:09:43 09/18/2024 07:11:03 Chronic diastolic heart failure 153474473 I50.32 Gastroesop hageal reflux disease 869361748 K21.9 Type 2 mahsa betes mellitus 99975225 E11.65 Candidal intertrigo 2661 50846 B37.2 78948 History of gout 84926155 4 Z87.39 [id number] Chronic ob structive pulmonary disease 84771470 J44.9 Major depr essive disorder 637387287 F32.9 Obstructiv e sleep apnea syndrome 53995780 G47.33 Aortic lakhwinder nosis, non-rheumatic 984012387 I35.0 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 she has lost 10 lbs. sugar is well controlled . [id number] Reina Cantu MD [facility] ([facility]) [address] [place] [id number] 5 10/28/2024 08:47:04 10/29/2024 15:24:11 Dependent personality disorder 51523444 F60.7 75865 we discussed taking steps to be more responsibl e for her health. Microalbum inuric diabetic nephropathy 396518069 E11.21 [id number] Uncontroll ed type 2 diabetes mellitus 678039216 E11.65 73155372 ozempic is well tolerated. she agrees to resume insulin. would like to start a glp-1 for her dm, ckd, and chf, but her sugars are too high. 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 Moderate a ortic valve stenosis 230548119 I35.0 086780 [id number] RAAZ HUTCHINS [facility] ([facility]) [address] [place] [address] 01/14/2025 14:17:12 01/14/2025 15:50:34 Dysuria 28476632 R30.0 71845 urine dip normal. Will send for cx and call pt with results. Acute bact erial bronchitis [id number] J20.8 B96.89 [id number] Discussed use of otc medication s for symptom management .Push oral fluids and rest.If you develop fever, sob, or start feeling worse then return for re-evaluat ion. [id number] Reina Cantu MD [facility] ([facility]) [address] [place] [address] 02/03/2025 10:43:19 02/04/2025 11:07:49 Chronic diastolic heart failure 137295016 I50.32 echo stable valve stable Pulmonary hypertension 51475199 I27.20 Chronic ob structive pulmonary disease 53992777 J44.9 Requires i nfluenza virus vaccination 599670718 Z23 656918 Senile osteoporosis 1804 0001 M81.0 [id number] she does take her vit d3 daily Aortic lakhwinder nosis, non-rheumatic 277130437 I35.0 Hyperparat hyroidism due to renal insufficiency 94118896 N25.81 Chronic ki dney disease stage 3B 071658702 N18.32 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 Patient no ncompliance - general [id number] Z91.678 1115899 Tobacco user [id number] F 17.200 10964 Requires d iphtheria, tetanus and pertussis vaccination 948889996 Z23 033410 Health Concerns Section Related Observation LastModified by Organization Detai ls LastModified Time None Recorded Concern Status LastModified by Organization Details LastModified Time None Recorded Advance Directives Directive None Recorded Payers Insurance Date Sequence Insurance Name Policy Number Policy Blackburn Covered Member ID Blackburn Member ID Guarantor Name 02/03/2025 [place] [facility] (JIM Nevarez Neyda [id number] Bridget Nevarez Neyda 02/03/2025 1 [employer] [place] (MEDICARE REPLACEMENT/A DVANTAGE - HMO) [id number] Bridget Hartmana [id number] Bridget Nevarez Neyda 02/03/2025 1 [facility] ([place] - [place]MO) MODSNP Bridget Nevarez Neyda [id number] Bridget Nevarez Neyda 02/03/2025 1 [facility] (MEDICARE REPLACEMENT/A DVANTAGE - HMO) Bridget Nevarez Neyda [id number] Bridget Nevarez Neyda 02/03/2025 1 [facility] (MEDICARE REPLACEMENT/A DVANTAGE - HMO) [id number] Bridget Nevarez Neyda [id number] Bridget Nevarez Neyda 02/05/2025 2 [place] Bridget Hartmana [id number] Bridget Nevarez Neyda Notes Date Note Type Note Provider Name and Address Organization Details Recorded Time 5 text/html DiabetesReported by PatientHPIFor control, patient reportsusually poorly controlledbut reportstreated with diet and oral medications,hemoglobin a1c has been greater than 9, andhemoglobin a1c goal is less than 7. For duration, patient reportschronic. For compliance, patient reportscompliant with follow-up visits. For self care, patient reportsmonitoring glucose daily(pt states it is usually 80-110). For associated symptoms, patient reportsno increased appetite,no numbness of feet, andno paresthesias. Care Management - Congestive Heart Failure (CHF)Reported by PatientHPIFor severity, patient reportssymptoms are improving. For associated symptoms, patient reportsno chest pain,no chest tightness, andno limb swelling. COPDReported by PatientHPI:For duration, patient reportschronic. For severity, patient reportsuses nebulizer/inhaler an average of 14 times/week lately. For context, patient reportscigarette smoking. For alleviating factors, patient reportsrelieved with oxygen (uses when she sleeps and throughout the day). For associated symptoms, patient reportsno dyspnea,not coughing up sputum, andno wheezing.ROS as noted in the HPI Pt is here for a 1 month f/u on her ozempic. She has lost 10lbs since her last visit. She has no complaints about the ozempic and states she is having no issues GI or otherwise. Reina Cantu MD [address] [place] [address], [phone], [facility], Juan Jose. 10/16/2024 09:02:23 5 text/html DiabetesReported by PatientHPIFor control, patient reportsusually poorly controlledbut reportstreated with diet and oral medications,hemoglobin a1c has been greater than 9, andhemoglobin a1c goal is less than 7. For associated symptoms, patient reportsparesthesias (toes of the right foot)but reportsno increased appetiteandno numbness of feet. For duration, patient reportschronic. For compliance, patient reportscompliant with follow-up visits. For self care, patient reportsmonitoring glucose daily(patient reports bs have been 180pt states it is usually 80-110). Care Management - Congestive Heart Failure (CHF)Reported by PatientHPIFor severity, patient reportssymptoms are improving. For associated symptoms, patient reportsno chest pain,no chest tightness, andno limb swelling. COPDReported by PatientHPI:For associated symptoms, patient reportsexcessive daytime sleepinessandcoughing up sputumbut reportsno dyspnea,no fever, andno wheezing. For duration, patient reportschronic. For severity, patient reportsuses nebulizer/inhaler an average of 14 times/week lately. For context, patient reportscigarette smoking. For alleviating factors, patient reportsrelieved with oxygen (uses when she sleeps and throughout the day).she reports she is breathing a lot better overallROS as noted in the HPI Pt is here for a 1 month f/u on her ozempic. she has had a large amount of water weight loss coupled with ozempic related weight loss. she has a good appetite. she did not go to her Echocardiogram. she is aware she had the appointment. my daughter didn't make sure i went. Reina Cantu MD [address] [place], [address], [facility], Juan Jose. 10/28/2024 10:05:41 5 text/html DiabetesReported by Patient Care Management - Congestive Heart Failure (CHF)Reported by PatientHPIFor severity, patient reportssymptoms are improving. For associated symptoms, patient reportsno chest pain,no chest tightness, andno limb swelling. COPDReported by PatientROS as noted in the HPI patient would like some paxil?she is happy but anxious. she is annoyed by her family etc. previous hx below below sugar was horribly uncontrolled due to non compliance with hiding of her actual compliance and sugars etc. Pt is here for a 1 month f/u on her ozempic. she has had a large amount of water weight loss coupled with ozempic related weight loss. she has a good appetite. she did not go to her Echocardiogram. she is aware she had the appointment. my daughter didn't make sure i went. Reina Cantu MD [address] [place], [address], [facility] 12/09/2024 10:19:03 5 text/html ROS as noted in the [facility] walk-in; PCP Dr. Cantu Patient c/o urinary symptoms. Lower abdominal pain. She is also congested with a productive cough. She states she's had symptoms for two weeks. RAZA HUTCHINS [address] [place], [address], [facility] 01/14/2025 15:48:32 5 text/html DiabetesReported by PatientHPIFor associated symptoms, patient reportsparesthesias (all of the toes on her right foot). For duration, patient reportschronic. For control, patient reportstreated with insulin. For compliance, patient reportscompliant with follow-up visits. For self care, (patient reports that her monitor broke and her daughter has ordered her another one). Care Management - Congestive Heart Failure (CHF)Reported by PatientHPIFor severity, patient reportssymptoms are improving. For associated symptoms, patient reportsno chest pain,no chest tightness, andno limb swelling. COPDReported by PatientHPI:For associated symptoms, patient reportscoughing up sputum,thick, yellow-green sputum, andwheezingbut reportsno fever. For duration, patient reportschronicandhas noted for years. For context, patient reportscigarette smoking. For alleviating factors, patient reportsrelieved with oxygen.ROS as noted in the HPI Patient would like to get her flu shot todayshe reports her depression is very well controlled now. Reina Cantu MD [address] [place] [address], [phone], [facility], Christa 02/03/2025 11:28:53 OBGyn Episode No OBEpisode recorded.
--- OUTSIDE RECORDS SUMMARY | 2025-02-17 11:35 | XMS_ITS | Clinical Summary ---
Author Organization [facility], [facility] Address [address] [place] [address] Phone Care Team Providers Care Artist Scientific Name Role Phone Jhony Cantu MD Primary Care Provider [phone] Allergies Active Allergy Reactions Criticality Noted Date Comments Lisinopril 02/02/2021 Penicillin V 02/02/2021 Medications pantoprazole (PROTONIX) 40 MG EC tablet Take 40 mg by mouth 1 (one) time each day before breakfast Do not crush, chew, or split. Active Tiotropium Alto-Olodater ol (Stiolto Respimat) 2.5-2.5 MCG/ACT aerosol solution Inhale 2 puffs 1 (one) time each day Active sertraline (ZOLOFT) 100 MG tablet Take 100 mg by mouth 1 (one) time each day Active loperamide (IMODIUM) 2 MG capsule Take 2 mg by mouth 4 (four) times a day if needed for diarrhea Active isosorbide mononitrate (IMDUR) 30 MG 24 hr tablet Take 30 mg by mouth 1 (one) time each day Do not crush or chew. Active acetaminophen (TYLENOL) 325 MG tablet Take by mouth every 6 (six) hours if needed for mild pain Active LORazepam (ATIVAN) 0.5 MG tablet Take 0.5 mg by mouth 2 (two) times a day if needed for anxiety Active insulin lispro (HumaLOG) 100 UNIT/ML injection Inject under the skin twice a day Sliding Scale Active furosemide (LASIX) 80 MG tablet Take 1 tablet (80 mg total) by mouth 2 (two) times a day 60 tablet 11 1 Active Semaglutide,0.25 or 0.5MG/DOS, (Ozempic, 0.25 or 0.5 MG/DOSE,) 2 MG/1.5ML solution pen-injector Inject under the skin per week Active Dapagliflozin Propanediol (Farxiga) 10 MG tablet Take by mouth 1 (one) time each day Active insulin detemir (LEVEMIR) 100 UNIT/ML injection Inject under the skin every night Active aspirin (ST ALEJANDRO) 81 MG EC tablet Take 81 mg by mouth 1 (one) time each day Active albuterol HFA (PROVENTIL HFA;VENTOLIN HFA) 108 (90 Base) MCG/ACT inhaler Inhale 2 puffs every 6 (six) hours if needed for wheezing Active atorvastatin (LIPITOR) 40 MG tablet Take 40 mg by mouth 1 (one) time each day Active losartan (COZAAR) 50 MG tablet Take 50 mg by mouth 1 (one) time each day Active allopurinol (ZYLOPRIM) 300 MG tablet Take 300 mg by mouth 1 (one) time each day Active nitroglycerin (NITROSTAT) 0.[address] 0.4 mg under the tongue every 5 (five) minutes if needed for chest pain Active Ipratropium-Albu terol (ALBUTEROL-IPRAT ROPIUM IN) Inhale I vial in nebulizer 3 times daily Active Active Problems Problem Noted Date Diagnosed Date Stage 3b chronic kidney disease 02/09/2021 Type 2 diabetes mellitus wit h diabetic chronic kidney disease 02/09/2021 Essential (primary) hypertension 02/09/2021 Acute kidney failure 02/09/2021 Immunizations Immunization Administration Dates Next Due Pneumococcal Polysaccharide 08/07/2006, 4 Tdap 04/22/2009 Family History Medical History Relation Comments Diabetes Brother Heart disease Brother Hypertension Father Stroke Father Diabetes Mother Hypertension Sister Relation Status Comments Brother Father Mother Sister Social History Tobacco Use Types Packs/Day Years Used Date Smoking Tobacco: Former Smokeless Tobacco: Never Tobacco Cessation:Counseling Given: Not Answered Alcohol Use Standard Drinks/Week Comments Not Currently 0 (1 standard drink = 0.6 oz pur e alcohol) Comments Unknown Sex and Gender Information Value Date Recorded Sex Assigned at Not on file Legal Sex Female 12:29 PM EDT Gender Identity Not on file Sexual Orientation Not on file Last Filed Vital Signs Vital Sign Reading Time Taken Comments Blood Pressure 130/76 09/12/2022 12:12 PM CDT Pulse 83 09/12/2022 12:12 PM CDT Temperature - - Respiratory Rate - - Oxygen Saturation 91% 09/12/2022 12:12 PM CDT Inhaled Oxygen Concentration - - Weight 117 kg (257 lb 6.4 oz) 09/12/2022 12:12 P M CDT Height 154.9 cm (5' 1 ) 09/12/2022 12:12 PM CDT Body Mass Index 48.64 09/12/2022 12:12 PM CDT Plan of Treatment Health Maintenance Due Date Last Done Comments Breast Cancer Screening 1955 Colorectal Cancer Screening: Annual FOBT 10/06/2004 Colorectal Cancer Screening: Colonoscopy 10/06/2004 Colorectal Cancer Screening: Sigmoidoscopy 10/06/2004 Pneumococcal Vaccine: 50+ Years (3 of 3 - PCV) 08/08/2007 08/07/2006, 04/21/2004 Diabetes: Hemoglobin A1C 02/09/2021 Diabetes: Ophthalmology Exam 02/09/2021 Diabetes: Pedal Pulse Checked 02/09/2021 Diabetes: Sensory Foot Exam 02/09/2021 Diabetes: Visual Foot Exam 02/09/2021 Influenza Vaccine (#1) 2025 Pneumococcal Vaccine: Peds ( 0 to 5 Years) and At-Risk Patients (6 to 49 Years) Discontinued 08/07/2006, 04/21/2004 Hepatitis B Vaccine Aged Out No longe r eligible based on patient's age to complete this topic Insurance [facility] [place] [id number] Medicaid [place] ([id number]) Debbie Salguero [facility] Care Teams Artist Scientific Relationship Specialty Start Date End Date Jhony aCntu MD [address] [place] [address] PCP - General Family Medicine 01/28/21
--- OUTSIDE RECORDS SUMMARY | 2025-02-17 11:35 | XMS_ITS | Encounter Summary ---
Author Organization [facility], [facility] Address [address] [place] [address] Phone Care Team Providers Care Mailroom Clerk Name Role Phone Jhony Cantu MD Primary Care Provider [phone] Encounter Details Date Type Department Care Team (Late st Contact Info) Description 01/28/2021 Orders Only [facility] [address] [facility] [address] [place] [address] Stage 3 chronic kidney disease, not otherwise specified (HCC) Social History Tobacco Use Types Packs/Day Years Used Date Smoking Tobacco: Never Assessed Comments Unknown Sex and Gender Information Value Date Recorded Sex Assigned at Not on file Legal Sex Female 12:29 PM EDT Gender Identity Not on file Sexual Orientation Not on file documented as of this encounter Plan of Treatment Not on file documented as of this encounter Visit Diagnoses Diagnosis Stage 3 chronic kidney disease, not otherwise specified (HCC) documented in this encounter Care Teams Mailroom Clerk Relationship Specialty Start Date End Date Jhony Cantu MD [address] [facility] [place] [address] PCP - General Family Medicine 01/28/21 documented as of this encounter
--- NOTE | 2025-02-17 11:36 | W.ED.PSYCHS ---
HPI - Psych General: Chief Complaint: Psychiatric Symptoms Stated Complaint: depressed Time Seen by Provider: 02/17/25 11:30 History of Present Illness: 69-year-old female with a history of morbid obesity, congestive heart failure, COPD, hypertension, sleep apnea, chronic hypoxemic respiratory failure, chronic kidney disease, diabetes, aortic stenosis and hyperlipidemia who presents the emergency room with complaints of depression by ambulance from home Related Data Home Medications ?Medication ?Instructions ?Recorded ?Confirmed aripiprazole 2 mg tablet (Abilify) 2 mg PO QAM 11/04/19 11/24/24 allopurinol 300 mg tablet 300 mg PO QAM 08/22/21 11/24/24 losartan 50 mg tablet 50 mg PO QAM 08/22/21 11/24/24 pantoprazole 40 mg tablet,delayed 40 mg PO QAM 08/22/21 11/24/24 release albuterol sulfate 90 mcg/actuation 2 puff inhalation Q4H PRN 04/07/23 11/24/24 aerosol inhaler Shortness Of Breath aspirin 81 mg tablet,delayed 81 mg PO QAM 04/07/23 11/24/24 release potassium chloride 20 mEq 20 meq PO QAM 04/07/23 11/24/24 tablet,extended release acetaminophen 325 mg tablet 325 mg PO QID PRN 11/24/24 11/24/24 (Tylenol) atorvastatin 40 mg tablet (Lipitor) 40 mg PO DAILY 11/24/24 11/24/24 fluticasone fur. 100 mcg-umeclid 1 inh inhalation DAILY 11/24/24 11/24/24 62.5 mcg-vilant 25 mcg inhalat.powder (Trelegy Ellipta) furosemide 80 mg tablet 80 mg PO DAILY 11/24/24 12/08/24 isosorbide mononitrate 30 mg 30 mg PO DAILY 11/24/24 11/24/24 tablet,extended release 24 hr nystatin 100,000 unit/gram topical 1 applic topical BID 11/24/24 11/24/24 cream semaglutide 0.25 mg or 0.5 mg (2 mg SUBCUT 11/24/24 11/24/24 mg/3 mL) subcutaneous pen injector (Ozempic) oxygen-air delivery systems 12/08/24 12/08/24 Previous Rx's ?Medication ?Instructions ?Recorded blood sugar diagnostic (Accu-Chek #100 ea 10/12/23 Quita Plus test strips) blood-glucose meter (Accu-Chek #1 ea 10/12/23 Guide Glucose Meter) fluticasone propionate 45 2 inh inhalation BID #12 grams 10/12/23 mcg-salmeterol 21 mcg/actuation HFA inhaler (Advair HFA) lancets (Accu-Chek Fastclix Lancet #200 ea 10/12/23 Drum) amlodipine 5 mg tablet 5 mg PO DAILY #90 tabs 12/08/24 Allergies Allergy/AdvReac Type Severity Reaction Status Date / Time lisinopril Allergy ALGY-Rash Verified 12/08/24 15:06 Penicillins Allergy ALGY-Hives Verified 12/08/24 15:06 Review of Systems Narrative: Constitutional symptoms: Negative except as documented in HPI. Skin symptoms: Negative except as documented in HPI. Eye symptoms: Negative except as documented in HPI. ENMT symptoms: Negative except as documented in HPI. Respiratory symptoms: Negative except as documented in HPI. Cardiovascular symptoms: Negative except as documented in HPI. Gastrointestinal symptoms: Negative except as documented in HPI. Genitourinary symptoms: Negative except as documented in HPI. Musculoskeletal symptoms: Negative except as documented in HPI. Neurologic symptoms: Negative except as documented in HPI. Psychiatric symptoms: Negative except as documented in HPI. Endocrine symptoms: Negative except as documented in HPI. PFS ED PFSH: Medical History (Updated 02/17/25 @ 11:37 by Nubia Garcia MD) Congestive heart failure COPD (chronic obstructive pulmonary disease) Hypertension Sleep apnea Non-compliant behavior Acute encephalopathy Acute on chronic respiratory failure with hypoxia and hypercapnia Acute exacerbation of chronic obstructive airways disease Candidal intertrigo Present on admission. Dyspnea on exertion Acute respiratory failure with hypoxia Acute exacerbation of chronic obstructive airways disease Smoker CHF (congestive heart failure), NYHA class III Uncontrolled hypertension Acute and chronic respiratory failure Chronic kidney disease, stage 3 Tobacco abuse Diabetes mellitus type 2 in obese Morbid obesity with BMI of 45.0-49.9, adult Obstructive sleep apnea Congestive heart failure Aortic stenosis Aortic stenosis Obesity Aortic regurgitation Diabetes Hyperlipidemia Surgical History H/O tubal ligation H/O arthroscopic knee surgery Family History Other Diabetes Hypertension Stroke Social History Smoking and tobacco/nicotine status: current every day tobacco/nicotine user cigarettes Packs smoked per day: 0.5 Years cigarettes smoked: 47 [ Other cigarette details: occasionally 1 ppd ] Quit status (tobacco/nicotine): considering quitting Second hand smoke exposure: No Alcohol intake: never Substance/Drug Use: never Lives independently: Yes Household members: none Housing: Apartment Marital status: service: No Current occupational status: disabled Pets and animals: No Do you think of yourself as: Straight/Heterosexual Current gender identity: Female Physical Exam Narrative: EXAM NARRATIVE: General: Alert, no acute distress. Skin: Warm, dry. Head: Normocephalic, atraumatic. Neck: Supple, trachea midline. Eye: Extraocular movements are intact. Ears, nose, mouth and throat: mucosa moist. Cardiovascular: Regular, Normal peripheral perfusion. Respiratory: Lungs are clear to auscultation, respirations are non-labored, breath sounds are equal, Symmetrical chest wall expansion. Gastrointestinal: Soft, Nontender, Non distended Musculoskeletal: Normal ROM, no deformity. Neurological: Alert and oriented, No focal neurological deficit observed. Psychiatric: Cooperative, patient endorses worsening depression but denies any suicidal or homicidal ideations Course Vital Signs: Vital signs: Vital Signs Temperature 98.3 F 02/17/25 11:30 Pulse Rate 82 02/17/25 11:30 Respiratory Rate 16 02/17/25 11:30 Blood Pressure 132/78 02/17/25 11:30 Pulse Oximetry 93 02/17/25 11:30 Oxygen Delivery Me thod Nasal Cannula 02/17/25 11:30 MDM - Psych Medical Decision Making Medical decision making: Differential diagnosis including but not limited to and based on the above HPI, review of systems and physical exam: In this patient with depression I have done a self harm or harm to other screening. She denies any suicidal or homicidal ideation. She was not aware that there is a crisis center and has agreed that that is a more appropriate direction at this point than being admitted to the hospital. She will be escorted to the crisis center by security. She has no new physical complaints and her vitals are normal. No need for any lab work or imaging today. Assessment and plan: Depression ?Patient screened and not homicidal or suicidal. No danger to herself. No hallucinations. Escort to the crisis center - Discharged home - Discussed plan with patient. Answered any questions. - Evaluation and treatment of this problem were appropriate in the emergency setting. All radiology interpretation(s) finalized by discharge Discharge Plan Discharge Patient Disposition: Home Clinical Impression: Depression Condition: Stable Prescriptions: No Action atorvastatin [Lipitor] 40 mg tablet 40 mg PO DAILY acetaminophen [Tylenol] 325 mg tablet 325 mg PO QID PRN isosorbide mononitrate 30 mg tablet extended release 24 hr 30 mg PO DAILY furosemide 80 mg tablet 80 mg PO DAILY nystatin 100,000 unit/gram cream 1 applic topical BID Trelegy Ellipta 100-62.5-25 mcg blister with device 1 inh inhalation DAILY Ozempic 0.25 mg or 0.5 mg (2 mg/3 mL) pen injector SUBCUT (DME) oxygen-air delivery systems Device See Rx Instructions .ROUTE Rx Instructions: As directed amlodipine 5 mg tablet 5 mg PO DAILY Qty: 90 3RF aripiprazole [Abilify] 2 mg Tablet 2 mg PO QAM allopurinol 300 mg tablet 300 mg PO QAM losartan 50 mg tablet 50 mg PO QAM pantoprazole 40 mg tablet,delayed release (DR/EC) 40 mg PO QAM aspirin 81 mg Tablet,Delayed Release (Dr/Ec) 81 mg PO QAM albuterol sulfate 90 mcg/actuation HFA aerosol inhaler 2 puff INHALATION Q4H PRN (Reason: Shortness Of Breath) potassium chloride 20 mEq tablet extended release 20 meq PO QAM (DME) blood-glucose meter [Accu-Chek Guide Glucose Meter] Misc See Rx Instructions .Route Qty: 1 0RF Rx Instructions: As directed (DME) lancets [Accu-Chek Fastclix Lancet Drum] Misc See Rx Instructions .Route Qty: 200 2RF Rx Instructions: As directed (DME) Accu-Chek Quita Plus test strp Strip See Rx Instructions .Route Qty: 100 2RF Rx Instructions: As directed fluticasone propion-salmeterol [Advair HFA] 45-21 mcg/actuation HFA aerosol inhaler 2 inh inhalation BID Qty: 12 3RF Discharge Orders: Discharge ED (Routine); Ordered 09/30/25 Ordered By: Nubia Garcia Referrals: Jhony Cantu MD [Primary Care Provider, Family Practice] Discharge Diet: Usual diet Discharge Activity: Resume usual activity Patient Instructions: Depression (ED), Opioid Safety, Pain Management, Patient Portal & Sunshine Instructions Activity Restrictions/Additional Instructions: Please follow-up with the [facility] behavioral health crisis center immediately upon discharge phone number is [phone]. There is a 24-hour crisis hotline with the number of 138. Hours of operation are 8 AM to 6 PM. Thank you for choosing [facility] for your healthcare needs today. Please realize this is an emergency room and that we are providing you with a medical screening exam and this may not be complete and all inclusive of all the testing and or work up that you may need to determine your ailment or severity of your illness. You have been screened and evaluated and felt safe for discharge. Health conditions do change or evolve sometimes and as such it is important that you follow up with your Primary Doctor to be re checked, 3-5 days is a general good time frame for follow up. You are always welcome to return to the ED for re assessment if your symptoms are worsening or you have new concerns Print Language: Senegalese Coding Level of Care Code ED Printing Machine Operator for Kristina Blake
--- NOTE | 2025-02-17 14:43 | CSC.DSPLAN ---
[facility] Discharge Plan Current SI: None Current HI: Denies any homicidal thoughts, plans, intentions, or time frames Safety Plan Completed: Yes Patient agrees with discharge safety plan: Yes Was the client admitted to [facility]?: Yes Were medication services provided during today's visit?: No Client Presentation upon Discharge: pleasant and cooperative Current Progress Towards Recovery and Well-Being: Safety plan was completed, Staff assisted with making a PCP appointment, Client referred to [facility]. Continued Treatment Barriers: Mental health, physical health Treatment Goals Achieved During Program Participation: Mental health services Services referred from Center: Outpatient MH treatment ([facility] referral ) Care Provided-Services the individual received: Crisis Services CSC Outcome: Crisis Stabilized CSC Discharge Disposition/Location: Home/Residence (Daughter Halle transported client home. ) Care Coordination Agencies Referred to:: Other ([facility] PCP Dr. Cantu and [facility] request for service) Client Follow up Plan to Referred agencies:: Other (Client and daughter are both agreeable to follow up with PCP Dr. Cantu tomorrow at 10:30 A.M. )
--- NOTE | 2025-02-17 14:48 | W.CSC.NURCN ---
[facility] Nurse Contact Note Nurse Contact Note Client presented to [facility] after referral from ED. Client was transported to the [facility] from the ED via shuttle. Client arrived using a portable oxygen tank on 1.5 L via nasal cannula. otr company truck driver stated the client would need assistance into the building, client was assisted into the building via wheelchair. Client reported to this nurse that she had called EMS today to take her to the hospital because she had been feeling sad and had thoughts of hurting herself. Client admits to still feeling this way but denied having a plan to harm herself at this time. Client reported that the thoughts of self harm are intermittent, they come and go. The client reported that she believes these thoughts/feelings are a symptom of her medication. The nurse discussed current medications and client reports that she takes her Abilify 2mg PO QAM regularly but that she is not sure what she takes this medication for. The client reports that the medication is prescribed by her PCP Dr. Cantu at [facility]. The nurse attempted to contact Dr. Ruby, Dr. Ruby was unavailable but nurse requested a call back. Nurse discussed with the client that she should discuss these concerns about her medication with the prescribing provider, the client reported that she would not be able to see her PCP until April. The nurse contacted Dr. Cantu office and assisted the client with making an appointment for tomorrow at 10:30. Nurse gave full report to Dr. Pepe Ramos LPN nurse. Nurse gave full report to client's daughter Halle Cortes ([phone]). Client was referred to [facility] for safety plan. Upon arrival client's O2 sat was 88% on 1.5L via nasal cannula. Client was SOB with respiratory rate of 22 per minute. Nurse increased oxygen to 2L and encouraged client to inhale through her nose. Client's oxygen stabilized at 90-93% on 2L. [facility] nurse contacted case management to try to obtain a portable O2 tank so that the Emergency room's O2 tank could be returned, but was unsuccessful. The client required the supplemental oxygen at 2L to maintain O2 sats at >90%. When this nurse attempted to titrate down the oxygen the client's O2 sat dropped to 82% on the vitals machine. The client and her daughter Halle reported to the nurse that she does not normally require oxygen during the day, only at night. The daughter stated that they do not have a portable tank to bring to [facility] to transport the client home with. The client reports having an oxygen concentrator at home. The nurse allowed the client to discharge with the portable O2 tank. The client's daughter Halle agreed to return the Emergency Department's tank. The nurse encouraged the client to return to the ED if her respiratory symptoms worsened.
== END 2025-02-17 13:40 | disposition home or self-care (01) ==
PROVIDERS: Emergency Provider Emergency Medicine; PCP Family Medicine
DX: F32.A Depression, unspecified (principal); Z79.82 Long term (current) use of aspirin; F17.210 Nicotine dependence, cigarettes, uncomplicated; E78.5 Hyperlipidemia, unspecified; J44.9 Chronic obstructive pulmonary disease, unspecified; E11.22 Type 2 diabetes mellitus with diabetic chronic kidney disease; I13.0 Hypertensive heart and chronic kidney disease with heart failure and stage 1 through stage 4 chronic kidney disease, or unspecified chronic kidney disease; N18.30 Chronic kidney disease, stage 3 unspecified; I50.9 Heart failure, unspecified
CPT/HCPCS: 99285

== ENCOUNTER 2025-03-05 12:07 | Emergency (ER) | payer OTHER, MEDICAID, SELFPAY ==
[2025-03-05 12:14] VITALS: BP 156/86; PULSE 85; RESP 16; TEMP 36.6; O2SAT 85; BMI 42.0
--- NOTE | 2025-03-05 12:19 | PC.NURSE ---
PATIENT WEARS O2 AT BASELINE, EMS LEFT PATIENT WITHOUT O2 SITTING IN HB. MOVED TO ROOM 8. PATIENT O2 SATURATION 85% ON RA. PATIENT PLACED ON 4 L NC TO BRING PATIENT BACK TO BASELINE.
--- NOTE | 2025-03-05 12:24 | ECG_ITS ---
[facility] Test Date: 2025-03-05 Pat Name: Bridget Faye Department: Room: Gender: Female [employer]: : 1955 Requested By: Sahil Nevarez Order Number: [id number] Darling MD: Warner Eugene M.D. Measurements Intervals [place] Rate: 77 P: 37 [place]: 214 QRS: 100 QRSD: 99 T: 29 QT: 418 QTc: 475 Interpretive Statements SINUS RHYTHM WITH FIRST DEGREE AV BLOCK WITH OCCASIONAL SUPRAVENTRICULAR PREMATURE COMPLEXES POSSIBLE LEFT ATRIAL ENLARGEMENT [-0.1mV P-WAVE IN V1/V2] BORDERLINE RIGHT AXIS DEVIATION [QRS AXIS > 90] Compared to ECG 11/24/2024 12:47:30 No significant changes Electronically Signed On 03-07-2025 12:03:21 CDT by Warner Eugene M.D. [email or web address]
--- NOTE | 2025-03-05 12:36 | ED.C_ITS ---
HPI - Psych 2 General: Chief Complaint: Psychiatric Symptoms Stated Complaint: SI History of Present Illness: 69 yo F with Hx of congestive heart fail ure (CHF), chronic obstructive pulmonary disease (COPD), hypertension (HTN), sleep apnea, chronic kidney disease stage 3 (CKD3), diabetes mellitus type 2 (DM2), morbid obesity (BMI ~45?49), aortic stenosis, prior hypoxic/hypercapnic respiratory failure, recurrent COPD exacerbations, and non-compliance presents with about 1 month of suicidal thoughts. Pt feels a medication may be contributing; she suspects an SSRI and mentions fluoxetine. Denies taking meds for anxiety. No specific plan described but states being alone and came in because ?sick and tired of feeling this way.? Related Data Home Medications ?Medication ?Instructions ?Recorded ?Confirmed aripiprazole 2 mg tablet (Abilify) 2 mg PO QAM 0 11/24/24 allopurinol 300 mg tablet 300 mg PO QAM 08/22/2111/24 losartan 50 mg tablet 50 mg PO QAM 08/22/21 pantoprazole 40 mg tablet,delayed 40 mg PO QAM 2 11/24/24 release albuterol sulfate 90 mcg/actuation 2 puff inhalation Q 4H PRN 04/07/23 11/24/24 aerosol inhaler Shortness Of Breath aspirin 81 mg tablet,delayed 81 mg PO QAM 04/07/2312/12 release potassium chloride 20 mEq 20 meq PO QAM 04/07/2311/24 tablet,extended release acetaminophen 325 mg tablet 325 mg PO QID PRN 11/24/24 11/24/24 (Tylenol) atorvastatin 40 mg tablet (Lipitor) 40 mg PO DAILY 12/1211/24/24 fluticasone fur. 100 mcg-umeclid 1 inh inhalation NICHO Y 11/24/24 11/24/24 62.5 mcg-vilant 25 mcg inhalat.powder (Trelegy Ellipta) furosemide 80 mg tablet 80 mg PO DAILY 11/24/2411/19 isosorbide mononitrate 30 mg 30 mg PO DAILY 11/24/24 0 11/24/24 tablet,extended release 24 hr nystatin 100,000 unit/gram topical 1 applic topical BI D 11/24/24 11/24/24 cream semaglutide 0.25 mg or 0.5 mg (2 mg SUBCUT 11/24/24 mg/3 mL) subcutaneous pen injector (Ozempic) oxygen-air delivery systems 12/08/24 12/08/24 Previous Rx's ?Medication ?Instructions ?Recorded blood sugar diagnostic (Accu-Chek #100 ea 10/12/23 Quita Plus test strips) blood-glucose meter (Accu-Chek #1 ea 10/12/23 Guide Glucose Meter) fluticasone propionate 45 2 inh inhalation BID #12 gra ms 10/12/23 mcg-salmeterol 21 mcg/actuation HFA inhaler (Advair HFA) lancets (Accu-Chek Fastclix Lancet #200 ea 10/12/23 Drum) amlodipine 5 mg tablet 5 mg PO DAILY #90 tabs 12/08 Allergies Allergy/AdvReac Type Severity Reaction Status Date / Time lisinopril Allergy ALGY-Rash Verified 12/08/24 15:06 Penicillins Allergy ALGY-Hives Verified 12/08/24 15:06 [facility] ED 2 [facility]: Medical History (Updated 02/25/25 @ 00:01 by DORA Odonnell) Congestive heart failure COPD (chronic obstructive pulmonary disease) Hypertension Sleep apnea Non-compliant behavior Acute encephalopathy Acute on chronic respiratory failure with hypoxia and hypercapnia Acute exacerbation of chronic obstructive airways disease Candidal intertrigo Present on admission. Dyspnea on exertion Acute respiratory failure with hypoxia Acute exacerbation of chronic obstructive airways disease Smoker CHF (congestive heart failure), NYHA class III Uncontrolled hypertension Acute and chronic respiratory failure Chronic kidney disease, stage 3 Tobacco abuse Diabetes mellitus type 2 in obese Morbid obesity with BMI of 45.0-49.9, adult Obstructive sleep apnea Congestive heart failure Aortic stenosis Aortic stenosis Obesity Aortic regurgitation Diabetes Hyperlipidemia Surgical History H/O tubal ligation H/O arthroscopic knee surgery Family History Other Diabetes Hypertension Stroke Social History Smoking and tobacco/nicotine status: current every day tobacco/nicotine user cigarettes Packs smoked per day: 0.5 Years cigarettes smoked: 47 [ Other cigarette details: occasionally 1 ppd ] Quit status (tobacco/nicotine): considering quitting Second hand smoke exposure: No Alcohol intake: never Substance/Drug Use: never Lives independently: Yes Household members: none Housing: Apartment Marital status: service: No Current occupational status: disabled Pets and animals: No Do you think of yourself as: Straight/Heterosexual Current gender identity: Female Physical Exam 2 Const: COMMON NORMALS: no acute distress, patient oriented x3 and alert HENMT: COMMON NORMALS: normocephalic and atraumatic HEAD & SCALP: n ormocephalic and atraumatic Eye: COMMON NORMALS: Equal, round and reactive pupils present, EOMs intact bilaterally and no scleral icterus PUPIL: Yes Equal, round and reactive pupils present Resp: OTHER: Mild wheezes at both lung bases, borderline tachypneic, very mild respiratory distress able to speak in full sentences on 2 L nasal cannula Cardio: OTHER: Borderline tachycardic, regular rhythm, no murmur GI: COMMON NORMALS: Normal to inspection, nondistended, normoactive bowel sounds present, Soft to palpation and non-tender PALPATION: Yes Soft to palpation Neuro: COMMON NORMALS: patient oriented x3 SENSORIUM/ORIENTATION: Yes alert Psych: OTHER: Admits vague SI without plan. No HI. No delusions or hallucinations. Skin: COMMON NORMALS: no rashes or lesions noted GENERAL SKIN EXAM: no rashes or lesions noted Course 2 Vital Signs: Vital signs: Vital Signs Temperature 97.9 F 03/05/25 12:14 Pulse Rate 79 03/05/25 19:22 Respiratory Rate 16 03/05/25 12:14 Blood Pressure 168/74 03/05/25 19:22 Pulse Oximetry 90 03/05/25 19:22 Oxygen Delivery Me thod Nasal Cannula 03/05/25 19:22 Oxygen Flow Rate 3 03/05/25 19:22 MDM - Psych Medical Decision Making 69 yo F with extensive cardiac/pulmonary comorbidities presents with SI x1 month, suspects med contribution (SSRI; mentions fluoxetine). No specific plan stated; lives alone. Breathing subjectively ?okay.? PE: mild wheezes, mild tachypnea, obese, no crackles, borderline tachycardia. EKG interpreted by me: Time?1228?sinus rhythm, first-degree block with infrequent PS sees, rate of 77, no ST segment elevation or depression, no T wave inversions, QTc = 450 DDx discussed includes medication-induced suicidal ideation possibly related to SSRI as noted by clinician, versus primary mood disorder. Patient has been observed several times walking to from the bathroom without requiring oxygen supplementation. She has no acute distress and I do not suspect any medical problem requiring medical intervention other than her psychiatric complaint. Given her age and oxygen requirement she is not able to be admitted here at our facility and staff will attempt to find a geriatric psychiatric unit that can vomiting her. I believe she will require 2 L nasal cannula oxygen at baseline but she appears to be stable and at her baseline and able to perform activities of daily living. She is compliant and wishes to undergo inpatient psychiatric therapy. Pertinent details of the case were shared with the [facility] emergency physician who will help facilitate ultimate disposition based on bed availability given her age and oxygen requirement. Lab Data 03/05/25 12:40 03/05/25 12:40 Radiology Impressions Chest X-Ray 03/05/25 17:10 IMPRESSION: 1. Cardiomegaly and mild pulmonary vascular congestion. 2. Left lower lobe atelectasis versus infiltrate. Laboratory Results WBC 13.09 10^3/uL (3.29-11.43) H 03/05/25 12:40 RBC 5.24 10^6/uL (3.85-5.65) 03/05/25 12:40 Hgb 13.30 g/dL (11.27-16.99) 03/05/25 12:40 Hct 43.9 % (36-47) 03/05/25 12:40 MCV 83.8 fl (85-98) L 03/05/25 12:40 MCH 25.4 pg (27-33) L 03/05/25 12:40 MCHC 30.3 g/dL (30-55) 03/05/25 12:40 RDW 19.8 % (12.1-15.1) H 03/05/25 12:40 Plt Count 300 10^3/cmm (157-399) 03/05/25 12:40 MPV 9.5 fL (7.4-10.4) 03/05/25 12:40 Neut % (Auto) 77.4 % 03/05/25 12:40 Lymph % (Auto) 17.0 % 03/05/25 12:40 [place] % (Auto) 4.4 % 03/05/25 12:40 Eos % (Auto) 0.5 % 03/05/25 12:40 Baso % (Auto) 0.4 % 03/05/25 12:40 Neut # (Auto) 10.14 10^3/uL (1.8-7.7) H 03/05/25 12:40 Lymph # (Auto) 2.2 10^3/uL (0.8-4.8) 03/05/25 12:40 [place] # (Auto) 0.6 10^3/uL (0.2-0.9) 03/05/25 12:40 Eos # (Auto) 0.1 10^3/uL (0.0-0.8) 03/05/25 12:40 Baso # (Auto) 0.1 10^3/uL (0.0-0.1) 03/05/25 12:40 Nucleated RBC % (auto) 0 % 03/05/25 12:40 Nucleated RBCs # 0.0 /100WBC 03/05/25 12:40 Sodium 137 mmol/L (136-145) 03/05/25 12:40 Potassium 3.4 mmol/L (3.5-5.1) L 03/05/25 12:40 Chloride 93 mmol/L (98-107) L 03/05/25 12:40 Carbon Dioxide 31 mmol/L (22-29) H 03/05/25 12:40 Anion Gap 16.4 (5-19) 03/05/25 12:40 BUN 34 mg/dL (8-23) H 03/05/25 12:40 Creatinine 1.7 mg/dL (0.5-0.9) H 03/05/25 12:40 GFR Calculation 29.8 mL/min (90-130) L 03/05/25 12:40 Glucose 153 mg/dL (65-115) H 03/05/25 12:40 Calculated Osmolality 295 mOsm/kg (285-295) 03/05/25 12:40 Calcium 8.9 mg/dL (8.5-10.5) 03/05/25 12:40 Total Bilirubin 0.3 mg/dL (0.15-1.2) 03/05/25 12:40 AST 13 U/L (0-32) 03/05/25 12:40 ALT 12 U/L (0-33) 03/05/25 12:40 Alkaline Phosphatase 150 U/L (35-105) H 03/05/25 12:40 Total Protein 7.6 g/dL (6.6-8.7) 03/05/25 12:40 Albumin 3.1 g/dL (3.5-5.2) L 03/05/25 12:40 Globulin 4.5 g/dL (1.3-4.6) 03/05/25 12:40 Urine Color Yellow (Yellow) 03/05/25 15:41 Urine Appearance Clear (CLEAR) 03/05/25 15:41 Urine pH 5.5 (5-7) 03/05/25 15:41 Ur Specific [place] 1.008 (1.005-1.030) 03/05/25 15:41 Urine Protein 2+ (Negative) A 03/05/25 15:41 Urine Glucose (UA) Negative (Normal) 03/05/25 15:41 Urine Ketones Negative (Negative) 03/05/25 15:41 Urine Blood Trace (Negative) A 03/05/25 15:41 Urine Nitrate Negative (Negative) 03/05/25 15:41 Urine Bilirubin Negative (Negative) 03/05/25 15:41 Urine Urobilinogen 0.2 mg/dL (Negative) 03/05/25 15:41 Ur Leukocyte Esterase Negative (Negative) 03/05/25 15:41 Urine RBC 0-2 /hpf (0-2) 03/05/25 15:41 Urine WBC 0-5 /hpf (0-5) 03/05/25 15:41 Ur Squamous Epith Cells 0-5 /hpf (0-5) 03/05/25 15:41 Amorphous Sediment Not Reportable 03/05/25 15:41 Urine Bacteria None seen /hpf (NONE) 03/05/25 15:41 Hyaline Casts 2.05 /lpf 03/05/25 15:41 Salicylates < 0.3 mg/dL (3-10) L 03/05/25 12:40 Urine Opiates Screen Negative ng/mL (Negative) 03/05/25 15:41 Acetaminophen < 5.0 ug/mL (10-30) L 03/05/25 12:40 Ur Barbiturates Screen Negative ng/mL (Negative) 03/05/25 15:41 Ur Phencyclidine Scrn Negative ng/mL (Negative) 03/05/25 15:41 Ur Amphetamines Screen Negative ng/mL (Negative) 03/05/25 15:41 U Benzodiazepines Scrn Negative ng/mL (Negative) 03/05/25 15:41 Urine Cocaine Screen Negative ng/mL (Negative) 03/05/25 15:41 U Marijuana (THC) Screen Negative ng/mL (Negative) 03/05/25 15:41 Ethyl Alcohol < 10 mg/dL (0-10) 03/05/25 12:40 All radiology interpretation(s) finalized by discharge Discharge Plan Discharge Condition: Stable Prescriptions: No Action atorvastatin [Lipitor] 40 mg tablet 40 mg PO DAILY acetaminophen [Tylenol] 325 mg tablet 325 mg PO QID PRN isosorbide mononitrate 30 mg tablet extended release 24 hr 30 mg PO DAILY furosemide 80 mg tablet 80 mg PO DAILY nystatin 100,000 unit/gram cream 1 applic topical BID Trelegy Ellipta 100-62.5-25 mcg blister with device 1 inh inhalation DAILY Ozempic 0.25 mg or 0.5 mg (2 mg/3 mL) pen injector SUBCUT (DME) oxygen-air delivery systems Device See Rx Instructions .ROUTE Rx Instructions: As directed amlodipine 5 mg tablet 5 mg PO DAILY Qty: 90 3RF aripiprazole [Abilify] 2 mg Tablet 2 mg PO QAM allopurinol 300 mg tablet 300 mg PO QAM losartan 50 mg tablet 50 mg PO QAM pantoprazole 40 mg tablet,delayed release (DR/EC) 40 mg PO QAM aspirin 81 mg Tablet,Delayed Release (Dr/Ec) 81 mg PO QAM albuterol sulfate 90 mcg/actuation HFA aerosol inhaler 2 puff INHALATION Q4H PRN (Reason: Shortness Of Breath) potassium chloride 20 mEq tablet extended release 20 meq PO QAM (DME) blood-glucose meter [Accu-Chek Guide Glucose Meter] Misc See Rx Instructions .Route Qty: 1 0RF Rx Instructions: As directed (DME) lancets [Accu-Chek Fastclix Lancet Drum] Misc See Rx Instructions .Route Qty: 200 2RF Rx Instructions: As directed (DME) Accu-Chek Quita Plus test strp Strip See Rx Instructions .Route Qty: 100 2RF Rx Instructions: As directed fluticasone propion-salmeterol [Advair HFA] 45-21 mcg/actuation HFA aerosol inhaler 2 inh inhalation BID Qty: 12 3RF Referrals: Jhony Cantu MD [Primary Care Provider, Family Practice] Print Language: Bruneian Coding Level of Care Code ED Put In Beat Adjuster for Chg Lou
[2025-03-05 12:47] LABS: Hematocrit 43.9 % (36-47); Hemoglobin 13.30 g/dL (11.27-16.99); Mean Corpuscular HGB Conc 30.3 g/dL (30-55); Mean Corpuscular Hemoglobin 25.4 pg (27-33); Mean Corpuscular Volume 83.8 fl (85-98); Nucleated Red Blood Cells % 0 %; Platelet Count 300 10^3/cmm (157-399); Red Blood Count 5.24 10^6/uL (3.85-5.65); White Blood Count 13.09 10^3/uL (3.29-11.43)
--- OUTSIDE RECORDS SUMMARY | 2025-03-05 13:02 | XMS_ITS | Data Portability ---
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 [email or web address] Not available 10/28/2024 10:05:14 11/25/2024 11/25/2024 she [...] sugar logs and her echo set up. [email or web address] Not available 11/25/2024 10:58:05 02/03/2025 02/03/2025 overall compliance remains poor she has not been checking her sugars. she has the log, her daughter just ordered her a new testing device. she will call with sugars when she has 5 days or so. she walks a lot all over the house which i encouraged her to continue. she says about a mile per day. [email or web address] Not available 02/03/2025 11:19:42 Plan of Treatment Reminders Order Date Submit Date Provider Last Modified By Organization Details Last Modified Time Details Appointments OFFICE VISIT CRISTINO 2024 09:30A M Reina Cantu MD Not available Not available Not available Lab urinalysi s, dipstick 2024 025 [email or web address] [facility] ([facility]), [address] [place], [address], 01/14/2025 15:56:33 culture, urine 2024 025 [employer] [facility], [address] [place] [address], [facility] [address] [place], [address], 01/15/2025 22:07:02 Referral pulmonolo gist referral 2024 025 [email or web address] [facility] - Dr Datar, [address] [place] [address] [address], [address], 03/05/2025 13:46:46 Procedures None recorded. Surgeries None recorded. Imaging LDCT, chest, for lung cancer screening - due 2024 025 [email or web address] [facility], [address] [place] [address], [address], 02/24/2025 10:14:49 US, echocardi ogram 2024 025 [email or web address] [facility], [address] [facility], [place], [address], 12/10/2024 07:59:55 Medication Orders fluticaso ne propionat e 50 mcg/actua tion nasal spray,minnie storeyon 2024 025 [id number] [address] [facility] [address], [address], [place], [address], 02/18/2025 12:04:46 fluoxetin e 40 mg capsule 2024 025 [facility] #[id number], [address] [facility] [address], [address], [place], [address], 02/18/2025 12:03:03 Abilify 5 mg tablet 2024 025 [id number], [address] [facility] [address], [facility] [address], [place], [address], 02/18/2025 12:03:02 Prolia 60 mg/mL subcutane ous syringe 2024 025 [facility] #[id number], [address] [facility], [address], [place], [address], 02/11/2025 05:01:51 cefdinir 300 mg capsule 2024 025 [facility] #[id number], [address] [facility], [address], [place], [address], 01/28/2025 05:01:22 Diflucan 150 mg tablet 2024 025 [facility] #[id number], [address] [facility], [address], [place], [address], 01/22/2025 05:01:28 fluoxetin e 20 mg capsule 2024 025 [facility] #[id number], [address], [address], [place], [address], 11/25/2024 10:45:10 Tresiba FlexTouch U-200 insulin 200 unit/mL (3 mL) subcutane ous pen 2024 025 [facility][id number], [address], [address], [place], [address], 10/28/2024 10:05:14 Patient TargetsNo targets recorded. 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 Referral for P ulmonary hypertension Referring Physician: Reina Cantu, Family Medicine, Encounter Date: 02/03/2025 Results Created Date Observation Date Name Description Value Unit Range Abnormal Flag Note LastModifiedBy Organization Detail LastModifiedTime 10/17/1910/16/2024 CBC WBC 14.5 x10 4.0-10 .5 high Not Available [facility] [address], [place], [address], 10/16/2024 08:39:57 10/17/1910/16/2024 CBC RBC 5.06 x10 3.50-5 .50 Not Available [facility] [address], [place], [address], 10/16/2024 08:39:57 10/17/1910/16/2024 CBC HGB 14.0 g/dL 12.0-1 6.0 Not Available [facility] [address], [place], [address], 10/16/2024 08:39:57 10/17/1910/16/2024 CBC HCT 45.3 % 37.0-4 7.0 Not Available [facility] [address] [facility] [address] [address], [place], [address], 10/16/2024 08:39:57 10/17/1910/16/2024 CBC MCV 89.5 fL 80.0-9 9.9 Not Available [facility] [address] [facility] [address] [facility] 1, [place], [address], 10/16/2024 08:39:57 10/17/1910/16/2024 CBC MCH 27.7 pg 27.0-3 2.0 Not Available [facility] [address] [facility] [address] [facility] 1, [place], [address], 10/16/2024 08:39:57 10/17/1910/16/2024 CBC MCHC 30.9 g/dL 32.0-3 6.0 low Not Available [facility] [address] [place] [address] [facility] 1, [place], [address], 10/16/2024 08:39:57 10/17/1910/16/2024 CBC RDW 16.1 % 11.5-1 4.5 high Not Available [facility] [address] [facility], [place], [address], 10/16/2024 08:39:57 10/17/1910/16/2024 CBC plt 330.0 x10 140.0- 451.0 Not Available [facility] [address] [facility] [address] [facility] [address], [place], [address], 10/16/2024 08:39:57 10/17/1910/16/2024 CBC lymphocytes % 13.2 % 20.0-5 0.0 low Not Available [facility] [address] [facility] [address] 1, [place], [address], 10/16/2024 08:39:57 10/17/19 25 10/16/2024 CBC granulcytes % 83.3 % 30.0-7 0.0 high Not Available [facility] [address] [facility] [address] [facility] 1, [place], [address], 10/16/2024 08:39:57 10/17/1910/16/2024 CBC monocytes % 2.6 % 2.0-16 .0 Not Available [facility] [address] [address], [place], [address], 10/16/2024 08:39:57 10/17/1910/16/2024 CBC granulcytes# 12.1 x10 Not Esther ilable [facility] [address] [address], [place], [address], 10/16/2024 08:39:57 10/17/1910/16/2024 CBC lymphocytes # 1.9 x10 Not Available [facility] [address] [address], [place], [address], 10/16/2024 08:39:57 10/17/1910/16/2024 CBC monocytes # 0.4 x10 Not Avai lable [facility] [address] [address], [place], [address], 10/16/2024 08:39:57 10/17/1910/16/2024 HBA1C hemaglobin A1C 11.5 4.2-6. 5 high Not Available [facility] [address] [address], [place], [address], 10/16/2024 08:48:46 10/17/1910/16/2024 CMP (FEMA LE) glucose 418.0 mg/dL 60.0-9 9.0 high Not Available [facility] [address] [facility] [address], [place], [address], 10/16/2024 09:33:00 10/17/1910/16/2024 CMP (FEMA LE) BUN (blood urea nitrogen) 49.0 mg/dL 10.0-2 6.0 high Not Available [facility] [address] [facility] 1, [place], [address], 10/16/2024 09:33:00 10/17/1910/16/2024 CMP (FEMA LE) creatinine (serum) 2.0 mg/dL 0.4-1. 5 high Not Available [facility] [address] [facility] [address], [place], [address], 10/16/2024 09:33:00 10/17/1910/16/2024 CMP (FEMA LE) BUN/creatini ne ratio 24.50 ratio Not Available [facility] [address] [facility] 1, [place], [address], 10/16/2024 09:33:00 10/17/1910/16/2024 CMP (FEMA LE) eGFR calculated 26.3 Not Available [facility] [address] [facility] 1, [place], [address], 10/16/2024 09:33:00 10/17/1910/16/2024 CMP (FEMA LE) total protein 7.7 g/dL 6.0-8. 5 Not Available [facility] [address] [facility] 1, [place], [address], 10/16/2024 09:33:00 10/17/1910/16/2024 CMP (FEMA LE) total bilirubin 0.4 mg/dL 0.2-1. 3 Not Available [facility] [address] [facility] 1, [place], [address], 10/16/2024 09:33:00 10/17/19 25 10/16/2024 CMP (FEMA LE) albumin 3.7 g/dL 3.5-5. 5 Not Available [facility] [address] [facility], [place], [address], 10/16/2024 09:33:00 10/17/1910/16/2024 CMP (FEMA LE) globulin 4.0 calc Not Available [facility] [address] [facility] [address], [place], [address], 10/16/2024 09:33:00 10/17/1910/16/2024 CMP (FEMA LE) AST (SGOT) 16.0 U/L 0.0-46 .0 Not Available [facility] [address] [facility] [address], [place], [address], 10/16/2024 09:33:00 10/17/1910/16/2024 CMP (FEMA LE) altv (SGPT) 17.0 U/L 13.0-6 9.0 normal Not Available [facility] [address] [facility] [address], [place], [address], 10/16/2024 09:33:00 10/17/1910/16/2024 CMP (FEMA LE) A/G ratio 0.9 ratio Not Available [facility] [address] [facility] [address], [place], [address], 10/16/2024 09:33:00 10/17/1910/16/2024 CMP (FEMA LE) ALP phos 176.0 U/L 30.0-1 40.0 abnormal Not Available [facility] [address] [facility] 1, [place], [address], 10/16/2024 09:33:00 10/17/1910/16/2024 CMP (FEMA LE) calcium 9.2 mg/dL 8.4-10 .5 Not Available [facility] [address] [facility] 1, [place], [address], 10/16/2024 09:33:00 10/17/1910/16/2024 CMP (FEMA LE) sodium 134.0 mmol/ L 136.0- 145.0 low Not Available [facility] [address] [facility] 1, [place], [address], 10/16/2024 09:33:00 10/17/1910/16/2024 CMP (FEMA LE) potassium 3.2 mmol/ L 3.5-5. 1 low Not Available [facility] [address] [facility] 1, [place], [address], 10/16/2024 09:33:00 10/17/1910/16/2024 CMP (FEMA LE) chloride 97.0 mmol/ L 98.0-1 10.0 abnormal Not Available [facility] [address] [facility] 1, [place], [address], 10/16/2024 09:33:00 10/17/1910/16/2024 CMP (FEMA LE) C02 29.0 mmol/ L 22.0-3 1.0 Not Available [facility] [address] [facility] 1, [place], [address], 10/16/2024 09:33:00 10/17/1910/16/2024 CMP (FEMA LE) anion gap 8.0 calc Not Available [facility] [address] [facility] 1, [place], [address], 10/16/2024 09:33:00 10/17/1910/16/2024 CMP (FEMA LE) osmolality 305.2 calc Not Available [facility] [address] [facility] 1, [place], [address], 10/16/2024 09:33:00 10/17/1910/17/2024 URIC ACID uric acid 6.1 mg/dL 2.5-7. 0 normal Thera peutfroylan tariq targe t for gout patie nts: <6.0 mg/dL Not Available [address] [address] [place], [address], 10/17/2024 21:57:25 10/17/19 25 10/17/2024 ALBUM IN, RANDO M URINE W/CRE ATINI NE creatinine, random urine 85 mg/dL 20-275 normal Not Available [address], [address], 10/17/2024 21:57:26 10/17/19 25 10/17/2024 ALBUM IN, RANDO M URINE W/CRE ATINI NE albumin, urine 222.4 mg/dL see note: normal Refer ence Range : Refer ence Range Not estab lishe d Verif ied by repea t loraine sis. Not Available [address], [address], 10/17/2024 21:57:26 10/17/19 25 10/17/2024 ALBUM IN, [...] a diagn ostic categ ory. Not Available [address] [place], [address], 10/17/2024 21:57:26 10/17/1910/17/2024 PTH, INTAC T WITHO [...] or Low Caryl l High Not Available [employer] [address] [address] [place], [address], 10/17/2024 21:57:27 10/17/1910/17/2024 VITAM IN D,25- [place],TO [...] /MS is recom finn d: order code 82032 (martha ents >2yrs ). See Note 1 Note 1 For addit ional infor juany stephens refer to http: //bairon Coyne stDia gnost ics.c om/fa q/FAQ 199 (This link is being provi ded for infor viola coffman/ educsera gaston purpo ses only. ) Not Available [employer] [facility] [address] [place], [address], 10/17/2024 21:57:28 01/15/20 25 01/15/2025 CULTU RE, URINE , ROUTI NE culture, urine, routine SEE NOTE CULTU RE, URINE , ROUTI NE Micro Numbe r: [id number] Test Statu s: Final Speci men [...] Cultu re Trans port Tube. Not Available [facility] [address] [place], [address], 01/15/2025 22:07:02 01/15/20 25 01/14/2025 urina lysis , dipst ick Leukocytes Trace Not Available [facility] [address] [place] [address], [address], 01/14/2025 14:29:19 01/15/20 25 01/14/2025 urina lysis , dipst ick Nitrite negati ve Not Available [facility] ([facility]) [address] [place] [address], [address], 01/14/2025 14:29:19 01/15/20 25 01/14/2025 urina lysis , dipst ick Urobilinogen .2 Not Available [facility] ([facility]) [address] [place] [address], [address], 01/14/2025 14:29:19 01/15/20 25 01/14/2025 urina lysis , dipst ick Protein 300 Not Available [facility] ([facility]) [address] [place], [address], 01/14/2025 14:29:19 01/15/20 25 01/14/2025 urina lysis , dipst ick pH 5.5 Not Available [facility] ([facility]) [address] [place], [address], 01/14/2025 14:29:19 01/15/20 25 01/14/2025 urina lysis , dipst ick Blood Small Not Available [facility] ([facility]) [address] [place], [address], 01/14/2025 14:29:19 01/15/20 25 01/14/2025 urina lysis , dipst ick Specific [place] 1.015 Not Available [facility] ( [facility]) [address] [place], [address], 01/14/2025 14:29:19 01/15/20 25 01/14/2025 urina lysis , dipst ick Ketone Negati ve Not Available [facility] ([facility]) [address] [place], [address], 01/14/2025 14:29:19 01/15/20 25 01/14/2025 urina lysis , dipst ick Bilirubin Negati ve Not Available [facility] ([facility]) [address] [place], [address], 01/14/2025 14:29:19 01/15/20 25 01/14/2025 urina lysis , dipst ick Glucose Negati ve Not Available [facility] ([facility]) [address] [place], [address], 01/14/2025 14:29:19 01/15/20 25 01/14/2025 urina lysis , dipst ick Appearance Clear Not Available [facility] ( [facility] [address] [place], [address], 01/14/2025 14:29:19 01/15/20 25 01/14/2025 urina lysis , dipst ick Color Yellow Not Available [facility] ([facility]) [address] [place], [address], 01/14/2025 14:29:19 11/30/19 25 11/17/2024 US, echo ardio gram No observ ation record ed. [email or web address] [place], [address], 12/01/2024 10:32:48 01/27/20 25 01/26/2025 US, echo ardio gram No observ ation record ed. [address] [facility] Orders [address] [place], [address], 02/03/2025 11:12:32 02/03/20 25 02/02/2025 DEXA No observ ation record ed. [address] [place], [address], 02/03/2025 11:12:24 Result Notes None recorded. Problems Name Problem SNOMED Code Status Onset Date Resolution Date Notes Provider Name and Address Organization Details Recorded Time Type 2 diabetes mellitus without complica tion 050979380 Completed 202111/03/2021 DIABETES MELLITUS , TYPE II - Status is Inactive ; Recorded 11/04/19 11:14AM by Betzy Perry LPN, Annotati on/Adden dum; Promoted ; acuity set as *; Not Available [employer] 3 03:07:34 Restrict cabrera lung disease 33137648 Active 2021 Restrict cabrera lung disease; 05/04/20 22 9:09AM by Betzy Perry LPN, Office Visit; Promoted ; acuity set as *; Jyotsna Donald [facility] 5 11:20:19 Chronic kidney disease stage 3B 025885438 Active 2021 Jyotsna Britoobloch leonie, [facility] 5 11:20:19 Pulmonar y hyperten altaf 83493996 Active 2021 PULMONAR Y HYPERTEN ALTAF; Recorded 05/04/20 7:34AM by Betzy Perry LPN, Office Visit; Promoted ; acuity set as *; Jyotsna Britoobloch leonie, [facility] 5 11:20:19 Hyperten sive disorder 48742074 Active 2021 HYPERTEN ALTAF; Recorded 05/04/20 7:36AM by Betzy Perry LPN, Office Visit; Promoted ; acuity set as *; Jyotsna hadley, [facility], Rabia.L.CLex 5 11:20:19 Aortic stenosis , non-rheu matic 519086346 Active 2021 MODERATE AORTIC STENOSIS ; Recorded 05/04/20 7:34AM by Betzy Perry LPN, Office Visit; Promoted ; acuity set as *; Jyotsna hadley, [facility] 5 11:20:19 Type 2 diabetes mellitus 96868267 Active 2022 BETZY hadley, [facility] 3 10:36:22 Chronic obstruct cabrera pulmonar y disease 08144105 Active 2022 BETZY hadley, [facility] 3 10:36:29 Chronic diastoli c heart failure 423288962 [facility] 2022 [facility] 10:36:44 Obstruct cabrera sleep apnea syndrome 30967631 Active 2022 BETZY hadley, [facility] 3 10:36:57 Major depressi ve disorder 744508868 Active 2022 BETZY VICKY null, [facility] 3 10:37:20 Hyperpar athyroid ism due to renal insuffic iency 87305017 Active 2023 Jyotsna Donald null, [facility] 5 11:20:19 Moderate aortic valve stenosis 747812153 Active 2023 Jyotsna Donald null, [facility] 5 11:20:19 Chronic kidney disease due to type 2 diabetes mellitus 64599258146 8 Active 2023 Jyotsna hadley, [facility].L[facility]CL[facility] 5 11:20:19 Nicotine dependen ce 18178657 Active 2023 Jyotsna Donald null, [facility] 5 11:20:19 Gout 60860998 Active 2023 Jyotsna Donald null, [facility] 5 11:20:19 Screenin g mammogra phy Completed 202309/19/2024 Jyotsna Donald null, [facility] 5 11:20:24 Patient noncompl iance - general 676772070 Active 2023 Reina Cantu MD [address] [place] [address], [address] , [facility] 5 10:01:47 Thyroid nodule 284231027 Active 2023 Jyotsna Donald null, [facility] 5 11:20:19 Dependen t personal ity disorder 25898777 Active 2023 Reina Cantu MD [address] [place], [address] , [facility] 09:41:30 Severe obesity 47221927156 104 Active 2023 Jyotsna Shabana [facility] 5 11:20:19 Essentia l hyperten altaf 49350188 Active 2024 Jyotsna Shabana [facility], [facility] 11:20:19 Enmeshed attachme nt 178107313 Active 2024 Jyotsna Shabana [facility] 11:20:19 Senile osteopor osis 39195283 Active 2024 Reina Cantu MD [address] [place] [address], [address] , [facility] 11:17:47 Problem Notes None recorded. Procedures Surgical History Date Name Laterality Status Provider Name and Address Organization Details Recorded Time 06/12/19 25 echocardiography completed BETZY PERRY [facility] 06/13/2024 14:13:16 03/02/20 22 Colonoscopy completed BETZY PERRY [facility] 02/04/2024 11:38:33 Tubal Ligation completed BETZY PERRY [facility] 02/04/2024 11:37:27 arthroscopy of knee completed Agnes Zamorano [facility] 11/25/2024 10:34:22 Imaging Results None recorded. Procedure Notes None recorded. Medical Equipment None Reported. Allergies Allergen ID Allergen Name Allergen Category Reaction Reaction Severity Criticality Documentation Date Start Date Code Code System Note Provider Name and Address Organization Details Recorded Time 157 lisinopri l medicatio n Not available Not available Not available 08/08/2022 73068 RxNorm BETZY hadley, [facility] 3 10:35:58 158 Product containin g penicilli n (product) medicatio n Not available Not available Not available 08/08/2022 73481 8001 SNOMED BETZY VICKY leonie, [facility] 3 10:36:06 66482 penicilli n V potassium medicatio n Not available Not available Not available 12/16/202204940 5 RxNorm Comme nt: Recor ded 05/04 7:34A M by Cornelia Brar on, MAT PUNCHER, Offic e Visit ; Gena sanchez; Fiorella hinojosa ce: *; Reaso n: Drug aller gy; ; BETZY PERRY leonie, [facility] 4 11:35:46 Medications Name Sig Start Date Stop Date Status Note LastModified by Organization Details LastModified Time losartan 50 mg tablet TAKE 1 TABLET BY MOUTH EVERY DAY 02/18 completed Not Available Not Available Not Available fluoxetin e 40 mg capsule TAKE 1 CAPSULE BY MOUTH EVERY DAY active Not Available Not Available No t Available atorvasta tin 40 mg tablet Take 1 tablet every day by oral route. 02/18 completed Not Available Not Available Not Available ipratropi um 0.5 mg-albute rol 3 mg [...] DAILY FOR 1 WEEK THEN DISCONTI NUE 02/18 completed Not Available Not Available Not Available Tylenol 325 mg tablet every 6 [...] Not Available Not Available No t Available fluticaso ne propionat e 50 mcg/actua tion nasal spray,minnie pension SPRAY 1 SPRAY INTO EACH NOSTRIL EVERY DAY FOR 30 DAYS active Not Available Not Available No [...] Available Not Available Not Available aripipraz ole 5 mg tablet TAKE 1 TABLET BY MOUTH EVERY DAY FOR 30 DAYS active Not Available Not Available No t Available OneTouch UltraSoft Lancets 05/06 completed Not [...] hours 02/05 completed vo JR/tn; Recorded 02/03/20 22 [...] TAKE 1 TABLET BY MOUTH EVERY DAY 02/18 completed Not Available Not Available Not Available Levemir U-100 Insulin daily 02/03 completed 436; Recorded 08/18/19 22 5:06PM by Vika Gonzalez LPN (Authori sunitha through Reina Cantu MD), Office Visit; Refill [...] tablet twice a day by oral route. 02/18 completed Not Available Not Available Not Available Stiolto Respimat 2.5 mcg-2.5 mcg/actua tion [...] Ozempic weekly 02/05 completed 436; Recorded 08/18/19 5:06PM by Vika Gonzalez LPN (Authori sunitha through Reina Cantu MD), Office Visit; Refill Quantity : 0; Not Available Not Available Not Available BD Jessica 2nd Gen Pen Needle 32 gauge x 5/32 USE DIRECTED . active Not Available Not [...] Updated DateTime 5 152.4 cm 45.7 kg/m2 122947. 61 g 97.3 [degF] 81 /min 95 % 95 % 140/82 mm[Hg] BETZY PERRY [facility], .LWinter 06/10/202 5 09:09:18 Date Recorded Body height Body mass index (BMI) Body weight Oxygen saturation Oxygen saturation in Arterial blood by Pulse oximetry Heart rate Respiratory rate Body temperature Systolic And Diastolic Provider Name and Address Organization Details Last Updated DateTime 5 152.4 cm 45.1 kg/m2 508330. 84 g 88 % 88 % 81 /min 24 /min 97.1 [degF] 160/96 mm[Hg] Agnes Zamorano [facility] 5 10:31:04 Date Recorded Body height Body mass index (BMI) Body weight Respiratory rate Oxygen saturation Oxygen saturation in Arterial blood by Pulse oximetry Heart rate Body temperature Systolic And Diastolic Provider Name and Address Organization Details Last Updated DateTime 5 152.4 cm 43.4 kg/m2 410815. 91 g 20 /min 90 % 90 % 80 /min 98.1 [degF] 150/90 mm[Hg] ROSS COLYE [facility].L[facility]CLex 5 14:34:37 Date Recorded Body height Body [...] Updated DateTime 5 152.4 cm 43.6 kg/m2 245457. 1 g 97.7 [degF] 83 /min 83 % 83 % 86 % 86 % 2 L/min 89 % 89 % BETZY [facility] 5 11:07:10 Date Recorded Inhaled oxygen flow rate Oxygen saturation Oxygen saturation in Arterial blood by Pulse oximetry Inhaled oxygen flow rate Systolic And Diastolic Provider Name and Address Organization Details Last Updated DateTime 5 3 L/min 90 % 90 % 4 L/min 123/80 mm[Hg] BETZY PERRY [facility] 5 11:04:08 Date Recorded Body height Body mass index (BMI) Body weight Body temperature Oxygen saturation Oxygen saturation in Arterial blood by Pulse oximetry Heart rate Oxygen saturation Oxygen saturation in Arterial blood by Pulse oximetry Inhaled oxygen flow rate Systolic And Diastolic Provider Name and Address Organization Details Last Updated DateTime 152.4 cm 45.1 kg/m2 950950. 84 g 97.5 [degF] 83 % 83 % 77 /min 89 % 89 % 2 L/min 158/94 mm[Hg] Jyotsna Donald [facility] 11:48:02 Social History Question Answer Notes LastModified by [employer] Details LastModified Time Tobacco Smoking Status Current Every Day Sm[facility] 08/08/2022 10:41:53 What Was The Date Of Your Most Recent Tobacco Screening? 10/28/2024 Information not available 10/28/2024 What Is Your Current Pack Years? 30ormorepack years [email or web address] Information not available 12/12/2022 How Much Tobacco Do You Smoke? 0.5 PPD Information not available 02/03/2025 Has Tobacco Cessation Counseling Been Provided? Yes [email or web address] Information not available 08/08/2022 How Many Years Have You Smoked Tobacco? 50 [email or web address] Information not available 12/12/2022 Sex: Unknown Functional Status Question Answer Note LastModified by [employer] Details LastModified Time Do you use any illicit or recreational drugs? No Information not available 09/15/2024 Do you or have you ever used any other forms of tobacco or nicotine? No Information not available 01/14/2025 What is your level of alcohol consumption? None Information not available 09/15/2024 Do you or have you ever used any nicotine-free cigarettes, vape, or chewing tobacco? No [email or web address] Information not available 01/14/2025 Mental Status None recorded. Family History Relationship Description Onset Age of this Age Resolved Age Notes LastModified by Organization Details LastModified Time Mother Type 2 diabetes mellitus [email or web address] Not available 08/08 10:39:20 Brother Type 1 diabetes mellitus [email or web address] Not available 08/08 10:39:30 Brother Coronary atherosclero sis [email or web address] Not available 03/21 /2023 10:40:16 Medical History No medical history recorded. Gynecological HistoryNo gynecological history recorded. Obstetrics History GPAL:G 0 P 0 0 0 0 Immunizations Vaccine Type Date Status Note Provider Nam e and Address Organization Details Recorded Time Influenza, split virus, trivalent, preservative 2 completed Not Available [facility] 12/16/2022 02:45:55 pneumococcal polysaccharide PPV23 5 completed Not Available [facility] 12/16/2022 02:45:56 Influenza, split virus, trivalent, preservative 1 completed Not Available [facility] 12/16/2022 02:45:57 Influenza, split virus, trivalent, preservative 4 completed Not Available [facility] 12/16/2022 02:45:57 Influenza, split virus, trivalent, preservative 2 completed Not Available [facility] 12/16/2022 02:45:57 pneumococcal polysaccharide PPV23 0 completed Not Available [facility] 12/16/2022 02:45:57 Influenza, split virus, trivalent, preservative 1 completed Not Available [facility] 12/16/2022 02:45:57 Influenza, adjuvanted, trivalent, PF 5 completed BETZY hadley, [facility] 02/03/2025 11:57:54 Tdap 5 completed BETZY hadley [facility] 02/03/2025 11:58:07 COVID-19, mRNA, LNP-S, PF, 100 mcg/0.5mL dose or 50 mcg/0.25mL dose 1 completed BETZY hadley [facility] 10/17/2022 10:36:10 COVID-19, mRNA, LNP-S, PF, 100 mcg/0.5mL dose or 50 mcg/0.25mL dose 1 completed BETZY hadley [facility] 10/17/2022 10:36:10 COVID-19, mRNA, LNP-S, PF, 100 mcg/0.5mL dose or 50 mcg/0.25mL dose 2 completed BETZY PERRY [facility], [facility] 10/17/2022 10:36:10 COVID-19, mRNA, LNP-S, PF, 100 mcg/0.5mL dose or 50 mcg/0.25mL dose 1 completed BETZY PERRY [facility], [facility] 10/17/2022 10:36:10 COVID-19, mRNA, LNP-S, bivalent, PF, 50 mcg/0.5 mL or 25mcg/0.25 mL dose 2 completed BETZY PERYR [facility] 10/17/2022 10:36:10 pneumococcal polysaccharide PPV23 7 completed BETZY PERRY [facility], [facility] 10/17/2022 10:36:10 pneumococcal polysaccharide PPV23 4 completed BETZY PERRY [facility], [facility] 10/17/2022 10:36:10 Tdap 9 completed BETZY PERRY [facility] 10/17/2022 10:36:10 Influenza, split virus, trivalent, preservative 4 completed BETZY PERRY [facility], [facility] 10/17/2022 10:36:10 Influenza, split virus, trivalent, PF 6 completed BETZYNEGAR PERRY [facility], [facility] 10/17/2022 10:36:10 Influenza, split virus, trivalent, PF 5 completed BETZY PERRY [facility], [facility] 10/17/2022 10:36:10 Influenza, split virus, quadrivalent, PF 7 completed BETZY hadley, [facility] 10/17/2022 10:36:10 Pneumococcal conjugate PCV20, polysaccharide [id number] conjugate, adjuvant, PF 5 completed BETZY hadley, [facility] 06/17/2024 11:50:33 Influenza, adjuvanted, trivalent, PF 5 completed BETZY hadley, [facility] 06/17/2024 13:05:10 Past Encounters Encounter ID Performer Location Encounter Start Date Encounter Closed Date Diagnosis/Indication Diagnosis SNOMED-CT Code Diagnosis ICD10 Code Diagnosis IMO Codes Diagnosis Note [id number] Reina Cantu MD [facility] ([facility]) [address] [place] [address] [id number] 5 08/08/2022 09:07:19 08/10/2022 11:43:35 Chronic diastolic heart failure 445272232 I50.32 Chronic ki dney disease stage 3A 297040242 N18.31 Chronic ob structive pulmonary disease 09859234 J44.9 Diabetes mellitus 147380 09 E11.22 [id number] Reina Cantu MD [facility] ([facility]) [address] [place] [address] [id number] 5 10/17/2022 10:23:35 10/17/2022 19:24:21 Type 2 diabetes mellitus 61080777 E11.65 d/c home Depressive disorder 3548 9007 F33.9 Congestive heart failure 40102477 I50.32 Chronic ob structive pulmonary disease 86517270 J44.9 Essential hypertension 22226945 I10 Nicotine dependence 5629 4008 F17.200 Need for [facility] care assistance [id number] 3021825 Z74.1 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 5975005625 08 E11.22 Long-term oxygen therapy 977276561 Z99.81 Does mobil ize using walker 347099441 Z99.89 [id number] Reina Cantu MD [facility] ([facility]) [address] [place] [address] [id number] 5 12/12/2022 12:03:38 12/12/2022 14:15:29 Chronic obstructive pulmonary disease 90245181 J44.9 Chronic di astolic heart failure 558227670 I50.32 Chronic ki dney disease stage 3A 841326855 N18.31 Obstructiv e sleep apnea syndrome 13815773 G47.33 Type 2 mahsa betes mellitus 66160351 E11.65 d/c home Acute on c hronic combined systolic and diastolic heart failure 7976967487 97174 I50.43 Acute exac erbation of chronic obstructive pulmonary disease 630309098 J44.1 [id number] Reina Cantu MD [facility] ([facility]) [address] [place] [address] [id number] 5 02/04/2024 11:29:07 02/04/2024 12:53:42 Chronic diastolic heart failure 642766902 I50.32 Chronic ob structive pulmonary disease 60722748 J44.9 Major depr essive disorder 488889029 F32.9 Hyperparat hyroidism due to renal insufficiency 42548847 N25.81 Moderate a ortic valve stenosis 485031036 I35.0 Chronic ki dney disease stage 3A 940121240 N18.31 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 general 474683507 Z91.199 Body mass index 40+ - severely obese 622506814 Z68.43 Dependent personality disorder 18522038 F60.7 Severe obesity 334256443 1 9104 E66.01 [id number] Reina Cantu MD [facility] ([facility]) [address] [place] [address] [phone] 5 02/13/2024 12:02:45 02/14/2024 11:55:32 [id number] Reina Cantu MD [facility] ([facility]) [address] [place] [address] [id number] 5 05/06/2024 10:50:01 05/06/2024 15:35:28 Dependent personality disorder 46218414 F60.7 Chronic di astolic heart failure 834448070 I50.32 Chronic ob structive pulmonary disease 79105973 J44.9 Major depr essive disorder 925342985 F32.9 Hyperparat hyroidism due to renal insufficiency 95583646 N25.81 Moderate a ortic valve stenosis 358730666 I35.0 Chronic ki dney disease stage 3A 153479241 N18.31 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 1057983957 08 E11.22 Nicotine dependence 5629 4008 F17.200 Screening mammography 24 084707 Z12.31 Gout 36268505 M10.9 Screening for malignant neoplasm of colon 868035351 Z12.11 Thyroid nodule 285233093 E04.1 Patient no ncompliance - general 166376407 Z91.199 Severe obesity 148429147 1 9104 E66.01 Body mass index 40+ - severely obese 318761777 Z68.43 Excessive daytime sleepiness - normal night sleep 982580540 G47.19 [id number] Reina Cantu MD [facility] ([facility]) [address] [place] [address] [id number] 5 06/10/2024 10:53:50 06/11/2024 11:54:10 Pulmonary hypertension 57367023 I27.20 [id number] Reina Cantu MD [facility] ([facility] [address] [place] [address] [id number] 5 06/17/2024 10:57:55 06/18/2024 14:28:16 Chronic diastolic heart failure 693015956 I50.32 Chronic ob structive pulmonary disease 94002466 J44.9 Major depr essive disorder 333469340 F32.9 Type 2 mahsa betes mellitus 99209682 E11.65 Dependent personality disorder 43270649 F60.7 Nicotine dependence 5629 4008 F17.200 Body mass index 40+ - severely obese 852809341 Z68.42 Essential hypertension 02714349 I10 Need for p ersonal care assistance 7294214774 2441711 Z74.1 Dependence on supplemental oxygen 5437007854 07 Z99.81 Dependence on enabling machine or device 783584322 Z99.89 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.89 Screening mammography 24 187030 Z12.31 Administra tion of influenza vaccine 96552319 Z23 Administra tion of pneumococcal vaccine 85583863 Z23 [id number] Reina Cantu MD [facility] ([facility]) [address] [place] [address] [id number] 5 09/15/2024 13:09:43 09/18/2024 07:11:03 Chronic diastolic heart failure 752994013 I50.32 Gastroesop hageal reflux disease 467059338 K21.9 Type 2 mahsa betes mellitus 34367906 E11.65 Candidal intertrigo 2661 16147 B37.2 62272 History of gout 11058910 4 Z87.39 055286 Chronic ob structive pulmonary disease 83749572 J44.9 Major depr essive disorder 255305674 F32.9 Obstructiv e sleep apnea syndrome 97717015 G47.33 Aortic lakhwinder nosis, non-rheumatic 482770732 I35.0 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 she has lost 10 lbs. sugar is well controlled . [id number] Reina Cantu MD [facility] ([facility]) [address] [place] [address] [id number] 5 10/28/2024 08:47:04 10/29/2024 15:24:11 Dependent personality disorder 88416815 F60.7 69522 we discussed taking steps to be more responsibl e for her health. Microalbum inuric diabetic nephropathy 843191569 E11.21 23518563 Uncontroll ed type 2 diabetes mellitus 200899978 E11.65 23929856 ozempic is well tolerated. she agrees to resume insulin. would like to start a glp-1 for her dm, ckd, and chf, but her sugars are too high. 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 Moderate a ortic valve stenosis 526269124 I35.0 805949 [id number] RAZA HUTCHINS [facility] ([facility]) [address] [place] [address] [id number] 5 01/14/2025 14:17:12 01/14/2025 15:50:34 Dysuria 10943354 R30.0 24501 urine dip normal. Will send for cx and call pt with results. Acute bact erial bronchitis 079147819 J20.8 B96.89 5041964 Discussed use of otc medication s for symptom management .Push oral fluids and rest.If you develop fever, sob, or start feeling worse then return for re-evaluat ion. [id number] Reina Cantu MD [facility] ([facility]) [address] [place] [address] [id number] 5 02/03/2025 10:43:19 02/04/2025 11:07:49 Chronic diastolic heart failure 773266573 I50.32 echo stable valve stable Pulmonary hypertension 53372414 I27.20 Chronic ob structive pulmonary disease 02334195 J44.9 Requires i nfluenza virus vaccination 451069658 Z23 350502 Senile osteoporosis 1804 0001 M81.0 4473652 she does take her vit d3 daily Aortic lakhwinder nosis, non-rheumatic 343174078 I35.0 Hyperparat hyroidism due to renal insufficiency 97439958 N25.81 Chronic ki dney disease stage 3B 470439452 N18.32 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 Patient no ncompliance - general 713708393 Z91.757 1642479 Tobacco user 086397146 F 17.200 23300 Requires d iphtheria, tetanus and pertussis vaccination 441593681 Z23 003473 [id number] Reina Cantu MD [facility] ([facility]) [address] [place] [address] 02/18/2025 11:27:02 02/23/2025 13:33:19 Generalized anxiety disorder 67200049 F41.1 Severe pauly or depression 581328553 F32.2 154356 Nasal congestion 6849364 0 R09.81 81135 Health Concerns Section Related Observation LastModified by Organization Detai ls LastModified Time None Recorded Concern Status LastModified by Organization Details LastModified Time None Recorded Advance Directives Directive None Recorded Payers Insurance Date Sequence Insurance Name Policy Number Policy Blackburn Covered Member ID Blackburn Member ID Guarantor Name 02/19/2025 [place] [id number] Bridget S Neyda [id number] Bridget S Neyda 02/03/2025 1 [employer] - [employer] (MEDICARE REPLACEMENT/A DVANTAGE - HMO) [id number] Bridget S Neyda [id number] Bridget S Neyda 03/01/2025 1 [facility] (MEDICARE REPLACEMENT/A DVANTAGE - HMO) MODSNP Bridget S Neyda [id number] Bridget S Neyda 02/03/2025 1 [facility] (MEDICARE REPLACEMENT/A DVANTAGE - HMO) Bridget S Neyda [id number] Bridget S Neyda 02/03/2025 1 [facility] (MEDICARE REPLACEMENT/A DVANTAGE - HMO) MODSNP Bridget S Neyda [id number] Bridget S Neyda 02/18/2025 2 [place] Bridget S Neyda [id number] Bridget S Neyda Notes Date Note Type Note Provider [...] make sure i went. Reina Cantu MD [address] [place] [address], [phone], [facility] 10/28/2024 10:05:41 5 text/html DiabetesReported by Patient [...] make sure i went. Reina Cantu MD [address] [place], [address], [facility] 12/09/2024 10:19:03 5 text/html ROS as noted in the [facility] walk-in; PCP Dr. Cantu Patient c/o urinary symptoms. Lower abdominal pain. She is also congested with a productive cough. She states she's had symptoms for two weeks. RAZA HUTCHINS [address] [place], [address], [facility] 01/14/2025 15:48:32 5 text/html DiabetesReported by PatientHPIFor [...] very well controlled now. Reina Cantu MD [address] [place] [address], [phone], [facility], Juan Jose. 02/03/2025 11:28:53 text/html Pt was brought into the crisis center yesterday by ambulance. On her way there, her oxygen stayed in the low 80s. She was put on oxygen at that time, but she does have portable O2 tanks at her house per her oxygen supplier. Pt states she does have the portable tanks, but chose not to bring them with her. Pt is here to f/u on psych meds. She has not been filling her abilify 2mg. It was last renewed by us in August of last year. Pt states she started feeling suicidal about 1 week ago, and is still feeling that way. She states no recent medication changes or life events. She states she hasn't cried in a long time, but that she would probably feel better if she could. She states I just want to do away with myself. I don't know what's wrong with me. Pt is a poor historian, so her medication list may not be accurate. It was reconciled to the best of our ability. she has no active suicidal plan. no guns/weapons in the home. her family is checking on her daily. she is never by herself. her kqipijo-dy-khh is always there. she is not hearing voices or seeing anything. no one is out to get her or harm her. she does not seem to have any delusional thoughts and wants to get well. Reina Cantu MD [address] [place], [address], [facility], LJimmy. 02/18/2025 12:04:45 OBGyn Episode No OBEpisode recorded.
[2025-03-05 13:07] LABS: Alanine Aminotransferase 12 U/L (0-33); Albumin Level 3.1 g/dL (3.5-5.2); Alkaline Phosphatase 150 U/L (35-105); Anion Gap 16.4 (5-19); Aspartate Amino Transferase 13 U/L (0-32); Blood Urea Nitrogen 34 mg/dL (8-23); Calcium 8.9 mg/dL (8.5-10.5); Carbon Dioxide 31 mmol/L (22-29); Chloride 93 mmol/L (98-107); Creatinine Clr Calc Pharmacy 35.3967; Globulin 4.5 g/dL (1.3-4.6); Glucose 153 mg/dL (65-115); Osmolality Calculated 295 mOsm/kg (285-295); Potassium 3.4 mmol/L (3.5-5.1); Sodium 137 mmol/L (136-145); Total Protein 7.6 g/dL (6.6-8.7)
[2025-03-05 13:09] LABS: Acetaminophen < 5.0 ug/mL (10-30); Alcohol Level < 10 mg/dL (0-10); Salicylate < 0.3 mg/dL (3-10)
[2025-03-05 15:57] LABS: Glucose Urine UA Negative (Normal); Nitrate Urine Negative (Negative); Specific Gravity, Urine 1.008 (1.005-1.030)
[2025-03-05 16:01] LABS: PCP Screen Urine Negative (Negative)
[2025-03-05 16:03] LABS: Add Urine Microscopic? YES
--- NOTE | 2025-03-05 17:10 | XRR_ITS ---
PROCEDURE INFORMATION: Exam: XR Chest Exam date and time: 03/05/2025 6:13 PM Age: 69 years old Clinical indication: Screening exam; Other screening; Additional info: Psych clearance TECHNIQUE: Imaging protocol: Radiologic exam of the chest. Views: 1 view. COMPARISON: CT chest [facility] [id number] 04/19/2024 2:16 AM FINDINGS: Lungs: Left lower lobe atelectasis versus infiltrate. Pleural spaces: Unremarkable. No pleural effusion. No pneumothorax. Heart/Mediastinum: Cardiomegaly and mild pulmonary vascular congestion. Bones/joints: Unremarkable. XR/XR chest 1V portable [id number] IMPRESSION: 1. Cardiomegaly and mild pulmonary vascular congestion. 2. Left lower lobe atelectasis versus infiltrate.
[2025-03-05 19:22] VITALS: BP 168/74; PULSE 79; O2SAT 90
[2025-03-06 03:00] VITALS: BP 146/62; PULSE 72; O2SAT 91
[2025-03-06 03:42] LABS: Respiratory Syncytial Virus Ce NEGATIVE (Negative); SARS-CoV-2 PCR NEGATIVE (Negative)
[2025-03-06 11:37] VITALS: BP 145/54; PULSE 70; RESP 18; O2SAT 91
--- NOTE | 2025-03-06 12:47 | W.ED.PSYCHS ---
HPI - Psych General: Chief Complaint: Psychiatric Symptoms Stated Complaint: SI History of Present Illness: 69-year-old female who is here in the emergency room waiting placement for psychiatric issues. She has been having suicidal thoughts for about a month. Also medically noncompliant. She is not yet excepted at the time of my exam. [place] and [employer] are both reviewing. She has no complaints. She says she is just ready to get out of here. Related Data Home Medications ?Medication ?Instructions ?Recorded ?Confirmed aripiprazole 2 mg tablet (Abilify) 2 mg PO QAM 11/04/19 11/24/24 allopurinol 300 mg tablet 300 mg PO QAM 08/22/21 11/24/24 losartan 50 mg tablet 50 mg PO QAM 08/22/21 11/24/24 pantoprazole 40 mg tablet,delayed 40 mg PO QAM 08/22/21 11/24/24 release albuterol sulfate 90 mcg/actuation 2 puff inhalation Q4H PRN 04/07/23 11/24/24 aerosol inhaler Shortness Of Breath aspirin 81 mg tablet,delayed 81 mg PO QAM 04/07/23 11/24/24 release potassium chloride 20 mEq 20 meq PO QAM 04/07/23 11/24/24 tablet,extended release acetaminophen 325 mg tablet 325 mg PO QID PRN 11/24/24 11/24/24 (Tylenol) atorvastatin 40 mg tablet (Lipitor) 40 mg PO DAILY 11/24/24 11/24/24 fluticasone fur. 100 mcg-umeclid 1 inh inhalation DAILY 11/24/24 11/24/24 62.5 mcg-vilant 25 mcg inhalat.powder (Trelegy Ellipta) furosemide 80 mg tablet 80 mg PO DAILY 11/24/24 12/08/24 isosorbide mononitrate 30 mg 30 mg PO DAILY 11/24/24 11/24/24 tablet,extended release 24 hr nystatin 100,000 unit/gram topical 1 applic topical BID 11/24/24 11/24/24 cream semaglutide 0.25 mg or 0.5 mg (2 mg SUBCUT 11/24/24 11/24/24 mg/3 mL) subcutaneous pen injector (Ozempic) oxygen-air delivery systems 12/08/24 12/08/24 Previous Rx's ?Medication ?Instructions ?Recorded blood sugar diagnostic (Accu-Chek #100 ea 10/12/23 [place] Plus test strips) blood-glucose meter (Accu-Chek #1 ea 10/12/23 Guide Glucose Meter) fluticasone propionate 45 2 inh inhalation BID #12 grams 10/12/23 mcg-salmeterol 21 mcg/actuation HFA inhaler (Advair HFA) lancets (Accu-Chek Fastclix Lancet #200 ea 10/12/23 Drum) amlodipine 5 mg tablet 5 mg PO DAILY #90 tabs 12/08/24 Allergies Allergy/AdvReac Type Severity Reaction Status Date / Time lisinopril Allergy ALGY-Rash Verified 12/08/24 15:06 Penicillins Allergy ALGY-Hives Verified 12/08/24 15:06 Review of Systems Narrative: Constitutional symptoms: Negative except as documented in HPI. Skin symptoms: Negative except as documented in HPI. Eye symptoms: Negative except as documented in HPI. ENMT symptoms: Negative except as documented in HPI. Respiratory symptoms: Negative except as documented in HPI. Cardiovascular symptoms: Negative except as documented in HPI. Gastrointestinal symptoms: Negative except as documented in HPI. Genitourinary symptoms: Negative except as documented in HPI. Musculoskeletal symptoms: Negative except as documented in HPI. Neurologic symptoms: Negative except as documented in HPI. Psychiatric symptoms: Negative except as documented in HPI. Endocrine symptoms: Negative except as documented in HPI. [facility] ED PFSH: Medical History (Updated 03/06/25 @ 12:50 by Nubia Garcia MD) Congestive heart failure COPD (chronic obstructive pulmonary disease) Hypertension Sleep apnea Non-compliant behavior Acute encephalopathy Acute on chronic respiratory failure with hypoxia and hypercapnia Acute exacerbation of chronic obstructive airways disease Candidal intertrigo Present on admission. Dyspnea on exertion Acute respiratory failure with hypoxia Acute exacerbation of chronic obstructive airways disease Smoker CHF (congestive heart failure), NYHA class III Uncontrolled hypertension Acute and chronic respiratory failure Chronic kidney disease, stage 3 Tobacco abuse Diabetes mellitus type 2 in obese Morbid obesity with BMI of 45.0-49.9, adult Obstructive sleep apnea Congestive heart failure Aortic stenosis Aortic stenosis Obesity Aortic regurgitation Diabetes Hyperlipidemia Surgical History H/O tubal ligation H/O arthroscopic knee surgery Family History Other Diabetes Hypertension Stroke Social History Smoking and tobacco/nicotine status: current every day tobacco/nicotine user cigarettes Packs smoked per day: 0.5 Years cigarettes smoked: 47 [ Other cigarette details: occasionally 1 ppd ] Quit status (tobacco/nicotine): considering quitting Second hand smoke exposure: No Alcohol intake: never Substance/Drug Use: never Lives independently: Yes Household members: none Housing: Apartment Marital status: service: No Current occupational status: disabled Pets and animals: No Do you think of yourself as: Straight/Heterosexual Current gender identity: Female Physical Exam Narrative: EXAM NARRATIVE: General: Alert, no acute distress. Skin: Warm, dry. Head: Normocephalic, atraumatic. Neck: Supple, trachea midline. Eye: Extraocular movements are intact. Ears, nose, mouth and throat: mucosa moist. Cardiovascular: Regular, Normal peripheral perfusion. Respiratory: Lungs are clear to auscultation, respirations are non-labored, breath sounds are equal, Symmetrical chest wall expansion. Gastrointestinal: Soft, Nontender, Non distended Musculoskeletal: Normal ROM, no deformity. Neurological: Alert and oriented, No focal neurological deficit observed. Psychiatric: Cooperative, appropriate mood & affect. Course Vital Signs: Vital signs: Vital Signs Temperature 97.9 F 03/05/25 12:14 Pulse Rate 70 03/06/25 11:37 Respiratory Rate 18 03/06/25 11:37 Blood Pressure 145/54 03/06/25 11:37 Pulse Oximetry 91 03/06/25 11:37 Oxygen Delivery Me thod Nasal Cannula 03/06/25 11:37 Oxygen Flow Rate 3 03/06/25 11:37 MDM - Psych Medical Decision Making Assessment and plan: Suicidal thoughts Medical noncompliance ?Patient was medically cleared yesterday. No acute issues today. ?Planning for transfer to a psychiatric facility once accepted. - Discussed plan with patient. Answered any questions. - Evaluation and treatment of this problem were appropriate in the emergency setting. Lab Data 03/05/25 12:40 03/05/25 12:40 Radiology Impressions Chest X-Ray 03/05/25 17:10 IMPRESSION: 1. Cardiomegaly and mild pulmonary vascular congestion. 2. Left lower lobe atelectasis versus infiltrate. Laboratory Results WBC 13.09 10^3/uL (3.29-11.43) H 03/05/25 12:40 RBC 5.24 10^6/uL (3.85-5.65) 03/05/25 12:40 Hgb 13.30 g/dL (11.27-16.99) 03/05/25 12:40 Hct 43.9 % (36-47) 03/05/25 12:40 MCV 83.8 fl (85-98) L 03/05/25 12:40 MCH 25.4 pg (27-33) L 03/05/25 12:40 MCHC 30.3 g/dL (30-55) 03/05/25 12:40 RDW 19.8 % (12.1-15.1) H 03/05/25 12:40 Plt Count 300 10^3/cmm (157-399) 03/05/25 12:40 MPV 9.5 fL (7.4-10.4) 03/05/25 12:40 Neut % (Auto) 77.4 % 03/05/25 12:40 Lymph % (Auto) 17.0 % 03/05/25 12:40 [place] % (Auto) 4.4 % 03/05/25 12:40 Eos % (Auto) 0.5 % 03/05/25 12:40 Baso % (Auto) 0.4 % 03/05/25 12:40 Neut # (Auto) 10.14 10^3/uL (1.8-7.7) H 03/05/25 12:40 Lymph # (Auto) 2.2 10^3/uL (0.8-4.8) 03/05/25 12:40 [place] # (Auto) 0.6 10^3/uL (0.2-0.9) 03/05/25 12:40 Eos # (Auto) 0.1 10^3/uL (0.0-0.8) 03/05/25 12:40 Baso # (Auto) 0.1 10^3/uL (0.0-0.1) 03/05/25 12:40 Nucleated RBC % (auto) 0 % 03/05/25 12:40 Nucleated RBCs # 0.0 /100WBC 03/05/25 12:40 Sodium 137 mmol/L (136-145) 03/05/25 12:40 Potassium 3.4 mmol/L (3.5-5.1) L 03/05/25 12:40 Chloride 93 mmol/L (98-107) L 03/05/25 12:40 Carbon Dioxide 31 mmol/L (22-29) H 03/05/25 12:40 Anion Gap 16.4 (5-19) 03/05/25 12:40 BUN 34 mg/dL (8-23) H 03/05/25 12:40 Creatinine 1.7 mg/dL (0.5-0.9) H 03/05/25 12:40 GFR Calculation 29.8 mL/min (90-130) L 03/05/25 12:40 Glucose 153 mg/dL (65-115) H 03/05/25 12:40 Calculated Osmolality 295 mOsm/kg (285-295) 03/05/25 12:40 Calcium 8.9 mg/dL (8.5-10.5) 03/05/25 12:40 Total Bilirubin 0.3 mg/dL (0.15-1.2) 03/05/25 12:40 AST 13 U/L (0-32) 03/05/25 12:40 ALT 12 U/L (0-33) 03/05/25 12:40 Alkaline Phosphatase 150 U/L (35-105) H 03/05/25 12:40 Total Protein 7.6 g/dL (6.6-8.7) 03/05/25 12:40 Albumin 3.1 g/dL (3.5-5.2) L 03/05/25 12:40 Globulin 4.5 g/dL (1.3-4.6) 03/05/25 12:40 Urine Color Yellow (Yellow) 03/05/25 15:41 Urine Appearance Clear (CLEAR) 03/05/25 15:41 Urine pH 5.5 (5-7) 03/05/25 15:41 Ur Specific [place] 1.008 (1.005-1.030) 03/05/25 15:41 Urine Protein 2+ (Negative) A 03/05/25 15:41 Urine Glucose (UA) Negative (Normal) 03/05/25 15:41 Urine Ketones Negative (Negative) 03/05/25 15:41 Urine Blood Trace (Negative) A 03/05/25 15:41 Urine Nitrate Negative (Negative) 03/05/25 15:41 Urine Bilirubin Negative (Negative) 03/05/25 15:41 Urine Urobilinogen 0.2 mg/dL (Negative) 03/05/25 15:41 Ur Leukocyte Esterase Negative (Negative) 03/05/25 15:41 Urine RBC 0-2 /hpf (0-2) 03/05/25 15:41 Urine WBC 0-5 /hpf (0-5) 03/05/25 15:41 Ur Squamous Epith Cells 0-5 /hpf (0-5) 03/05/25 15:41 Amorphous Sediment Not Reportable 03/05/25 15:41 Urine Bacteria None seen /hpf (NONE) 03/05/25 15:41 Hyaline Casts 2.05 /lpf 03/05/25 15:41 Salicylates < 0.3 mg/dL (3-10) L 03/05/25 12:40 Urine Opiates Screen Negative ng/mL (Negative) 03/05/25 15:41 Acetaminophen < 5.0 ug/mL (10-30) L 03/05/25 12:40 Ur Barbiturates Screen Negative ng/mL (Negative) 03/05/25 15:41 Ur Phencyclidine Scrn Negative ng/mL (Negative) 03/05/25 15:41 Ur Amphetamines Screen Negative ng/mL (Negative) 03/05/25 15:41 U Benzodiazepines Scrn Negative ng/mL (Negative) 03/05/25 15:41 Urine Cocaine Screen Negative ng/mL (Negative) 03/05/25 15:41 U Marijuana (THC) Screen Negative ng/mL (Negative) 03/05/25 15:41 Ethyl Alcohol < 10 mg/dL (0-10) 03/05/25 12:40 Influenza A (PCR) Negative (Negative) 03/06/25 02:57 Influenza Type B (PCR) Negative (Negative) 03/06/25 02:57 RSV (PCR) Negative (Negative) 03/06/25 02:57 SARS-CoV-2 (PCR) Negative (Negative) 03/06/25 02:57 All radiology interpretation(s) finalized by discharge Discharge Plan Discharge Patient Disposition: Xfer Psychiatric Hosp Clinical Impression: Suicidal ideation Condition: Stable Referrals: Jhony Cantu MD [Primary Care Provider, Family Practice] Print Language: Ecuadorean Coding Level of Care Code ED Sew Out Operator for Chg Fwd
[2025-03-06 14:47] VITALS: BP 158/65; PULSE 72; RESP 18; O2SAT 90
--- NOTE | 2025-03-06 14:52 | PC.NURSE ---
report given to Abeba Decker RN at [facility]- [address]
== END 2025-03-06 20:20 ==
PROVIDERS: Emergency Provider Student in an Organized Health Care Education/Training Program; PCP Family Medicine
DX: R45.851 Suicidal ideations (principal); R06.2 Wheezing; R06.82 Tachypnea, not elsewhere classified; Z79.82 Long term (current) use of aspirin; F17.210 Nicotine dependence, cigarettes, uncomplicated; E78.5 Hyperlipidemia, unspecified; J44.9 Chronic obstructive pulmonary disease, unspecified; E11.22 Type 2 diabetes mellitus with diabetic chronic kidney disease; I13.0 Hypertensive heart and chronic kidney disease with heart failure and stage 1 through stage 4 chronic kidney disease, or unspecified chronic kidney disease; N18.30 Chronic kidney disease, stage 3 unspecified; I50.9 Heart failure, unspecified
CPT/HCPCS: 36415; 71045; 80053; 80306; 80307; 81001; 85025; 87637; 93005; 99285

== ENCOUNTER 2025-04-20 11:05 | Oncology outpatient (recurring) (ONCR) | payer OTHER, MEDICAID, SELFPAY ==
[2025-04-20] MEDS: denosumab 60 mg SDV (Infusion Clinic Only) SUBCUT (11:25)
[2025-04-20 15:19] VITALS: BP 147/67; PULSE 74; O2SAT 82
--- NOTE | 2025-04-20 15:20 | PC.NURSE ---
Pts O2 on room air is 82%. Support person with pt states pt is usually on oxygen but did not have a portable O2 container yet. Pt was offered oxygen and pt refused.
== END 2025-05-20 23:59 | disposition home or self-care (01) ==
PROVIDERS: PCP Family Medicine; Visit Provider Family Medicine
DX: M81.0 Age-related osteoporosis without current pathological fracture (principal); Z79.899 Other long term (current) drug therapy
CPT/HCPCS: 96372; J0897

== ENCOUNTER 2025-04-22 00:30 | Emergency (ER) | payer MEDICARE, MEDICAID, SELFPAY ==
[2025-04-22 00:31] VITALS: BP 151/67; PULSE 79; RESP 20; TEMP 36.7; O2SAT 89; BMI 40.4
--- NOTE | 2025-04-22 00:35 | CTR_ITS ---
PROCEDURE INFORMATION: Exam: CT Abdomen And Pelvis With Contrast Exam date and time: 04/22/2025 1:39 AM Age: 69 years old Clinical indication: Abdominal pain; Prior surgery; Surgery date: 6+ months; Surgery type: Tubal; Additional info: Abd pain, constipation x 2 weeks TECHNIQUE: Imaging protocol: Computed tomography of the abdomen and pelvis with contrast. Radiation optimization: All CT scans at this facility use at least one of these dose optimization techniques: automated exposure control; mA and/or kV adjustment per patient size (includes targeted exams where dose is matched to clinical indication); or iterative reconstruction. Contrast material: OMNI 350; Contrast volume: 100 ml; Contrast route: INTRAVENOUS (IV); Other contrast: Oral, omni 350, 20; COMPARISON: 1. CT chest wo con [id number] 04/19/2024 2:16 AM 2. Renal sonogram dated 03/25/2021 RADIATION DOSE METRICS: Total DLP (mGy-cm): 1043.03 FINDINGS: Lungs: Calcified granulomas are seen scattered throughout the lung, which can be seen setting prior granulomatous disease. Left lower lobe subsegmental atelectasis is present. Liver: Normal. No mass. Gallbladder and biliary ducts: Normal. No calcified stones. No ductal dilation. Pancreas: The pancreas is mildly atrophic. No ductal dilatation is seen. No solid mass is seen. Spleen: Parenchymal calcifications are seen throughout the spleen, likely reflecting prior granulomatous changes. The spleen is otherwise normal. Adrenal glands: Normal. No mass. Kidneys and ureters: Simple right renal cysts are present (Bosniak 1). No follow-up required. Mild dilatation of the interpolar/inferior pole collecting system of the right kidney without obstructing lesion/stone. Stomach and bowel: Intraluminal hyperattenuating foreign bodies are seen in the colon, likely ingested material/medication in the absence provided ingested foreign body clinical history. Sigmoid diverticular disease without evidence of acute inflammation is present. Appendix: The appendix is not clearly identified. No inflammation in the right lower quadrant is present to suggest acute appendicitis. Intraperitoneal space: Unremarkable. No free air. No significant fluid collection. Vasculature: Mild atherosclerosis of the aorta and its major branching vessels is noted. Lymph nodes: Unremarkable. No enlarged lymph nodes. Urinary bladder: Unremarkable as visualized. Reproductive: Unremarkable as visualized. Bones/joints: Bilateral L5 pars defects are noted, chronic in appearance. Subcentimeter lytic lesion in the L5 vertebral body, too small to accurately characterize. Findings may represent a tiny hemangioma. Degenerative joint and disc disease is seen in the imaged spine. Soft tissues: Indeterminate subcapsular hypoattenuating lesion along the anterior hilar lip of the left kidney (series 3, image 33, series 5, image 39). This measures up to 1.3 x 0.6 cm. Given motion, this could be artifactual. Underlying renal lesion is not excluded. A fat containing umbilical hernia is present. CT/CT abdomen pelvis w con* [id number] IMPRESSION: 1. No acute abdominopelvic process to explain the patient's symptoms. 2. Indeterminate subcapsular hypoattenuating lesion along the anterior hilar lip of the left kidney. This measures up to 1.3 x 0.6 cm. Given motion, this could be artifactual. Underlying renal lesion is not excluded. Nonemergent follow-up with CT urography could be considered for further characterization. 3. Mild dilatation of the interpolar/inferior pole collecting system of the right kidney without obstructing lesion/stone. Findings can be secondary to crossing vessel. Recommend attention on follow-up CT urography if obtained. 4. Sigmoid diverticulosis without evidence of acute diverticulitis. 5. Chronic appearing bilateral L5 pars defects. 6. Subcentimeter lytic lesion in the L5 vertebral body, too small to accurately characterize. Findings may represent a tiny hemangioma. Correlate for historical risk of malignancy. COMMENTS: Consistent with the [employer]'s Incidental Findings Committee white paper (J Am Gregg Radiol 2018): Any incidental renal lesion less than 1 cm or classified as too small to characterize, or any incidental cystic renal lesion characterized as simple-appearing, is likely benign. No follow-up imaging is recommended for these lesions per consensus recommendations based on imaging criteria.
--- NOTE | 2025-04-22 00:38 | W.ED.ABDPA2 ---
HPI - Abdominal Pain General: Chief Complaint: Abdominal Pain Stated Complaint: abd pain History of Present Illness: 69-year-old female history of COPD/congestive heart failure on chronic oxygen 2 L, diabetes, presenting the emergency department with 2-week history of constipation/inability to defecate, abdominal pain, reports that she has attempted fiber and magnesium citrate without improvement, does report a chronic history of constipation which has generally improved with these treatments in the past, she reports a remote history of tubal ligation denies any other intra-abdominal surgeries, denies fever, denies urinary symptoms Related Data Home Medications ?Medication ?Instructions ?Recorded ?Confirmed aripiprazole 2 mg tablet (Abilify) 2 mg PO QAM 11/04/19 03/06/25 allopurinol 300 mg tablet 300 mg PO QAM 08/22/21 03/06/25 losartan 50 mg tablet 50 mg PO QAM 08/22/21 03/06/25 pantoprazole 40 mg tablet,delayed 40 mg PO QAM 08/22/21 03/06/25 release albuterol sulfate 90 mcg/actuation 2 puff inhalation Q4H PRN 04/07/23 03/06/25 aerosol inhaler Shortness Of Breath potassium chloride 20 mEq 20 meq PO QAM 04/07/23 03/06/25 tablet,extended release acetaminophen 325 mg tablet 650 mg PO QID PRN Fever Or Pain 11/24/24 03/06/25 (Tylenol) fluticasone fur. 100 mcg-umeclid 1 inh inhalation DAILY 11/24/24 03/06/25 62.5 mcg-vilant 25 mcg inhalat.powder (Trelegy Ellipta) furosemide 80 mg tablet 80 mg PO DAILY 11/24/24 03/06/25 oxygen-air delivery systems 12/08/24 03/06/25 fluoxetine 40 mg capsule 40 mg PO DAILY 03/06/25 03/06/25 fluticasone propionate 50 1 spray intranasal DAILY 03/06/25 03/06/25 mcg/actuation nasal spray,suspension insulin degludec 200 unit/mL (3 20 unit SUBCUT DAILY 03/06/25 03/06/25 mL) subcutaneous pen (Tresiba FlexTouch U-200 insulin) multivitamin with [id number] 1 tab PO DAILY 03/06/25 03/06/25 400 mcg-120 mg tablet (One Daily Women 50 Plus) semaglutide 2 mg/dose (8 mg/3 mL) 2 mg SUBCUT Q7D 03/06/25 03/06/25 subcutaneous pen injector (Ozempic) Previous Rx's ?Medication ?Instructions ?Recorded blood sugar diagnostic (Accu-Chek #100 ea 10/12/23 Quita Plus test strips) blood-glucose meter (Accu-Chek #1 ea 10/12/23 Guide Glucose Meter) lancets (Accu-Chek Fastclix Lancet #200 ea 10/12/23 Drum) amlodipine 5 mg tablet 5 mg PO DAILY #90 tabs 12/08/24 polyethylene glycol 3350 17 gram 17 g PO BID PRN constipation 7 04/22/25 oral powder packet (Miralax) days #14 ea Allergies Allergy/AdvReac Type Severity Reaction Status Date / Time lisinopril Allergy ALGY-Rash Verified 12/08/24 15:06 Penicillins Allergy ALGY-Hives Verified 12/08/24 15:06 PFSH ED PFSH: Medical History Congestive heart failure COPD (chronic obstructive pulmonary disease) Hypertension Sleep apnea Non-compliant behavior Acute encephalopathy Acute on chronic respiratory failure with hypoxia and hypercapnia Acute exacerbation of chronic obstructive airways disease Candidal intertrigo Present on admission. Dyspnea on exertion Acute respiratory failure with hypoxia Acute exacerbation of chronic obstructive airways disease Smoker CHF (congestive heart failure), NYHA class III Uncontrolled hypertension Acute and chronic respiratory failure Chronic kidney disease, stage 3 Tobacco abuse Diabetes mellitus type 2 in obese Morbid obesity with BMI of 45.0-49.9, adult Obstructive sleep apnea Congestive heart failure Aortic stenosis Aortic stenosis Obesity Aortic regurgitation Diabetes Hyperlipidemia Surgical History H/O tubal ligation H/O arthroscopic knee surgery Family History Other Diabetes Hypertension Stroke Social History Smoking and tobacco/nicotine status: current every day tobacco/nicotine user cigarettes Packs smoked per day: 0.5 Years cigarettes smoked: 47 [ Other cigarette details: occasionally 1 ppd ] Quit status (tobacco/nicotine): considering quitting Second hand smoke exposure: No Alcohol intake: never Substance/Drug Use: never Lives independently: Yes Household members: none Housing: Apartment Marital status: service: No Current occupational status: disabled Pets and animals: No Do you think of yourself as: Straight/Heterosexual Current gender identity: Female Physical Exam Narrative: EXAM NARRATIVE: Gen: A&Ox4, no acute distress, nontoxic appearing, obese HEENT: Normocephalic, atraumatic, no scleral icterus, external ears normal, moist mucous membranes Neck: Supple, full range of motion, no observable masses Lungs: No Respiratory distress, Lungs clear to auscultation bilaterally no rales, rhonchi, wheezing CV: Regular rate and rhythm, no murmur, no pitting edema to lower extremities bilaterally Abdomen: Soft, minimally distended, mild diffuse tenderness to palpation of the abdomen no rebound or guarding, no rigidity, hypoactive bowel sounds all 4 quadrants MSK: No joint swelling, FROM all 4 extremities Skin: No rashes, petechiae, lesions. Normal color per patient. Neuro: Alert and oriented, no slurred speech, sensation and strength grossly intact all 4 extremities Psych: Appropriate for situation. Course Reevaluation(s): Reevaluation #1: Results of workup showing leukocytosis 14, urinalysis without UTI, creatinine at baseline consistent with known history of CKD, CT scan of the abdomen pelvis showing no acute intra-abdominal or pelvic pathology that would explain symptoms, does have an incidental finding of an nonspecific lesion to the left kidney that will require outpatient follow-up, this would not explain the patient's symptoms, will give a dose of lactulose in the ER, discharged on twice daily MiraLAX x 1 week, as needed enema, return precautions discussed prior to discharge. Time: 02:57 Vital Signs: Vital signs: Vital Signs Temperature 98.1 F 04/22/25 00:31 Pulse Rate 74 04/22/25 02:53 Respiratory Rate 20 H 04/22/25 00:31 Blood Pressure 149/53 04/22/25 02:53 Pulse Oximetry 96 04/22/25 02:53 Oxygen Delivery Me thod Nasal Cannula 04/22/25 02:53 Oxygen Flow Rate 2 04/22/25 02:53 MDM - Abdominal Pain Medical Decision Making 69-year-old female history of heart failure/COPD and chronic hypoxemic respiratory failure on home oxygen, presenting emergency department with recurrent constipation x 2 weeks, increasing abdominal pain, mild distention, not improved with dose of magnesium citrate, no history of intra-abdominal surgery other than tubal ligation, suspect recurrent constipation possible fecal impaction, given age and smoking history will obtain CT of the abdomen to rule out malignant bowel obstruction, labs, hold IV fluids given history of heart failure and chronic respiratory failure, reassess for disposition Lab Data Labs showing leukocytosis 14, elevated creatinine 1.8 at patient's baseline, mild hyponatremia 132, urinalysis without evidence of UTI 04/22/25 00:45 04/22/25 00:45 Labs/Radiology: Radiology Impressions Abdomen/Pelvis CT 04/22/25 00:35 IMPRESSION: 1. No acute abdominopelvic process to explain the patient's symptoms. 2. Indeterminate subcapsular hypoattenuating lesion along the anterior hilar lip of the left kidney. This measures up to 1.3 x 0.6 cm. Given motion, this could be artifactual. Underlying renal lesion is not excluded. Nonemergent follow-up with CT urography could be considered for further characterization. 3. Mild dilatation of the interpolar/inferior pole collecting system of the right kidney without obstructing lesion/stone. Findings can be secondary to crossing vessel. Recommend attention on follow-up CT urography if obtained. 4. Sigmoid diverticulosis without evidence of acute diverticulitis. 5. Chronic appearing bilateral L5 pars defects. 6. Subcentimeter lytic lesion in the L5 vertebral body, too small to accurately characterize. Findings may represent a tiny hemangioma. Correlate for historical risk of malignancy. COMMENTS: Consistent with the [employer]'s Incidental Findings Committee white paper (J Am Gregg Radiol 2018): Any incidental renal lesion less than 1 cm or classified as too small to characterize, or any incidental cystic renal lesion characterized as simple-appearing, is likely benign. No follow-up imaging is recommended for these lesions per consensus recommendations based on imaging criteria. Laboratory Results WBC 14.52 10^3/uL (3.29-11.43) H 04/22/25 00:45 RBC 5.25 10^6/uL (3.85-5.65) 04/22/25 00:45 Hgb 13.10 g/dL (11.27-16.99) 04/22/25 00:45 Hct 42.8 % (36-47) 04/22/25 00:45 MCV 81.5 fl (85-98) L 04/22/25 00:45 MCH 25.0 pg (27-33) L 04/22/25 00:45 MCHC 30.6 g/dL (30-55) 04/22/25 00:45 RDW 20.8 % (12.1-15.1) H 04/22/25 00:45 Plt Count 330 10^3/cmm (157-399) 04/22/25 00:45 MPV 9.7 fL (7.4-10.4) 04/22/25 00:45 Neut % (Auto) 78.2 % 04/22/25 00:45 Lymph % (Auto) 15.2 % 04/22/25 00:45 [place] % (Auto) 5.2 % 04/22/25 00:45 Eos % (Auto) 0.8 % 04/22/25 00:45 Baso % (Auto) 0.3 % 04/22/25 00:45 Neut # (Auto) 11.35 10^3/uL (1.8-7.7) H 04/22/25 00:45 Lymph # (Auto) 2.2 10^3/uL (0.8-4.8) 04/22/25 00:45 [place] # (Auto) 0.8 10^3/uL (0.2-0.9) 04/22/25 00:45 Eos # (Auto) 0.1 10^3/uL (0.0-0.8) 04/22/25 00:45 Baso # (Auto) 0.1 10^3/uL (0.0-0.1) 04/22/25 00:45 Nucleated RBC % (auto) 0 % 04/22/25 00:45 Nucleated RBCs # 0.0 /100WBC 04/22/25 00:45 Sodium 132 mmol/L (136-145) L 04/22/25 00:45 Potassium 3.7 mmol/L (3.5-5.1) 04/22/25 00:45 Chloride 94 mmol/L (98-107) L 04/22/25 00:45 Carbon Dioxide 28 mmol/L (22-29) 04/22/25 00:45 Anion Gap 13.7 (5-19) 04/22/25 00:45 BUN 23 mg/dL (8-23) 04/22/25 00:45 Creatinine 1.8 mg/dL (0.5-0.9) H 04/22/25 00:45 GFR Calculation 27.9 mL/min (90-130) L 04/22/25 00:45 Glucose 135 mg/dL (65-115) H 04/22/25 00:45 Calculated Osmolality 280 mOsm/kg (285-295) L 04/22/25 00:45 Calcium 8.2 mg/dL (8.5-10.5) L 04/22/25 00:45 Total Bilirubin 0.3 mg/dL (0.15-1.2) 04/22/25 00:45 AST 13 U/L (0-32) 04/22/25 00:45 ALT 13 U/L (0-33) 04/22/25 00:45 Alkaline Phosphatase 154 U/L (35-105) H 04/22/25 00:45 Total Protein 7.4 g/dL (6.6-8.7) 04/22/25 00:45 Albumin 3.1 g/dL (3.5-5.2) L 04/22/25 00:45 Globulin 4.3 g/dL (1.3-4.6) 04/22/25 00:45 Urine Color Yellow (Yellow) 04/22/25 01:34 Urine Appearance Clear (CLEAR) 04/22/25 01:34 Urine pH 5.0 (5-7) 04/22/25 01:34 Ur Specific [place] 1.008 (1.005-1.030) 04/22/25 01:34 Urine Protein 2+ (Negative) A 04/22/25 01:34 Urine Glucose (UA) Negative (Normal) 04/22/25 01:34 Urine Ketones Negative (Negative) 04/22/25 01:34 Urine Blood Trace (Negative) A 04/22/25 01:34 Urine Nitrate Negative (Negative) 04/22/25 01:34 Urine Bilirubin Negative (Negative) 04/22/25 01:34 Urine Urobilinogen 0.2 mg/dL (Negative) 04/22/25 01:34 Ur Leukocyte Esterase Negative (Negative) 04/22/25 01:34 Urine RBC 0-2 /hpf (0-2) 04/22/25 01:34 Urine WBC 0-5 /hpf (0-5) 04/22/25 01:34 Ur Squamous Epith Cells 0-5 /hpf (0-5) 04/22/25 01:34 Amorphous Sediment Not Reportable 04/22/25 01:34 Urine Bacteria Trace /hpf (NONE) 04/22/25 01:34 Hyaline Casts 4.11 /lpf 04/22/25 01:34 All radiology interpretation(s) finalized by discharge ED provider radiology interpretation(s): CT scan showing indeterminate lesion to the lower pole of the left kidney, no other acute intra-abdominal pathology Discharge Plan Discharge Patient Disposition: Home Clinical Impression: Kidney lesion, [place], left Constipation Qualifiers: Constipation type: unspecified constipation type Qualified Code(s): K59.00 - Constipation, unspecified Condition: Stable Prescriptions: New polyethylene glycol 3350 [Miralax] 17 gram powder in packet 17 g PO BID PRN (Reason: constipation) 7 Days Qty: 14 0RF No Action acetaminophen [Tylenol] 325 mg tablet 650 mg PO QID PRN (Reason: Fever Or Pain) furosemide 80 mg tablet 80 mg PO DAILY Trelegy Ellipta 100-62.5-25 mcg blister with device 1 inh inhalation DAILY (DME) oxygen-air delivery systems Device See Rx Instructions .ROUTE Rx Instructions: As directed amlodipine 5 mg tablet 5 mg PO DAILY Qty: 90 3RF aripiprazole [Abilify] 2 mg Tablet 2 mg PO QAM allopurinol 300 mg tablet 300 mg PO QAM losartan 50 mg tablet 50 mg PO QAM pantoprazole 40 mg tablet,delayed release (DR/EC) 40 mg PO QAM albuterol sulfate 90 mcg/actuation HFA aerosol inhaler 2 puff INHALATION Q4H PRN (Reason: Shortness Of Breath) potassium chloride 20 mEq tablet extended release 20 meq PO QAM (DME) blood-glucose meter [Accu-Chek Guide Glucose Meter] Misc See Rx Instructions .Route Qty: 1 0RF Rx Instructions: As directed (DME) lancets [Accu-Chek Fastclix Lancet Drum] Misc See Rx Instructions .Route Qty: 200 2RF Rx Instructions: As directed (DME) Accu-Chek Quita Plus test strp Strip See Rx Instructions .Route Qty: 100 2RF Rx Instructions: As directed fluoxetine 40 mg capsule 40 mg PO DAILY fluticasone propionate 50 mcg/actuation spray,suspension 1 spray INTRANASAL DAILY One Daily Women 50 Plus 400-120 mcg-mg Tablet 1 tab PO DAILY insulin degludec [Tresiba FlexTouch U-200] 200 unit/mL (3 mL) insulin pen 20 unit SUBCUT DAILY Ozempic 2 mg/dose (8 mg/3 mL) pen injector 2 mg SUBCUT Q7D Discharge Orders: Discharge ED (Routine); Ordered 04/22/25 Ordered By: Srikanth Blanc Referrals: Jhony Cantu MD [Primary Care Provider, Family Practice] Patient Instructions: Abdominal Pain (ED), Patient Portal & [employer]shine Instructions, Constipation (DC), Fleet Enema (ED) Print Language: Yakut Coding Level of Care Code ED Food Safety Scientist for Kristina Blake
--- OUTSIDE RECORDS SUMMARY | 2025-04-22 00:43 | XMS_ITS | Clinical Summary ---
Author Organization [facility] [email or web address], [facility] Address [address] [place] [address] Phone Care Team Providers Care Plastic Technician Name Role Phone Jhony Cantu MD Primary Care Provider Allergies Active Allergy Reactions Criticality Noted Date Comments Lisinopril 02/02/2021 Penicillin V 02/02/2021 Medications pantoprazole (PROTONIX) 40 MG EC tablet Take 40 mg by mouth 1 (one) time each day before breakfast Do not crush, chew, or split. Active Tiotropium [place] ol (Stiolto Respimat) 2.5-2.5 MCG/ACT aerosol solution [...] patient's age to complete this topic Insurance [place] [id number] Medicaid [place] ([id number]) Debbei Salguero [facility] Care Teams Plastic Technician Relationship Specialty Start Date End Date Jhony Cantu MD [address] [place] [address] PCP - General Family Medicine 01/28/21
--- OUTSIDE RECORDS SUMMARY | 2025-04-22 00:43 | XMS_ITS | Data Portability ---
Author Organization [facility] Address [address] [facility] [facility] [address] [place] [address] Care Team Providers Care [employer] Server Name Role Phone REINA GREGG Primary Care Provider [phone] Assessment Encounter Date Assessment Date Assessment LastModified by Organization Details LastModified Time 11/25/2024 11/25/2024 she had to reschedule cardiology [...] sugar logs and her echo set up. [email or web address] Not available 11/25/2024 10:58:05 02/03/2025 02/03/2025 overall compliance remains poor she has not been checking her sugars. she has the log, her daughter just ordered her a new testing device. she will call with sugars when she has 5 days or so. she walks a lot all over the house which i encouraged her to continue. she says about a mile per day. [email or web address] Not available 02/03/2025 11:19:42 03/19/2025 03/19/2025 we went through her meds one by one. we discussed the risks of not taking each one. keep f/u in 6 weeks f/u right away or to er if sx's worsen [email or web address] Not available 03/19/2025 09:28:41 Plan of Treatment Reminders Order Date Submit Date Provider Last Modified By Organization Details Last Modified Time Details Appointments OFFICE VISIT CRISTINO 2024 09:30A Melo Gregg MD Not available Not available Not available Lab respirato ry pathogens DNA and RNA panel, PCR, nasophary nx 2024 [email or web address] [facility] ([facility]), [address] [place], [address], 03/19/2025 10:00:08 urinalysi s, dipstick 2024 025 [email or web address] [facility] ([facility]), [address] [place], [address], 01/14/2025 15:56:33 culture, urine 2024 025 [employer] [facility], [address] [address], [address] [place], [address], 01/15/2025 22:07:02 Referral pulmonolo gist referral 2024 025 [email or web address] [facility] Pulmonology - Dr Datar, [address] [place] [address], [address], [address], 03/05/2025 13:46:46 Procedures None recorded. Surgeries None recorded. Imaging LDCT, chest, for lung cancer screening - due 2024 025 [email or web address] [facility] Imaging, [address] [place], [address], 02/24/2025 10:14:49 US, echocardi ogram 2024 025 [email or web address] [facility] Imaging Orders, [address] [place], [address], 12/10/2024 07:59:55 Medication Orders azithromy clary 250 mg tablet 2024 025 KULWINDER [id number], [address], [address], [place], [address], 03/19/2025 10:00:35 Mucinex 600 mg tablet, extended release 2024 025 [id number], [address], [address], [place], [address], 03/19/2025 10:00:35 melatonin 10 mg tablet 2024 025 [email or web address] [id number], [address], [address], [place], [address], 03/19/2025 10:00:07 fluticaso ne propionat e 50 mcg/actua tion nasal spray,[facility] 2024 025 [id number], [address], [address], [place], [address], 02/18/2025 12:04:46 fluoxetin e 40 mg capsule 2024 025 [id number], [address], [address], [place], [address], 03/17/2025 09:47:20 Abilify 5 mg tablet 2024 025 [id number], [address], [address], [place], [address], 02/18/2025 12:03:02 Prolia 60 mg/mL subcutane ous syringe 2024 025 [id number], [address], [address], [place], [address], 02/11/2025 05:01:51 cefdinir 300 mg capsule 2024 025 [id number], [address], [address], [place], [address], 01/28/2025 05:01:22 Diflucan 150 mg tablet 2024 025 [id number], [address], [address], [place], [address], 01/22/2025 05:01:28 fluoxetin e 20 mg capsule 2024 025 [id number], [address], [address], [place], [address], 03/17/2025 09:47:17 Patient TargetsNo targets recorded. 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 Not Available [facility] [address] [place], [address], 01/15/2025 22:07:02 01/15/20 25 01/14/2025 urina lysis , dipst ick Leukocytes Trace Not Available [facility] ( [facility] [address] [place] [address], [phone], 01/14/2025 14:29:19 01/15/20 25 01/14/2025 urina lysis , dipst ick Nitrite negati ve Not Available [facility] ([facility]) [address] [place] [address], [phone], 01/14/2025 14:29:19 01/15/20 25 01/14/2025 urina lysis , dipst ick Urobilinogen .2 Not Available [facility] ([facility]) [address] [place] [address], [phone], 01/14/2025 14:29:19 01/15/20 25 01/14/2025 urina lysis , dipst ick Protein 300 Not Available [facility] ([facility]) [address] [place] [address], [phone], 01/14/2025 14:29:19 01/15/20 25 01/14/2025 urina lysis , dipst ick pH 5.5 Not Available [facility] ([facility]) [address] [place], [address], 01/14/2025 14:29:19 01/15/20 25 01/14/2025 urina lysis , dipst ick Blood Small Not Available [facility] ([facility]) [address] [place] [address], [phone], 01/14/2025 14:29:19 01/15/20 25 01/14/2025 urina lysis , dipst ick Specific Dupuyer 1.015 Not Available [facility] ( [facility]) [address] [place], [address], 01/14/2025 14:29:19 01/15/20 25 01/14/2025 urina lysis , dipst ick Ketone Negati ve Not Available [facility] ([facility]) [address] [place], [address], 01/14/2025 14:29:19 01/15/20 25 01/14/2025 urina lysis , dipst ick Bilirubin Negati ve Not Available [facility] ([facility]) [address] [place], [address], 01/14/2025 14:29:19 01/15/20 25 01/14/2025 urina lysis , dipst ick Glucose Negati ve Not Available [facility] ([facility]) [address] [place], [address], 01/14/2025 14:29:19 01/15/20 25 01/14/2025 urina lysis , dipst ick Appearance Clear Not Available [facility] ( [facility]) [address] [place], [address], 01/14/2025 14:29:19 01/15/20 25 01/14/2025 urina lysis , dipst ick Color Yellow Not Available [facility] [address] [place], [address], 01/14/2025 14:29:19 03/19/20 25 03/19/2025 respi rator y patho gens DNA and RNA panel , PCR, nasop haryn x Covid negati ve Not Available [facility] ([facility]) [address] [place], [address], 03/19/2025 09:18:31 03/19/20 25 03/19/2025 respi rator y patho gens DNA and RNA panel , PCR, nasop haryn x Rhinovirus negati ve Not Available [facility] ([facility]) [address] [place], [address], 03/19/2025 09:18:31 03/19/2003/19/2025 respi rator y patho gens DNA and RNA panel , PCR, nasop haryn x Influenza A negati ve Not Available [facility] ([facility]) [address] [place], [address], 03/19/2025 09:18:31 03/19/2003/19/2025 respi rator y patho gens DNA and RNA panel , PCR, nasop haryn x Influenza B negati ve Not Available [facility] ([facility]) [address] [place], [address], 03/19/2025 09:18:31 03/19/2003/19/2025 respi rator y patho gens DNA and RNA panel , PCR, nasop haryn x RSV negati ve Not Available [facility] ([facility]) [address] [place], [address], 03/19/2025 09:18:31 11/30/19 25 11/17/2024 , [facility] ardio gram No observ ation record ed. [email or web address] [facility] [address] [place], [address], 12/01/2024 10:32:48 01/27/2001/26/2025 US, [facility] ardio gram No observ ation record ed. [email or web address] [facility] Orders [address] [place], [address], 02/03/2025 11:12:32 02/03/2002/02/2025 DEXA No observ ation record ed. [email or web address] [facility] [address] [place], [address], 02/03/2025 11:12:24 Result Notes None recorded. Problems Name Problem SNOMED Code Status Onset Date Resolution Date Notes Provider Name and Address Organization Details Recorded Time Type 2 diabetes mellitus without complica tion 656709651 Completed 202111/03/2021 DIABETES MELLITUS , TYPE II - Status is Inactive ; Recorded 11/04/19 11:14AM by Betzy Perry LPN, Annotati on/Adden dum; Promoted ; acuity set as *; Not Available [facility] 03:07:34 Restrict cabrera lung disease 36164444 Active 2021 Restrict cabrera lung disease; 05/04/20 9:09AM by Betzy Perry LPN, Office Visit; Promoted ; acuity set as *; Jyotsna hadley [facility] 5 11:20:19 Chronic kidney disease stage 3B 358048631 Active 2021 Jyotsna hadley [facility] 5 11:20:19 Pulmonar y hyperten altaf 33874859 Active 2021 PULMONAR Y HYPERTEN ALTAF; Recorded 05/04/20 7:34AM by Betzy Perry LPN, Office Visit; Promoted ; acuity set as *; Jyotsna hadley [facility] 5 11:20:19 Hyperten sive disorder 57747210 Active 2021 HYPERTEN ALTAF; Recorded 05/04/20 22 7:36AM by Betzy Perry LPN, Office Visit; Promoted ; acuity set as *; Jyotsna hadley [facility] 5 11:20:19 Aortic stenosis , non-rheu matic 718097572 Active 2021 MODERATE AORTIC STENOSIS ; Recorded 05/04/20 7:34AM by Betzy Perry LPN, Office Visit; Promoted ; acuity set as *; Jyotsna hadley, [facility] 5 11:20:19 Type 2 diabetes mellitus 94590931 Active 2022 BETZY hadley, [facility] 3 10:36:22 Chronic obstruct cabrera pulmonar y disease 91058691 Active 2022 BETZY hadley, [facility] 3 10:36:29 Chronic diastoli c heart failure 600162094 Active 2022 BETZY hadley, [facility] 3 10:36:44 Obstruct cabrera sleep apnea syndrome 16115668 Active 2022 BETZY hadley, [facility] 3 10:36:57 Major depressi ve disorder 687645494 Active 2022 BETZY hadley, [facility] 3 10:37:20 Hyperpar athyroid ism due to renal insuffic iency 92549610 Active 2023 Jyotsna hadley, [facility] 5 11:20:19 Moderate aortic valve stenosis 693344306 Active 2023 Jyotsna hadley, [facility] 5 11:20:19 Chronic kidney disease due to type 2 diabetes mellitus 77762406861 8 Active 2023 Jyotsna hadley, [facility] 5 11:20:19 Nicotine dependen ce 01427888 Active 2023 Jyotsna hadley, [facility] 5 11:20:19 Gout 03060289 Active 2023 Jyotsna hadley, [facility] 5 11:20:19 Screenin g mammogra phy Completed 202309/19/2024 Jyotsna hadley, [facility] 5 11:20:24 Patient noncompl iance - general 328675735 Active 2023 Reina Gregg MD [address] [place] [address], [address] , [facility], LJordynCLex 5 10:01:47 Thyroid nodule 778759702 Active 2023 Jyotsna hadley, [facility] 5 11:20:19 Dependen t personal ity disorder 57123873 Active 2023 Reina Gregg MD [address] [place] [address], [address] , [facility], LLexL.CLex 5 09:41:30 Severe obesity 25499613771 104 Active 2023 Jyotsan hadley, [facility] 5 11:20:19 [facility] l hyperten altaf 70710668 Active 2024 Jyotsna hadley, [facility] 5 11:20:19 Enmeshed attachme nt 805729769 Active 2024 Jyotsna hadley, [facility] 5 11:20:19 Senile osteopor osis 49488211 Active 2024 Reina Gregg MD [address] [place] [address], [address] , [facility] 5 11:17:47 Problem Notes None recorded. Procedures Surgical History Date Name Laterality Status Provider Name and Address Organization Details Recorded Time 06/12/19 25 [facility] 06/13/2024 14:13:16 03/02/20 22 Colonoscopy completed [facility] 02/04/2024 11:38:33 Tubal Ligation completed [facility] 02/04/2024 11:37:27 arthroscopy of knee completed Agnes Zamorano [facility] 11/25/2024 10:34:22 Imaging Results None recorded. Procedure Notes None recorded. Medical Equipment None Reported. Allergies Allergen ID Allergen Name Allergen Category Reaction Reaction Severity Criticality Documentation Date Start Date Code Code System Note Provider Name and Address Organization Details Recorded Time 157 lisinopri l medicatio n Not available Not available Not available 08/08/2022 46796 RxNorm [facility] 10:35:58 158 Product containin g penicilli n (product) medicatio n Not available Not available Not available 08/08/2022 31193 8001 SNOMED 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 4 11:35:46 36262 amoxicill in medicatio n Not available Not available Not available 04/07/2025 723 RxNorm Not Available kulwinder - External Data Service - prod 15:01:08 64659 penicilli n V Not available Not available Not available Not available 04/07/20252020 7984 RxNorm Not Available kulwinder - External Data Service - prod 15:03:24 Medications Name Sig Start Date Stop Date Status Note LastModified by Organization Details LastModified Time losartan 50 mg tablet TAKE 1 TABLET BY MOUTH EVERY DAY active Not Available Not Available No t Available fluoxetin e 40 mg capsule TAKE 1 CAPSULE BY MOUTH EVERY DAY 03/17 completed Not Available Not Available Not Available atorvasta tin 40 mg tablet Take [...] Not Available azithromy clary 250 mg tablet TAKE 2 TABLETS (500 MG) BY ORAL ROUTE ONCE DAILY FOR 1 DAY THEN 1 TABLET (250 MG) BY ORAL ROUTE ONCE DAILY FOR 4 DAYS 2024 active Not Available Not Available Not Avai lable hydrocodo ne 5 mg-acetam inophen 325 mg [...] Not Available Not Available No t Available citalopra m 20 mg tablet Take 1 tablet every day by oral route. 2024 active Not Available Not Available Not Avai lable potassium chloride ER 20 mEq tablet,ex tended [...] BY MOUTH EVERY DAY FOR 90 DAYS 03/17 completed Not Available Not Available Not Available fluticaso ne propionat e 50 mcg/actua tion nasal spray,minnie pension SPRAY 1 SPRAY INTO EACH NOSTRIL EVERY DAY FOR 30 DAYS active Not Available Not Available No t Available spironola ctone 50 mg tablet two times daily 02/03 completed Recorded 02/03/20 22 9:21AM by Betzy Perry LPN, Office Visit; Refill Quantity : 60; Tablet; Not Available Not Available Not Available Mucinex 600 mg tablet, extended release Take 1 tablet every 12 hours by oral route for 10 days. 2024 active Not Available Not Available Not Avai lable azithromy clary 500 mg tablet TAKE 1 TABLET BY MOUTH EVERY DAY FOR 3 DAYS 02/03 completed Not Available Not Available Not Available aripipraz ole 5 mg tablet TAKE 1 TABLET BY MOUTH EVERY DAY active Not Available Not Available No t Available OneTouch UltraSoft Lancets 05/06 completed Not Available Not Available Not Available eszopiclo ne 3 mg tablet TAKE 1 TABLET BY MOUTH AT BEDTIME 03/19 completed Not Available Not Available Not Available [...] completed Recorded 02/21/20 22 12:35PM by Reina Gregg MD, Refill Request; Refill Quantity : 0; [...] 22 5:06PM by Vika Gonzalez LPN (Authori funmid through Reina Gregg MD), Office Visit; Refill Quantity : 0; [...] completed Not Available Not Available Not Available melatonin 5 mg tablet TAKE 1 TABLET BY MOUTH AT BEDTIME 04/21 completed Not Available Not Available Not Available Prolia 60 mg/mL subcutane ous syringe Inject 1 mL by subcutan eous route for 1 day. 02/11 completed Not Available Not Available Not Available OneTouch Verio test strips Take 1 strip 4 times a day by miscell. route. 05/06 completed Not Available Not Available Not Available melatonin 10 mg tablet Take 10 mg every day by oral route for 90 days, for at bedtime for insomnia . 2024 active Not Available Not Available Not Avai lable Injectafe r 02/05 completed x2; 0; Recorded [...] Vika Gonzalez LPN (Authori sunitha through Reina Gregg MD), Office Visit; Refill Quantity : 0; Not Available Not Available Not Available BD Jessica 2nd Gen Pen Needle 32 gauge x /32 USE DIRECTED . active Not Available Not [...] mass index (BMI) Body weight Oxygen saturation Heart rate Respiratory rate Body temperature Systolic And Diastolic Provider Name and Address Organization Details Last Updated DateTime 152.4 cm 45.1 kg/m2 712189. 84 g 88 % 81 /min 24 /min 97.1 [degF] 160/96 mm[Hg] Agnes Zamorano [facility] 10:31:04 Date Recorded Body height Body mass index (BMI) Body weight Respiratory rate Oxygen saturation Heart rate Body temperature Systolic And Diastolic Provider Name and Address Organization Details Last Updated DateTime 5 152.4 cm 43.4 kg/m2 903359. 91 g 20 /min 90 % 80 /min 98.1 [degF] 150/90 mm[Hg] ROSS COLEY [facility] 14:34:37 Date Recorded Body height Body mass index (BMI) Body weight Body temperature Heart rate Oxygen saturation Oxygen saturation Inhaled oxygen flow rate Oxygen saturation Inhaled oxygen flow rate Oxygen saturation Inhaled oxygen flow rate Provider Name and Address Organization Details Last Updated DateTime 5 152.4 cm 43.6 kg/m2 417638. 1 g 97.7 [degF] 83 /min 83 % 86 % 2 L/min 89 % 3 L/min 90 % 4 L/min BETZYAyan PERRY [facility] 11:07:45 Date Recorded Systolic And Diastolic Provider Name and Address Organization Details Last Updated DateTime 02/03/2025 123/80 mm[Hg] [facility] 02/03/2025 11:04:08 Date Recorded Body height Body mass index (BMI) Body weight Body temperature Oxygen saturation Heart rate Oxygen saturation Inhaled oxygen flow rate Systolic And Diastolic Provider Name and Address Organization Details Last Updated DateTime 5 152.4 cm 45.1 kg/m2 398916. 84 g 97.5 [degF] 83 % 77 /min 89 % 2 L/min 158/94 mm[Hg] Jyotsna Donald [facility] 5 11:48:02 Date Recorded Body height Body mass index (BMI) Body weight Body temperature Heart rate Oxygen saturation Systolic And Diastolic Provider Name and Address Organization Details Last Updated DateTime 5 152.4 cm 43.2 kg/m2 751173. 91 g 97.5 [degF] 85 /min 90 % 148/87 mm[Hg] BETZY PERRY [facility] 09:07:35 Social History Question Answer Notes LastModified by OrganizRodo Medical Details LastModified Time Tobacco Smoking Status Current Every Day Smoker BETZY PERRY [facility], [facility] 08/08/2022 10:41:53 What Was The Date Of Your Most Recent Tobacco Screening? 10/28/2024 [email or web address] Information not available 10/28/2024 What Is Your Current Pack Years? 30ormorepack years [email or web address] Information not available 12/12/2022 How Much Tobacco Do You Smoke? 0.5 PPD [email or web address] Information not available 02/03/2025 Has Tobacco Cessation Counseling Been Provided? Yes [email or web address] Information not available 08/08/2022 How Many Years Have You Smoked Tobacco? 50 [email or web address] Information not available 12/12/2022 Sex: Unknown Functional Status Question Answer Note LastModified by [employer] Medical Details LastModified Time Do you use any illicit or recreational drugs? No Information not available 09/15/2024 Do you or have you ever used any other forms of tobacco or nicotine? No [email or web address] Information not available 01/14/2025 What is your level of alcohol consumption? None Information not available 09/15/2024 Do you or have you ever used any nicotine-free cigarettes, vape, or chewing tobacco? No [email or web address] Information not available 01/14/2025 Mental Status None recorded. Family History Relationship Description Onset Age of this Age Resolved Age Notes LastModified by Organization Details LastModified Time Mother Type 2 diabetes mellitus [email or web address] Not available 08/08 10:39:20 Brother Type 1 diabetes mellitus [email or web address] Not available 08/08 10:39:30 Brother Coronary atherosclero sis [email or web address] Not available 08/08 10:40:16 Medical History No medical history recorded. Gynecological HistoryNo gynecological history recorded. Obstetrics History GPAL:G 0 P 0 0 0 0 Immunizations Vaccine Type Date Status Note Provider Nam e and Address Organization Details Recorded Time Influenza, split virus, trivalent, preservative 2 completed Not Available [facility] 12/16/2022 02:45:55 pneumococcal polysaccharide PPV23 5 completed Not Available [facility] 12/16/2022 02:45:56 Influenza, split virus, trivalent, preservative 1 completed Not Available [facility] 12/16/2022 02:45:57 Influenza, split virus, trivalent, preservative 4 completed Not Available [facility] 12/16/2022 02:45:57 Influenza, split virus, trivalent, preservative 2 completed Not Available [facility] 12/16/2022 02:45:57 pneumococcal polysaccharide PPV23 0 completed Not Available [facility] 12/16/2022 02:45:57 Influenza, split virus, trivalent, preservative 1 completed Not Available [facility] 12/16/2022 02:45:57 Influenza, adjuvanted, trivalent, PF 5 completed BETZY hadley, [facility] 02/03/2025 11:57:54 Tdap 5 completed BETZY hadley, [facility] 02/03/2025 11:58:07 Influenza, split virus, trivalent, PF 5 completed Not Available [facility] 03/19/2025 13:07:42 COVID-19, mRNA, LNP-S, PF, 100 mcg/0.5mL dose or 50 mcg/0.25mL dose 1 completed BETZY hadley, [facility] 10/17/2022 10:36:10 COVID-19, mRNA, LNP-S, PF, 100 mcg/0.5mL dose or 50 mcg/0.25mL dose 1 completed BETZY hadley, [facility] 10/17/2022 10:36:10 COVID-19, mRNA, LNP-S, PF, 100 mcg/0.5mL dose or 50 mcg/0.25mL dose 2 completed BETZY PERRY null, [facility] 10/17/2022 10:36:10 COVID-19, mRNA, LNP-S, PF, 100 mcg/0.5mL dose or 50 mcg/0.25mL dose 1 completed BETZY PERRY null, [facility] 10/17/2022 10:36:10 COVID-19, mRNA, LNP-S, bivalent, PF, 50 mcg/0.5 mL or 25mcg/0.25 mL dose 2 completed BETZY PERRY null, [facility] 10/17/2022 10:36:10 pneumococcal polysaccharide PPV23 7 completed BETZY PERRY [facility], [facility] 10/17/2022 10:36:10 pneumococcal polysaccharide PPV23 4 completed BETZY PERRY null, [facility] 10/17/2022 10:36:10 Tdap 9 completed BETZY PERRY [facility], [facility] 10/17/2022 10:36:10 Influenza, split virus, trivalent, preservative 4 completed BETZY PERRY null, [facility] 10/17/2022 10:36:10 Influenza, split virus, trivalent, PF 6 completed BETZY PERRY null, [facility] [facility] 10/17/2022 10:36:10 Influenza, split virus, trivalent, PF 5 completed BETZY PERRY null, [facility] 10/17/2022 10:36:10 Influenza, split virus, quadrivalent, PF 7 completed BETZY PERRY null, [facility] 10/17/2022 10:36:10 Pneumococcal conjugate PCV20, polysaccharide [id number] conjugate, adjuvant, PF 5 completed BETZY hadley, [facility] 06/17/2024 11:50:33 Influenza, adjuvanted, trivalent, PF 5 completed BETZY hadley, [facility] 06/17/2024 13:05:10 Past Encounters Encounter ID Performer Location Encounter Start Date Encounter Closed Date Diagnosis/Indication Diagnosis SNOMED-CT Code Diagnosis ICD10 Code Diagnosis IMO Codes Diagnosis Note [id number] Reina Gregg MD [facility] ([facility]) [address] [place] [address] [phone] 5 08/08/2022 09:07:19 08/10/2022 11:43:35 Chronic diastolic heart failure 881765418 I50.32 Chronic ki dney disease stage 3A 290509574 N18.31 Chronic ob structive pulmonary disease 87935412 J44.9 Diabetes mellitus 677143 09 E11.22 [id number] Reina Gregg MD [facility] ([facility]) [address] [place] [address] [phone] 5 10/17/2022 10:23:35 10/17/2022 19:24:21 Type 2 diabetes mellitus 29444132 E11.65 d/c home Depressive disorder 3548 9007 F33.9 Congestive heart failure 26611709 I50.32 Chronic ob structive pulmonary disease 96948711 J44.9 Essential hypertension 15974971 I10 Nicotine dependence 5629 4008 F17.200 Need for [facility] care assistance [id number] 5566563 Z74.1 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 6695923584 08 E11.22 Long-term oxygen therapy 128628387 Z99.81 Does mobil ize using walker 189779088 Z99.89 [id number] Reina Gregg MD [facility] ([facility]) [address] [place] [address] [phone] 5 12/12/2022 12:03:38 12/12/2022 14:15:29 Chronic obstructive pulmonary disease 60609007 J44.9 Chronic di astolic heart failure 995399573 I50.32 Chronic ki dney disease stage 3A 211802371 N18.31 Obstructiv e sleep apnea syndrome 38992234 G47.33 Type 2 mahsa betes mellitus 67515988 E11.65 d/c home Acute on c hronic combined systolic and diastolic heart failure 5636067471 21943 I50.43 Acute exac erbation of chronic obstructive pulmonary disease 163850750 J44.1 [id number] Reina Gregg MD [facility] ([facility]) [address] [place] [address] [phone] 5 02/04/2024 11:29:07 02/04/2024 12:53:42 Chronic diastolic heart failure 290573330 I50.32 Chronic ob structive pulmonary disease 77748982 J44.9 Major depr essive disorder 005533513 F32.9 Hyperparat hyroidism due to renal insufficiency 95204504 N25.81 Moderate a ortic valve stenosis 607109952 I35.0 Chronic ki dney disease stage 3A 607223638 N18.31 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 3326614276 08 E11.22 Nicotine dependence 5629 4008 F17.200 Screening mammography 24 270472 Z12.31 Gout 48030372 M10.9 Screening for malignant neoplasm of colon 265856724 Z12.11 Thyroid nodule 244753572 E04.1 Patient no [facility] general 099112313 Z91.199 Body mass index 40+ - severely obese 909465703 Z68.43 Dependent personality disorder 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 F60.7 Severe obesity 440413821 1 9104 E66.01 [id number] Reina Gregg MD [facility] ([facility]) [address] [place] [address] [phone] 5 02/13/2024 12:02:45 02/14/2024 11:55:32 [id number] Reina Gregg MD [facility] ([facility]) [address] [place] [address] [phone] 5 05/06/2024 10:50:01 05/06/2024 15:35:28 Dependent personality disorder 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 Chronic di astolic heart failure 979811808 I50.32 Chronic ob structive pulmonary disease 71689812 J44.9 Major depr essive disorder 156338788 F32.9 Hyperparat hyroidism due to renal insufficiency 58246628 N25.81 Moderate a ortic valve stenosis 993217541 I35.0 Chronic ki dney disease stage 3A 593694487 N18.31 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 2002858877 08 E11.22 Nicotine dependence 5629 4008 F17.200 Screening mammography 24 425542 Z12.31 Gout 75595801 M10.9 Screening for malignant neoplasm of colon 229306506 Z12.11 Thyroid nodule 714597683 E04.1 Patient no ncompliance - general 096265761 Z91.199 Severe obesity 162595139 1 9104 E66.01 Body mass index 40+ - severely obese 038380702 Z68.43 Excessive daytime sleepiness - normal night sleep 598435573 G47.19 [id number] Reina Gregg MD [facility] ([facility]) [address] [place] [address] [phone] 5 06/10/2024 10:53:50 06/11/2024 11:54:10 Pulmonary hypertension 54083776 I27.20 [id number] Reina Gregg MD [facility] ([facility]) [address] [place] [address] [phone] 5 06/17/2024 10:57:55 06/18/2024 14:28:16 Chronic diastolic heart failure 218666552 I50.32 Chronic ob structive pulmonary disease 48803166 J44.9 Major depr essive disorder 630072275 F32.9 Type 2 mahsa betes mellitus 01988689 E11.65 Dependent personality disorder 40223138 F60.7 Nicotine dependence 5629 4008 F17.200 Body mass index 40+ - severely obese 253993355 Z68.42 Essential hypertension 34593643 I10 Need for [facility] 3994596038 9045174 Z74.1 Dependence on supplemental oxygen 8594828829 07 Z99.81 Dependence on enabling machine or device 059616281 Z99.89 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.89 Screening mammography 24 221296 Z12.31 Administra tion of influenza vaccine 79948425 Z23 Administra tion of pneumococcal vaccine 24537032 Z23 [id number] Reina Gregg MD [facility] ([facility]) [address] [place] [address] [phone] 5 09/15/2024 13:09:43 09/18/2024 07:11:03 Chronic diastolic heart failure 438550631 I50.32 Gastroesop hageal reflux disease 558303430 K21.9 Type 2 mahsa betes mellitus 12924671 E11.65 Candidal intertrigo 2661 42646 B37.2 34440 History of gout 41113488 4 Z87.39 960266 Chronic ob structive pulmonary disease 22519782 J44.9 Major depr essive disorder 209813698 F32.9 Obstructiv e sleep apnea syndrome 76141675 G47.33 Aortic lakhwinder nosis, non-rheumatic 080082907 I35.0 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 she has lost 10 lbs. sugar is well controlled . [id number] Reina Gregg MD [facility] ([facility]) [address] [place] [address] [phone] 5 10/28/2024 08:47:04 10/29/2024 15:24:11 Dependent personality disorder 56287661 F60.7 36766 we discussed taking steps to be more responsibl e for her health. Microalbum inuric diabetic nephropathy 089921222 E11.21 91091295 Uncontroll ed type 2 diabetes mellitus 646599915 E11.65 13075883 ozempic is well tolerated. she agrees to resume insulin. would like to start a glp-1 for her dm, ckd, and chf, but her sugars are too high. 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 Moderate a ortic valve stenosis 692200097 I35.0 131633 [id number] RAZA HUTCHINS [facility] ([facility]) [address] [place] [address] [phone] 5 01/14/2025 14:17:12 01/14/2025 15:50:34 Dysuria 77819773 R30.0 02121 urine dip normal. Will send for cx and call pt with results. Acute bact erial bronchitis 169901719 J20.8 B96.89 8053463 Discussed use of otc medication s for symptom management .Push oral fluids and rest.If you develop fever, sob, or start feeling worse then return for re-evaluat ion. [id number] Reina Gregg MD [facility] ([facility]) [address] [place] [address] [id number] 5 02/03/2025 10:43:19 02/04/2025 11:07:49 Chronic diastolic heart failure 457998522 I50.32 echo stable valve stable Pulmonary hypertension 16700363 I27.20 Chronic ob structive pulmonary disease 10072064 J44.9 Requires i nfluenza virus vaccination 468491008 Z23 238587 Senile osteoporosis 1804 0001 M81.0 2229040 she does take her vit d3 daily Aortic lakhwinder nosis, non-rheumatic 418702167 I35.0 Hyperparat hyroidism due to renal insufficiency 49906578 N25.81 Chronic ki dney disease stage 3B 864626356 N18.32 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 Patient no ncompliance - general 546209485 Z91.422 3229848 Tobacco user 753461826 F 17.200 14810 Requires d iphtheria, tetanus and pertussis vaccination 162608779 Z23 982061 [id number] Reina Gregg MD [facility] ([facility]) [address] [place] [address] [phone] 5 02/18/2025 11:27:02 02/23/2025 13:33:19 Generalized anxiety disorder 43147427 F41.1 Severe pauly or depression 001860123 F32.2 257125 Nasal congestion 9577747 0 R09.81 34564 [id number] Reina Gregg MD [facility] ([facility]) [address] [place] [address] [phone] 5 03/19/2025 09:01:25 03/19/2025 14:12:41 Acute exacerbation of chronic obstructive pulmonary disease 958775902 J44.1 077929 Chronic insomnia 7399335 04 F51.04 391760 Health Concerns Section Related Observation LastModified by Organization Detai ls LastModified Time None Recorded Concern Status LastModified by Organization Details LastModified Time None Recorded Advance Directives Directive None Recorded Payers Insurance Date Sequence Insurance Name Policy Number Policy Blackburn Covered Member ID Blackburn Member ID Guarantor Name 03/27/2025 [place] [facility]) Bridget S Neyda [id number] Bridget S Neyda 03/27/2025 1 [employer] - [place] (MEDICARE REPLACEMENT/A DVANTAGE - HMO) [id number] Bridget S Neyda [id number] Bridget S Neyda 03/27/2025 1 [facility] ([place]/A DVANTAGE - HMO) MODSNP Bridget S Neyda [id number] Bridget S Neyda 03/27/2025 1 [facility] (MEDICARE REPLACEMENT/A DVANTAGE - HMO) Bridget S Neyda [id number] Bridget S Neyda 03/27/2025 1 [facility] (MEDICARE REPLACEMENT/A DVANTAGE - HMO) MODSNP Bridget Faye [id number] Bridget Faye 03/27/2025 2 [place] Bridget Faye [id number] Bridget Faye Notes Date Note Type Note Provider Name and Address Organization Details Recorded Time 5 text/htm l DiabetesReported by Patient Care Management - Congestive [...] daughter didn't make sure i went. Reina Gregg MD [address] [place] [address], [phone], [facility] 12/09/2024 10:19:03 5 text/htm l ROS as noted in the [facility] walk-in; PCP Dr. Gregg Patient c/o urinary symptoms. Lower abdominal pain. She is also congested with a productive cough. She states she's had symptoms for two weeks. RAZA HUTCHINS [address] [place], [address], [facility] 01/14/2025 15:48:32 5 text/htm l DiabetesReported by PatientHPIFor associated symptoms, patient reportsparesthesias [...] depression is very well controlled now. Reina Gregg MD [address] [place] [address], [phone], [facility], Christa 02/03/2025 11:28:53 5 text/htm l Pt was brought into the crisis center [...] daily. she is never by herself. her lothqej-hu-qdo is always there. she is not hearing voices or seeing anything. no one is out to get her or harm her. she does not seem to have any delusional thoughts and wants to get well. Reina Gregg MD [address] [place], [address], [facility], LJimmy. 02/18/2025 12:04:45 5 text/htm l Anxiety/DepressionReported by PatientHPIFor severity, patient reportsdenies suicidal ideations. For duration, patient reportschronic. For onset/timing, patient reportsgradual. For associated symptoms, patient reportssleeping well,appetite good,energy good, andable to concentrate.Pt reports that she is resting well. She feels that was the biggest part of her problem. CoughReported by PatientHPIFor context, patient reportssmoker. For associated symptoms, patient reportswheezingandsputum productionbut reportsno feverandno muscle pain. For quality, patient reportsproductive. For duration, patient reportsacute (<3 weeks). For onset/timing, patient reportssudden.pt reports that everybody in her family is sick right now. She is hoping to get something to help with her chest congestion. sx's started less than one week ago. no fever.has increased cough, productive more than baseline, yellow, no increased dyspneaROS as noted in the [facility] hospital f/u: went to the ER after having suicidal ideations. Reina Gregg MD [address] [place], [address], [facility], LJimmy. 03/19/2025 10:00:45 OBGyn Episode No OBEpisode recorded.
--- OUTSIDE RECORDS SUMMARY | 2025-04-22 00:43 | XMS_ITS | Continuity of Care Document ---
Author Organization [facility] [place], Christa, [facility] ([facility]) Address [address] [place] [address] Care Team Providers Care Yard Attendant Name Role Phone REINA GREGG Primary Care Provider [phone] Assessment Encounter Date Assessment Date Assessment LastModified by Organization Details LastModified Time 02/03/2025 02/03/2025 overall compliance remains poor she has not been checking her sugars. she has the log, her daughter just ordered her a new testing device. she will call with sugars when she has 5 days or so. she walks a lot all over the house which i encouraged her to continue. she says about a mile per day. [email or web address] Not available 02/03/2025 11:19:42 Plan of Treatment Reminders Order Date Submit Date Provider Last Modified By Organization Details Last Modified Time Details Appointments OFFICE VISIT CRISTINO 2024 09:30A M Reina Gregg MD Not available Not available Not available Lab None recorded. Referral pulmonolo gist referral 2024 025 [email or web address] [facility] Pulmonology - Dr Datar, [address] [place] [address], [address], 03/05/2025 13:46:46 Procedures None recorded. Surgeries None recorded. Imaging LDCT, chest, for lung cancer screening - due 2024 025 [employer] [facility], [address] [place], [address], 02/24/2025 10:14:49 Medication Orders Prolia 60 mg/mL subcutane ous syringe [address] [facility] #[id number], [address], [address], 02/11/2025 05:01:51 Patient TargetsNo targets recorded. 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 Not Available [facility] [address] [address], [place], [address], 01/15/2025 22:07:02 01/15/2001/14/2025 urina lysis , dipst ick Leukocytes Trace Not Available [facility]) [address] [place], [address], 01/14/2025 14:29:19 01/15/2001/14/2025 urina lysis , dipst ick Nitrite negati ve Not Available [facility] ([facility]) [address] [place], [address], 01/14/2025 14:29:19 01/15/20 25 01/14/2025 urina lysis , dipst ick Urobilinogen .2 Not Available [facility] ([facility]) [address] [place], [address], 01/14/2025 14:29:19 01/15/20 25 01/14/2025 urina lysis , dipst ick Protein 300 Not Available [facility] ([facility]) [address] [place], [address], 01/14/2025 14:29:19 01/15/20 25 01/14/2025 urina lysis , dipst ick pH 5.5 Not Available [facility] ([facility]) [address] [place], [address], 01/14/2025 14:29:19 01/15/20 25 01/14/2025 urina lysis , dipst ick Blood Small Not Available [facility] ([facility]) [address] [place], [address], 01/14/2025 14:29:19 01/15/20 25 01/14/2025 urina lysis , dipst ick Specific Hyndman 1.015 Not Available [facility] ( [facility]) [address] [place], [address], 01/14/2025 14:29:19 01/15/20 25 01/14/2025 urina lysis , dipst ick Ketone Negati ve Not Available [facility] ([facility]) [address] [place], [address], 01/14/2025 14:29:19 01/15/20 25 01/14/2025 urina lysis , dipst ick Bilirubin Negati ve Not Available [facility] ([facility]) [address] [place], [address], 01/14/2025 14:29:19 01/15/20 25 01/14/2025 urina lysis , dipst ick Glucose Negati ve Not Available [facility] ([facility]) [address] [place], [address], 01/14/2025 14:29:19 01/15/20 25 01/14/2025 urina lysis , dipst ick Appearance Clear Not Available [facility] ([facility]) [address] [place], [address], 01/14/2025 14:29:19 01/15/20 25 01/14/2025 urina lysis , dipst ick Color Yellow Not Available [facility] ([facility]) [address] [place], [address], 01/14/2025 14:29:19 01/27/20 25 01/26/2025 , [facility] ardio gram No observ ation record ed. [address] Imaging Orders [address] [place], [address], 02/03/2025 11:12:32 02/03/2002/02/2025 DEXA No observ ation record ed. [address] [place], [address], 02/03/2025 11:12:24 Result Notes None recorded. Problems Name Problem SNOMED Code Status Onset Date Resolution Date Notes Provider Name and Address Organization Details Recorded Time Type 2 diabetes mellitus without complica tion 410246963 Completed 202111/03/2021 DIABETES MELLITUS , TYPE II - Status is Inactive ; Recorded 11/04/19 22 11:14AM by Betzy Perry LPN, Annotati on/Adden dum; Promoted ; acuity set as *; Not Available [employer] 3 03:07:34 Restrict cabrera lung disease 66490915 Active 2021 Restrict cabrera lung disease; 05/04/20 22 9:09AM by Betzy Perry LPN, Office Visit; Promoted ; acuity set as *; Jyotsna hadley, [facility] 5 11:20:19 Chronic kidney disease stage 3B 992835375 Active 2021 Jyotsna hadley, [facility] 5 11:20:19 Pulmonar y hyperten altaf 68120170 Active 2021 PULMONAR Y HYPERTEN ALTAF; Recorded 05/04/20 22 7:34AM by Betzy Perry LPN, Office Visit; Promoted ; acuity set as *; Jyotsna hadley, [facility] 5 11:20:19 Hyperten sive disorder 33348698 Active 2021 HYPERTEN ALTAF; Recorded 05/04/20 22 7:36AM by Betzy Perry LPN, Office Visit; Promoted ; acuity set as *; Jyotsna hadley [facility] 5 11:20:19 Aortic stenosis , non-rheu matic 430200448 Active 2021 MODERATE AORTIC STENOSIS ; Recorded 05/04/20 22 7:34AM by Betzy Perry LPN, Office Visit; Promoted ; acuity set as *; Jyotsna hadley [facility] 5 11:20:19 Type 2 diabetes mellitus 12749562 Active 2022 BETZY hadley [facility] 3 10:36:22 Chronic obstruct cabrera pulmonar y disease 06408172 Active 2022 BETZY hadley, [facility] 3 10:36:29 Chronic diastoli c heart failure 262359146 Active 2022 BETZY PERRY null, [facility] 3 10:36:44 Obstruct cabrera sleep apnea syndrome 35511259 Active 2022 BETZY PERRY null, [facility] 3 10:36:57 Major depressi ve disorder 777427580 Active 2022 BETZY PERRY null, [facility] 3 10:37:20 Hyperpar athyroid ism due to renal insuffic iency 48206646 Active 2023 Jyotsna Donald null, [facility] 5 11:20:19 Moderate aortic valve stenosis 501064393 Active 2023 Jyotsna Donald null, [facility] 5 11:20:19 Chronic kidney disease due to type 2 diabetes mellitus 60820528274 8 Active 2023 Jyotsna Donald null, [facility] 5 11:20:19 Nicotine dependen ce 55949285 Active 2023 Jyotsna Donald null, [facility] 5 11:20:19 Gout 91560654 Active 2023 Jyotsna Donald null, [facility] 5 11:20:19 Screenin g mammogra phy Completed 202309/19/2024 Jyotsna Donald null, [facility] 5 11:20:24 Patient noncompl iance - general 476717275 Active 2023 Reina Gregg MD [address] [place], [address] , [facility] 5 10:01:47 Thyroid nodule 331030347 Active 2023 Jyotsna hadley [facility] 5 11:20:19 Dependen t personal ity disorder 06887683 Active 2023 Reina Gregg MD [address] [place] [address], [address] , [facility] 5 09:41:30 Severe obesity 19388351330 104 Active 2023 Jyotsna hadley, [facility] 5 11:20:19 Essentia l hyperten altaf 81666784 Active 2024 Jyotsna hadley [facility] 5 11:20:19 Enmeshed attachme nt 811865259 Active 2024 yJotsna hadley [facility] 5 11:20:19 Senile osteopor osis 86612534 Active 2024 Reina Gregg MD [address] [place] [address], [address] , [facility] 11:17:47 Problem Notes None recorded. Procedures Surgical History Date Name Laterality Status Provider Name and Address Organization Details Recorded Time 06/12/19 25 echocardiography completed BETZY PERRY [facility] [place], [facility] 06/13/2024 14:13:16 03/02/20 22 Colonoscopy completed BETZY PERRY [facility] 02/04/2024 11:38:33 Tubal Ligation completed BETZY PERRY [facility] 02/04/2024 11:37:27 arthroscopy of knee completed Agnes Zamorano [facility] 11/25/2024 10:34:22 Imaging Results None recorded. Procedure Notes None recorded. Medical Equipment None Reported. Allergies Allergen ID Allergen Name Allergen Category Reaction Reaction Severity Criticality Documentation Date Start Date Code Code System Note Provider Name and Address Organization Details Recorded Time 157 lisinopri l medicatio n Not available Not available Not available 08/08/2022 33917 RxNorm BETZY hadley [facility] 3 10:35:58 158 Product containin g penicilli n (product) medicatio n Not available Not available Not available 08/08/2022 18893 8001 SNOMED BETZY hadley [facility] 3 10:36:06 15922 penicilli n V potassium medicatio n Not available Not available Not available 12/16/202297400 5 RxNorm Comme nt: Recor ded 05/04 7:34A M by Cornelia Brar on, TERMITE EXTERMINATOR, Offic e Visit ; Promo laura; Fiorella hinojosa ce: *; Reaso n: Drug aller gy; ; [facility] 4 11:35:46 77120 amoxicill in medicatio n Not available Not available Not available 04/07/2025 723 RxNorm Not Available [employer] - External Data Service - prod 5 15:01:08 44580 penicilli n V Not available Not available Not available Not available 04/07/20252020 7984 RxNorm Not Available [employer] External Data Service - prod 5 15:03:24 Medications Name Sig Start Date Stop [...] Vika Gonzalez LPN (Authori zed through Reina Gregg MD), Office Visit; Refill [...] Not Available Not Available No t Available [employer] Delica Plus Lancing Device kit 05/06 completed Not Available Not Available Not Available [employer] 160 mcg-9mcg- 4.8mcg/ac tuation HFA [...] Organization Details Last Updated DateTime 152.4 cm 43.6 kg/m2 717416. 1 g 97.7 [degF] 83 /min 83 % 86 % 2 L/min 89 % 3 L/min 90 % 4 L/min BETZY PERRY [facility] 11:07:45 Date Recorded Systolic And Diastolic Provider Name and Address Organization Details Last Updated DateTime 02/03/2025 123/80 mm[Hg] BETZY PERRY [facility] 02/03/2025 11:04:08 Social History Question Answer Notes LastModified by Organizat ion Details LastModified Time Tobacco Smoking Status Current Every Day Smoker BETZY hadley [facility] 08/08/2022 10:41:53 What Was The Date Of Your Most Recent Tobacco Screening? 10/28/2024 Information not available 10/28/2024 What Is Your Current Pack Years? 30ormorepack years [email or web address] Information not available 12/12/2022 How Much Tobacco Do You Smoke? 0.5 PPD [email or web address] Information not available 02/03/2025 Has Tobacco Cessation Counseling Been Provided? Yes [email or web address] Information not available 08/08/2022 How Many Years Have You Smoked Tobacco? 50 Information not available 12/12/2022 Sex: Unknown Functional Status Question Answer Note LastModified by Organizat ion Details LastModified Time Do you use any illicit or recreational drugs? No Information not available 09/15/2024 Do you or have you ever used any other forms of tobacco or nicotine? No [email or web address] Information not available 01/14/2025 What is your level of alcohol consumption? None Information not available 09/15/2024 Do you or have you ever used any nicotine-free cigarettes, vape, or chewing tobacco? No [email or web address] Information not available 01/14/2025 Mental Status None recorded. Family History Relationship Description Onset Age of this Age Resolved Age Notes LastModified by Organization Details LastModified Time Mother Type 2 diabetes mellitus [email or web address] Not available 08/08 10:39:20 Brother Type 1 diabetes mellitus [email or web address] Not available 08/08 10:39:30 Brother Coronary atherosclero sis [email or web address] Not available 08/08 10:40:16 Medical History No medical history recorded. Gynecological HistoryNo gynecological history recorded. Obstetrics History GPAL:G 0 P 0 0 0 0 Immunizations Vaccine Type Date Status Note Provider Nam e and Address Organization Details Recorded Time Influenza, split virus, trivalent, preservative 2 completed Not Available [facility] 12/16/2022 02:45:55 pneumococcal polysaccharide PPV23 5 completed Not Available [facility] 12/16/2022 02:45:56 Influenza, split virus, trivalent, preservative 1 completed Not Available [facility] 12/16/2022 02:45:57 Influenza, split virus, trivalent, preservative 4 completed Not Available [facility] 12/16/2022 02:45:57 Influenza, split virus, trivalent, preservative 2 completed Not Available [facility] 12/16/2022 02:45:57 pneumococcal polysaccharide PPV23 0 completed Not Available [facility] 12/16/2022 02:45:57 Influenza, split virus, trivalent, preservative 1 completed Not Available [facility] 12/16/2022 02:45:57 Influenza, adjuvanted, trivalent, PF 5 completed BETZY hadley, [facility] 02/03/2025 11:57:54 Tdap 5 completed BETZY hadley, [facility] 02/03/2025 11:58:07 Influenza, split virus, trivalent, PF 5 completed Not Available [facility] 03/19/2025 13:07:42 COVID-19, mRNA, LNP-S, PF, 100 mcg/0.5mL dose or 50 mcg/0.25mL dose 1 completed BETZY hadley, [facility] 10/17/2022 10:36:10 COVID-19, mRNA, LNP-S, PF, 100 mcg/0.5mL dose or 50 mcg/0.25mL dose 1 completed BETZY hadley, [facility] 10/17/2022 10:36:10 COVID-19, mRNA, LNP-S, PF, 100 mcg/0.5mL dose or 50 mcg/0.25mL dose 2 completed BETZY hadley, [facility] 10/17/2022 10:36:10 COVID-19, mRNA, LNP-S, PF, 100 mcg/0.5mL dose or 50 mcg/0.25mL dose 1 completed BETZY PERRY [facility], [facility] 10/17/2022 10:36:10 COVID-19, mRNA, LNP-S, bivalent, PF, 50 mcg/0.5 mL or 25mcg/0.25 mL dose 2 completed BETZYAayn PERRY [facility], [facility] 10/17/2022 10:36:10 pneumococcal polysaccharide PPV23 7 completed BETZYNEGAR PERRY null, [facility] 10/17/2022 10:36:10 pneumococcal polysaccharide PPV23 4 completed BETZYNEGAR PERRY [facility], [facility] 10/17/2022 10:36:10 Tdap 9 completed BETZY VICKY [facility], [facility] 10/17/2022 10:36:10 Influenza, split virus, trivalent, preservative 4 completed BETZY PERRY [facility], [facility] 10/17/2022 10:36:10 Influenza, split virus, trivalent, PF 6 completed BETZY PERRY [facility], [facility] 10/17/2022 10:36:10 Influenza, split virus, trivalent, PF 5 completed BETZY PERRY [facility], [facility] 10/17/2022 10:36:10 Influenza, split virus, quadrivalent, PF 7 completed BETZY VICKY [facility], [facility] 10/17/2022 10:36:10 Pneumococcal conjugate PCV20, polysaccharide MNR949 conjugate, adjuvant, PF 5 completed BETZY PERRY [facility], [facility] 06/17/2024 11:50:33 Influenza, adjuvanted, trivalent, PF 01/28/202 5 completed BETZY hadley [facility] 06/17/2024 13:05:10 Past Encounters Encounter ID Performer Location Encounter Start Date Encounter Closed Date Diagnosis/Indication Diagnosis SNOMED-CT Code Diagnosis ICD10 Code Diagnosis IMO Codes Diagnosis Note [id number] RAZA HUTCHINS [facility] ([facility]) [address] [place] [address] 01/14/2025 14:17:12 01/14/2025 15:50:34 Dysuria 40133099 R30.0 70576 urine dip normal. Will send for cx and call pt with results. Acute bact erial bronchitis 870004886 J20.8 B96.89 2315858 Discussed use of otc medication s for symptom management .Push oral fluids and rest.If you develop fever, sob, or start feeling worse then return for re-evaluat ion. [id number] Reina Gregg MD [facility] ([facility]) [address] [place] [address] 02/03/2025 10:43:19 02/04/2025 11:07:49 Chronic diastolic heart failure 768121687 I50.32 echo stable valve stable Pulmonary hypertension 75350845 I27.20 Chronic ob structive pulmonary disease 46903442 J44.9 Requires i nfluenza virus vaccination 878274000 Z23 444299 Senile osteoporosis 1804 0001 M81.0 1008254 she does take her vit d3 daily Aortic shamika nosis, non-rheumatic 564765395 I35.0 Hyperparat hyroidism due to renal insufficiency 69051773 N25.81 Chronic ki dney disease stage 3B 222661910 N18.32 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 2182239580 08 E11.22 Dependent personality disorder 88878242 F60.7 26714 we discussed taking steps to be more responsibl e for her health. Patient no ncompliance - general 954830918 Z91.387 0661738 Tobacco user 500562118 F 17.200 53182 Requires d iphtheria, tetanus and pertussis vaccination 107761158 Z23 793565 Health Concerns Section Related Observation LastModified by Organization Detai ls LastModified Time None Recorded Concern Status LastModified by Organization Details LastModified Time None Recorded Payers Encounter Date Sequence Insurance Name Policy Number Policy Blackburn Covered Member ID Blackburn Member ID Guarantor Name 02/03/2025 2 [place] Bridget Faye [id number] Bridget Faye 02/03/2025 1 [facility] [place] DV[place] - HMO) [employer] Bridget Faye [id number] Bridget Faye Notes Date Note Type Note Provider Name and Address Organization Details Recorded Time 5 text/html DiabetesReported by PatientHPIFor associated symptoms, [...] very well controlled now. Reina Gregg MD [address] [place] [address], [phone], [facility] 02/03/2025 11:28:53 OBGyn Episode No OBEpisode recorded.
--- OUTSIDE RECORDS SUMMARY | 2025-04-22 00:43 | XMS_ITS | Encounter Summary ---
Author Organization [facility] [facility], [facility] Address [address] [place] [address] Phone Care Team Providers Care Security Auditor Name Role Phone Jhony Cantu MD Primary Care Provider Encounter Details Date Type Department Care Team (Late st Contact Info) Description 01/28/2021 Orders Only [facility] [employer] [address] [facility] [address] [place] [address] Stage 3 chronic kidney disease, [...] (HCC) documented in this encounter Care Teams Security Auditor Relationship Specialty Start Date End Date Jhony Cantu MD [address] [facility] [place] [address] PCP - General Family Medicine 01/28/21 documented as of this encounter
--- OUTSIDE RECORDS SUMMARY | 2025-04-22 00:43 | XMS_ITS | Continuity of Care Document ---
Author Organization [facility] Mario [facility] Christa Corrales, [facility] ([facility]) Address [address] [place] [address] Care Team Providers Care Rn Traveling Name Role Phone REINA CANTU Primary Care Provider Assessment No assessment recorded. Plan of Treatment Reminders Order Date Submit Date Provider Last Modified By Organization Details Last Modified Time Details Appointments OFFICE VISIT CRISTINO 2024 09:30A M Reina Cantu MD Not available Not available Not available Lab None recorded. Referral None recorded. Procedures None recorded. Surgeries None recorded. Imaging None recorded. Medication Orders fluticaso ne propionat e 50 mcg/actua tion nasal spray,minnie pension 2024 025 [facility] #[id number], [address] [facility] [address], [facility] [address], [place], [address], 02/18/2025 12:04:46 fluoxetin e 40 mg capsule 2024 025 [id number] [address] [facility] [address], [facility], [place], [address], 03/17/2025 09:47:20 Abilify 5 mg tablet 2024 025 [id number], [address], [facility] [address], [address], 02/18/2025 12:03:02 Patient TargetsNo targets recorded. Patient InstructionsNo instructions recorded. Reason for Referral None Reported. Results Created Date Observation Date Name Description Value Unit Range Abnormal Flag Note LastModifiedBy Organization Detail LastModifiedTime 01/27/20 25 01/26/2025 US, echoc ardio gram No observ ation record ed. [address] Imaging Orders [address] [place], [address], 02/03/2025 11:12:32 02/03/20 25 02/02/2025 DEXA No observ ation record ed. [address] [facility], [place], [address], 02/03/2025 11:12:24 Result Notes None recorded. Problems Name Problem SNOMED Code Status Onset Date Resolution Date Notes Provider Name and Address Organization Details Recorded Time Type 2 diabetes mellitus without complica tion 357118924 Completed 202111/03/2021 DIABETES MELLITUS , TYPE II - Status is Inactive ; Recorded 11/04/19 11:14AM by Betzy Perry LPN, Annotati on/Adden dum; Promoted ; acuity set as *; Not Available [facility] 03:07:34 Restrict cabrera lung disease 00623648 Active 2021 Restrict cabrera lung disease; 05/04/20 9:09AM by Betzy Perry LPN, Office Visit; Promoted ; acuity set as *; Jyotsna hadley [facility] 5 11:20:19 Chronic kidney disease stage 3B 916083461 Active 2021 Jyotsna hadlye [facility] 5 11:20:19 Pulmonar y hyperten altaf 27973183 Active 2021 PULMONAR Y HYPERTEN ALTAF; Recorded 05/04/20 7:34AM by Betzy Perry LPN, Office Visit; Promoted ; acuity set as *; Jyotsna hadley [facility] 5 11:20:19 Hyperten sive disorder 89276031 Active 2021 HYPERTEN ALTAF; Recorded 05/04/20 7:36AM by Betzy Perry LPN, Office Visit; Promoted ; acuity set as *; Jyotsna hadley, [facility] 5 11:20:19 Aortic stenosis , non-rheu matic 613944513 Active 2021 MODERATE AORTIC STENOSIS ; Recorded 05/04/20 7:34AM by Betzy Perry LPN, Office Visit; Promoted ; acuity set as *; Jyotsna hadley, [facility] 5 11:20:19 Type 2 diabetes mellitus 37538980 Active 2022 BETZY PERRY [facility], [facility] 3 10:36:22 Chronic obstruct cabrera pulmonar y disease 54066436 Active 2022 BETZY hadley, [facility] 3 10:36:29 Chronic diastoli c heart failure 465998969 [facility] 20[facility] 10:36:44 Obstruct cabrera sleep apnea syndrome 80669198 Active 2022 [facility] 10:36:57 Major depressi ve disorder 266334371 Active 2022 BETZY hadley, [facility] 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 5 11:20:19 Moderate aortic valve stenosis 164130909 Active 2023 Jyotsna hadley, [facility] 5 11:20:19 Chronic kidney disease due to type 2 diabetes mellitus 90657566608 8 Active 2023 Jyotsna hadley, [facility] 5 11:20:19 Nicotine dependen ce 91216219 Active 2023 Jyotsna Donald null, [facility] 5 11:20:19 Gout 62820389 Active 2023 Jyotsna Donald null, [facility] 5 11:20:19 Screenin g mammogra phy Completed 202309/19/2024 Jyotsna hadley, [facility] 5 11:20:24 Patient noncompl iance - general 260815927 Active 2023 Reina Cantu MD [address] [place] [address], [phone] , [facility] 5 10:01:47 Thyroid nodule 622364633 Active 2023 Jyotsna hadley, [facility] 5 11:20:19 Dependen t personal ity disorder 34429708 Active 2023 Reina Cantu MD [address] [place] [address], [phone] , [facility] 5 09:41:30 Severe obesity 04312943558 104 Active 2023 Jyotsna hadley, [facility] 5 11:20:19 Essentia l hyperten altaf 54627819 Active 2024 Jyotsna Donald null, [facility] 5 11:20:19 Enmeshed attachme nt 205396580 Active 2024 Jyotsna Donald [facility] 5 11:20:19 Senile osteopor osis 72079885 Active 2024 Reina Cantu MD [address] [place] [address], [phone] , [facility] 11:17:47 Problem Notes None recorded. Procedures Surgical History Date Name Laterality Status Provider Name and Address Organization Details Recorded Time 06/12/19 25 echocardiography completed [facility] 06/13/2024 14:13:16 03/02/20 22 Colonoscopy completed [facility] 02/04/2024 11:38:33 Tubal Ligation completed [facility] 02/04/2024 11:37:27 arthroscopy of knee completed Agnes Zamorano [facility] 11/25/2024 10:34:22 Imaging Results None recorded. Procedure Notes None recorded. Medical Equipment None Reported. Allergies Allergen ID Allergen Name Allergen Category Reaction Reaction Severity Criticality Documentation Date Start Date Code Code System Note Provider Name and Address Organization Details Recorded Time 157 lisinopri l medicatio n Not available Not available Not available 08/08/2022 12703 RxNorm BETZY VICKY hadley [facility] 3 10:35:58 158 Product containin g penicilli n (product) medicatio n Not available Not available Not available 08/08/2022 29177 8001 SNOMED BETZY VICKY hadley [facility] 3 10:36:06 06945 penicilli n V potassium medicatio n Not available Not available Not available 12/16/202287533 5 RxNorm Comme nt: Recor ded 05/04 7:34A M by Cornelia Brar on, REORDERING CLERK, Offic e Visit ; Promo laura; Fiorella hinojosa ce: *; Reaso n: Drug aller gy; ; BETZY PERRY [facility], [facility] 4 11:35:46 11604 amoxicill in medicatio n Not available Not available Not available 04/07/2025 723 RxNorm Not Available kulwinder - External Data Service - prod 15:01:08 54942 penicilli n V Not available Not available [...] UNDER THE SKIN ONCE A WEEK STOP MADELINE 10/28 completed Not Available Not Available Not Available Vitals Date Recorded Body height Body mass index (BMI) Body weight Body temperature Oxygen saturation Heart rate Oxygen saturation Inhaled oxygen flow rate Systolic And Diastolic Provider Name and Address Organization Details Last Updated DateTime 152.4 cm 45.1 kg/m2 130142. 84 g 97.5 [degF] 83 % 77 /min 89 % 2 L/min 158/94 mm[Hg] Jyotsna Shabana [facility] 11:48:02 Social History Question Answer Notes LastModified by Quick Key Details LastModified Time Tobacco Smoking Status Current Every Day [facility] 08/08/2022 10:41:53 What Was The Date Of Your Most Recent Tobacco Screening? 10/28/2024 [email or web address] Information not available 10/28/2024 What Is Your Current Pack Years? 30ormorepack years [email or web address] Information not available 12/12/2022 How Much Tobacco Do You Smoke? 0.5 PPD [email or web address] Information not available 02/03/2025 Has Tobacco Cessation Counseling Been Provided? Yes Information not available 08/08/2022 How Many Years Have You Smoked Tobacco? 50 [email or web address] Information not available 12/12/2022 Sex: Unknown Functional Status Question Answer Note LastModified by Quick Key Details LastModified Time Do you use any illicit or recreational drugs? No Information not available 09/15/2024 Do you or have you ever used any other forms of tobacco or nicotine? No [email or web address] Information not available 01/14/2025 What is your level of alcohol consumption? None Information not available 09/15/2024 Do you or have you ever used any nicotine-free cigarettes, vape, or chewing tobacco? No [email or web address] Information not available 01/14/2025 Mental Status None recorded. Family History Relationship Description Onset Age of this Age Resolved Age Notes LastModified by Organization Details LastModified Time Mother Type 2 diabetes mellitus [email or web address] Not available 08/08 10:39:20 Brother Type 1 diabetes mellitus [email or web address] Not available 08/08 10:39:30 Brother Coronary atherosclero sis [email or web address] Not available 08/08 10:40:16 Medical History No medical history recorded. Gynecological HistoryNo gynecological history recorded. Obstetrics History GPAL:G 0 P 0 0 0 0 Immunizations Vaccine Type Date Status Note Provider Nam e and Address Organization Details Recorded Time Influenza, split virus, trivalent, preservative 2 completed Not Available [facility] 12/16/2022 02:45:55 pneumococcal polysaccharide PPV23 5 completed Not Available [facility] 12/16/2022 02:45:56 Influenza, split virus, trivalent, preservative 1 completed Not Available [facility] 12/16/2022 02:45:57 Influenza, split virus, trivalent, preservative 4 completed Not Available [facility] 12/16/2022 02:45:57 Influenza, split virus, trivalent, preservative 2 completed Not Available [facility] 12/16/2022 02:45:57 pneumococcal polysaccharide PPV23 0 completed Not Available [facility] 12/16/2022 02:45:57 Influenza, split virus, trivalent, preservative 1 completed Not Available [facility] 12/16/2022 02:45:57 Influenza, adjuvanted, trivalent, PF 5 completed BETZY hadley [facility] 02/03/2025 11:57:54 Tdap 5 completed BETZY hadley [facility] 02/03/2025 11:58:07 Influenza, split virus, trivalent, PF 5 completed Not Available [facility] 03/19/2025 13:07:42 COVID-19, mRNA, LNP-S, PF, 100 mcg/0.5mL dose or 50 mcg/0.25mL dose 1 completed BETZY hadley [facility] 10/17/2022 10:36:10 COVID-19, mRNA, LNP-S, PF, 100 mcg/0.5mL dose or 50 mcg/0.25mL dose 1 completed BETZY PERRY [facility], [facility] 10/17/2022 10:36:10 COVID-19, mRNA, LNP-S, PF, 100 mcg/0.5mL dose or 50 mcg/0.25mL dose 2 completed BETZY PERRY [facility], [facility] 10/17/2022 10:36:10 COVID-19, mRNA, LNP-S, PF, 100 mcg/0.5mL dose or 50 mcg/0.25mL dose 1 completed BETZY PERRY [facility] 10/17/2022 10:36:10 COVID-19, mRNA, LNP-S, bivalent, PF, 50 mcg/0.5 mL or 25mcg/0.25 mL dose 2 completed BETZY PERRY [facility] 10/17/2022 10:36:10 pneumococcal polysaccharide PPV23 7 completed BETZYNEGAR PERRY [facility] 10/17/2022 10:36:10 pneumococcal polysaccharide PPV23 4 completed BETZY PERRY [facility] 10/17/2022 10:36:10 Tdap 9 completed BETZY PERRY [facility] 10/17/2022 10:36:10 Influenza, split virus, trivalent, preservative 4 completed BETZY PERRY [facility], [facility] 10/17/2022 10:36:10 Influenza, split virus, trivalent, PF 6 completed BETZY PERRY [facility], [facility] 10/17/2022 10:36:10 Influenza, split virus, trivalent, PF 5 completed BETZY hadley, [facility] 10/17/2022 10:36:10 Influenza, split virus, quadrivalent, PF 7 completed BETZY hadley, [facility] 10/17/2022 10:36:10 Pneumococcal conjugate PCV20, polysaccharide [id number] conjugate, adjuvant, PF 5 completed BETZY hadley, [facility] 06/17/2024 11:50:33 Influenza, adjuvanted, trivalent, PF 5 completed BETZY hadley, [facility] 06/17/2024 13:05:10 Past Encounters Encounter ID Performer Location Encounter Start Date Encounter Closed Date Diagnosis/Indication Diagnosis SNOMED-CT Code Diagnosis ICD10 Code Diagnosis IMO Codes Diagnosis Note [id number] Reina Cantu MD [facility] ([facility]) [address] [place] [address] 02/03/2025 10:43:19 02/04/2025 11:07:49 Chronic diastolic heart failure 255001022 I50.32 echo stable valve stable Pulmonary hypertension 58115652 I27.20 Chronic ob structive pulmonary disease 66404912 J44.9 Requires i nfluenza virus vaccination 392459976 Z23 842897 Senile osteoporosis 1804 0001 M81.0 4280934 she does take her vit d3 daily Aortic shamika nosis, non-rheumatic 901797740 I35.0 Hyperparat hyroidism due to renal insufficiency 42822652 N25.81 Chronic ki dney disease stage 3B 097983534 N18.32 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 6156051642 08 E11.22 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 Patient no ncompliance - general 028782074 Z91.585 7123996 Tobacco user 316021251 F 17.200 43625 Requires d iphtheria, tetanus and pertussis vaccination 406010967 Z23 897181 [id number] Reina Cantu MD [facility] ([facility]) [address] [place] [address] 02/18/2025 11:27:02 02/23/2025 13:33:19 Generalized anxiety disorder 85997864 F41.1 Severe pauly or depression 926442586 F32.2 279353 Nasal congestion 5780556 0 R09.81 05773 Health Concerns Section Related Observation LastModified by Organization Detai ls LastModified Time None Recorded Concern Status LastModified by Organization Details LastModified Time None Recorded Payers Encounter Date Sequence Insurance Name Policy Number Policy [place] Covered Member ID [place] Member ID Guarantor Name 02/18/2025 2 [place] Bridget Hartmana [id number] Bridget Hartmana 02/18/2025 1 [facility] [place] DV[place] - [place]MO) [employer] Bridget Nevarez Neyda [id number] Bridget Nevarez Neyda Notes Date Note Type Note Provider Name and Address Organization Details Recorded Time 02/18/2025 text/html Pt was brought into the crisis [...] daily. she is never by herself. her pagzsri-bk-rmn is always there. she is not hearing voices or seeing anything. no one is out to get her or harm her. she does not seem to have any delusional thoughts and wants to get well. Reina Cantu MD [address] [place] [address], [phone], [facility] 02/18/2025 12:04:45 OBGyn Episode No OBEpisode recorded.
--- OUTSIDE RECORDS SUMMARY | 2025-04-22 00:43 | XMS_ITS | Continuity of Care Document ---
Author Organization SPENCER Mario Newton [facility] Christa Corrales, [facility] ([facility]) Address [address] [place] [address] Care Team Providers Care Mail Distribution Clerk Name Role Phone REINA GREGG Primary Care Provider Assessment Encounter Date Assessment Date Assessment LastModified by Organization Details LastModified Time 03/19/2025 03/19/2025 we went through her meds one by one. we discussed the risks of not taking each one. keep f/u in 6 weeks f/u right away or to er if sx's worsen [email or web address] Not available 03/19/2025 09:28:41 Plan of Treatment Reminders Order Date Submit Date Provider Last Modified By Organization Details Last Modified Time Details Appointments OFFICE VISIT CRISTINO 2024 09:30A Melo Gregg MD Not available Not available Not available Lab respirato ry pathogens DNA and RNA panel, PCR, nasophary nx 2024 025 [email or web address] [facility] ([facility]), [address] [place], [address], 03/19/2025 10:00:08 Referral None recorded. Procedures None recorded. Surgeries None recorded. Imaging None recorded. Medication Orders azithromy clary 250 mg tablet 2024 025 [facility][id number], [address], [address], 03/19/2025 10:00:35 Mucinex 600 mg tablet, extended release 2024 025 [id number], [address] [facility] [address], [place], [address], 03/19/2025 10:00:35 melatonin 10 mg tablet 2024 025 [email or web address] [id number], [address] [facility], [facility] [address], [place], [address], 03/19/2025 10:00:07 Patient TargetsNo targets recorded. Patient InstructionsNo instructions recorded. Reason for Referral None Reported. Results Created Date Observation Date Name Description Value Unit Range Abnormal Flag Note LastModifiedBy Organization Detail LastModifiedTime 03/19/2003/19/2025 respi rator y patho gens DNA and RNA panel , PCR, nasop haryn x Covid negati ve Not Available [facility] ([facility]) [address] [place], [address], 03/19/2025 09:18:31 03/19/2003/19/2025 respi rator y patho gens DNA and RNA panel , PCR, nasop haryn x Rhinovirus negati ve Not Available [facility] ([facility]) [address] [place], [address], 03/19/2025 09:18:31 03/19/2003/19/2025 respi rator y patho gens DNA and RNA panel , PCR, nasop haryn x Influenza A negati ve Not Available [facility] ([facility]) [address] [place], [address], 03/19/2025 09:18:31 03/19/2003/19/2025 respi rator y patho gens DNA and RNA panel , PCR, nasop haryn x Influenza B negati ve Not Available [facility] ([facility]) [address] [place], [address], 03/19/2025 09:18:31 03/19/20 25 03/19/2025 respi rator y patho gens DNA and RNA panel , PCR, nasop haryn x RSV negati ve Not Available [facility] ([facility]) [address] [place] [address], [address], 03/19/2025 09:18:31 Result Notes None recorded. Problems Name Problem SNOMED Code Status Onset Date Resolution Date Notes Provider Name and Address Organization Details Recorded Time Type 2 diabetes mellitus without complica tion 146040057 Completed 202111/03/2021 DIABETES MELLITUS , TYPE II - Status is Inactive ; Recorded 11/04/19 11:14AM by Betzy Perry LPN, Annotati on/Adden dum; Promoted ; acuity set as *; Not Available [facility] 3 03:07:34 Restrict cabrera lung disease 55350684 Active 2021 Restrict cabrera lung disease; 05/04/20 9:09AM by Betzy Perry LPN, Office Visit; Promoted ; acuity set as *; Jyotsna hadley, [facility] 5 11:20:19 Chronic kidney disease stage 3B 847754531 Active 2021 [facility] 11:20:19 Pulmonar y hyperten altaf 82788758 Active 2021 PULMONAR Y HYPERTEN ALTAF; Recorded 05/04/20 22 7:34AM by Betzy Perry LPN, Office Visit; Promoted ; acuity set as *; Jyotsna hadley [facility] 5 11:20:19 Hyperten sive disorder 78628776 Active 2021 HYPERTEN ALTAF; Recorded 05/04/20 22 7:36AM by Betzy Perry LPN, Office Visit; Promoted ; acuity set as *; Jyotsna hadley [facility] 5 11:20:19 Aortic stenosis , non-rheu matic 839942121 Active 2021 MODERATE AORTIC STENOSIS ; Recorded 05/04/20 7:34AM by Betzy Perry LPN, Office Visit; Promoted ; acuity set as *; Jyotsna hadley, [facility] 5 11:20:19 Type 2 diabetes mellitus 31282003 Active 2022 BETZY hadley, [facility] 3 10:36:22 Chronic obstruct cabrera pulmonar y disease 86361263 Active 2022 BETZY hadley, [facility] 3 10:36:29 Chronic diastoli c heart failure 580559787 Active 2022 BETZY hadley, [facility] 3 10:36:44 Obstruct cabrera sleep apnea syndrome 03785127 Active 2022 BETZY hadley, [facility] 3 10:36:57 Major depressi ve disorder 008705799 Active 2022 BETZY hadley, [facility] 3 10:37:20 Hyperpar athyroid ism due to renal insuffic iency 91486028 Active 2023 Jyotsna hadley, [facility] 5 11:20:19 Moderate aortic valve stenosis 383509912 Active 2023 Jyotsna hadley, [facility] 5 11:20:19 Chronic kidney disease due to type 2 diabetes mellitus 43753608797 8 Active 2023 Jyotsna hadley, [facility] 5 11:20:19 Nicotine dependen ce 03538220 Active 2023 Jyotsna Castrooch null, [facility] 5 11:20:19 Gout 27403591 Active 2023 Jyotsna Shabana null, [facility] 5 11:20:19 Screenin g mammogra phy Completed 202309/19/2024 Jyotsna Castrooch null, [facility] 5 11:20:24 Patient noncompl iance - general 092648647 Active 2023 Reina Gregg MD [address] [place] [address], [phone] , [facility] 5 10:01:47 Thyroid nodule 496567711 Active 2023 Jyotsna Castrooch null, [facility] 5 11:20:19 Dependen t personal ity disorder 64467444 Active 2023 Reina Gregg MD [address] [place] [address], [phone] , [facility] 5 09:41:30 Severe obesity 88601763881 104 Active 2023 Jyotsna Castrooch null, [facility] 5 11:20:19 Essentia l hyperten altaf 17955688 Active 2024 Jyotsna Shabana null, [facility] 5 11:20:19 Enmeshed attachme nt 266085068 Active 2024 Jyotsna Castrooch null, [facility] 5 11:20:19 Senile osteopor osis 90771066 Active 2024 Reina Gregg MD [address] [place] [address], [address] , [facility] 5 11:17:47 Problem Notes None recorded. Procedures Surgical History Date Name Laterality Status Provider Name and Address Organization Details Recorded Time 06/12/19 25 echocardiography completed BETZY PERRY [facility] 06/13/2024 14:13:16 03/02/20 22 Colonoscopy completed BETZY [facility] 02/04/2024 11:38:33 Tubal Ligation completed [facility] 02/04/2024 11:37:27 arthroscopy of knee completed Agnes Zamorano [facility] 11/25/2024 10:34:22 Imaging Results None recorded. Procedure Notes None recorded. Medical Equipment None Reported. Allergies Allergen ID Allergen Name Allergen Category Reaction Reaction Severity Criticality Documentation Date Start Date Code Code System Note Provider Name and Address Organization Details Recorded Time 157 lisinopri l medicatio n Not available Not available Not available 08/08/2022 06009 RxNorm BETZY hadley [facility] 3 10:35:58 158 Product containin g penicilli n (product) medicatio n Not available Not available Not available 08/08/2022 55954 8001 SNOMED BETZY hadley [facility] 3 10:36:06 95124 penicilli n V potassium medicatio n Not available Not available Not available 12/16/2022 56953 5 RxNorm Comme nt: Recor ded 05/04 7:34A M by Cornelia Brar on, ANTIQUER, Offic e Visit ; Promo laura; Beverleyi ashish ce: *; Reaso n: Drug aller gy; ; BETZY hadley [facility] 4 11:35:46 01465 amoxicill in medicatio n Not available Not available Not available 04/07/2025 723 RxNorm Not Available [email or web address] - External Data Service - prod 15:01:08 77635 penicilli n V Not available Not available [...] Organization Details Last Updated DateTime 152.4 cm 43.2 kg/m2 855075. 91 g 97.5 [degF] 85 /min 90 % 148/87 mm[Hg] BETZY PERRY [facility] 09:07:35 Social History Question Answer Notes LastModified by [employer] Details LastModified Time Tobacco Smoking Status Current Every Day Smoker BETZY PERRY [facility] 08/08/2022 10:41:53 What Was The Date Of Your Most Recent Tobacco Screening? 10/28/2024 Information not available 10/28/2024 What Is Your Current Pack Years? 30ormorepack years [email or web address] Information not available 12/12/2022 How Much Tobacco Do You Smoke? 0.5 PPD [email or web address] Information not available 02/03/2025 Has Tobacco Cessation Counseling Been Provided? Yes Information not available 08/08/2022 How Many Years Have You Smoked Tobacco? 50 [email or web address] Information not available 12/12/2022 Sex: Unknown Functional Status Question Answer Note LastModified by [employer] Details LastModified Time Do you use any illicit or recreational drugs? No Information not available 09/15/2024 Do you or have you ever used any other forms of tobacco or nicotine? No [email or web address] Information not available 01/14/2025 What is your level of alcohol consumption? None Information not available 09/15/2024 Do you or have you ever used any nicotine-free cigarettes, vape, or chewing tobacco? No [email or web address] Information not available 01/14/2025 Mental Status None recorded. Family History Relationship Description Onset Age of this Age Resolved Age Notes LastModified by Organization Details LastModified Time Mother Type 2 diabetes mellitus [email or web address] Not available 08/08 10:39:20 Brother Type 1 diabetes mellitus [email or web address] Not available 08/08 10:39:30 Brother Coronary atherosclero sis [email or web address] Not available 08/08 10:40:16 Medical History No [...] adjuvanted, trivalent, PF 5 completed BETZY hadley, [facility] 02/03/2025 11:57:54 Tdap 5 completed BETZY hadley, [facility] 02/03/2025 11:58:07 Influenza, split virus, trivalent, PF 5 completed Not Available [facility] 03/19/2025 13:07:42 COVID-19, mRNA, LNP-S, PF, 100 mcg/0.5mL dose or 50 mcg/0.25mL dose 1 completed BETZY hadley, [facility] 10/17/2022 10:36:10 COVID-19, mRNA, LNP-S, PF, 100 mcg/0.5mL dose or 50 mcg/0.25mL dose 1 completed BETZY hadley, [facility] 10/17/2022 10:36:10 COVID-19, mRNA, LNP-S, PF, 100 mcg/0.5mL dose or 50 mcg/0.25mL dose 2 completed BETZY PERRY null, [facility] 10/17/2022 10:36:10 COVID-19, mRNA, LNP-S, PF, 100 mcg/0.5mL dose or 50 mcg/0.25mL dose 1 completed BETZY PERRY null, [facility] 10/17/2022 10:36:10 COVID-19, mRNA, LNP-S, bivalent, PF, 50 mcg/0.5 mL or 25mcg/0.25 mL dose 2 completed BETZY PERRY null, [facility] 10/17/2022 10:36:10 pneumococcal polysaccharide PPV23 7 completed BETZY PERRY null, [facility] 10/17/2022 10:36:10 pneumococcal polysaccharide PPV23 4 completed BETZY PERRY null, [facility] 10/17/2022 10:36:10 Tdap 9 completed BETZY PERRY null, [facility] 10/17/2022 10:36:10 Influenza, split virus, trivalent, preservative 4 completed BETZY PERRY null, [facility] 10/17/2022 10:36:10 Influenza, split virus, trivalent, PF 6 completed BETZY PERRY null, [facility] 10/17/2022 10:36:10 Influenza, split virus, trivalent, PF 5 completed BETZY PERRY null, [facility] 10/17/2022 10:36:10 Influenza, split virus, quadrivalent, PF 7 completed BETZY PERRY null, [facility] 10/17/2022 10:36:10 Pneumococcal conjugate PCV20, polysaccharide TSX365 conjugate, adjuvant, PF 5 completed BETZY hadley, [facility] 06/17/2024 11:50:33 Influenza, adjuvanted, trivalent, PF 5 completed BETZY hadley, [facility] 06/17/2024 13:05:10 Past Encounters Encounter ID Performer Location Encounter Start Date Encounter Closed Date Diagnosis/Indication Diagnosis SNOMED-CT Code Diagnosis ICD10 Code Diagnosis IMO Codes Diagnosis Note [id number] Reina Gregg MD [facility] ([facility]) [address] [place] [address] 02/18/2025 11:27:02 02/23/2025 13:33:19 Generalized anxiety disorder 43235980 F41.1 Severe pauly or depression 184608364 F32.2 759684 Nasal congestion 7653523 0 R09.81 [id number] Reina Gregg MD [facility] ([facility]) [address] [place] [phone] 03/19/2025 09:01:25 03/19/2025 14:12:41 Acute exacerbation of chronic obstructive pulmonary disease 701283249 J44.1 732941 Chronic insomnia 6059533 04 F51.04 197981 Health Concerns Section Related Observation LastModified by Organization Detai ls LastModified Time None Recorded Concern Status LastModified by Organization Details LastModified Time None Recorded Payers Encounter Date Sequence Insurance Name Policy Number Policy Blackburn Covered Member ID Blackburn Member ID Guarantor Name 03/19/2025 2 [place] Bridget Nevarez Neyda [id number] Bridget Nevarez Neyda 03/19/2025 1 [facility]A DVANTAGE - HMO) [employer] Bridget S Neyda [id number] Bridget S Neyda Notes Date Note Type Note Provider Name and Address Organization Details Recorded Time 5 text/htm l Anxiety/DepressionReported by PatientHPIFor severity, [...] no increased dyspneaROS as noted in the [facility] hospital f/u: went to the ER after having suicidal ideations. Reina Gregg MD [address] [place] [address], [phone], [facility] 03/19/2025 10:00:45 OBGyn Episode No OBEpisode recorded.
[2025-04-22 00:52] LABS: Hematocrit 42.8 % (36-47); Hemoglobin 13.10 g/dL (11.27-16.99); Mean Corpuscular HGB Conc 30.6 g/dL (30-55); Mean Corpuscular Hemoglobin 25.0 pg (27-33); Mean Corpuscular Volume 81.5 fl (85-98); Nucleated Red Blood Cells % 0 %; Platelet Count 330 10^3/cmm (157-399); Red Blood Count 5.25 10^6/uL (3.85-5.65); White Blood Count 14.52 10^3/uL (3.29-11.43)
[2025-04-22 01:08] LABS: Alanine Aminotransferase 13 U/L (0-33); Albumin Level 3.1 g/dL (3.5-5.2); Alkaline Phosphatase 154 U/L (35-105); Anion Gap 13.7 (5-19); Aspartate Amino Transferase 13 U/L (0-32); Blood Urea Nitrogen 23 mg/dL (8-23); Calcium 8.2 mg/dL (8.5-10.5); Carbon Dioxide 28 mmol/L (22-29); Chloride 94 mmol/L (98-107); Globulin 4.3 g/dL (1.3-4.6); Glucose 135 mg/dL (65-115); Osmolality Calculated 280 mOsm/kg (285-295); Potassium 3.7 mmol/L (3.5-5.1); Sodium 132 mmol/L (136-145); Total Protein 7.4 g/dL (6.6-8.7)
[2025-04-22 01:54] LABS: Glucose Urine UA Negative (Normal); Nitrate Urine Negative (Negative); Specific Gravity, Urine 1.008 (1.005-1.030)
[2025-04-22] MEDS: iohexol 350 mg/mL 500 mL Btl (per mL) IV (01:54)
[2025-04-22] MEDS: iohexol 350 mg/mL 500 mL Btl (per mL) PO (01:55)
[2025-04-22 02:07] VITALS: BP 107/58; PULSE 69; O2SAT 97
[2025-04-22 02:53] VITALS: BP 149/53; PULSE 74; O2SAT 96
[2025-04-22] MEDS: lactulose oral liq 20 gm/30 mL UDC 30 GM PO (04:06)
[2025-04-22 04:23] VITALS: BP 150/63; PULSE 71; O2SAT 99
== END 2025-04-22 04:20 | disposition home or self-care (01) ==
PROVIDERS: Emergency Provider Student in an Organized Health Care Education/Training Program; PCP Family Medicine
DX: N28.89 Other specified disorders of kidney and ureter (principal); K59.00 Constipation, unspecified; Z79.4 Long term (current) use of insulin; F17.210 Nicotine dependence, cigarettes, uncomplicated; J44.9 Chronic obstructive pulmonary disease, unspecified; E11.22 Type 2 diabetes mellitus with diabetic chronic kidney disease; I13.0 Hypertensive heart and chronic kidney disease with heart failure and stage 1 through stage 4 chronic kidney disease, or unspecified chronic kidney disease; N18.30 Chronic kidney disease, stage 3 unspecified; I50.9 Heart failure, unspecified; E78.5 Hyperlipidemia, unspecified
CPT/HCPCS: 74177; 80053; 81001; 85025; 99285; J9999